=== PATIENT | female | born 1975 | race Caucasian/White ===

== ENCOUNTER → 2020-03-19 14:10 | Outpatient (BNVA) | payer MEDICAID, SELFPAY | PROVIDERS: PCP Nurse Practitioner Family; Visit Provider Orthopaedic Surgery | DX: M17.0 Bilateral primary osteoarthritis of knee (principal) | CPT/HCPCS: 99213 ==

== ENCOUNTER 2020-04-15 14:39 | Outpatient (REF) | payer MEDICAID, SELFPAY ==
[2020-04-16 02:27] LABS: CT PCR NOT DETECTED (Not Detect.); NG PCR NOT DETECTED (Not Detect.)
[2020-04-16 11:20] LABS: BV Int Neg Control Negative (Negative); BV Int Pos Control Positive (Positive)
== END 2020-04-15 14:40 | disposition home or self-care (01) ==
LOC: HO.LAB 14:39
PROVIDERS: PCP Nurse Practitioner Family; Visit Provider Advanced Practice Midwife
DX: R10.2 Pelvic and perineal pain (principal); R39.89 Other symptoms and signs involving the genitourinary system
CPT/HCPCS: 87480; 87491; 87510; 87591; 87660; 99212

== ENCOUNTER → 2020-04-20 10:48 | Outpatient (BNVA) | payer MEDICAID, SELFPAY | PROVIDERS: PCP Nurse Practitioner Family; Referring Provider Nurse Practitioner Family; Visit Provider Internal Medicine Endocrinology, Diabetes & Metabolism | DX: E05.00 Thyrotoxicosis with diffuse goiter without thyrotoxic crisis or storm (principal); E27.8 Other specified disorders of adrenal gland; E66.9 Obesity, unspecified; E04.2 Nontoxic multinodular goiter; E55.9 Vitamin D deficiency, unspecified | CPT/HCPCS: 99212 ==

== ENCOUNTER 2020-04-21 08:28 | Outpatient (REF) | payer MEDICAID, SELFPAY ==
[2020-04-21 10:07] LABS: Alanine Aminotransferase 13 U/L (0-31); Albumin Level 3.9 g/dL (3.5-5.0); Alkaline Phosphatase 79 U/L (39-117); Anion Gap 10 (12-20); Aspartate Amino Transferase 15 U/L (5-31); Bilirubin Total 0.7 mg/dL (0.0-1.0); Blood Urea Nitrogen 11 mg/dL (9-16); Calcium 8.5 mg/dL (8.4-10.2); Carbon Dioxide 28 mmol/L (22-29); Chloride 105 mmol/L (96-108); Estimated Glomerular Filt Rate > 60; Glucose Fasting 94 mg/dL (60-99); Potassium 4.3 mmol/l (3.3-5.1); Sodium 139 mmol/L (135-145); Total Protein 7.3 g/dL (6.5-8.0)
[2020-04-21 10:30] LABS: Free T4 (Free Thyroxine) 1.12 ng/dL (0.71-1.85); Thyroid Stimulating Hormone 1.47 mIU/mL (0.32-4.0); Vitamin D 25-OH Total 21.1 ng/mL (>30)
--- NOTE | 2020-04-21 14:30 | US_ITS ---
EXAMINATION: US PELVIS COMPLETE CLINICAL INFORMATION: Pelvic and perineal pain. COMPARISON: None TECHNIQUE: Transabdominal and transvaginal imaging of pelvis is performed. FINDINGS: On transabdominal ultrasound the uterus is anteverted and anteflexed measuring 11.0 cm in length, 4.1 cm in AP and 5.2 cm wide. Endometrial thickness is 1.1 cm. Small echogenic calcifications seen in the myometrium. There are small anechoic cysts in cervix. Right ovary measures 2.6 x 1.8 x 2.2 cm and volume 5.4 mL. There is anechoic cyst measuring 1.0 x 1.1 x 1.2 cm. The left ovary measures 2.1 x 1.7 x 1.2 cm and volume 2.2 mL. There is anechoic cyst measuring 1.1 x 1.2 x 1.0 cm. There is no free fluid in the cul-de-sac. US/US transvaginal IMPRESSION: Small nabothian cysts in the cervix. Echogenic calcifications in the myometrium. No focal lesion seen. Bilateral small ovarian cysts. There is no free fluid in the cul-de-sac.
--- NOTE | 2020-04-21 14:30 | US_ITS ---
EXAMINATION: US PELVIS COMPLETE CLINICAL INFORMATION: Pelvic and perineal pain. COMPARISON: None TECHNIQUE: Transabdominal and transvaginal imaging of pelvis is performed. FINDINGS: On transabdominal ultrasound the uterus is anteverted and anteflexed measuring 11.0 cm in length, 4.1 cm in AP and 5.2 cm wide. Endometrial thickness is 1.1 cm. Small echogenic calcifications seen in the myometrium. There are small anechoic cysts in cervix. Right ovary measures 2.6 x 1.8 x 2.2 cm and volume 5.4 mL. There is anechoic cyst measuring 1.0 x 1.1 x 1.2 cm. The left ovary measures 2.1 x 1.7 x 1.2 cm and volume 2.2 mL. There is anechoic cyst measuring 1.1 x 1.2 x 1.0 cm. There is no free fluid in the cul-de-sac. US/US pelvic complete IMPRESSION: Small nabothian cysts in the cervix. Echogenic calcifications in the myometrium. No focal lesion seen. Bilateral small ovarian cysts. There is no free fluid in the cul-de-sac.
[2020-04-22 05:52] LABS: Triiodothyronine T3 Total 122 ng/dL (76-181)
[2020-04-22 09:42] LABS: DHEA Sulfate 513 mcg/dL (19-231)
== END 2020-04-21 08:29 | disposition home or self-care (01) ==
LOC: HO.US 08:28
PROVIDERS: Internal Medicine Endocrinology, Diabetes & Metabolism; PCP Nurse Practitioner Family; Visit Provider Advanced Practice Midwife
DX: R10.2 Pelvic and perineal pain (principal); E05.00 Thyrotoxicosis with diffuse goiter without thyrotoxic crisis or storm; E27.8 Other specified disorders of adrenal gland
CPT/HCPCS: 76830; 76856; 80053; 82306; 82627; 84439; 84443; 84480

== ENCOUNTER → 2020-05-05 11:40 | Outpatient (BNVA) | payer MEDICAID, SELFPAY | PROVIDERS: PCP Nurse Practitioner Family; Visit Provider Advanced Practice Midwife | DX: Z76.89 Persons encountering health services in other specified circumstances (principal) ==

== ENCOUNTER 2020-05-22 09:58 | Outpatient (REF) | payer MEDICAID, SELFPAY | END 2020-05-22 09:59 | disposition home or self-care (01) | LOC: HO.LAB 09:58 | PROVIDERS: PCP Nurse Practitioner Family; Visit Provider Internal Medicine Gastroenterology | DX: Z13.89 Encounter for screening for other disorder (principal) ==

== ENCOUNTER 2020-05-23 07:52 | Outpatient (REF) | payer MEDICAID, SELFPAY ==
[2020-05-23 09:15] LABS: Blood Urea Nitrogen 11 mg/dL (9-16); Estimated Glomerular Filt Rate > 60
[2020-05-23 11:32] LABS: C Reactive Protein 0.21 mg/dL (< or = 0.50)
[2020-05-23 11:42] LABS: Rheumatoid Factor < 15.0 IU/mL (<15.0)
[2020-05-25 14:22] LABS: Immunoglobulin A 604 mg/dL (47-310)
[2020-05-25 15:53] LABS: Adrenocorticotropic Hormone 37 pg/mL (6-50)
[2020-05-25 18:42] LABS: DHEA Sulfate 516 mcg/dL (19-231)
[2020-05-26 12:48] LABS: Transglutaminase Ab IgG 3 U/mL; Transglutaminase IgA 1 U/mL
[2020-05-26 15:33] LABS: Anti Nuclear Antibody Pattern Nuclear, Speckled; Anti Nuclear Antibody Screen POSITIVE (NEGATIVE)
[2020-05-27 16:58] LABS: DNAds, Crithidia Antibody Negative (Negative)
[2020-05-27 17:47] LABS: Dexamethasone <20 ng/dL
== END 2020-05-23 07:53 | disposition home or self-care (01) ==
LOC: HO.LAB 07:52
PROVIDERS: Internal Medicine Endocrinology, Diabetes & Metabolism; PCP Nurse Practitioner Family; Visit Provider Internal Medicine Gastroenterology
DX: K22.4 Dyskinesia of esophagus (principal); R13.14 Dysphagia, pharyngoesophageal phase; E27.8 Other specified disorders of adrenal gland
CPT/HCPCS: 36415; 80299; 82024; 82533; 82550; 82565; 82627; 82784; 83516; 84520; 86038; 86039; 86140; 86255; 86431

== ENCOUNTER 2020-05-25 10:19 | Outpatient (REF) | payer MEDICAID, SELFPAY ==
[2020-05-29 18:57] LABS: Saliva Cortisol <0.03 mcg/dL
== END 2020-05-25 10:20 | disposition home or self-care (01) ==
LOC: HO.LNPL 10:19
PROVIDERS: Visit Provider Internal Medicine Endocrinology, Diabetes & Metabolism
DX: E27.8 Other specified disorders of adrenal gland (principal)
CPT/HCPCS: 82530

== ENCOUNTER 2020-05-26 09:50 | Outpatient (REF) | payer MEDICAID, SELFPAY ==
--- NOTE | 2020-05-26 09:53 | CT_ITS ---
EXAMINATION: CT ABDOMEN WITHOUT AND WITH CONTRAST CLINICAL INFORMATION: Disorders of adrenal gland. COMPARISON: None TECHNIQUE: Contiguous axial thin section helical images of the abdomen were performed before and after the administration of 100 mL of Omnipaque 350 intravenous contrast as per adrenal protocol. The data set was reformatted in the coronal and sagittal planes and reviewed on an independent workstation. This CT examination was performed using dose optimization techniques as appropriate, variously including the following: *Automated exposure control *Adjustment of mA and/or kV according to patient size (this includes techniques or standardized protocols for targeted exams where dose is matched to indication/reason for exam; i.e. extremities or head) *Use of iterative reconstruction technique DLP: 674 mGy-cm FINDINGS: LUNG BASES: The lung bases are expanded and clear. The heart size is normal. LIVER, GALLBLADDER, AND BILIARY TREE: The liver is normal size and contour. There is diffuse attenuation of liver with punctate 2 mm lesion in left hepatic lobe, image 13/7 most likely a small cyst. No additional lesions seen. There is no intrahepatic ductal dilatation. The gallbladder appears nondistended and unremarkable. PANCREAS: The pancreas is normal size and density. No focal lesion seen. SPLEEN: The spleen is normal size and appears unremarkable. ADRENAL GLANDS AND KIDNEYS: Both adrenal glands are normal size, shape and position. No focal lesion seen. Both kidneys are normal size, shape and position. No radiopaque calculi, enhancing renal mass or hydronephrosis seen. There is good opacification of kidney, pelvis and ureters on delayed images without any intraluminal filling defect. BOWEL LOOPS: There is scattered stool in the colon without any distention. The small bowel loops are normal caliber. The stomach is nondistended. LYMPH NODES: Normal VASCULAR: Abdominal aorta and the branches are widely patent.. BONES: There is mild degenerative disc changes at L1-L2 disc level with mild ventral spondylosis. There is a large sclerotic density along the superior endplate of L1 vertebra. CT/CT abdomen wo/w con IMPRESSION: Symmetrical adrenal glands without any focal lesion or enhancement seen. Mild fatty attenuation of liver with likely punctate cyst left hepatic lobe.
[2020-05-26] MEDS: iohexoL 350 MG/ML 100 ML INFUS..BTL 85 ML IV (11:12)
== END 2020-05-26 09:51 | disposition home or self-care (01) ==
LOC: HO.CT 09:50
PROVIDERS: Visit Provider Internal Medicine Endocrinology, Diabetes & Metabolism
DX: E27.8 Other specified disorders of adrenal gland (principal)
CPT/HCPCS: 74170; Q9967

== ENCOUNTER 2020-06-10 07:56 | Outpatient (REF) | payer MEDICAID, SELFPAY ==
--- NOTE | 2020-06-10 08:04 | FL_ITS ---
EXAMINATION: FL BARIUM SWALLOW CLINICAL INFORMATION: Dysphagia COMPARISON: Previous exam March 2018 TECHNIQUE: Barium swallow examination is performed using fluoroscopic evaluation in addition to multiple fluoroscopic spot views. The patient is imaged both upright and prone and using both thick and thin sulfate along with effervescent granules. Patient refused barium tablet. Fluoroscopy time: 1.2 minutes DAP: 5.2 Gycm2 Images: 66 FINDINGS: The swallowing mechanism is normal. No aspiration or penetration is seen. There is mild impression on the posterior cervical esophagus from vertebral body bony osteophyte. Esophageal motility is normal. No hernia, mass or stricture is seen. There is gastroesophageal reflux. FL/FL barium swallow IMPRESSION: Gastroesophageal reflux. Mild impression on the posterior cervical esophagus from cervical spine vertebral body bony osteophyte.
== END 2020-06-10 07:57 | disposition home or self-care (01) ==
LOC: HO.XRAY 07:56
PROVIDERS: PCP Nurse Practitioner Family; Visit Provider Internal Medicine Gastroenterology
DX: R13.14 Dysphagia, pharyngoesophageal phase (principal); K22.4 Dyskinesia of esophagus; R76.8 Other specified abnormal immunological findings in serum
CPT/HCPCS: 74220

== ENCOUNTER 2020-06-14 13:29 | Emergency (ER) | payer MEDICAID, SELFPAY ==
[2020-06-14 14:53] VITALS: BP 149/66; PULSE 98; RESP 18; TEMP 36.9; O2SAT 98; BMI 28.1
--- NOTE | 2020-06-14 16:55 | ED.GENADULT ---
HPI - General Adult General Chief complaint: General Medical Stated complaint: esophageal problem Time Seen by Provider: 06/14/20 16:54 Source: patient Mode of arrival: ambulatory Limitations: no limitations History of Present Illness HPI narrative: 45 y/o female with history of phayngeoesophageal dysphagia, Grave's disease, hx hypoglycemia osteoarthritis who presents with pre-syncopal episode that happened earlier today. She states she felt faint and SOB after she got out of the shower. This has happened before when her blood glucose was low so she drank sugar water. She states she had tingling in her left arm and chest pain. The pain is central and similar to her esophageal pain. She states all of the symptoms are improved but she has residual muscle aches in her neck and arms. For the last 2 weeks she has been unable to tolerate her usual blended food diet and has been drinking protein shakes and eating ice cream only. Her GI specialist is aware and she just had a barrium swallow done on 06/10. She has been able to tolerate PO liquids today. MD complaint: pre-syncope Onset (ago): hour(s) (5) Location: chest, left and upper extremity Radiation: non-radiation Severity: moderate and similar to prior episodes Severity scale (1-10): 5 Quality: aching and sharp Pain Consistency: intermittent and now resolved Relieving factors: none and rest Exacerbating factors: eating Associated symptoms: chest pain and shortness of breath Treatments prior to arrival: none Related Data Home Medications Medication Instructions Recorded Confirmed albuterol sulfate 90 mcg/actuation 2 puff INHALATION Q6H PRN 05/21/20 05/21/20 aerosol inhaler cholecalciferol (vitamin D3) 50 50 mcg PO DAILY 05/21/20 05/21/20 mcg (2,000 unit) capsule Previous Rx's Medication Instructions Recorded dexamethasone 1 mg tablet 1 mg PO ONCE 1 Days #1 tab 04/30/20 metronidazole 0.75 % vaginal gel 1 appful VAGINAL DAILY 5 Days #70 g 05/05/20 metoclopramide HCl 10 mg tablet 10 mg PO .COMPLEX 30 Days #90 tab 05/21/20 Allergies Allergy/AdvReac Type Severity Reaction Status Date / Time No Known Allergies Allergy Verified 03/19/20 14:13 [No Known Allergies*] cbd cream Allergy Hives Uncoded 04/20/20 10:52 Review of Systems Review of Systems: Constitutional: No Fever, No Chills ENT/Mouth: No sore throat, No Rhinorrhea, + Swallowing Difficulty Eyes: No Eye Pain, No Swelling, No Redness Cardiovascular: + Chest Pain, + SOB, No Orthopnea, No Edema Respiratory: No Cough, No Sputum, No Wheezing, No dyspnea Gastrointestinal: No Nausea, No Vomiting, No Diarrhea, No abdominal Pain Musculoskeletal: No joint pain, No Myalgias Skin: No Skin Lesions, No rash Neuro: No Weakness, No Numbness, No Dizziness, + Headache Psych: + Anxiety/Panic, No Depression Heme/Lymph: No Bruising, No Lymphadenopathy Endocrine: No Polyuria, No Polydipsia PMFSH Past Medical History Attestation statement: The following information was validated with the patient. Medical History Degenerative arthritis of knee, bilateral Elevated dehydroepiandrosterone sulfate level Graves disease Non-toxic multinodular goiter Obesity Vitamin D deficiency Surgical History History of tonsillectomy History of tubal ligation Family History Family History Father Diabetes Mother Breast cancer Brother No problems noted. Brother No problems noted. Brother No problems noted. Brother No problems noted. Brother No problems noted. Sister No problems noted. Sister No problems noted. Social History Social History Alcohol intake: never Smoking Status: Never smoker Smoked in Last 30 Days: No Use of substances other than those prescribed or required for medical reasons: No Advance Directives: No Advance Directives Information Provided: Yes Sexual orientation: Straight/Heterosexual Gender identity: female Physical Exam Vital Signs: Vital Signs: Last Vital Signs Temp 98.4 F 06/14/20 14:53 Pulse 98 06/14/20 14:53 Resp 18 06/14/20 14:53 BP 149/66 H 06/14/20 14:53 Pulse Ox 98 06/14/20 14:53 Body Mass Index 28.1 Appearance: Alert. Oriented X3. No acute distress. Eyes: Pupils equal, round and reactive to light. ENT: Pharynx normal. Neck: Normal inspection. Neck supple. CVS: Normal heart rate and rhythm. Pulses normal. Respiratory: No respiratory distress. Breath sounds normal. Abdomen: Soft and nontender. +BS x4 Skin: Skin warm and dry. Normal skin color. Normal skin turgor. No rashes. Extremities: No lower extremity edema. Neuro: Oriented X 3. No motor deficit. No sensory deficit. Course Course Course Narrative: 45 y/o female presenting with pre-syncopal episode this afternoon with associated chest pain, SOB and arm tingling. Extensive 3 year history of dysphasia on blended liquid diet, suspect event was precipitated by hypoglycemic event and exacerbated by anxiety. Her symptoms are greatly improved. Able to drink water here. Exam and VS are reassuring. No cardiac risk factors, doubt ACS or PE. Will get EXG, CXR and basic lab workup. Signed out to [facility] OPERATOR who will assume care. Medical Decision Making Lab Data Result diagrams: 06/14/20 17:29 06/14/20 17:30 ECG Data Attestation: I personally reviewed and interpreted this ECG as follows: Interpretation: normal sinus rhythm, HR 79 bpm, nomral VA interval, normal QTc, no ischemic changes. Discharge Plan Discharge Patient Disposition: Home, Self-Care Prescriptions: No Action dexamethasone 1 mg tablet 1 mg PO ONCE 1 Days Qty: 1 RF: 0 metronidazole [Metrogel Vaginal] 0.75 % gel 1 appful vaginal DAILY 5 Days Qty: 70 RF: 0 albuterol sulfate [ProAir HFA] 90 mcg/actuation HFA aerosol inhaler 2 puff inhalation Q6H PRNRF: 0 cholecalciferol (vitamin D3) 50 mcg (2,000 unit) capsule 50 mcg PO DAILY RF: 0 metoclopramide HCl [Reglan] 10 mg tablet 10 mg PO .COMPLEX 30 Days Qty: 90 RF: 3
--- NOTE | 2020-06-14 17:10 | ECG_ITS ---
Test Reason : SHORTNESS OF BREATH Blood Pressure : / mmHG Vent. Rate : 079 BPM Atrial Rate : 079 BPM P-R Int : 196 ms QRS Dur : 076 ms QT Int : 368 ms P-R-T Axes : 074 044 047 degrees QTc Int : 421 ms Normal sinus rhythm Normal ECG No previous ECGs available Referred By: Tali Dominguez Electronically Signed By:SOSA COOK
--- NOTE | 2020-06-14 17:11 | XR_ITS ---
EXAMINATION: XR CHEST CLINICAL INFORMATION: Shortness of breath COMPARISON: None TECHNIQUE: Frontal portable view of the chest was obtained. 5:42 PM FINDINGS: No significant abnormality is noted involving the heart, lungs, mediastinum, bony thorax or soft tissues. XR/XR chest 1V IMPRESSION: Unremarkable examination.
[2020-06-14 17:35] LABS: MANUAL DIFF FLAG NO
[2020-06-14 17:47] LABS: Basophils Percent Auto 0.4 % (0-2); Eosinophils Absolute Auto 0.1 X10*3/uL (0.0-0.4); Eosinophils Percent Auto 0.8 % (0-4); Hematocrit 40.2 % (37-47); Imm Gran Abs Auto 0.02 X10*3/uL (0.00-0.03); Imm Gran Pct Auto 0.3 % (0.0-0.4); Lymphocytes Absolute Auto 2.1 X10*3/uL (1.2-4.9); Lymphocytes Percent Auto 27.6 % (20-40); Mean Corpuscular HGB Conc 32.3 g/dl (31.0-35.0); Mean Corpuscular Hemoglobin 27.8 pg (27.0-33.0); Mean Corpuscular Volume 86.1 fL (80-98); Mean Platelet Volume 10.4 fL (9.4-12.3); Monocytes Absolute Auto 0.3 X10*3/uL (0.1-1.2); Monocytes Percent Auto 4.1 % (2-11); Neutrophils Absolute Auto 5.1 X10*3/uL (2.0-8.3); Neutrophils Percent Auto 66.8 % (45-73); Platelet Count 247 X10*3/uL (160-400); Red Blood Count 4.67 X10*6/uL (4.20-5.50); White Blood Count 7.6 X10*3/uL (4.8-10.8)
[2020-06-14 18:03] LABS: Anion Gap 11 (12-20); Blood Urea Nitrogen 8 mg/dL (9-16); Calcium 8.8 mg/dL (8.4-10.2); Carbon Dioxide 26 mmol/L (22-29); Chloride 105 mmol/L (96-108); Creatinine Clr Calc Pharmacy 98.8; Estimated Glomerular Filt Rate > 60; Glucose Random 90 mg/dL (60-115); Magnesium 2.2 mg/dL (1.6-2.6); Potassium 4.4 mmol/l (3.3-5.1); Sodium 138 mmol/L (135-145)
[2020-06-14 18:07] LABS: Troponin-I High Sensitivity < 3.5 ng/L (<3.5-17.0)
[2020-06-14 18:45] VITALS: RESP 16
[2020-06-14 20:25] VITALS: BP 128/72; PULSE 82; RESP 17; TEMP 36.9; O2SAT 98
== END 2020-06-14 20:42 | disposition home or self-care (01) ==
PROVIDERS: Physician Assistant; Emergency Provider Emergency Medicine; PCP Nurse Practitioner Family
DX: R55 Syncope and collapse (principal); R07.9 Chest pain, unspecified
CPT/HCPCS: 36415; 71045; 80048; 83735; 84484; 85025; 93005; 99283; 99284

== ENCOUNTER 2020-06-17 15:13 | Emergency (ER) | payer MEDICAID, SELFPAY ==
--- NOTE | 2020-06-17 | XR_ITS ---
EXAMINATION: XR CHEST CLINICAL INFORMATION: Shortness of breath COMPARISON: Chest x-ray 06/14/2020 TECHNIQUE: 2 views of the chest were obtained. FINDINGS: No significant abnormality is noted involving the heart, lungs, mediastinum, bony thorax or soft tissues. XR/XR chest 2V IMPRESSION: Unremarkable examination.
[2020-06-17 19:22] VITALS: BP 153/75; PULSE 97; RESP 18; TEMP 36.9; O2SAT 97; BMI 44.9
--- NOTE | 2020-06-17 19:48 | ED_ITS ---
HPI - Anxiety General Chief Complaint: Anxiety Stated Complaint: SOB Time Seen by Provider: 06/17/20 19:46 Source: patient Mode of arrival: ambulatory Limitations: no limitations History of Present Illness HPI narrative: Increasing anxiety/panic attacks recently lost a close friend 3 days ago has been more emotional and intermittently having anxiety attacks with associated chest tightness. States he still can not believe that her friend . Patient history as noted below it is noted the patient was here actually 3 days ago on 06/14 had a full workup done including cardiac enzyme, EKG chest x-ray that was unremarkable. She was prescribed hydroxyzine on the last visit states she took it it helped for about 3 hours prior to arrival but still feel anxious. MD complaint: anxiety Severity: moderate Quality: intermittent Place: home History of similar episodes: Yes Provoking factors: none known Relieving factors: nothing Exacerbating factors: nothing Associated symptoms: denies other symptoms Related Data Home Medications Medication Instructions Recorded Confirmed albuterol sulfate 90 mcg/actuation 2 puff INHALATION Q6H PRN 05/21/20 05/21/20 aerosol inhaler cholecalciferol (vitamin D3) 50 50 mcg PO DAILY 05/21/20 05/21/20 mcg (2,000 unit) capsule Previous Rx's Medication Instructions Recorded dexamethasone 1 mg tablet 1 mg PO ONCE 1 Days #1 tab 04/30/20 metronidazole 0.75 % vaginal gel 1 appful VAGINAL DAILY 5 Days #70 g 05/05/20 metoclopramide HCl 10 mg tablet 10 mg PO .COMPLEX 30 Days #90 tab 05/21/20 hydroxyzine HCl 25 mg PO BID PRN #10 tab 06/14/20 lidocaine 1 patch TOPICAL Q24H PRN #10 ea 06/14/20 lorazepam [Ativan] 0.5 mg PO BID PRN #10 tab 06/17/20 Allergies Allergy/AdvReac Type Severity Reaction Status Date / Time No Known Allergies Allergy Verified 03/19/20 14:13 [No Known Allergies*] cbd cream Allergy Hives Uncoded 04/20/20 10:52 Review of Systems Review of Systems: Constitutional: No Weight loss, No Fever, No Chills, No Night Sweats, No Fatigue, No Malaise ENT/Mouth: No Hearing loss, No Ear Pain, No Nasal Congestion, No Sinus Pain, No Hoarseness, No sore throat, No Rhinorrhea, No Swallowing Difficulty Eyes: No Eye Pain, No Swelling, No Redness, No Foreign Body, No Discharge, No Vision Changes Cardiovascular: No Chest Pain, positive SOB at times of panic attack, No Dyspnea on Exertion, No Orthopnea, No Edema, No Palpitations Respiratory: No Cough, No Sputum, No Wheezing, No Smoke Exposure, No Dyspnea Gastrointestinal: No Nausea, No Vomiting, No Diarrhea, No Constipation, No abdominal Pain, No Hematochezia, No Melena Genitourinary: no irregular bleeding, No Dysuria, No Urinary Frequency, No Hematuria, No Urinary Incontinence, No Urgency, No Flank Pain, No Urinary Flow Changes, No Hesitancy Musculoskeletal: No joint pain, No Myalgias, No Joint Swelling Skin: No Skin Lesions, No rash Neuro: No Weakness, No Numbness, No Paresthesias, No Loss of Consciousness, No Dizziness, No Headache Psych: Positive Anxiety/Panic, No Depression, No SI/HI/AH/VH Heme/Lymph: No Bruising, No Bleeding,No Lymphadenopathy Endocrine: No Polyuria, No Polydipsia, No Temperature Intolerance Yes all other systems are reviewed and are negative [facility] Past Medical History Medical History Degenerative arthritis of knee, bilateral Elevated dehydroepiandrosterone sulfate level Graves disease Non-toxic multinodular goiter Obesity Vitamin D deficiency Surgical History History of tonsillectomy History of tubal ligation Family History Family History Father Diabetes Mother Breast cancer Brother No problems noted. Brother No problems noted. Brother No problems noted. Brother No problems noted. Brother No problems noted. Sister No problems noted. Sister No problems noted. Social History Social History Alcohol intake: never Smoking Status: Never smoker Use of substances other than those prescribed or required for medical reasons: No Advance Directives: No Advance Directives Information Provided: Yes Sexual orientation: Straight/Heterosexual Gender identity: female Physical Exam Vital Signs: Vital Signs: Last Vital Signs Temp 98.4 F 06/17/20 19:22 Pulse 97 06/17/20 19:22 Resp 18 06/17/20 19:22 BP 153/75 H 06/17/20 19:22 Pulse Ox 97 06/17/20 19:22 Body Mass Index 44.9 Reviewed Const: Other: Visibly anxious and/leg twitch. Becomes tearful easily when she talks about her friend's unexpectedly. General: cooperative; No acute distress or intoxicated appearing Nutritional Appearance: average body habitus Orientation/consciousness: patient oriented x3 HENMT: Head: Yes normal to inspection Ears: hearing grossly normal bilaterally Eyes: General: appearance normal, both eyes and all related structures Visual Dai: normal visual dai by confrontation Neck: Neck: Yes normal visual inspection, No positive Brudzinski's sign, No positive Kernig's sign and No tender Thyroid: Thyroid normal Chest: Chest palpation & inspection: normal inspection of the chest Resp: Effort & Inspection: normal respiratory effort Auscultation: clear to auscultation bilaterally Cardio: Jugular venous distension: no JVD Rate: regular rate Rhythm: regular rhythm Heart sounds: S1 normal heart sound present and S2 normal heart sound present GI: Inspection: Yes normal to inspection Percussion: Yes normal to percussion Auscultation: normal bowel sounds : General: Yes no CVA tenderness Back/Spine/Pelvis: Back: no CVA tenderness Skin: General skin exam: no rashes or lesions noted Neuro: General: patient oriented x3 Extrem: General: Yes normal to inspection MDM - Anxiety MDM Narrative Medical decision making narrative: AP consistent with exacerbation of anxiety disorder was given hydroxyzine on a prior visit has helped minimally has only taken 1 dose. Will give her lorazepam she does have primary appointment coming up next week. She had EKG and chest x-ray done as protocol in triage was nondiagnostic. She does not want to talk to anybody here in relation to getting therapy given there was a wait time would like to just go and follow up with her primary care doctor. Differential Diagnosis Differential diagnosis: Likely hyperventilation, panic disorder and acute anxiety Medical Records Attestation: I reviewed the patient's medical records. Lab Data Attestation: I reviewed the patient's lab results. Imaging Data Chest x-ray: Radiologist's impression: [address] [address] XRay Report Signed Patient: Crystal IvanMR#: [id number] : 1975Acct:[id number] Age/Sex: 45 / FADM Date: 06/17/20 Loc: HO.ED Attending Dr: Ordering Physician: [place] ED Physician Date of Service: 06/17/20 Procedure(s): XR chest 2V Accession Number(s): [id number] cc: Generic ED Physician~ EXAMINATION: XR CHEST CLINICAL INFORMATION: Shortness of breath COMPARISON: Chest x-ray 06/14/2020 TECHNIQUE: 2 views of the chest were obtained. FINDINGS: No significant abnormality is noted involving the heart, lungs, mediastinum, bony thorax or soft tissues. XR/XR chest 2V IMPRESSION: Unremarkable examination. Dictated By:CAROL JOYA MD Signed By:<Electronically signed by CAROL JOYA MD in OV>06/17/201945 DD/ 32 TD/TT: Face Hardener: WISAM Discharge Plan Discharge Clinical Impression: Acute anxiety Patient Disposition: Home, Self-Care Instructions: Anxiety (ED) Additional Instructions: Stress relieving techniques as reviewed Well-balanced diet Drink plenty of fluids Taking medication prescribed Return if any concerns or worsening symptoms otherwise follow-up with her primary care doctor at [facility] as planned Thank you Prescriptions: New lorazepam [Ativan] 0.5 mg tablet 0.5 mg PO BID PRN (Reason: anxiety) Qty: 10 RF: 0 No Action dexamethasone 1 mg tablet 1 mg PO ONCE 1 Days Qty: 1 RF: 0 hydroxyzine HCl 25 mg tablet 25 mg PO BID PRN (Reason: anxiety) Qty: 10 RF: 0 lidocaine 4 % adhesive patch,medicated 1 patch topical Q24H PRN (Reason: pain) Qty: 10 RF: 0 metronidazole [Metrogel Vaginal] 0.75 % gel 1 appful vaginal DAILY 5 Days Qty: 70 RF: 0 albuterol sulfate [ProAir HFA] 90 mcg/actuation HFA aerosol inhaler 2 puff inhalation Q6H PRNRF: 0 cholecalciferol (vitamin D3) 50 mcg (2,000 unit) capsule 50 mcg PO DAILY RF: 0 metoclopramide HCl [Reglan] 10 mg tablet 10 mg PO .COMPLEX 30 Days Qty: 90 RF: 3 Referrals: Andrez Keen [Emergency Nurse] - 2 days Interventions: ED Discharge Assessment Last Done: 06/17/20 20:05 Discharge Date/Time: 06/17/20 20:06
== END 2020-06-17 20:06 | disposition home or self-care (01) ==
PROVIDERS: Emergency Provider Emergency Medicine
DX: F41.9 Anxiety disorder, unspecified (principal); Z63.4 Disappearance and death of family member
CPT/HCPCS: 71046; 99283; 99284

== ENCOUNTER 2020-06-19 15:44 | Emergency (ER) | payer MEDICAID, SELFPAY ==
[2020-06-19 15:50] VITALS: BP 135/61; PULSE 108; RESP 18; TEMP 37; O2SAT 99; BMI 29.7
[2020-06-19 16:28] VITALS: BP 131/64; PULSE 83; RESP 18; TEMP 36.7; O2SAT 100
--- NOTE | 2020-06-19 16:37 | ED_ITS ---
HPI - Anxiety General Chief Complaint: Anxiety Stated Complaint: anxiety Time Seen by Provider: 06/19/20 16:34 Source: patient Mode of arrival: ambulatory Limitations: no limitations History of Present Illness HPI narrative: 45 yo female with chronic dysphagia and now suffering from anxiety because it is getting worse she is here wanting to talk to crisis as she states she cannot live like this MD complaint: anxiety Onset (ago): week(s) (several) Symptoms: dyspnea Severity: similar to previous episodes Quality: constant Place: home History of similar episodes: Yes Provoking factors: other (her dysphagia) Relieving factors: medication and deep breaths Exacerbating factors: thinking about event Associated symptoms: denies other symptoms Related Data Home Medications Medication Instructions Recorded Confirmed cholecalciferol (vitamin D3) 50 50 mcg PO DAILY 05/21/20 06/19/20 mcg (2,000 unit) capsule metoclopramide HCl 10 mg PO TID 06/19/20 06/19/20 Previous Rx's Medication Instructions Recorded lorazepam [Ativan] 0.5 mg PO BID PRN #10 tab 06/17/20 hydroxyzine HCl 25 mg PO TID PRN #30 tab 06/19/20 Allergies Allergy/AdvReac Type Severity Reaction Status Date / Time No Known Allergies Allergy Verified 03/19/20 14:13 [No Known Allergies*] cbd cream Allergy Hives Uncoded 04/20/20 10:52 Review of Systems Review of Systems: Constitutional : No Fever, No Chills ENT/Mouth : No Ear Pain, No Nasal Congestion, No sore throat Eyes: No Eye Pain, No Swelling, No Redness Cardiovascular : No Chest Pain, No SOB Respiratory : No Cough, No Sputum, pos Dyspnea Gastrointestinal : No Nausea, No Vomiting, No Diarrhea, No Hematochezia, No Melena Genitourinary : No Dysuria, No Urinary Frequency, No Hematuria Musculoskeletal : No Myalgias Skin : No Skin Lesions, No rash Neuro : No Weakness, No Numbness, No Paresthesias, No Dizziness, No Headache Psych : positive Anxiety, positive Depression, no SI/HI Heme/Lymph: No Lymphadenopathy Endocrine : No Polyuria, No Polydipsia All other systems reviewed and are negative PMFSH Past Medical History Attestation statement: The following information was validated with the patient. Medical History Degenerative arthritis of knee, bilateral Elevated dehydroepiandrosterone sulfate level Graves disease Non-toxic multinodular goiter Obesity Vitamin D deficiency Surgical History History of tonsillectomy History of tubal ligation Family History Family History Father Diabetes Mother Breast cancer Brother No problems noted. Brother No problems noted. Brother No problems noted. Brother No problems noted. Brother No problems noted. Sister No problems noted. Sister No problems noted. Social History Social History Alcohol intake: unknown Smoking Status: Unknown if ever smoked Use of substances other than those prescribed or required for medical reasons: Unknown Advance Directives: No Advance Directives Information Provided: No Sexual orientation: Straight/Heterosexual Gender identity: female Physical Exam Vital Signs: Vital Signs: Last Vital Signs Temp 98.0 F 06/19/20 16:28 Pulse 83 06/19/20 16:28 Resp 18 06/19/20 16:28 BP 131/64 06/19/20 16:28 Pulse Ox 100 06/19/20 16:28 Body Mass Index 29.7 Appearance: Alert. Oriented X3. No acute distress. Anxiety Eyes: Pupils equal, round and reactive to light. ENT: Pharynx normal. Neck: Normal inspection. Neck supple. CVS: Normal heart rate and rhythm. Pulses normal. Respiratory: No respiratory distress. Breath sounds normal. Abdomen: Soft and nontender. Skin: Skin warm and dry. Normal skin color. Normal skin turgor. Extremities: No lower extremity edema. No calf ttp Neuro: Oriented X 3. No motor deficit. No sensory deficit. Course Course Course Narrative: Aye has seen the patient will expedite therapist MDM - Anxiety MDM Narrative Medical decision making narrative: 45 yo female with dysphagia and anxiety here requesting to see APOLINAR for anxiety at this time will need labs, Aye consult, she is voluntary Lab Data Result diagrams: 06/19/20 17:15 06/19/20 17:15 Labs: Lab Results 06/19/20 Range/Units 17:15 WBC 7.2 (4.8-10.8) X10*3/uL RBC 4.78 (4.20-5.50) X10*6/uL Hgb 13.3 (12.0-16.0) g/dl Hct 40.8 (37-47) % MCV 85.4 (80-98) fL MCH 27.8 (27.0-33.0) pg MCHC 32.6 (31.0-35.0) g/dl RDW 12.8 (11.0-16.0) % Plt Count 233 (160-400) X10*3/uL MPV 10.5 (9.4-12.3) fL Immature Gran % (Auto) 0.3 (0.0-0.4) % Neut % (Auto) 64.6 (45-73) % Lymph % (Auto) 27.0 (20-40) % [place] % (Auto) 6.1 (2-11) % Eos % (Auto) 1.3 (0-4) % Baso % (Auto) 0.7 (0-2) % Lymph # (Auto) 1.9 (1.2-4.9) X10*3/uL [place] # (Auto) 0.4 (0.1-1.2) X10*3/uL Eos # (Auto) 0.1 (0.0-0.4) X10*3/uL Baso # (Auto) 0.1 (0.0-0.2) X10*3/uL Abs Immat Gran (auto) 0.02 (0.00-0.03) X10*3/uL Absolute Neuts (auto) 4.6 (2.0-8.3) X10*3/uL Absolute Nucleated RBC 0.000 (0.0-0.012) X10*3/uL Nucleated RBC % (auto) 0.0 (0.0-0.2) /100WBC Discharge Plan Discharge Clinical Impression: Acute anxiety Patient Disposition: Home, Self-Care Instructions: Anxiety (ED) Additional Instructions: return to ED for any worsening symptoms or concerns Prescriptions: New hydroxyzine HCl 25 mg tablet 25 mg PO TID PRN (Reason: anxiety) Qty: 30 RF: 0 No Action lorazepam [Ativan] 0.5 mg tablet 0.5 mg PO BID PRN (Reason: anxiety) Qty: 10 RF: 0 metoclopramide HCl 10 mg Tablet 10 mg PO TID RF: 0 cholecalciferol (vitamin D3) 50 mcg (2,000 unit) capsule 50 mcg PO DAILY RF: 0 Referrals: [facility] [Physician] - 2 days (they will follow up and help you get a therapist) Stand Alone Forms: Work/School Release
--- NOTE | 2020-06-19 17:18 | PC.NURSE ---
[facility] at bedside for eval.
[2020-06-19 17:23] LABS: Basophils Absolute Auto 0.1 X10*3/uL (0.0-0.2); Basophils Percent Auto 0.7 % (0-2); Eosinophils Absolute Auto 0.1 X10*3/uL (0.0-0.4); Eosinophils Percent Auto 1.3 % (0-4); Hematocrit 40.8 % (37-47); Hemoglobin 13.3 g/dl (12.0-16.0); Imm Gran Abs Auto 0.02 X10*3/uL (0.00-0.03); Imm Gran Pct Auto 0.3 % (0.0-0.4); Lymphocytes Absolute Auto 1.9 X10*3/uL (1.2-4.9); MANUAL DIFF FLAG NO; Mean Corpuscular HGB Conc 32.6 g/dl (31.0-35.0); Mean Corpuscular Hemoglobin 27.8 pg (27.0-33.0); Mean Corpuscular Volume 85.4 fL (80-98); Mean Platelet Volume 10.5 fL (9.4-12.3); Monocytes Absolute Auto 0.4 X10*3/uL (0.1-1.2); Monocytes Percent Auto 6.1 % (2-11); Neutrophils Absolute Auto 4.6 X10*3/uL (2.0-8.3); Neutrophils Percent Auto 64.6 % (45-73); Platelet Count 233 X10*3/uL (160-400); Red Blood Count 4.78 X10*6/uL (4.20-5.50); Red Cell Distribution Width 12.8 % (11.0-16.0); White Blood Count 7.2 X10*3/uL (4.8-10.8)
[2020-06-19 17:54] LABS: Alanine Aminotransferase 16 U/L (0-31); Albumin Level 4.1 g/dL (3.5-5.0); Alkaline Phosphatase 73 U/L (39-117); Anion Gap 11 (12-20); Aspartate Amino Transferase 13 U/L (5-31); Bilirubin Direct 0.2 mg/dL (0.0-0.5); Bilirubin Total 0.3 mg/dL (0.0-1.0); Blood Urea Nitrogen 6 mg/dL (9-16); Calcium 8.9 mg/dL (8.4-10.2); Carbon Dioxide 27 mmol/L (22-29); Chloride 106 mmol/L (96-108); Creatinine Clr Calc Pharmacy 102.7; Estimated Glomerular Filt Rate > 60; Glucose Random 103 mg/dL (60-115); Potassium 3.8 mmol/l (3.3-5.1); Sodium 140 mmol/L (135-145); Total Protein 7.5 g/dL (6.5-8.0)
[2020-06-19 18:36] LABS: Amphetamine Screen Urine Not Detected (Not Detect); Barbiturates, Urine Not Detected (Not Detect); Benzodiazepines Screen Urine Not Detected (Not Detect); Cannabinoid Screen Urine Not Detected (Not Detect); Cocaine Screen Urine Not Detected (Not Detect); Opiate Screen Urine Not Detected (Not Detect); Phencyclidine Screen Urine Not Detected (Not Detect)
== END 2020-06-19 19:02 | disposition home or self-care (01) ==
PROVIDERS: Emergency Provider Emergency Medicine
DX: F41.9 Anxiety disorder, unspecified (principal); Z79.899 Other long term (current) drug therapy
CPT/HCPCS: 36415; 80048; 80076; 80307; 85025; 99284

== ENCOUNTER 2020-07-10 15:34 | Outpatient (REF) | payer MEDICAID, SELFPAY ==
--- NOTE | 2020-07-10 | MM_ITS ---
EXAMINATION: MM SCREENING DIGITAL BREAST TOMOSYNTHESIS, BILATERAL CLINICAL INFORMATION: Screening. Asymptomatic. The lifetime risk of breast cancer based on the Tyrer-Cuzick Model is 18%. COMPARISON: Mammography: 06/04/2019, 03/14/2018, 02/27/2017 TECHNIQUE: Digital breast tomosynthesis is performed in both the craniocaudal and mediolateral oblique views along with computer-aided detection (CAD). Synthesized 2D images are generated from the tomosynthesis. FINDINGS: The breasts are almost entirely fatty (ACR BI-RADS breast composition Category a). Background stromal and fibroglandular densities are stable. There is no interval mass or architectural abnormality or abnormal calcifications. No significant changes. MM/MM tomosynthesis screening BI IMPRESSION: No mammographic evidence of malignancy. ASSESSMENT: BI-RADS 1: Negative RECOMMENDATION: Routine annual mammography screening. This patient's information was entered into a reminder system with a target due date for their next mammogram.
== END 2020-07-10 15:35 | disposition home or self-care (01) ==
LOC: HO.MAMMO 15:34
PROVIDERS: Visit Provider Nurse Practitioner Family
DX: Z12.31 Encounter for screening mammogram for malignant neoplasm of breast (principal)
CPT/HCPCS: 77063; 77067

== ENCOUNTER → 2020-07-14 15:40 | Outpatient (BNVA) | payer MEDICAID, SELFPAY | PROVIDERS: PCP Nurse Practitioner Family; Visit Provider Student in an Organized Health Care Education/Training Program | DX: R76.8 Other specified abnormal immunological findings in serum (principal) | CPT/HCPCS: 99202 ==

== ENCOUNTER 2020-07-15 13:23 | Outpatient (REF) | payer MEDICAID, SELFPAY ==
[2020-07-15 14:27] LABS: Glucose Urine UA NEG (NEG); Leukocyte Esterase Urine NEG (NEG); Nitrite Urine NEG (NEG); Specific Gravity - Urine <= 1.005 (1.005-1.025); Urine Blood NEG (NEG); Urine Ketones NEG (NEG); Urine Protein NEG (NEG-TRACE)
[2020-07-15 14:33] LABS: Appearance Urine CLEAR; Color Urine YELLOW
[2020-07-15 14:44] LABS: Mucus Urine TRACE /LPF; RBC Urine 0 /HPF (0); Squamous Epithelial Cell Urine TRACE /LPF; WBC Urine 0 /HPF (0-4)
[2020-07-16 10:27] LABS: Thyroglobulin Antibodies 2 IU/mL (< or = 1); Thyroid Peroxidase Antibodies 366 IU/mL (<9)
[2020-07-16 12:26] LABS: Antibody to SS-A Antigen <1.0 NEG AI (<1.0 NEG); Antibody to SS-B Antigen <1.0 NEG AI (<1.0 NEG); SM/Ribonucleoprotein Ab <1.0 NEG AI (<1.0 NEG); Scleroderma 70 Antibody <1.0 NEG AI (<1.0 NEG); Smith Protein <1.0 NEG AI (<1.0 NEG)
[2020-07-16 16:22] LABS: Complement C3 120 mg/dL (83-193)
[2020-07-17 07:47] LABS: Cyclic Citrullinated Peptide <16 UNITS
== END 2020-07-15 13:24 | disposition home or self-care (01) ==
LOC: HO.LAB 13:23
PROVIDERS: PCP Nurse Practitioner Family; Visit Provider Student in an Organized Health Care Education/Training Program
DX: R76.8 Other specified abnormal immunological findings in serum (principal)
CPT/HCPCS: 36415; 81001; 86160; 86200; 86235; 86376; 86800

== ENCOUNTER → 2020-08-19 13:19 | Outpatient (BNVA) | payer MEDICAID, SELFPAY | PROVIDERS: Visit Provider Student in an Organized Health Care Education/Training Program | DX: R76.8 Other specified abnormal immunological findings in serum (principal) | CPT/HCPCS: 99212 ==

== ENCOUNTER → 2020-09-24 15:17 | Outpatient (BNVA) | payer MEDICAID, SELFPAY | PROVIDERS: Visit Provider Internal Medicine Gastroenterology | DX: R13.14 Dysphagia, pharyngoesophageal phase (principal); K22.4 Dyskinesia of esophagus; Z79.899 Other long term (current) drug therapy | CPT/HCPCS: 99212 ==

== ENCOUNTER 2020-10-07 14:11 | Outpatient (REF) | payer MEDICAID, SELFPAY ==
[2020-10-07 15:50] LABS: C Reactive Protein 0.32 mg/dL (< or = 0.50)
[2020-10-07 16:15] LABS: Erythrocyte Sedimentation Rate 26 MM/HR (0-20)
[2020-10-07 16:25] LABS: Folate 10.7 ng/mL (> or = 4.0); Vitamin B12 478 pg/mL (200-900)
== END 2020-10-07 14:12 | disposition home or self-care (01) ==
LOC: HO.LAB 14:11
PROVIDERS: Visit Provider Internal Medicine Gastroenterology
DX: R76.8 Other specified abnormal immunological findings in serum (principal)
CPT/HCPCS: 36415; 82607; 82746; 85652; 86140

== ENCOUNTER 2020-10-19 13:02 | Outpatient (REF) | payer MEDICAID, SELFPAY ==
[2020-10-19 15:14] LABS: Free T4 (Free Thyroxine) 0.99 ng/dL (0.71-1.85)
[2020-10-19 15:16] LABS: Thyroid Stimulating Hormone 1.61 uIU/mL (0.32-4.0)
[2020-10-19 16:06] LABS: Erythrocyte Sedimentation Rate 23 MM/HR (0-20)
[2020-10-20 06:27] LABS: DHEA Sulfate 443 mcg/dL (19-231)
[2020-10-20 08:47] LABS: Triiodothyronine T3 Total 111 ng/dL (76-181)
[2020-10-20 13:17] LABS: Transglutaminase Ab IgG 4 U/mL; Transglutaminase IgA 1 U/mL
[2020-10-20 14:51] LABS: Immunoglobulin A 639 mg/dL (47-310)
== END 2020-10-19 13:03 | disposition home or self-care (01) ==
LOC: HO.LAB 13:02
PROVIDERS: Internal Medicine Gastroenterology; Visit Provider Internal Medicine Endocrinology, Diabetes & Metabolism
DX: E05.00 Thyrotoxicosis with diffuse goiter without thyrotoxic crisis or storm (principal); E04.2 Nontoxic multinodular goiter; R76.8 Other specified abnormal immunological findings in serum; E27.8 Other specified disorders of adrenal gland; K22.4 Dyskinesia of esophagus; E66.9 Obesity, unspecified; E55.9 Vitamin D deficiency, unspecified
CPT/HCPCS: 36415; 82550; 82627; 82784; 83516; 84439; 84443; 84480; 85652; 86140; 99212

== ENCOUNTER 2020-11-03 10:29 | Outpatient (REF) | payer MEDICAID, SELFPAY ==
--- NOTE | ~2020-11-03 | US_ITS ---
EXAMINATION: US THYROID CLINICAL INFORMATION: Thyrotoxicosis with diffuse goiter. COMPARISON: Ultrasound soft tissue head/neck thyroid dated 11/23/2018. TECHNIQUE: Linear transducer grayscale and color Doppler examination with attention to the region of the thyroid. FINDINGS: SIZE: Measurements of the thyroid lobes and nodules are given in sagittal, anteroposterior and transverse dimensions respectively. Right Thyroid Lobe: 5.0 x 2.1 x 1.6 cm, volume 9.1 mL. Previously 5.4 x 2.2 x 1.6 cm, volume 10.0 mL. Parenchyma: The gland echotexture is heterogeneous. Thyroid vascularity is increased. Left Thyroid Lobe: 4.6 x 1.4 x 1.7 cm, volume 5.4 mL. Previously 4.6 x 1.5 x 1.7 cm, volume 5.9 mL. Parenchyma: The gland echotexture is heterogeneous. Thyroid vascularity is increased. Isthmus: 0.3 cm in maximum AP dimension. Previously 0.3 cm. Estimated total number of nodules greater than or equal to 1 cm: 0. [employer] Supervisor nodules are described as follows: 1. Location: Right mid. Size: 0.7 x 0.6 x 0.4 cm, volume 0.09 mL. Previously: 0.8 x 0.5 x 0.6 cm, volume 0.07 mL. Nodule characteristics: Composition: Solid (2). Echogenicity: Hypoechoic (2). Shape: Not taller than wide (0). Margins: Smooth (0). Echogenic Foci: None (0). ACR TI-RADS total points: 4 ACR TI-RADS category: 4 Significant change in size (>/= 20% in 2 dimensions and minimal increase of 2 mm or 50% or greater increase in volume): No Change in features: No Change in ACR TI-RADS risk category: No 2. Location: Left inferior. Size: 0.3 x 0.2 x 0.2 cm, volume 0.006 mL. Previously: 0.6 x 0.5 x 0.6 cm, volume 0.09 mL. Nodule characteristics: Composition: Solid (2). Echogenicity: Hypoechoic (2). Shape: Not taller than wide (0). Margins: Smooth (0). Echogenic Foci: None (0). ACR TI-RADS total points: 4 ACR TI-RADS category: 4 Significant change in size (>/= 20% in 2 dimensions and minimal increase of 2 mm or 50% or greater increase in volume): No Change in features: No Change in ACR TI-RADS risk category: No 3. Location: Left mid. Size: 0.4 x 0.2 x 0.3 cm, volume 0.018 mL. Previously: 0.3 x 0.2 x 0.2 cm, volume 0.006 mL. Nodule characteristics: Composition: Solid (2). Echogenicity: Hypoechoic (2). Shape: Not taller than wide (0). Margins: Smooth (0). Echogenic Foci: None (0). ACR TI-RADS total points: 4 ACR TI-RADS category: 4 Significant change in size (>/= 20% in 2 dimensions and minimal increase of 2 mm or 50% or greater increase in volume): No Change in features: No Change in ACR TI-RADS risk category: No 4. Location: Left mid. Size: 0.4 x 0.2 x 0.3 cm, volume 0.012 mL. Previously: 0.3 x 0.2 x 0.4 cm, volume 0.013 mL. Nodule characteristics: Composition: Solid (2). Echogenicity: Hypoechoic (2). Shape: Not taller than wide (0). Margins: Smooth (0). Echogenic Foci: None (0). ACR TI-RADS total points: 4 ACR TI-RADS category: 4 Significant change in size (>/= 20% in 2 dimensions and minimal increase of 2 mm or 50% or greater increase in volume): No Change in features: No Change in ACR TI-RADS risk category: No NODES: No lymphadenopathy is seen in the tissue surrounding the thyroid gland. US/US thyroid IMPRESSION: Heterogeneous hypervascular thyroid gland. The right lobe is slightly enlarged. Small bilateral thyroid nodules do not appear appreciably changed.. ACR TI-RADS RECOMMENDATION REFERENCE: Ultrasound-guided fine-needle aspiration, followup ultrasound, no further follow up. * TR1 (0 point) and TR 2 (2 points): No FNA or follow up * TR3 (3 points): FNA if more than or equal to 2.5 cm in maximum dimension, followup ultrasound in 1, 3 and 5 years if 1.5 to 2.4 cm in maximum dimension. * TR4 (4-6 points): FNA if more than or equal to 1.5 cm in maximum dimension, followup ultrasound in 1, 2, 3 and 5 years if 1 to 1.4 cm in maximum dimension. * TR5 (more than or equal to 7 points): FNA if more than or equal to 1 cm in maximum dimension, followup ultrasound every year for 5 years if 0.5 to 0.9 cm in maximum dimension. * TR3, TR4 or TR5 nodules that are below the size threshold for follow up receive no follow up.
== END 2020-11-03 10:30 | disposition home or self-care (01) ==
LOC: HO.US 10:29
PROVIDERS: Visit Provider Internal Medicine Endocrinology, Diabetes & Metabolism
DX: E05.00 Thyrotoxicosis with diffuse goiter without thyrotoxic crisis or storm (principal)
CPT/HCPCS: 76536

== ENCOUNTER → 2020-11-26 08:21 | Outpatient (BNVA) | payer MEDICAID, SELFPAY | PROVIDERS: Visit Provider Internal Medicine Gastroenterology ==

== ENCOUNTER → 2020-12-30 15:07 | Outpatient (REF) | payer MEDICAID, SELFPAY | LOC: HO.SL 15:07 | PROVIDERS: Visit Provider General Practice | DX: E66.9 Obesity, unspecified (principal); R06.01 Orthopnea | CPT/HCPCS: 95806 ==

== ENCOUNTER 2021-04-05 16:54 | Outpatient (REF) | payer MEDICAID, SELFPAY ==
[2021-04-05 18:19] LABS: Appearance Urine CLEAR; Color Urine YELLOW; Glucose Urine UA NEG (NEG); Leukocyte Esterase Urine 2+ (NEG); Nitrite Urine POS (NEG); Specific Gravity - Urine <= 1.005 (1.005-1.025); UACC Culture Trigger YES; Urine Blood TRACE (NEG); Urine Ketones NEG (NEG); Urine Protein NEG (NEG-TRACE)
[2021-04-05 18:48] LABS: Bacteria Urine TRACE /LPF; Squamous Epithelial Cell Urine TRACE /LPF
== END 2021-04-05 16:55 | disposition home or self-care (01) ==
LOC: HO.LAB 16:54
PROVIDERS: Absent Provider General Practice; PCP General Practice; Visit Provider Nurse Practitioner
DX: R30.0 Dysuria (principal)
CPT/HCPCS: 81001; 87086

== ENCOUNTER → 2021-04-12 13:03 | Outpatient (BNVA) | payer MEDICAID, SELFPAY | PROVIDERS: Visit Provider Internal Medicine | DX: E06.3 Autoimmune thyroiditis (principal); N91.2 Amenorrhea, unspecified; E55.9 Vitamin D deficiency, unspecified | CPT/HCPCS: 99212 ==

== ENCOUNTER 2021-04-13 08:01 | Outpatient (REF) | payer MEDICAID, SELFPAY ==
[2021-04-13 08:56] LABS: Glucose Fasting 104 mg/dL (60-99)
[2021-04-13 09:02] LABS: Estimated Average Glucose 103 mg/dL; Hemoglobin A1c % 5.2 %
[2021-04-13 09:03] LABS: Alanine Aminotransferase 20 U/L (0-31); Alkaline Phosphatase 82 U/L (39-117); Anion Gap 11 (12-20); Aspartate Amino Transferase 17 U/L (5-31); Bilirubin Total 0.5 mg/dL (0.0-1.0); Blood Urea Nitrogen 8 mg/dL (9-16); Calcium 9.4 mg/dL (8.4-10.2); Carbon Dioxide 25 mmol/L (22-29); Chloride 107 mmol/L (96-108); Cholesterol 156 mg/dL; Estimated Glomerular Filt Rate > 60; Glucose Random 100 mg/dL (60-115); HDL Cholesterol 45 mg/dL; LDL Cholesterol Calculated 100 mg/dl; Potassium 4.2 mmol/L (3.3-5.1); Sodium 139 mmol/L (135-145); Total Protein 7.8 g/dL (6.5-8.0); Triglycerides 57 mg/dL
[2021-04-13 09:25] LABS: Free T4 (Free Thyroxine) 1.06 ng/dL (0.71-1.85); HCG Quantitative < 2 mIU/mL; Thyroid Stimulating Hormone 3.66 uIU/mL (0.32-4.0); Vitamin D 25-OH Total 27.4 ng/mL (>30)
[2021-04-13 09:52] LABS: Cortisol Random 16.6 ug/dL
[2021-04-13 10:59] LABS: Glucose 1 Hour 197 mg/dL
[2021-04-13 12:18] LABS: Glucose 2 Hour 103 mg/dL
[2021-04-14 06:51] LABS: LDL Cholesterol Direct 97 mg/dL (<100)
[2021-04-14 10:31] LABS: DHEA Sulfate 465 mcg/dL (19-231); Sex Hormone Binding Globulin 46 nmol/L (17-124); Thyroglobulin Antibodies 1 IU/mL (< or = 1); Thyroid Peroxidase Antibodies 94 IU/mL (<9)
[2021-04-14 18:16] LABS: Follicle Stimulating Hormone 4.3 mIU/mL; Prolactin 12.5 ng/mL; Triiodothyronine T3 Total 145 ng/dL (76-181)
[2021-04-14 23:17] LABS: Adrenocorticotropic Hormone 59 pg/mL (6-50)
[2021-04-17 15:25] LABS: Thyrotropin Receptor Antibody <1.00 IU/L (<=2.00)
[2021-04-17 16:17] LABS: Testosterone, Free 4.1 pg/mL (0.1-6.4); Testosterone, Total 30 ng/dL (2-45)
[2021-04-17 19:02] LABS: Androstenedione 118 ng/dL
[2021-04-19 15:51] LABS: Thyroid Stimulating Immunoglob <89 % baseline (<140)
[2021-04-29 03:32] LABS: Estradiol Free 2.92 pg/mL; Estradiol, Ultrasensitive 120 pg/mL
== END 2021-04-13 08:02 | disposition home or self-care (01) ==
LOC: HO.LAB 08:01
PROVIDERS: PCP General Practice; Visit Provider Internal Medicine
DX: N91.2 Amenorrhea, unspecified (principal); E55.9 Vitamin D deficiency, unspecified; E06.3 Autoimmune thyroiditis
CPT/HCPCS: 36415; 80053; 80061; 82024; 82157; 82306; 82533; 82627; 82670; 82681; 83001; 83002; 83036; 83498; 83520; 83721; 84146; 84270; 84402; 84403; 84439; 84443; 84445; 84480; 84702; 86376; 86800

== ENCOUNTER 2021-04-22 07:18 | Outpatient (REF) | payer MEDICAID, SELFPAY ==
[2021-04-22 08:41] LABS: Free T4 (Free Thyroxine) 1.56 ng/dL (0.71-1.85); Thyroid Stimulating Hormone 1.51 uIU/mL (0.32-4.0)
[2021-04-22 09:34] LABS: Cortisol Random < 1.0 ug/dL
[2021-04-23 11:45] LABS: Adrenocorticotropic Hormone 7 pg/mL (6-50)
[2021-04-24 18:37] LABS: Triiodothyronine T3 Total 120 ng/dL (76-181)
[2021-04-28 21:36] LABS: Dexamethasone 351 ng/dL
== END 2021-04-22 07:19 | disposition home or self-care (01) ==
LOC: HO.LAB 07:18
PROVIDERS: PCP General Practice; Visit Provider Internal Medicine
DX: N91.2 Amenorrhea, unspecified (principal); E06.3 Autoimmune thyroiditis
CPT/HCPCS: 36415; 80299; 82024; 82533; 84439; 84443; 84480

== ENCOUNTER → 2021-05-20 10:49 | Outpatient (BNVA) | payer MEDICAID, SELFPAY | PROVIDERS: PCP General Practice; Visit Provider Internal Medicine ==

== ENCOUNTER → 2021-05-24 08:12 | Outpatient (BNVA) | payer MEDICAID, SELFPAY | PROVIDERS: PCP General Practice; Visit Provider Internal Medicine ==

== ENCOUNTER 2021-05-27 10:46 | Outpatient (REF) | payer MEDICAID, SELFPAY ==
--- NOTE | ~2021-05-27 | US_ITS ---
EXAMINATION: US PELVIS CLINICAL INFORMATION: Age 46 with history amenorrhea. LMP recently, 05/22/2021. COMPARISON: Ultrasound pelvis 04/21/2020 TECHNIQUE: Ultrasound of the pelvis is performed using both transabdominal and transvaginal transducers along with Doppler. Transvaginal imaging is performed due to inadequate visualization transabdominally. FINDINGS: Uterus: The uterus is anteverted and measures 10.6 x 3.8 x 5.6 cm. Volume 118 mL. The double wall endometrial thickness is normal at 9 mm. The uterine surface is smooth. There is no interval fibroid. Some focal specular echoes posterior junctional zone are again noted, possibly calcifications and small submucous fibroids. Myometrium otherwise unremarkable. Adnexa: Both ovaries are visualized. There is normal color flow to the adnexa. There is no ovarian torsion. There is no pelvic ascites or fluid collection. Right ovary measures 2.7 x 1.2 x 2.1 cm. Volume 3.6 mL. Left ovary measures 2.7 x 1.4 x 1.6 cm. Volume 3.2 mL. Incidental dominant follicle in the left ovary measuring only 1.1 cm. US/US pelvic and transvaginal IMPRESSION: 1. Normal double wall endometrial thickness, 9 mm. 2. Specular echoes posterior junctional zone similar to prior ultrasound, possibly calcifications. Otherwise unremarkable myometrium. 3. No adnexal mass or pelvic ascites.
== END 2021-05-27 10:47 | disposition home or self-care (01) ==
LOC: HO.US 10:46
PROVIDERS: PCP General Practice; Visit Provider Internal Medicine
DX: N91.2 Amenorrhea, unspecified (principal)
CPT/HCPCS: 76830; 76856

== ENCOUNTER 2021-05-27 13:41 | Emergency (ER) | payer MEDICAID, SELFPAY ==
--- NOTE | ~2021-05-27 | XR_ITS ---
EXAMINATION: XR CHEST CLINICAL INFORMATION: Shortness of breath post Covid COMPARISON: None TECHNIQUE: Frontal view of the chest was obtained. FINDINGS: No significant abnormality is noted involving the heart, lungs, mediastinum, bony thorax or soft tissues. XR/XR chest 1V IMPRESSION: Unremarkable examination.
--- NOTE | 2021-05-27 13:56 | ECG_ITS ---
Test Reason : chest pain and numbness in arms and legs Blood Pressure : / mmHG Vent. Rate : 101 BPM Atrial Rate : 101 BPM P-R Int : 186 ms QRS Dur : 078 ms QT Int : 332 ms P-R-T Axes : 071 026 044 degrees QTc Int : 430 ms Sinus tachycardia Otherwise normal ECG When compared with ECG of 14-JUN-2020 17:17, No significant change was found Referred By: Generic ED Physician Electronically Signed By:Hiro Lind
[2021-05-27 14:19] VITALS: BP 181/76; PULSE 100; RESP 18; TEMP 36.4; O2SAT 100; BMI 32.8
--- NOTE | 2021-05-27 14:25 | PC.NURSE ---
HAND GRASP EQUAL. NO PALMAR DRIFT. TONGUE MIDLINE. AMBULATORY INTO TRIAGE, GAIT STEADY. ABLE TO HOLD BELONGINGS IN BOTH ARMS.
--- NOTE | 2021-05-27 18:29 | ED.GENADULT ---
HPI - General Adult General Chief complaint: General Medical Stated complaint: NUMBNESS ARMS AND LEGS CHEST PRESSURE Time Seen by Provider: 05/27/21 18:29 Source: patient Mode of arrival: ambulatory Limitations: no limitations History of Present Illness HPI narrative: Patient's history of anxiety had COVID last month complaining of numbness of both forearms for last few weeks also complaining of mild shortness of breath upper back pain started a new antidepression medication which she has not taken yet S put difficulty in sleeping no neck pain no fever no significant cough feels pain on the left side of the chest when she lays on the left side multiple complaints on arrival Related Data Home Medications Medication Instructions Recorded Confirmed omeprazole 20 mg capsule,delayed 20 mg PO DAILY 04/12/21 05/24/21 release Previous Rx's Medication Instructions Recorded lorazepam 0.5 mg tablet (Ativan) 0.5 mg PO BID PRN #10 tab 06/17/20 hydroxyzine HCl 25 mg tablet 25 mg PO TID PRN #30 tab 06/19/20 Allergies Allergy/AdvReac Type Severity Reaction Status Date / Time cannabidiol (CBD) extract Allergy Mild Hives Verified 05/24/21 09:22 Review of Systems Review of Systems: Yes all other systems are reviewed and are negative PMFSH Past Medical History Medical History Amenorrhea Arthritis Degenerative arthritis of knee, bilateral Elevated dehydroepiandrosterone sulfate level Goiter Graves disease Campbell's disease Hyperthyroidism Non-toxic multinodular goiter Obesity Vitamin D deficiency Surgical History H/O esophagogastroduodenoscopy History of tonsillectomy History of tubal ligation Family History Family History Father Diabetes Mother Breast cancer BRCA gene mutation negative Brother No problems noted. Brother No problems noted. Brother No problems noted. Brother No problems noted. Brother No problems noted. Sister No problems noted. Sister No problems noted. Social History Social History Alcohol intake: current Patient Tobacco Use Status: Never used Tobacco Advance Directives: No Advance Directives Information Provided: Yes Sexual orientation: Straight/Heterosexual Gender identity: Female Physical Exam Vital Signs: Vital Signs: Last Vital Signs Temp 97.6 F 05/27/21 14:19 Pulse 69 05/27/21 19:20 Resp 16 05/27/21 18:33 BP 123/67 05/27/21 19:20 Pulse Ox 98 05/27/21 19:20 BMI result Body Mass Index 32.8 Appearance: Alert. Oriented X3. No acute distress. Anxious Eyes: No pallor or icterus ENT: Pharynx normal. Oral Mucosa moist Neck: Normal inspection. Neck supple. No midline tenderness CVS: Normal heart rate and rhythm. Pulses normal. Respiratory: No respiratory distress. Equal air entry bilateral, no wheezing/rales/rhonchi Abdomen: Soft and nontender. Skin: Skin warm and dry. Normal skin color. Normal skin turgor. Extremities: No lower extremity edema. No calf tenderness Neuro: Oriented X 3. No motor deficit. No sensory deficit.No cerebellar signs , cranial nerves II-XII intact Medical Decision Making MDM Narrative Medical decision making narrative: Patient anxiety with multiple complaints EKG normal chest x-ray negative discharge patient home advised to follow up with PCP ECG Data Attestation: I personally reviewed and interpreted this ECG as follows: Interpretation: Sinus tachycardia with heart rate 101 beats per minute, normal intervals normal axis no acute ST-T changes Discharge Plan Discharge Clinical Impression: Paresthesia, Anxiety Patient Disposition: Home, Self-Care Instructions: Paresthesia (ED), Anxiety (ED) Additional Instructions: Start taking your anxiety medication as prescribed If symptoms should get better with time Follow-up with your psychiatrist/PCP Prescriptions: No Action lorazepam [Ativan] 0.5 mg tablet 0.5 mg PO BID PRN (Reason: anxiety) Qty: 10 RF: 0 hydroxyzine HCl 25 mg tablet 25 mg PO TID PRN (Reason: anxiety) Qty: 30 RF: 0 omeprazole 20 mg capsule,delayed release(DR/EC) 20 mg PO DAILY RF: 0 Interventions: ED Discharge Assessment Last Done: 05/27/21 19:20 Discharge Date/Time: 05/27/21 19:21
[2021-05-27 18:33] VITALS: BP 129/67; PULSE 86; RESP 16; O2SAT 100
--- NOTE | 2021-05-27 18:48 | PC.NURSE ---
Pt received from triage: Pt Aox4, anxious but agreeable. NSR with clear lungs Pt denies any abd pain or tenderness Pt states numbness to B/L UE but equal strengths noted. Pupils equal and reactive.
[2021-05-27 19:20] VITALS: BP 123/67; PULSE 69; O2SAT 98
== END 2021-05-27 19:21 | disposition home or self-care (01) ==
PROVIDERS: Emergency Provider Internal Medicine; PCP General Practice
DX: F41.9 Anxiety disorder, unspecified (principal); R20.2 Paresthesia of skin
CPT/HCPCS: 71045; 93005; 99283; 99284

== ENCOUNTER → 2021-06-10 13:46 | Outpatient (BNVA) | payer MEDICAID, SELFPAY | PROVIDERS: PCP General Practice; Visit Provider Obstetrics & Gynecology ==

== ENCOUNTER → 2021-06-24 12:25 | Outpatient (BNVA) | payer MEDICAID, SELFPAY | PROVIDERS: PCP Family Medicine; Visit Provider Nurse Practitioner Family | DX: M25.50 Pain in unspecified joint (principal) | CPT/HCPCS: 99212 ==

== ENCOUNTER 2021-06-29 12:52 | Outpatient (REF) | payer MEDICAID, SELFPAY | END 2021-06-29 12:53 | disposition home or self-care (01) | LOC: HO.LAB 12:52 | PROVIDERS: PCP Family Medicine; Visit Provider Obstetrics & Gynecology | DX: R93.89 Abnormal findings on diagnostic imaging of other specified body structures (principal); N91.2 Amenorrhea, unspecified | CPT/HCPCS: 58100; 88305 ==

== ENCOUNTER → 2021-07-08 10:44 | Outpatient (BNVA) | payer MEDICAID, SELFPAY | PROVIDERS: PCP Family Medicine; Referring Provider Family Medicine; Visit Provider Internal Medicine Gastroenterology | DX: R13.14 Dysphagia, pharyngoesophageal phase (principal); K22.4 Dyskinesia of esophagus | CPT/HCPCS: 99212 ==

== ENCOUNTER 2021-07-12 12:08 | Outpatient (REF) | payer MEDICAID, SELFPAY ==
--- NOTE | ~2021-07-12 | MM_ITS ---
EXAMINATION: MM SCREENING DIGITAL BREAST TOMOSYNTHESIS, BILATERAL CLINICAL INFORMATION: Screening. Asymptomatic. The lifetime risk of breast cancer based on the Tyrer-Cuzick Model is 17%. COMPARISON: Mammography: 07/10/2020, 06/04/2019, 03/14/2018 TECHNIQUE: Digital breast tomosynthesis is performed in both the craniocaudal and mediolateral oblique views along with computer-aided detection (CAD). Synthesized 2D images are generated from the tomosynthesis. FINDINGS: There are scattered areas of fibroglandular density (ACR BI-RADS breast composition Category b). There are no significant masses, abnormal calcifications, or other abnormalities. Parenchymal pattern is similar to prior studies. There is no developing density or architectural abnormality. The axilla and skin contours are unremarkable. No significant changes. MM/MM tomosynthesis screening BI IMPRESSION: No mammographic evidence of malignancy. ASSESSMENT: BI-RADS 1: Negative RECOMMENDATION: Routine annual mammography screening. This patient's information was entered into a reminder system with a target due date for their next mammogram.
== END 2021-07-12 12:09 | disposition home or self-care (01) ==
LOC: HO.MAMMO 12:08
PROVIDERS: PCP General Practice; Visit Provider General Practice
DX: Z12.31 Encounter for screening mammogram for malignant neoplasm of breast (principal)
CPT/HCPCS: 77063; 77067

== ENCOUNTER → 2021-07-13 12:37 | Outpatient (BNVA) | payer MEDICAID, SELFPAY | PROVIDERS: PCP General Practice; Visit Provider Obstetrics & Gynecology | DX: N84.0 Polyp of corpus uteri (principal) | CPT/HCPCS: 99212 ==

== ENCOUNTER 2021-08-03 13:00 | Outpatient (RCR) | payer MEDICAID, SELFPAY ==
--- NOTE | 2021-07-07 11:36 | MHC.PT.EP ---
[facility] [place] Office [place] Office [place] Office [address] Paula Carrion [address] [phone] F: [phone] F: [phone] F: [phone] F: [phone] Physical Therapy Plan of Care Date of Evaluation: Date of Surgery: Diagnosis: back and neck pain Assessment: 46 y/o F referred to PT with neck and back pain. She reports more stiffness than pain for one year of insidious onset with intermittent numbness into L arm. She reports there is not one aggravating factor but it is stiff and painful with most activities, she just needs to do things slowly. Examination shows painful cervical AROM, normal shoulder AROM, decreased L UE strength, decreased scapular strength, and increased tissue tension. S/s consistent with cervical dysfunction (?facet jiont verse derangement). Recommend PT 2x/week for 4 weeks to address impairments, implement HEP, and optimize functional mobility. Frequency and Duration: The patient will be seen 2x/week for 4 weeks Short Term Goals: 2 weeks 1. I with HEP 2. Reports decrease in pain by 50% per report [employer] Operations Officer Goals: 4 weeks 1. I with HEP and self management of sx 2. Improve mid trap strength to 4/5 to facilitate prolonged positions 3. Pt will be able to wash dishes with pain < 3/10 Treatment Plan: Modalities to reduce pain, spasms and effusion. Manual therapy to restore motion and function. Therapeutic exercise to improve strength and flexibility. Neuromuscular re-education for posture and balance. Therapeutic activities to return to functional activities of daily living. Electronically signed by: Deena Quevedo PT Please sign and return to therapist. Thank you for your referral.
== END 2021-09-02 08:55 | disposition home or self-care (01) ==
LOC: HO.PT 13:00
PROVIDERS: PCP Family Medicine; Visit Provider Nurse Practitioner Family
DX: M54.9 Dorsalgia, unspecified (principal); M54.2 Cervicalgia
CPT/HCPCS: 97110; 97161

== ENCOUNTER 2021-09-02 16:04 | Outpatient (REF) | payer MEDICAID, SELFPAY ==
--- NOTE | 2021-09-02 | PFT_ITS ---
INDICATION: Shortness of breath. SPIROMETRY: FEV1 to FVC of 77% with an FEV1 of 2.53 L, which is 79% predicted, and FVC of 3.28 L, which is 84% predicted. No significant response to bronchodilators noted. The patient did have evidence of small airways disease. The maximum voluntary ventilation was 100% predicted. LUNG VOLUMES: Total lung capacity 92% predicted with residual volume 96% predicted. DIFFUSION CAPACITY: 85% predicted. COMPARISONS: None. INTERPRETATION: No obstructive nor restrictive ventilatory defects identified. No significant response to bronchodilators noted, although the patient did have a significant improvement of the FEV1 to FVC post bronchodilators and has significant evidence of small airways disease very suspicious of diagnosis of asthma. Lung volumes are within normal limits. Diffusion capacity also within normal limits. If asthma is in differential, methacholine challenge may be helpful in assessing for hyper-reactive airways, otherwise clinical correlation warranted. Jose He MD MR/MODL / [id number]
== END 2021-09-02 16:05 | disposition home or self-care (01) ==
LOC: HO.RESP 16:04
PROVIDERS: PCP General Practice; Visit Provider General Practice
DX: R06.02 Shortness of breath (principal)
CPT/HCPCS: 94060; 94727; 94729

== ENCOUNTER 2021-10-12 12:56 | Outpatient (REF) | payer MEDICAID, SELFPAY ==
[2021-10-12 14:52] LABS: Free T4 (Free Thyroxine) 0.88 ng/dL (0.71-1.85); Thyroid Stimulating Hormone 1.35 uIU/mL (0.32-4.0)
== END 2021-10-12 12:57 | disposition home or self-care (01) ==
LOC: HO.LAB 12:56
PROVIDERS: PCP General Practice; Visit Provider Internal Medicine Endocrinology, Diabetes & Metabolism
DX: E06.3 Autoimmune thyroiditis (principal); E27.8 Other specified disorders of adrenal gland
CPT/HCPCS: 36415; 84439; 84443; 99212

== ENCOUNTER → 2021-10-21 11:52 | Outpatient (BNVA) | payer MEDICAID, SELFPAY | PROVIDERS: PCP Family Medicine; Referring Provider Family Medicine; Visit Provider Internal Medicine Gastroenterology | DX: Z13.89 Encounter for screening for other disorder (principal) | CPT/HCPCS: 99212 ==

== ENCOUNTER → 2022-02-01 07:32 | Outpatient (REF) | payer MEDICAID, SELFPAY ==
--- NOTE | 2022-02-01 07:35 | CA_ITS ---
Transthoracic Echocardiogram Patient (Last, First, Middle): Crystal Ivan, Gender: Female Date of : 1975 Age: 46 Procedure Date: 02/01/2022 Procedure Type: Transthoracic Echocardiogram Location: OP Height: 170.18 cm Weight: 91.63 kg BSA: 2.03 m2 Heart Rate: 76 bpm BP: 120 / 60 mmHg Regulator Operator: SB Referring MD: Michele Silva DMD Symptoms: [id number] R06.01 Study Quality: Adequate ECG Rhythm: Sinus Conclusions: - The left ventricular systolic function is mildly decreased. The calculated ejection fraction is 48% by biplane method. - No obvious valvular pathology seen on this study. Findings Left Ventricle Normal left ventricular cavity size. There is normal left ventricular wall thickness. The left ventricular systolic function is mildly decreased. The calculated ejection fraction is 48% by biplane method. There is mild global hypokinesis. Diastolic function is normal for age. LV peak GLS -17.9%. Right Ventricle Normal right ventricular cavity size. There is low normal right ventricular systolic function. Atria Both atria are normal in size. Aortic Valve The aortic valve was not well visualized. There is no aortic valve stenosis. There is no aortic valve regurgitation. Mitral Valve The mitral valve appears normal. There is no mitral valve regurgitation. There is no mitral valve stenosis. Pulmonic Valve The pulmonic valve is likely normal. Tricuspid Valve Normal tricuspid valve structure. There is trace tricuspid valve regurgitation. There is no evidence of pulmonary hypertension. Great Vessels The asc aorta is normal in size. Venous The inferior vena cava is normal in size and collapses greater than 50% with inspiration. Pericardium/Pleural There is no evidence of pericardial effusion. Prior Study Comparison Changes noted compared to prior study dated: 04/25/2006. Decrease in LVEF. Recommendations, Care & Conclusions No obvious valvular pathology seen on this study. Measurements 2D Linear Measurements IVSd: 0.67 0.6-0.9/0.6-1.0 cm LVIDd: 5.39 3.9-5.3/4.2-5.9 cm LVIDd Index: 2.66 2.4-3.2/2.2-3.1 cm/m2 LVIDs: 3.91 2.0-3.6 cm LVPWd: 0.58 0.7-1.1 cm LA Diam: 3.20 2.7-3.8/3.0-4.0 cm LAIDs Index: 1.58 1.5-2.3 cm/m2 LV Mass: 141.61 67-162/88-224 g LV Mass Index: 69.76 43-95/49-115 g/m2 LVOT Diam: 2.00 3.0+(-)1.3 cm 2D Systolic Function EF 4C: 50.60 >55% EF 2C: 48.00 >55% EF BiP: 48.30 >55% Mitral Valve MV Pk E: 0.77 MV PK A: 0.65 MV Decel Time: 177.00 E/A: 1.20 E'Lateral: 10.90 E'Medial: 6.74 E/E' Med: 11.40 E/E' Lat: 7.10 PHT: 52.00 MVA PHT: 4.23 Decel [address]: 4.35 Aortic Valve AoV Pk Jesús: 1.30 AoV Mn Jesús: 0.90 AoV VTI: 0.28 AoV Pk Grad: 7.00 Aov Mn Grad: 4.00 FER Cont.VTI: 2.39 LVOT LVOT Pk Jesús: 1.03 LVOT Mn Jesús: 0.74 LVOT VTI: 0.21 LVOT Pk Grad: 4.00 LVOT Mn Grad: 3.00 LVOT Diam: 2.00 LVOT Area: 3.14 Diastolic Function MV Pk E: 0.77 MV Pk A: 0.65 E/A: 1.20 E'Medial: 6.74 E/E' Med: 11.40 E' Laterial: 10.90 E/E' Lat: 7.10 Right Ventricle TAPSE (mm): 17.10 TVS' Jesús: 11.70 Tricuspid Valve RA Press: 3.00 Great Vessels Aorta Sinus of Valsalva: 2.70 2.0-3.5 cm Ao Asc: 2.80 2.1-3.4 cm Pulmonary Valve PV Pk Jesús: 0.83 Peak PV Grad: 3.00 Updated in Other Vendor System with Status of Final Marcus Baig MD electronically signed on 02/01/2022 2:19:44 PM with status of Final
== END ==
LOC: HO.CARD 07:32
PROVIDERS: Visit Provider Dentist Pediatric Dentistry
DX: R06.01 Orthopnea (principal)
CPT/HCPCS: 93306; 93356

== ENCOUNTER 2022-02-10 10:21 | Emergency (ER) | payer MEDICAID, SELFPAY ==
--- NOTE | ~2022-02-10 | XR_ITS ---
EXAMINATION: XR CHEST CLINICAL INFORMATION: Chest pain shortness of breath COMPARISON: Chest radiograph from 05/27/2021 TECHNIQUE: 2 views of the chest were obtained. FINDINGS: No focal consolidation. No pneumothorax. Trachea is midline. Cardiomediastinal silhouette is not enlarged. No large pleural effusion. Osseous structures are intact. Soft tissues are unremarkable. XR/XR chest 2V IMPRESSION: No acute cardiopulmonary process.
[2022-02-10 10:27] VITALS: BP 126/62; PULSE 80; RESP 18; TEMP 36.8; O2SAT 99; BMI 31.6
--- NOTE | 2022-02-10 10:46 | ED_ITS ---
HPI - General Adult General Chief complaint: General Medical Stated complaint: l side pain arm numbness Time Seen by Provider: 02/10/22 10:37 Source: patient Mode of arrival: ambulatory Limitations: no limitations History of Present Illness HPI narrative: 46 yo female with history of dysphagia, esophageal dysmotility, Grave's disease, obesity, arthritis who presents to the ER for evaluation of intermittent SOB wh en she lays down as well as left arm and hand pain and tingling that have been occurring on/off for years. She reports about 10 days ago the pain in her left arm got worse. She reports whenever she tries to lay down she has the sudden sensation that she cannot breathe and needs to sit up quickly. It takes her a while to catch her breath. She hyperventilates. Last week was the 1st time she had tingling sensation in her left hand associated with this. She reports that lasted about 45 minutes. She reports she has been seen in urgent care setting for this. She also had a recent echocardiogram and is waiting for the results. She has had 2 sleep studies that were normal. She says these feelings, before she falls asleep, she has been sleeping poorly because of this sensation. She reports ongoing chest and rib discomfort for the last few days. She is used to some chest pain because of her esophageal dysmotility but says this feels a little bit worse than usual. She denies any shortness of breath with exertion or when sitting. MD complaint: orthopnea Onset (ago): year(s) Location: chest, left and upper extremity Radiation: non-radiation Severity: moderate Severity scale (1-10): 6 Quality: aching Pain Consistency: intermittent Relieving factors: none Exacerbating factors: none Associated symptoms: denies other symptoms Treatments prior to arrival: none Related Data Home Medications Medication Instructions Recorded Confirmed escitalopram oxalate 10 mg tablet 10 mg PO DAILY 06/24/21 10/21/21 polyethylene glycol 3350 17 17 g PO DAILY PRN 10/12/21 10/21/21 gram/dose oral powder (Miralax) omeprazole 20 mg capsule,delayed 20 mg PO BID 10/21/21 10/21/21 release Previous Rx's Medication Instructions Recorded lorazepam 0.5 mg tablet (Ativan) 0.5 mg PO BID PRN anxiety #10 tabs 06/17/20 hydroxyzine HCl 25 mg tablet 25 mg PO TID PRN anxiety #30 tabs 06/19/20 Allergies Allergy/AdvReac Type Severity Reaction Status Date / Time cannabidiol (CBD) extract Allergy Mild Hives Verified 10/21/21 12:05 duloxetine AdvReac Intermediate Nausea and Verified 10/21/21 12:05 Vomiting Review of Systems Review of Systems: Constitutional: No Fever, No Chills ENT/Mouth: No sore throat, No Rhinorrhea, No Swallowing Difficulty Eyes: No Eye Pain, No Swelling, No Redness Cardiovascular: + Chest Pain, + SOB, + Orthopnea, No Edema Respiratory: No Cough, No Sputum, No Wheezing, No dyspnea Gastrointestinal: No Nausea, No Vomiting, No Diarrhea, No abdominal Pain Genitourinary: No Dysuria, No Urinary Frequency, No Hematuria Musculoskeletal: No joint pain, No Myalgias Skin: No Skin Lesions, No rash Neuro: No Weakness, No Numbness, No Dizziness, No Headache Psych: + Anxiety/Panic, No Depression Heme/Lymph: No Bruising, No Lymphadenopathy Endocrine: No Polyuria, No Polydipsia PMFSH Past Medical History Medical History Amenorrhea Arthritis Degenerative arthritis of knee, bilateral Elevated dehydroepiandrosterone sulfate level Goiter Graves disease Campbell's disease Hyperthyroidism Non-toxic multinodular goiter Obesity Vitamin D deficiency Surgical History H/O esophagogastroduodenoscopy History of tonsillectomy History of tubal ligation Family History Family History Father Diabetes Mother Breast cancer BRCA gene mutation negative Social History Social History Alcohol intake: current Patient Tobacco Use Status: Never used Tobacco Advance Directives: No Advance Directives Information Provided: No Sexual orientation: Straight/Heterosexual Gender identity: Female Physical Exam ED Vital Signs: Vital Signs - 24 hr 02/10/22 10:27 Temperature 98.2 F Pulse Rate 80 Respiratory Rate 18 Blood Pressure 126/62 Pulse Oximetry 99 Oxygen Delivery Method Room Air BMI result Body Mass Index 31.6 Appearance: Alert. Oriented X3. No acute distress. Eyes: Pupils equal, round and reactive to light. ENT: Pharynx normal. Neck: Normal inspection. Neck supple. CVS: Normal heart rate and rhythm. Pulses normal. Respiratory: No respiratory distress. Breath sounds normal. Skin: Skin warm and dry. Normal skin color. Normal skin turgor. No rashes. Extremities: No lower extremity edema. Normal inspection, normal active and passive range of motion of all 4 extremities. Neuro: Oriented X 3. No motor deficit. No sensory deficit. Equal it sales executive strength bilaterally. Cranial nerves 2-12 intact. No pronator drift. Speech and cognition are normal. Steady gait. Course Course Course Narrative: 46-year-old female presenting to the ER with acute on chronic shortness of breath when she lays down it associated with left shoulder and arm pain, left hand tingling. The symptoms have been going on for years. She has had other workup in the past with no significant cause. Spoke with her provider who ordered the echocardiogram recently. He would like to rule out ACS, although this is less likely. Her recent echocardiogram showing an EF of 48% with no valvular abnormality. She does have a history of 1st degree AV block, that is unchanged on her EKG repeated today. On examination she appears well and is nonfocal neurologically. Will plan to get basic lab workup and chest x-ray. Reevaluation(s) Reevaluation #1: Chest x-ray is normal. Her labs are unremarkable. Her troponin is less than 3.5. She was placed supine with a pulse oximeter on, she was lying on her right side and left side with no reproduction of her symptoms of shortness of breath and l eft arm pain. At this time her workup is unremarkable. She is stable for discharge home with outpatient follow-up. Medical Decision Making Lab Data Result diagrams: 02/10/22 11:13 02/10/22 11:13 Labs: Lab Results 02/10/22 02/10/22 02/10/22 Range/Units 11:13 11:13 11:13 WBC 6.2 (4.8-10.8) X10*3/uL RBC 4.80 (4.20-5.50) X10*6/uL Hgb 13.1 (12.0-16.0) g/dl Hct 40.4 (37.0-47.0) % MCV 84.2 (80.0-98.0) fL MCH 27.3 (27.0-33.0) pg MCHC 32.4 (31.0-35.0) g/dl RDW 13.2 (11.0-16.0) % Plt Count 271 (160-400) X10*3/uL MPV 13.3 H (9.4-12.3) fL Immature Gran % (Auto) 0.3 (0.0-0.4) % Neut % (Auto) 63.8 (45-73) % Lymph % (Auto) 28.2 (20-40) % Love % (Auto) 5.5 (2-11) % Eos % (Auto) 1.6 (0-4) % Baso % (Auto) 0.6 (0-2) % Lymph # (Auto) 1.8 (1.2-4.9) X10*3/uL Love # (Auto) 0.3 (0.1-1.2) X10*3/uL Eos # (Auto) 0.1 (0.0-0.4) X10*3/uL Baso # (Auto) 0.0 (0.0-0.2) X10*3/uL Abs Immat Gran (auto) 0.02 (0.00-0.03) X10*3/uL Absolute Neuts (auto) 4.0 (2.0-8.3) x10*3/uL Absolute Nucleated RBC 0.000 (0.0-0.012) X10*3/uL Nucleated RBC % (auto) 0.0 (0.0-0.2) /100WBC Sodium 139 (135-145) mmol/L Potassium 4.1 (3.3-5.1) mmol/L Chloride 104 (96-108) mmol/L Carbon Dioxide 27 (22-29) mmol/L Anion Gap 12 (12-20) BUN 8 L (9-16) mg/dL Creatinine 0.79 (0.5-1.4) mg/dL Estim Creat Clear Calc 103.4 Estimated GFR > 60 Random Glucose 106 (60-115) mg/dL Calcium 9.3 (8.4-10.2) mg/dL Magnesium 1.9 (1.6-2.6) mg/dL Total Bilirubin 0.7 (0.0-1.0) mg/dL Direct Bilirubin 0.3 (0.0-0.5) mg/dL AST 18 (5-31) U/L ALT 17 (0-31) U/L Alkaline Phosphatase 85 (39-117) U/L Troponin I High Sens < 3.5 (<3.5-17.0) ng/L Total Protein 7.5 (6.5-8.0) g/dL Albumin 3.9 (3.5-5.0) g/dL ECG Data Attestation: I personally reviewed and interpreted this ECG as follows: Prior ECG tracings: available for review Interpretation: Sinus rhythm with first-degree AV block, ventricular rate 65 beats per minute, OR interval prolonged to 20 MS, inverted T-waves in V1 and V2. No ST segment elevations or depressions. Discharge Plan Discharge Clinical Impression: Orthopnea, Left hand pain Patient Disposition: Home, Self-Care Instructions: Dyspnea (ED), Arthralgia (ED) Additional Instructions: Your workup today was unremarkable. Recommend follow-up with her primary care doctor as well as Cardiology, name and number below. Recommend trying to sleep with a pillow and your arm to decompress the nerve under your under arm. If you develop new or worsening symptoms call 911 or come back to the ER for further evaluation. Prescriptions: No Action lorazepam [Ativan] 0.5 mg tablet 0.5 mg PO BID PRN (Reason: anxiety) Qty: 10 0RF hydroxyzine HCl 25 mg tablet 25 mg PO TID PRN (Reason: anxiety) Qty: 30 0RF omeprazole 20 mg capsule,delayed release(DR/EC) 20 mg PO BID escitalopram oxalate 10 mg tablet 10 mg PO DAILY polyethylene glycol 3350 [Miralax] 17 gram/dose powder 17 g PO DAILY PRN Referrals: Batsheva Cabrera MD [Primary Care Provider] - Marcus Baig MD [Physician] -
--- NOTE | 2022-02-10 11:06 | ECG_ITS ---
Test Reason : Sob/ radiating arm pain Blood Pressure : / mmHG Vent. Rate : 065 BPM Atrial Rate : 065 BPM P-R Int : 220 ms QRS Dur : 080 ms QT Int : 388 ms P-R-T Axes : 069 000 044 degrees QTc Int : 403 ms Sinus rhythm with 1st degree A-V block Otherwise normal ECG When compared with ECG of 27-MAY-2021 13:59, HI interval has increased Vent. rate has decreased BY 36 BPM Referred By: Tali Dominguez Electronically Signed By:RACHELLE CHEUNG
[2022-02-10 11:17] LABS: MANUAL DIFF FLAG NO
[2022-02-10 11:28] LABS: Basophils Percent Auto 0.6 % (0-2); Eosinophils Absolute Auto 0.1 X10*3/uL (0.0-0.4); Eosinophils Percent Auto 1.6 % (0-4); Hematocrit 40.4 % (37.0-47.0); Hemoglobin 13.1 g/dl (12.0-16.0); Imm Gran Abs Auto 0.02 X10*3/uL (0.00-0.03); Imm Gran Pct Auto 0.3 % (0.0-0.4); Lymphocytes Absolute Auto 1.8 X10*3/uL (1.2-4.9); Lymphocytes Percent Auto 28.2 % (20-40); Mean Corpuscular HGB Conc 32.4 g/dl (31.0-35.0); Mean Corpuscular Hemoglobin 27.3 pg (27.0-33.0); Mean Corpuscular Volume 84.2 fL (80.0-98.0); Mean Platelet Volume 13.3 fL (9.4-12.3); Monocytes Absolute Auto 0.3 X10*3/uL (0.1-1.2); Monocytes Percent Auto 5.5 % (2-11); Neutrophils Percent Auto 63.8 % (45-73); Platelet Count 271 X10*3/uL (160-400); Red Cell Distribution Width 13.2 % (11.0-16.0); White Blood Count 6.2 X10*3/uL (4.8-10.8)
[2022-02-10 11:35] LABS: Alanine Aminotransferase 17 U/L (0-31); Albumin Level 3.9 g/dL (3.5-5.0); Alkaline Phosphatase 85 U/L (39-117); Anion Gap 12 (12-20); Aspartate Amino Transferase 18 U/L (5-31); Bilirubin Direct 0.3 mg/dL (0.0-0.5); Bilirubin Total 0.7 mg/dL (0.0-1.0); Blood Urea Nitrogen 8 mg/dL (9-16); Calcium 9.3 mg/dL (8.4-10.2); Carbon Dioxide 27 mmol/L (22-29); Chloride 104 mmol/L (96-108); Creatinine Clr Calc Pharmacy 103.4; Estimated Glomerular Filt Rate > 60; Glucose Random 106 mg/dL (60-115); Magnesium 1.9 mg/dL (1.6-2.6); Potassium 4.1 mmol/L (3.3-5.1); Sodium 139 mmol/L (135-145); Total Protein 7.5 g/dL (6.5-8.0)
[2022-02-10 11:38] LABS: Troponin-I High Sensitivity < 3.5 ng/L (<3.5-17.0)
== END 2022-02-10 14:28 | disposition home or self-care (01) ==
PROVIDERS: Physician Assistant; Emergency Provider Emergency Medicine Emergency Medical Services; PCP General Practice
DX: R06.01 Orthopnea (principal); M79.642 Pain in left hand; R06.02 Shortness of breath; E66.9 Obesity, unspecified; Z68.31 Body mass index [BMI] 31.0-31.9, adult; Z79.899 Other long term (current) drug therapy
CPT/HCPCS: 36415; 71046; 80048; 80076; 83735; 84484; 85025; 93005; 99282; 99283

== ENCOUNTER → 2022-03-10 11:55 | Outpatient (BNVA) | payer MEDICAID, SELFPAY | PROVIDERS: PCP General Practice; Visit Provider Internal Medicine Gastroenterology | DX: K22.4 Dyskinesia of esophagus (principal); R13.14 Dysphagia, pharyngoesophageal phase; E55.9 Vitamin D deficiency, unspecified | CPT/HCPCS: 99212 ==

== ENCOUNTER → 2022-03-14 12:16 | Outpatient (BNVA) | payer MEDICAID, SELFPAY | PROVIDERS: PCP General Practice; Visit Provider Orthopaedic Surgery | DX: M17.0 Bilateral primary osteoarthritis of knee (principal); M54.9 Dorsalgia, unspecified; M35.9 Systemic involvement of connective tissue, unspecified | CPT/HCPCS: 99212 ==

== ENCOUNTER 2022-03-16 10:25 | Outpatient (REF) | payer MEDICAID, SELFPAY ==
[2022-03-16 16:02] LABS: CT PCR NOT DETECTED (Not Detect.); NG PCR NOT DETECTED (Not Detect.)
[2022-03-17 13:09] LABS: BV Int Neg Control Negative (Negative); BV Int Pos Control Positive (Positive)
[2022-03-19 06:32] LABS: HPV mRNA E6/E7 rflx Not Detected (Not Detected)
== END 2022-03-16 10:26 | disposition home or self-care (01) ==
LOC: HO.LNP 10:25
PROVIDERS: Visit Provider Advanced Practice Midwife
DX: Z01.419 Encounter for gynecological examination (general) (routine) without abnormal findings (principal); Z11.3 Encounter for screening for infections with a predominantly sexual mode of transmission; Z11.51 Encounter for screening for human papillomavirus (HPV)
CPT/HCPCS: 87480; 87491; 87510; 87591; 87624; 87660; 88142

== ENCOUNTER → 2022-04-06 08:06 | Outpatient (BNVA) | payer MEDICAID, SELFPAY | PROVIDERS: PCP General Practice; Referring Provider General Practice; Visit Provider Internal Medicine | DX: R06.01 Orthopnea (principal); I42.9 Cardiomyopathy, unspecified | CPT/HCPCS: 99202 ==

== ENCOUNTER 2022-04-14 13:26 | Outpatient (REF) | payer MEDICAID, SELFPAY ==
[2022-04-14 14:45] LABS: C Reactive Protein 0.28 mg/dL (< or = 0.50)
[2022-04-14 16:01] LABS: Erythrocyte Sedimentation Rate 33 MM/HR (0-20)
== END 2022-04-14 13:27 | disposition home or self-care (01) ==
LOC: HO.LAB 13:26
PROVIDERS: PCP General Practice; Visit Provider Nurse Practitioner Family
DX: M79.7 Fibromyalgia (principal)
CPT/HCPCS: 36415; 85652; 86140; 99212

== ENCOUNTER → 2022-04-18 13:24 | Outpatient (BNVA) | payer MEDICAID, SELFPAY | PROVIDERS: PCP General Practice; Visit Provider Internal Medicine | DX: M25.562 Pain in left knee (principal); G89.29 Other chronic pain; M54.9 Dorsalgia, unspecified | CPT/HCPCS: 99202 ==

== ENCOUNTER → 2022-04-20 15:31 | Outpatient (BNVA) | payer MEDICAID, SELFPAY | PROVIDERS: PCP General Practice; Visit Provider Internal Medicine | DX: R06.00 Dyspnea, unspecified (principal); M79.7 Fibromyalgia; F41.9 Anxiety disorder, unspecified; I42.9 Cardiomyopathy, unspecified | CPT/HCPCS: 99202 ==

== ENCOUNTER → 2022-04-26 07:57 | Outpatient (REF) | payer MEDICAID, SELFPAY ==
--- NOTE | ~2022-04-26 | NM_ITS ---
Myocardial perfusion study Indication: Cardiomyopathy to evaluate for myocardial ischemia Technique: The patient was brought in for a Lexiscan perfusion study on 04/26/2022. Patient performed low-level exercise and was injected 0.4 mg of Lexiscan intravenously. Within a minute of injection, 24 mCi of sestamibi was given intravenously. Images were obtained using the SPECT gamma camera interlaced with the gating device. Images were obtained in supine position. Resting perfusion study was performed on 04/26/2022. Patient was administered 8 mCi of sestamibi intravenously at rest. Images were then obtained in supine position. Images were obtained with and without CT attenuation. Total DLP 87 mGy-cm. Images were processed with the software and compared side to side in short axis, horizontal long axis and vertical long axis views. Findings: Both sets of images including stress and rest images are suboptimal due to intense subdiaphragmatic uptake interfering with inferior wall uptake The stress perfusion study showed non attenuated images show mildly reduced uptake in the basal inferior wall of the LV myocardium. Remainder of the LV myocardium is normally perfused. Attenuated corrected images show normal uptake of tracer in all segments of LV myocardium.. The gated study shows normal LV systolic function with calculated LVEF of greater than 60%. LV cavity is normal in size. The gated study shows normal systolic wall thickening and contraction of segments. Resting study shows on non attenuated images mildly reduced uptake in the distal anterior as well as nondiagnostic uptake in the inferior wall of the LV myocardium. Attenuated corrected images are suboptimal. Gating at rest reveals normal systolic wall motion with ejection fraction at 70%. The findings are consistent with likely normal myocardial perfusion with low confidence of interpretation due to extracardiac activity. NM/NM douglas perf SPECT rest & str Impression: 1. Myocardial perfusion imaging study shows likely normal myocardial perfusion 2. Gated LVEF is 70% 3. Transient ischemic dilatation not present EKG is nondiagnostic for ischemia
--- NOTE | 2022-04-26 08:01 | CA_ITS ---
Acquisition Time: 2022-04-26 09:59:13 Total Exercise Time: 00:06:30 Test Indications: ABN ECHO Medications: SEE CHART Protocol: CAROL Max HR: 162 BPM 93% of Pred: 173 BPM Max BP: 138/076 mmHG Max Work Load: 7.8 METS Exercise stress test with exercise 6 min 30 sec of Carol protocol, achieving 93% MPHR, 7.8 METs, with report of fatigue and headache, no anginal symptoms, with isolated PVCs throughout test and short run of ventricular trigeminy in early recovery, with normotensive response to exercise, without EKG changes meeting criteria for ischemia. Nuclear images pending. Test reviewed with Dr Lind. Referred By: Marcus Baig Overread By: LUDWIG MARSH
== END ==
LOC: HO.CARD 07:57
PROVIDERS: PCP General Practice; Visit Provider Internal Medicine
DX: I42.9 Cardiomyopathy, unspecified (principal)
CPT/HCPCS: 78452; 93017; A9500

== ENCOUNTER → 2022-05-06 11:12 | Outpatient (BNVA) | payer MEDICAID, SELFPAY | PROVIDERS: PCP General Practice; Visit Provider Orthopaedic Surgery | DX: M17.0 Bilateral primary osteoarthritis of knee (principal) | CPT/HCPCS: 20610; 99212; J1100 ==

== ENCOUNTER → 2022-05-26 10:25 | Outpatient (BNVA) | payer MEDICAID, SELFPAY | PROVIDERS: PCP General Practice; Visit Provider Orthopaedic Surgery | DX: M17.0 Bilateral primary osteoarthritis of knee (principal) | CPT/HCPCS: 99212 ==

== ENCOUNTER → 2022-07-05 13:50 | Outpatient (BNVA) | payer MEDICAID, SELFPAY | PROVIDERS: PCP General Practice; Referring Provider General Practice; Visit Provider Nurse Practitioner Family | DX: I42.9 Cardiomyopathy, unspecified (principal); R06.00 Dyspnea, unspecified | CPT/HCPCS: 99212 ==

== ENCOUNTER 2022-07-14 12:07 | Outpatient (REF) | payer MEDICAID, SELFPAY ==
--- NOTE | ~2022-07-14 | MM_ITS ---
EXAMINATION: MM SCREENING DIGITAL BREAST TOMOSYNTHESIS, BILATERAL CLINICAL INFORMATION: Screening. Asymptomatic. Family history premenopausal breast cancer, mother. The lifetime risk of breast cancer based on the Tyrer-Cuzick Model is 15%. COMPARISON: Mammography: 07/12/2021, 07/10/2020, 06/04/2019 TECHNIQUE: Digital breast tomosynthesis is performed in both the craniocaudal and mediolateral oblique views along with computer-aided detection (CAD). Synthesized 2D images are generated from the tomosynthesis. FINDINGS: There are scattered areas of fibroglandular density (ACR BI-RADS breast composition Category b). There are no significant masses, abnormal calcifications, or other abnormalities. Breast tissue composition borders on predominantly fatty. Background stromal markings are stable. No developing density or architectural abnormality. The skin contours are smooth. MM/MM tomosynthesis screening BI IMPRESSION: No mammographic evidence of malignancy. ASSESSMENT: BI-RADS 1: Negative RECOMMENDATION: Routine annual mammography screening. This patient's information was entered into a reminder system with a target due date for their next mammogram.
== END 2022-07-14 12:08 | disposition home or self-care (01) ==
LOC: HO.MAMMO 12:07
PROVIDERS: PCP General Practice; Visit Provider General Practice
DX: Z12.31 Encounter for screening mammogram for malignant neoplasm of breast (principal)
CPT/HCPCS: 77063; 77067; 99212

== ENCOUNTER → 2022-08-19 12:50 | Outpatient (REF) | payer MEDICAID, SELFPAY ==
--- NOTE | 2022-08-19 12:53 | CA_ITS ---
Transthoracic Echocardiogram/Limited Patient (Last, First, Middle): Crystal Ivan, Gender: Female Date of : 1975 Age: 47 Procedure Date: 08/19/2022 Procedure Type: Transthoracic Echocardiogram/Limited Location: OP Height: 170.18 cm Weight: 92.99 kg BSA: 2.04 m2 Heart Rate: 74 bpm BP: 110 / 80 mmHg Tractor Trailer Driver: DEIDRA Referring MD: Noa Medina TRAVEL REGISTERED NURSE NICU-C Store Clerk Cashier: Candido Pollard MD Symptoms: I42.9 - Cardiomyopathy, unspecified Study Quality: Adequate ECG Rhythm: Sinus Conclusions: - Low normal LV systolic function with LVEF of 50-55% Findings Left Ventricle Normal left ventricular cavity size. There is normal left ventricular wall thickness. The left ventricular systolic function is low normal. The visually estimated ejection fraction is between 50-55%. Venous The inferior vena cava is normal in size and collapses greater than 50% with inspiration. Prior Study Comparison Changes noted compared to prior study dated: 02/01/2022. LV systolic function is marginally improved Measurements 2D Linear Measurements IVSd: 0.71 0.6-0.9/0.6-1.0 cm LVIDd: 5.48 3.9-5.3/4.2-5.9 cm LVIDd Index: 2.69 2.4-3.2/2.2-3.1 cm/m2 LVIDs: 4.00 2.0-3.6 cm LVPWd: 0.58 0.7-1.1 cm Ao Root: 3.00 2.1-3.5 cm LA Diam: 3.10 2.7-3.8/3.0-4.0 cm LAIDs Index: 1.52 1.5-2.3 cm/m2 LV Mass: 150.55 67-162/88-224 g LV Mass Index: 73.80 43-95/49-115 g/m2 LVOT Diam: 2.00 3.0+(-)1.3 cm 2D Systolic Function EF 4C: 53.10 >55% EF 2C: 51.80 >55% EF BiP: 52.20 >55% LVOT LVOT Pk Jesús: 0.97 LVOT Mn Jesús: 0.72 LVOT VTI: 0.20 LVOT Pk Grad: 4.00 LVOT Mn Grad: 2.00 LVOT Diam: 2.00 LVOT Area: 3.14 Tricuspid Valve RA Press: 3.00 Great Vessels Aorta Ao Root-2D: 3.00 2.0-3.7 cm Ao Asc: 2.80 2.1-3.4 cm Updated in Other Vendor System with Status of Final Candido Pollard MD electronically signed on 08/20/2022 1:08:46 PM with status of Final
== END ==
LOC: HO.CARD 12:50
PROVIDERS: PCP General Practice; Visit Provider Nurse Practitioner Family
DX: I42.9 Cardiomyopathy, unspecified (principal)
CPT/HCPCS: 93308

== ENCOUNTER 2022-12-14 12:55 | Outpatient (REF) | payer MEDICAID, SELFPAY ==
--- NOTE | ~2022-12-14 | US_ITS ---
EXAMINATION: US SOFT TISSUE HEAD/NECK CLINICAL INFORMATION: Palpable submental lymph node. COMPARISON: Ultrasound thyroid 11/03/2020 and 11/23/2018. Nuclear medicine thyroid uptake and scan 11/14/2018. TECHNIQUE: Linear transducer grayscale and color Doppler examination of the submental area. FINDINGS: -Palpable abnormality corresponds with a left submental lymph node which measures 1.2 x 0.8 x 0.6 cm. This lymph node demonstrates a normal fatty hilum and normal color flow. -Also noted is a normal appearing left submandibular lymph node which measures 2.1 x 0.8 x 1.6 cm. -For comparison purposes the right submandibular region was imaged which demonstrated a normal-appearing 1.5 x 0.6 x 1.0 cm lymph nodes. US/US soft tiss head and/or neck IMPRESSION: -Lymph nodes as described above. Clinical correlation recommended. Follow-up imaging can be obtained as clinically indicated.
== END 2022-12-14 12:56 | disposition home or self-care (01) ==
LOC: HO.US 12:55
PROVIDERS: PCP General Practice; Visit Provider Family Medicine
DX: R59.9 Enlarged lymph nodes, unspecified (principal)
CPT/HCPCS: 76536

== ENCOUNTER 2022-12-16 07:15 | Day surgery (SDC) | payer MEDICAID, SELFPAY ==
[2022-12-13 16:44] VITALS: BMI 31.9
--- NOTE | 2022-12-15 10:17 | HO.ANESPROP2 ---
Documented by User: Kendra Rain NP 12/15/22 10:20 HPI - Anesthesia Eval Consult details Narrative: 47yo F for Upper Endoscopy with Balloon Dilitation Stable at 06/2022 cardiology office visit s/p tubal PMFSH Active Problems Active Problems: All Active Problems (Updated 07/05/22 @ 17:01 by Noa Medina, ELENI-C) Anxiety disorder (Acute) Paroxysmal nocturnal dyspnea (Acute) Chronic pain of left knee (Acute) Fibromyalgia (Acute) Cardiomyopathy (Acute) Vaginal dryness (Acute) Screen for sexually transmitted diseases (Acute) Cervical cancer screening (Acute) Hx of abnormal cervical Pap smear (Acute) Vaginal discomfort (Acute) Autoimmune disease (Acute) Back pain (Acute) Endometrial polyp (Acute) Abnormal ultrasound of pelvis (Acute) Amenorrhea (Acute) Campbell's disease (Acute) Positive KIRT (antinuclear antibody) (Acute) Ineffective esophageal motility (Acute) Dysphagia, pharyngoesophageal phase (Acute) Bacterial vaginosis (Acute) Encounter to discuss test results (Acute) Vitamin D deficiency (Acute) Non-toxic multinodular goiter (Acute) Obesity (Acute) Elevated dehydroepiandrosterone sulfate level (Acute) Graves disease (Acute) Pelvic pain in female (Acute) Degenerative arthritis of knee, bilateral (Acute) Past Medical History Medical History Amenorrhea Anxiety disorder Arthritis Degenerative arthritis of knee, bilateral Elevated dehydroepiandrosterone sulfate level Goiter Graves disease Campbell's disease Hyperthyroidism Non-toxic multinodular goiter Obesity Paroxysmal nocturnal dyspnea Vitamin D deficiency Family History Family History Father Diabetes Mother Breast cancer BRCA gene mutation negative Maternal Uncle Heart transplanted Surgical History Surgical History H/O esophagogastroduodenoscopy History of tonsillectomy History of tubal ligation Social History Social History Alcohol intake: current Patient Tobacco Use Status: Never used Tobacco Advance Directives: No Advance Directives Information Provided: Yes Sexual orientation: Straight/Heterosexual Gender identity: Female Meds Allergies Allergy/AdvReac Type Severity Reaction Status Date / Time cannabidiol (CBD) extract Allergy Mild Hives Verified 07/05/22 14:02 duloxetine AdvReac Intermediate Nausea and Verified 07/05/22 14:02 Vomiting Home Medications Medication Instructions Recorded Confirmed Last Taken Type escitalopram oxalate 10 mg tablet 10 mg PO DAILY 06/24/21 07/05/22 Unknown History polyethylene glycol 3350 17 17 g PO DAILY PRN 10/12/21 07/05/22 Unknown History gram/dose oral powder (Miralax) omeprazole 20 mg capsule,delayed 20 mg PO BID 10/21/21 07/05/22 Unknown History release albuterol sulfate 90 mcg/actuation 1 inh inhalation QID 03/16/22 07/05/22 Unknown History aerosol inhaler budesonide-formoterol HFA 80 1 inh inhalation DAILY PRN 07/05/22 07/05/22 Unknown History mcg-4.5 mcg/actuation aerosol inhaler (Symbicort) Exam Exam Date and Time: December 15, 2022 1017 Height,Weight and Vital Signs: Height 5 ft 7 in Weight 92.533 kg Narrative Narrative: ECHO 08/2022 Conclusions: - Low normal LV systolic function with LVEF of 50-55%? ? ? NM douglas perf SPECT rest & str 04/2022 Impression: ? 1.? Myocardial perfusion imaging study shows likely normal myocardial perfusion 2.? Gated LVEF is 70% 3. Transient ischemic dilatation not present ? EKG is nondiagnostic for ischemia EKG 01/2022 Vent. Rate : 065 BPM ? ? Atrial Rate : 065 BPM ?? P-R Int : 220 ms? QRS Dur : 080 ms ? ? QT Int : 388 ms ? ? ? P-R-T Axes : 069 000 044 degrees ?? QTc Int : 403 ms ? Sinus rhythm with 1st degree A-V block Otherwise normal ECG When compared with ECG of 27-MAY-2021 13:59, KS interval has increased Vent. rate has decreased BY? 36 BPM Assessment and Plan Assessment Anesthesia Assessment: Chart Reviewed Documented by User: Brad Salomon MD 12/16/22 07:25 [facility] Past Medical History Medical History Amenorrhea Anxiety disorder Arthritis Degenerative arthritis of knee, bilateral Elevated dehydroepiandrosterone sulfate level Goiter Graves disease Campbell's disease Hyperthyroidism Non-toxic multinodular goiter Obesity Paroxysmal nocturnal dyspnea Vitamin D deficiency Family History Family History Father Diabetes Mother Breast cancer BRCA gene mutation negative Maternal Uncle Heart transplanted Family history of problems with anesthesia: No Surgical History Surgical History H/O esophagogastroduodenoscopy History of tonsillectomy History of tubal ligation History of Problems with Anesthesia: No Social History Social History Alcohol intake: current Patient Tobacco Use Status: Never used Tobacco Advance Directives: No Advance Directives Information Provided: Yes Sexual orientation: Straight/Heterosexual Gender identity: Female Meds Allergies Allergy/AdvReac Type Severity Reaction Status Date / Time cannabidiol (CBD) extract Allergy Mild Hives Verified 07/05/22 14:02 duloxetine AdvReac Intermediate Nausea and Verified 07/05/22 14:02 Vomiting Home Medications Medication Instructions Recorded Confirmed Last Taken Type escitalopram oxalate 10 mg tablet 10 mg PO DAILY 06/24/21 07/05/22 Unknown History polyethylene glycol 3350 17 17 g PO DAILY PRN 10/12/21 07/05/22 Unknown History gram/dose oral powder (Miralax) omeprazole 20 mg capsule,delayed 20 mg PO BID 10/21/21 07/05/22 Unknown History release albuterol sulfate 90 mcg/actuation 1 inh inhalation QID 03/16/22 07/05/22 Unknown History aerosol inhaler budesonide-formoterol HFA 80 1 inh inhalation DAILY PRN 07/05/22 07/05/22 Unknown History mcg-4.5 mcg/actuation aerosol inhaler (Symbicort) Exam Airway Mallampati Class: II TM Dist: >3cm Neck ROM: Limited Heart: rrr Lungs: cta Assessment and Plan Assessment Anesthesia Assessment: Anesthesia Plan Discussed Final Anesthetic Review Family History of Problems with Anesthesia: No History of Problems with Anesthesia: No NPO: Yes ASA Class: III Final Preanesthetic Review: No Changes in Pt Med Stat, Meds/Allgs Chart Reviewed, Consent Obtained/Reviewed and Anes Risks/Benef Reviewed Patient Risk: Intermediate Procedure Risk: Intermediate Anesthetic Plan Anesthetic Plan: MAC: and Agree w/ Assess. and Plan Disposition: Standard PACU
[2022-12-16 07:59] VITALS: BP 136/84; PULSE 87; RESP 16; TEMP 36.7; O2SAT 99; BMI 31.9
[2022-12-16] MEDS: Lactated Ringers 1,000 ML 100 ML IVCONT (08:07)
--- NOTE | 2022-12-16 08:21 | MHC.SHP ---
Pre-Procedural Eval Section A Date of Service: 12/16/22 The patient is an INPATIENT: No The History & Physical has been completed within 30 days and I have reviewed it.: No Section B Chief Complaint: Dysphagia, pharyngoesophageal phase Relevant Family History (Specify if Yes): No Relevant Social History: None Present Medications: see Short Stay Collaborative assessment Medical History: Significant History (Arthritis Degenerative arthritis of knee, bilateral Elevated dehydroepiandrosterone sulfate level Goiter Graves disease Campbell's disease Hyperthyroidism Non-toxic multinodular goiter Obesity Vitamin D deficiency) History of Previous Operations: Relevant previous surgery/procedure and date(s) (H/O esophagogastroduodenoscopy History of tonsillectomy History of tubal ligation) Allergies: Allergies Allergy/AdvReac Type Severity Reaction Status Date / Time cannabidiol (CBD) extract Allergy Mild Hives Verified 07/05/22 14:02 duloxetine AdvReac Intermediate Nausea and Verified 07/05/22 14:02 Vomiting Review of Systems Sugical H&P ROS: Negative: Constitution, Cardiovascular and Respiratory and Yes, Specify: Gastrointestinal (dysphagia) Exam Surgical H&P Exam: Normal: Heart, Normal: Lungs, Normal: Extremities and Normal: Abdomen Plan Diagnosis/Plan: Change (Proceed with EGD and dilation) I have reviewed the history and physical and performed a pertinent physical examination on my patient. No changes have occurred unless specified. Time Spent With Patient Time: Total time managing care of this patient today ____ minutes.
[2022-12-16 08:27] LABS: Glucose, Whole Blood 93 mg/dL (60-115)
--- NOTE | 2022-12-16 08:44 | W.PM.OPN ---
Operative Note Operative Note Date of Service: 12/16/22 Narrative: FLEXIBLE TRANSORAL UPPER GASTROINTESTINAL ENDOSCOPY WITH BIOPSIES AND ESOPHAGEAL BALLOON DILATION Pre-op diagnosis: Dysphagia, ineffective esophageal motility Post-op diagnosis: GERD, dysphagia, gastric polyps Endoscopist:? Gonzalez Araujo MD Anesthesia:?MAC Consent: Indications for the procedure and potential complications of bleeding, perforation, reaction to medications and missed diagnosis were discussed with the patient and informed consent was obtained. Instrument: Olympus GIF H 190 mid size upper endoscope Monitoring: Vital signs and clinical assessment, continuous EKG monitoring, Pulse oximetry, Carbon Dioxide monitoring and blood pressure monitoring were done throughout the procedure. Procedure: The patient was placed in the left lateral decubitis position and pre-procedure medications were administered and a bite block was placed. The endoscope was inserted into the mouth and advanced under direct vision to the third part of duodenum. A careful inspection was made as the upper endoscope was withdrawn including a retroflexed examination of the proximal stomach; Findings and interventions are described below. Findings: Larynx: Edema of arytenoid cartilages Esophagus: Subtle mucosal changes with circular folds in the esophagus - biopsies were obtained from proximal esophagus to check for EOE. Aperistaltic esophagus. GE junction at 40 cms. No esophagitis or Soliman?s. Esophageal balloon dilation was performed with 20 mm CRE balloon time 60 seconds Stomach: multiple 5-15 mm benign-appearing polyps in the gastric body and fundus - biopsied. Grade 2 flap valve on retroflexed examination of the cardia. Duodenum: Normal bulb and descending duodenum Intervention: Biopsies and esophageal balloon dilation as noted above Impression and Post Procedure Diagnosis: Endoscopy Findings: LARYNX; Changes suggestive of LPRD ESOPHAGUS: Mucosal changes suggestive of EOE STOMACH: Benign-appearing gastric polyps Plan: Await pathology results Patient has an appointment on 01/05/23 in the [facility] with Gonzalez Araujo M.D.. Above findings were reviewed with the patient and [GERD] and [Gastritis] handouts were given in the discharge area BIOPSIES SHOWED: A.? Gastric polyps, biopsy:? Fundic gland polyps with minimal chronic inactive inflammation; negative for intestinal metaplasia and dysplasia (see comment).? B. Esophagus, proximal, biopsy:? Squamous mucosa specific change; no columnar mucosa present; no evidence of eosinophilic esophagitis.? Comment: (A):? H pylori stain was ngetaive.
[2022-12-16 09:09] VITALS: BP 125/77; PULSE 94; RESP 16; TEMP 36.3; O2SAT 100
[2022-12-16 09:24] VITALS: BP 140/82; PULSE 82; RESP 16; O2SAT 100
[2022-12-16 09:38] VITALS: BP 136/78; PULSE 84; RESP 16; TEMP 37.2; O2SAT 100
[2022-12-16] MEDS: Ondansetron ODT 4 MG TAB.RAPDIS TRANSLINGU (10:07)
--- NOTE | 2022-12-16 13:06 | HO.POSTANES ---
Post Anesthesia Evaluation Post Anesthesia Evaluation Date of Service: 12/16/22 Vital Signs: Vital Signs Temp Pulse Resp BP Pulse Ox O2 Del Method 12/16/22 09:38 99.0 F 84 16 136/78 100 Room Air 12/16/22 09:24 82 16 140/82 H 100 Room Air 12/16/22 09:09 97.3 F 94 16 125/77 100 Room Air 12/16/22 07:59 98.1 F 87 16 136/84 99 Room Air Anesthesia: Monitored Mental Status: Awake Pain Control: Satisfactory Nausea/Vomiting: None Hydration: Adequate Anesthesia-Related Issues: No Anes. Related Issues
== END 2022-12-16 11:30 | disposition home or self-care (01) ==
PROVIDERS: PCP General Practice; Visit Provider Internal Medicine Gastroenterology
PROC: (CPT 43249; principal; 2022-12-16 08:30)
DX: R13.14 Dysphagia, pharyngoesophageal phase (principal); K22.0 Achalasia of cardia; K21.9 Gastro-esophageal reflux disease without esophagitis; K31.7 Polyp of stomach and duodenum; K29.60 Other gastritis without bleeding; E28.1 Androgen excess; E55.9 Vitamin D deficiency, unspecified; F41.1 Generalized anxiety disorder; M17.0 Bilateral primary osteoarthritis of knee; E05.00 Thyrotoxicosis with diffuse goiter without thyrotoxic crisis or storm; Z79.51 Long term (current) use of inhaled steroids; Z79.899 Other long term (current) drug therapy; Z88.8 Allergy status to other drugs, medicaments and biological substances
CPT/HCPCS: 43249; 43239; 82947; 88305; 88342; C1726

== ENCOUNTER → 2022-12-16 07:15 | Outpatient (BNV) | payer MEDICAID, SELFPAY | PROVIDERS: PCP General Practice; Visit Provider Internal Medicine Gastroenterology | DX: R13.10 Dysphagia, unspecified (principal); K31.7 Polyp of stomach and duodenum; K21.9 Gastro-esophageal reflux disease without esophagitis | CPT/HCPCS: 43239; 43249 ==

== ENCOUNTER 2023-01-05 07:37 | Outpatient (AMB) | payer MEDICAID, SELFPAY ==
--- NOTE | 2023-01-05 07:40 | A.OFFVIS_ITS ---
Intake Vital Signs 01/05/23 07:44 Height 5 ft 7 in Weight 204 lb BMI 31.9 BP 105/69 Blood Pressure Location Lt brachial Position Sitting Pulse 86 Intake Visit Reasons: s/P EGD Intake Note: Patient follow up for EGD results. Patient cc: acid reflex on and off. 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 ? CHRONIC ILLNESSES:?asthma, Graves disease ?IMAGING STUDIES:?Reviewed. ?ENDOSCOPIC STUDIES: 12/16/22 EGD SHOWED: Larynx:? Edema of arytenoid cartilages Esophagus:? Subtle mucosal changes with circular folds in the esophagus - biopsies were obtained from proximal esophagus to check for EOE.? Aperistaltic esophagus.? GE junction at 40 cms. No esophagitis or Soliman?s.? Esophageal? balloon dilation was performed with 20 mm CRE balloon time 60 seconds Stomach:? multiple 5-15 mm benign-appearing polyps in the gastric body and fundus -? biopsies.? Grade 2 flap valve on retroflexed examination of the cardia. BIOPSIES SHOWED: A.? Gastric polyps, biopsy:? Fundic gland polyps with minimal chronic inactive inflammation; negative for intestinal metaplasia and dysplasia (see comment).? B. Esophagus, proximal, biopsy:? Squamous mucosa specific change; no columnar mucosa present; no evidence of eosinophilic esophagitis.? 04/30/18 EGD showed: ? Larynx: Edema of arytenoid cartilages ? Esophagus: Subtle mucosal changes with circular folds in the esophagus ( ? suggestive of EOE) - biopsies were obtained. GE junction at 36 cms. No ? esophagitis or Soliman s. ? Stomach: Mild gastric erythema. Biopsies were obtained. Grade 2 flap valve on ? retroflexed examination of the cardia. ? Biopsies showed: ? A. Gastric, biopsies: ? Fragments of antral-type gastric mucosa with mild chronic gastritis. ? The Helicobacter pylori immunohistochemical stain is negative. ? B. Esophagus, proximal, biopsies: ? Fragments of unremarkable squamous mucosa. ? There is no evidence of eosinophilic esophagitis seen in this specimen. 04/16/20? HIGH-RESOLUTION ESOPHAGEAL MAN OMETRY AT [facility] [place], [place] SHOWED: ? normal UES function,? short LES length. ? Hypotensive LES/ EGJ resting pressure with normal LES relaxation. ? No hiatal hernia was detected manometrically. ? [place] classification 3: ? ineffective esophageal motility ?TODAY'S VISIT EGD results reviewed with the patient. Chest felt a little different for a few days after EGD Stopped taking the PPI for 6 weeks before the EGD. Gallaway bad when she resumed taking. Notes a lot of pressure in the neck and throat at night with difficulty breathing. Able to sleep in the rt lat decubitis position and unable to sleep at night. Tried using a wedge and was not helpful. Denies nocturnal regurgitation. Also complains of intermittent chest pain radiating to the back 2-3 times Has to stand up to help her breathing and sometimes has to sleep sitting down She was tested for sleep apnea - negative per patient. And cardiac testing Unable to eat solid food x 6 yrs and remains on a liquid and blenderized foods. Stopped taking blederized foods since episodes of choking. Intermittent early satiety. Past history of constipation and now has diarrhea alternating with constipation. PAST VISITS: Not feeling too good. Has nausea daily without vomiting - not always related to eating. Taking blenderized food. Feels her symptoms are getting worse -? unable to eat mashed potatoes. Does not eat if she notes dysphagia with blenderized diet Only takes Ensure and Ensure plus, ice cream, smoothies. Takes a few spoons and gets a sensation in her chest (tightness and chest pain and gets anxious) and unable to eat any more. Notes gas after she takes Ensure or ice-cream which lasts for 45 min. Has been taking Omeprazole twice a day for GERD. Can have heartburn if she does not take Omeprazole for a few days. Patient follow up for dysphagia. Patient cc: Nauseas, gassy, constipation, and some dysphagia. Denies any other GI isuses. Notes nausea daily. Taking Omeprazole twice a day. Feels bloated and has problems with gas. Noted GERD symptoms for a week - attributes it to duloxetine. Takes 30 to 40 min to eat blenderized food. Notes chest pain if she tries to eat fast. Takes Naked smoothies which helps with constipation. Denies improvement in nausea despite taking Omeprazole Intermittent constipation - has a BM almost every day Sometimes can go 3-4 days without a BM. Did not have EGD with Gallardo due to anxiety regarding side effects. ??PAST VISIT No change in problems with eating. Takes yogurt, ensure and blenderized food. Saw Dr Armenta, Esophageal specialist at [facility] [place] in [place] She was told ineffective esophageal motility is due to long standing reflux - consult note has been requested. She is scheduled for an EGD with Gallardo on October 14 at [facility] [place]. Prescribed a medication which she is taking daily ?? ? Taking ensure (1-2 times a day), liquids and ice-cream. ? ? ? Has gained weight and cut back on the Ensure from 3 to two times a day. ? ? ? Has an appt on 01/25/21 with GI at [facility] [place] for a 2nd opinion on dysphagia. ? ? ? Seen by Rheumatology and all her tests were normal and no follow up appointment was advised ? ? ? Notes pains in the shoulder and pain in the hands. ? ? ? Has to sleep on her right side. ? ? ? Unable to sleep on her back or left side. ? ? ? Feel her throat closes and she is unable to breath. ? ? ? Her boy friend messages her shoulders which improves her symptoms. ?? ? Therapy to shoulders and neck helps - thinks her symptoms are related to her muscles. ?? ? Had a home sleep study in the past which was negative. ?? ? Notes palpitations and feels gassy when she takes coffee. ? High-resolution esophageal manometry results were reviewed with the patient. ? Patient denies change in symptoms and continuing to take blenderized food and ice-cream and protein shakes. ? Symptoms of dysphagia for the past 2 years. ? Is able to swallow and feels food is sitting in the lower neck/upper chest sometimes for 30 min. ? Also has a stuffy nose at the same time. ? Has not been able to take solid food for the past 2 years. ? Also has nausea. ? Had an episode of flushing, sudden fatigue and palpitations a week ago. ? Symptoms improved and had nausea following this episode. ? Takes oatmeal after putting it in the utility operator yarn. ? Can eat corned beef on some days and not on other days. ? Also has bad constipation. No BM for 3 days and takes a hot chocolate which helps. ? Weight loss of 65 lbs over 7 months and has gained back 7 lbs after she started taking more ice-cream. ? Feels short of breath when she sleeps on the right side or back ? Since her last appointment in May, she was scheduled for a CT of the neck without contrast- this was scheduled due to ongoing issues with swallowing and xrays of neck revealing changes in the cervical vertebra. ? We received an urgent call from radiology regarding an abnormality noted in the soft tissue - ? soft tissue mass due to the asymmetry noted. Patient was set up urgently with ENT in [place]- seen the same day. ENT felt the abnormality was due to tissue removed from one side of throat during tonsillectomy. Additionally multinodular thyroid gland without enlargement and needs a US for further evaluation. 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 Patient is scheduled for a CT with contrast of neck as well US of thyroid. Patient is going to be scheduled for physical therapy for neck and will follow up about 2 months after? 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 ectopic Anxiety disorder Paroxysmal nocturnal dyspnea Amenorrhea Campbell's disease Arthritis Hyperthyroidism Goiter Vitamin D deficiency Non-toxic multinodular goiter Obesity Elevated dehydroepiandrosterone sulfate level Graves disease Degenerative arthritis of knee, bilateral Surgical History Hx of endoscopy H/O esophagogastroduodenoscopy History of tonsillectomy History of tubal ligation Family History Father Diabetes Mother Breast cancer BRCA gene mutation negative Maternal Uncle Heart transplanted Social History Alcohol intake: current Alcohol intake frequency: does not drink Patient Tobacco Use Status: Never used Tobacco Current occupational status: unemployed Current occupation: right hand Sexual orientation: Straight/Heterosexual Gender identity: Female Review of Systems Const All systems reviewed & are unremarkable except as noted in HPI and below Physical Exam Vital Signs: Last Vital Signs Pulse 86 01/05/23 07:44 BP 105/69 01/05/23 07:44 BMI result Body Mass Index 31.9 Const General: healthy appearing and no acute distress Nutritional Appearance: overweight Orientation/consciousness: patient oriented x3 Limitations: no limitations HEENT Head: Yes normal to inspection Ears: hearing grossly normal bilaterally Eyes Sclerae: sclerae normal Pupils: Equal, round and reactive pupils present Neck Neck: Yes normal visual inspection Chest Chest palpation & inspection: normal inspection of the chest Resp Effort & Inspection: normal respiratory effort Auscultation: clear to auscultation bilaterally Cardio Palpation: normal PMI Rate: regular rate Rhythm: regular rhythm Heart sounds: S1 normal heart sound present, S2 normal heart sound present and no murmurs GI Palpation (GI): Soft to palpation, nontender and No hepatosplenomegaly present Auscultation: normal bowel sounds Rectal Exam - Female: deferred Skin General skin exam: no rashes or lesions noted Neuro General: patient oriented x3, gait normal and moves all extremities Cranial nerves: Yes Equal, round and reactive pupils present Psych Appearance: grossly normal Mental Status: mental status grossly normal Assessment & Plan Assessment & Plan (1) Ineffective esophageal motility: Code(s): K22.4 - Dyskinesia of esophagus (2) Dysphagia, pharyngoesophageal phase: Code(s): R13.14 - Dysphagia, pharyngoesophageal phase (3) Vitamin D deficiency: Code(s): E55.9 - Vitamin D deficiency, unspecified (4) Early satiety: Code(s): R68.81 - Early satiety Plan 47 YF with asthma seen for FU of dysphagia to solid food for the past year. Has been taking blenderized foods and protein shakes. An UGI was normal. EGD in 04/2018 showed gastritis and subtle mucosal changes suggestive of EOE. Esophgeal biopsies were negative for EOE and gastric biopsies did not show H Pylori. Pt was advised further evaluation with High Resolution Manometery to rule out esophageal motility disorder/achalasia. She was advised to continue taking a blendarized diet and protien shakes in the interim. 04/16/20? HIGH-RESOLUTION ESOPHAGEAL MANOMETRY AT [facility] [place] [place] SHOWED: ? normal UES function,? short LES length. ? Hypotensive LES/ EGJ resting pressure with normal LES relaxation. ? No hiatal hernia was detected manometrically. ? [place] classification 3: ? ineffective esophageal motility ?Patient was advised LAB tests to rule out presence of autoimmune disorder affecting esophageal motility - KIRT 1:80 nuclear/ speckled pattern. Pt was seen by Rheumatology? -? no evidence of lupus or connective tissue disease was detected.? She had a? negative rheumatoid factor, normal ESR and CRP, negative ds DNA.? The remainder of her serology was also unrevealing with negative Sm/ATHLETICS TEACHER, negative scleroderma antibody, normal complements, negative Sjogren's a ntibodies.? Source of positive KIRT was felt to be positive antithyroid antibodies. She was advised to start metoclopramide 10 mg 3 times daily with meals for dysphagia/ ineffective esophageal motility disorder. Of note:? Pt is undergoing additional testing with a CT scan due to elevated DHEA-sulfate levels. She was referred to the [facility] at [facility] [place] [facility] for a 2nd opinion and has an appt on 01/25/21. Patient was referred to Neurology to rule out neurological source of her symptoms 12/16/22 EGD was performed in findings as noted above Pt is enrolled in a study at [facility] [place] [facility] in [place] and stopped it since she did not note any improvement in her symptoms. She continues to FU at [facility] [place] [facility] though per patient no additional treatment options have been offered to her Follow-up appointment in GI in 4 months ?FROM UP-TO-DATE: Ineffective esophageal motility: By high-resolution esophageal manometry, ineffective motility is defined as 50 to 90 percent of the liquid swallows being weak or failed. The manometric diagnosis of ineffective esophageal motility does not always correlate with symptoms or impaired esophageal function. In one s tudy, only 30 percent of patients with ineffective esophageal motility reported dysphagia. Moreover, studies using esophageal intraluminal impedance testing have shown that up to 68 percent of liquid and 59 percent of viscous swallows in such patients showed normal bolus transit The prevalence of celiac disease and inflammatory bowel disease is probably modestly increased among individuals with autoimmune thyroid disease. Patients with persistent gastrointestinal symptoms should undergo screening for these diseases. Pt called.? On 09/11/22 she took 2-3 spoonful of some blenderized oatmeal which was a little thick. Noted chest pain and unable to swallow water. Gallaway bad in her chest and unable to breath Was going to go to the ED and symptoms resolved after 45 to 50 min. Continued to have chest pain the following day. Has been taking a liquid diet. She is participitating in a study at [facility] [place] [facility] and continues to fu with Dr Armenta Only medication she is taking is Omeprazole Pt was advised to schedule an EGD for further evaluation Orders: Orders NM gastric emptying study 01/05/23 R68.81 - Early satiety Coding Level of Care Code Est Pt Level 4 (39696) Diagnoses Ineffective esophageal motility K22.4 Dysphagia, pharyngoesophageal phase R13.14 Vitamin D deficiency E55.9 Early satiety R68.81 Time Spent (min) 21
[2023-01-05 07:44] VITALS: BP 105/69; PULSE 86; BMI 31.9
== END 2023-01-05 08:39 | disposition home or self-care (01) ==
PROVIDERS: PCP General Practice; Visit Provider Internal Medicine Gastroenterology
DX: K22.4 Dyskinesia of esophagus (principal); R13.14 Dysphagia, pharyngoesophageal phase; E55.9 Vitamin D deficiency, unspecified; R68.81 Early satiety
CPT/HCPCS: 99499

== ENCOUNTER → 2023-01-05 07:37 | Outpatient (BNVA) | payer MEDICAID, SELFPAY | PROVIDERS: PCP General Practice; Visit Provider Internal Medicine Gastroenterology ==

== ENCOUNTER → 2023-01-24 07:57 | Outpatient (REF) | payer MEDICAID, SELFPAY ==
--- NOTE | ~2023-01-24 | NM_ITS ---
EXAMINATION: NM RADIONUCLIDE SOLID FOOD GASTRIC EMPTYING 4-HOUR STUDY CLINICAL INFORMATION: Early satiety. COMPARISON: None. TECHNIQUE: A meal consisting of 8 ounces of Ensure-plus Brand tagged with 960 microcuries Tc-99m Sulfur Colloid, was administered orally to the patient. This fatty supplement was used because the patient could not tolerate eggs, and has been shown to closely mimic gastric emptying of labeled eggs. Images were obtained using a dual head gamma camera in the anterior and posterior projections over of the stomach immediately post ingestion and at hourly intervals up to 4 hours post ingestion. The anterior and posterior counts at each time interval were averaged using the geometric mean and expressed as percentage of the immediate post ingestion counts. FINDINGS: There is good visualization of activity in the stomach immediately post ingestion. As the study progresses, there is good clearance of activity from the stomach and visualization of progressively increasing small bowel activity. By the end of the study, there is almost no retention noted in the stomach. Retention in the stomach at each time interval was: 1 hour 53% (normal 37%-90%) 2 hours 25% (normal 30%-60%) 3 hours 4% 4 hours images were not obtained since only 4% retention was seen at 3 hours images. NM/NM gastric emptying study IMPRESSION: Normal modified 4-hour gastric emptying study. Ensure-plus Brand supplement was used instead of radio-labeled eggs because of the patient's inability to the solid foods. This supplement has been shown to closely mimic gastric emptying of labeled eggs. (For solid meal, rapid gastric emptying is less than 30% at 60 minutes. Delayed gastric emptying criteria is more than 60% remaining at 120 minutes or more than 10% at 240 minutes. The 4-hour value is the best discriminator of a normal or abnormal result). Gastric emptying study grading per JNMT Consensus Recommendations in 2008 (https://tech.snmjournals.org/content/36/44) Grade 1 (mild retention): 11-20% at 4h Grade 2 (moderate retention): 21-35% at 4h Grade 3 (severe retention): 36-50% at 4h Grade 4 (very severe retention): >50% retention at 4h
== END ==
LOC: HO.NUCMED 07:57
PROVIDERS: PCP General Practice; Visit Provider Internal Medicine Gastroenterology
DX: R68.81 Early satiety (principal)
CPT/HCPCS: 78264; A9541

== ENCOUNTER 2023-03-14 10:13 | Outpatient (AMB) | payer MEDICAID, SELFPAY ==
[2023-03-14 10:16] VITALS: BP 110/72; PULSE 90; BMI 32.0
--- NOTE | 2023-03-14 10:16 | A.OFFVIS_ITS ---
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 In the past, she has had mild LV dysfunction on echocardiograms. Otherwise, no known issues like coronary artery disease myocardial infarction or in fact anything else cardiac sounding. Atypical chest pains at different times. More recently, she feels as though she is having panic attack episodes. However, there was concern of the panic attack could be rather cardiac and hence she wants to be sure. When I questioned her more about this, she states that these episodes happen very randomly. Not while exertion. In fact she does not really have any shortness of breath with exertion but rather when she is just resting. After some time, seems to get better. She has had extensive workup including echocardiogram, stress test as well as PFTs and sleep study. [facility] Medical History (Updated 03/14/23 @ 11:02 by Marcus Baig MD) Anxiety disorder Paroxysmal nocturnal dyspnea Amenorrhea Campbell's disease Arthritis Hyperthyroidism Goiter Vitamin D deficiency Non-toxic multinodular goiter Obesity Elevated dehydroepiandrosterone sulfate level Graves disease Degenerative arthritis of knee, bilateral Surgical History Hx of endoscopy H/O esophagogastroduodenoscopy History of tonsillectomy History of tubal ligation Family History Father Diabetes Mother Breast cancer BRCA gene mutation negative Maternal Uncle Heart transplanted Social History Alcohol intake: current Patient Tobacco Use Status: Never used Tobacco Sexual orientation: Straight/Heterosexual Gender identity: Female Review of Systems Const Denies weakness ENT Denies dizziness Card Denies chest pain, Denies chest pain with activity, Denies syncope, Denies rapid heart rate, Denies pedal edema, Denies edema, Denies leg edema, Denies lightheadedness, Denies palpitations, Denies dyspnea, Denies dyspnea on exertion and Denies orthopnea Resp Denies cough, Denies dyspnea and Denies dyspnea on exertion GI Denies hematochezia and Denies change in stool character Musc Denies abnormal gait, Denies muscle cramps, Denies muscle weakness, Denies numbness, Denies radiating pain into limb and Denies tingling Neuro Denies abnormal gait, Denies dizziness, Denies syncope, Denies numbness, Denies tingling and Denies weakness Endo Denies palpitations Physical Exam Vital Signs: Last Vital Signs Pulse 90 03/14/23 10:16 BP 110/72 03/14/23 10:16 BMI result Body Mass Index 32.0 Const General: comfortable and no acute distress Orientation/consciousness: patient oriented x3 HEENT Other: Unremarkable Head: Yes normal to inspection Neck Neck: Yes normal visual inspection Chest Chest palpation & inspection: normal inspection of the chest Resp Auscultation: clear to auscultation bilaterally Cardio Palpation: normal PMI Heart sounds: S1 normal heart sound present, S2 normal heart sound present, no gallops, no murmurs and no rubs GI Palpation (GI): Soft to palpation Back/Spine/Pelvis Other: unremarkable Skin General skin exam: no rashes or lesions noted Neuro General: patient oriented x3 Extrem General: Yes normal to inspection Psych Mental Status: mental status grossly normal Office Procedures EKG Details: EKG with sinus rhythm at 90/Min; no significant ST-T changes and otherwise unremarkable. [place]. [id number], Complete Assessment & Plan Assessment & Plan (1) Cardiomyopathy: Comment: She has decreased LVEF , but does not have any obvious congestive heart failure. Being followed by Cardiology Code(s): I42.9 - Cardiomyopathy, unspecified (2) Postural hypotension: Code(s): I95.1 - Orthostatic hypotension Plan Pertinent studies reviewed. Echocardiogram from 2021 with LVEF of 48%. In the repeat study from this year, low normal LVEF at 50-55%. In the stress test, she reached 7.8 Mets on Mango protocol. No angina. Isolated PVCs. No EKG evidence of ischemia. Perfusion imaging unremarkable. Overall, very mild cardiomyopathy which really should not be causing any shortness of breath. We had discussed about cardiac MRI as well but patient has claustrophobia and will not be able to cooperate. Overall, mainly reassurance only for the mild cardiomyopathy. We can recheck another echo next year. Home sleep study was also normal. In the PFTs, there was a question of asthma. Will ensure there is no concern from this, and message being sent to Pulmonary. Otherwise, she does have some orthostatic dizziness at times and she can try compression stockings. We discussed about this today. Total time spent including review of data, counseling, documentation, coordination of care-32 minutes. Coding Level of Care Code Est Pt Level 4 (70932) Diagnoses Cardiomyopathy I42.9 Postural hypotension I95.1 CPT Codes EKG - CPT: 83430-[id number], Complete ([id number])
== END 2023-03-14 10:38 | disposition home or self-care (01) ==
PROVIDERS: PCP General Practice; Visit Provider Internal Medicine
DX: I42.9 Cardiomyopathy, unspecified (principal); I95.1 Orthostatic hypotension
CPT/HCPCS: 93010; 99214

== ENCOUNTER → 2023-03-14 10:13 | Outpatient (BNVA) | payer MEDICAID, SELFPAY | PROVIDERS: PCP General Practice; Visit Provider Internal Medicine | DX: I42.9 Cardiomyopathy, unspecified (principal); I95.1 Orthostatic hypotension | CPT/HCPCS: 93005; 99212 ==

== ENCOUNTER 2023-03-20 10:00 | Outpatient (AMB) | payer MEDICAID, SELFPAY ==
[2023-03-20 10:03] VITALS: BP 114/68; BMI 31.8
--- NOTE | 2023-03-20 10:03 | MHC.OFFVIS ---
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 Information Interpreted: non-clinical & clinical Medicare Sales Representative: Medicare Sales Representative Present (Aidyn) Allergies cannabidiol (CBD) extract Allergy (Mild, Verified 03/20/23 10:06) Hives duloxetine Adverse Reaction (Intermediate, Verified 03/20/23 10:06) Nausea and Vomiting Medication List - Last Reconciled 03/20/23 by Radha Valles CNM albuterol sulfate 90 mcg/actuation 1 inh inhalation QID escitalopram oxalate 10 mg PO DAILY hydroxyzine HCl 25 mg PO TID PRN omeprazole 20 mg PO BID Is last menstrual period known: Yes Last menstrual period: 03/10/23 Post menopausal: No HPI Annual HPI Details 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 She has 5 different appointments with different physicians today. She gets regular periods her last 1 was the end of last month. She has a history of tubal ligation in [place] but she had an ectopic in 2006 after that. She says they asked her if she wanted to have a repeat tubal ligation at that time and she said no because she was with somebody that she would have liked to have had a child with. She does not use any other form of protection since then but she has not gotten since. She gets regular mammograms though she could not remember when her last 1 was she said her mom had breast cancer 3 times but has not had a recurrence in 10 years. She is not worried about any STDs. Her visit right after this is with pulmonology. She does not do too much exercise because of all of her health issues. [facility] Medical History (Updated 03/20/23 @ 10:50 by Radha Valles CNM) Hx of ectopic Anxiety disorder Paroxysmal nocturnal dyspnea Amenorrhea Campbell's disease Arthritis Hyperthyroidism Goiter Vitamin D deficiency Non-toxic multinodular goiter Obesity Elevated dehydroepiandrosterone sulfate level Graves disease Degenerative arthritis of knee, bilateral Surgical History (Updated 03/20/23 @ 10:50 by Radha Valles CNM) Hx of endoscopy H/O esophagogastroduodenoscopy History of tonsillectomy History of tubal ligation Family History Father Diabetes Mother Breast cancer BRCA gene mutation negative Maternal Uncle Heart transplanted Social History Alcohol intake: current Patient Tobacco Use Status: Never used Tobacco Sexual orientation: Straight/Heterosexual Gender identity: Female Female Reproductive History Menstrual Age of Menarche: 13 Date of last menstrual period: 03/10/23 control method: other (tubal ligation) Total pregnancies: 5 Full term: 4 Number of Living Children: 4 Ectopics: 1 Date of last pap smear: 03/17/22 (negative) History of abnormal pap smear: Yes (ASCUS 2016, TED 1 2004) Date of Mammogram: 07/14/22 Physical Exam Vital Signs: Last Vital Signs BP 114/68 03/20/23 10:03 BMI result Body Mass Index 31.8 Const General: healthy appearing, comfortable, no acute distress, well developed and alert Nutritional Appearance: average body habitus Orientation/consciousness: patient oriented x3 Limitations: no limitations HEENT Head: Yes normocephalic Neck Neck: Yes normal visual inspection Chest Chest palpation & inspection: normal inspection of the chest Breast/axilla inspection: normal inspection of the breasts and normal inspection of the axillae Breast/axilla palpation: normal palpation of the breasts and normal palpation of the axillae Resp Effort & Inspection: normal respiratory effort GI Inspection: Yes normal to inspection, No Abdominal wall edema and No distended Palpation (GI): Soft to palpation and nontender General: Yes bladder normal to palpation External Female Exam: normal external appearance and normal appearance of the urethra Speculum Exam - Vagina: normal appearance of the vagina, normal palpation and normal vaginal discharge Speculum Exam - Cervix: normal appearance of the cervix, normal palpation and nontender Bimanual exam- vagina & uterus: normal bimanual exam, normal palpation, uterine size normal, bladder normal to palpation, consistency normal, normal palpation, uterine mobility normal, uterine shape normal, No Cervical tenderness present, non-tender and no cervical motion tenderness Bimanual Exam- Adnexa, other: normal adnexae, no masses, normal and No adnexal tenderness Neuro General: patient oriented x3 Results Reviewed Results Reviewed: Patient: Crystal Ivan#: [id number] : 1975 Acct:[id number] Age/Sex: 47 / F ADM Date: 07/14/22 Loc: HO.MAMMO Attending Dr: Batsheva Cabrera MD Ordering Physician: Batsheva Cabrera Results: 1Negative Date of Service: 07/14/22 Follow Up: 1 Year From Original Mammogram Procedure(s): MM tomosynthesis screening BI Accession Number(s): [id number] cc: Batsheva Cabrera~ EXAMINATION: MM SCREENING DIGITAL BREAST TOMOSYNTHESIS, BILATERAL CLINICAL INFORMATION: Screening. Asymptomatic. Family history premenopausal breast cancer, mother. The lifetime risk of breast cancer based on the Tyrer-Cuzick Model is 15%. COMPARISON: Mammography: 07/12/2021, 07/10/2020, 06/04/2019 TECHNIQUE: Digital breast tomosynthesis is performed in both the craniocaudal and mediolateral oblique views along with computer-aided detection (CAD). Synthesized 2D images are generated from the tomosynthesis. FINDINGS: There are scattered areas of fibroglandular density (ACR BI-RADS breast composition Category b). There are no significant masses, abnormal calcifications, or other abnormalities. Breast tissue composition borders on predominantly fatty. Background stromal markings are stable. No developing density or architectural abnormality. The skin contours are smooth. MM/MM tomosynthesis screening BI IMPRESSION: No mammographic evidence of malignancy. ASSESSMENT: BI-RADS 1: Negative RECOMMENDATION: Routine annual mammography screening. This patient's information was entered into a reminder system with a target due date for their next mammogram. Dictated By: Claude Deng MD Signed By: <Electronically signed by Claude Deng MD in OV> 07/15/22 1712 DD/ 1230 TD/TT: Assessment & Plan Assessment & Plan (1) Hx of abnormal cervical Pap smear: Comment: see detail of hx of paps 2022,( 2004 ted 1, 2017= ascus, last pap neg 03/16/22. Code(s): Z87.42 - Personal history of other diseases of the female genital tract (2) Well woman exam with routine gynecological exam: Code(s): Z01.419 - Encounter for gynecological examination (general) (routine) without abnormal findings (3) Cervical cancer screening: Comment: 03/16/2022 Pap is negative with negative HPV. Code(s): Z12.4 - Encounter for screening for malignant neoplasm of cervix (4) Anxiety disorder: Comment: She does have chronic anxiety disorder/mild depression. It goes along with chronic fibromyalgia disorder. I see that she is on small doses of escitalopram and lorazepam. Code(s): F41.9 - Anxiety disorder, unspecified (5) Hx of ectopic : Comment: left salpingectomy 01/23/2007, -Dr Leila Obrien Code(s): Z87.59 - Personal history of other complications of , childbirth and the puerperium Plan -----Discussed in this visit the following: healthy balanced diet, regular and consistent exercise, getting recommended health screens, doing the best she can for her particular health concerns, kegel exercises, pap smear screening and followup recommendations, mammography screening and SBE, normal changes in cycles in her life stage--- . Reviewed her history with her in some detail. Her breasts feel bilaterally lumpy but nothing specific to quantify as a mass. She is going to continue with her annual screening next due in June. She had no concerns about STDs so testing was offered but declined. Pap smear was done the last year's was normal because of her history of abnormals Discussed her history of ectopic after tubal ligation surgery that had been done in [place]. I recommended caution when she could be ovulating if she does not want to get at this stage because it always is possible. She says she was offered repeat tubal ligation and declined it back in 2006 because she would of welcome to another at that time. She says now would not be a good time with all of her health concerns so I urged her to act accordingly and use precautions. Orders: Orders Pap Smear Today Z12.4 - Encounter for screening for malignant neoplasm of cervix Coding Level of Care Code Est Pt Prev Care 40-64y(39214) Diagnoses Hx of abnormal cervical Pap smear Z87.42 Well woman exam with routine gynecological exam Z01.419 Cervical cancer screening Z12.4 Anxiety disorder F41.9 Hx of ectopic Z87.59
== END 2023-03-20 10:46 | disposition home or self-care (01) ==
PROVIDERS: PCP General Practice; Visit Provider Advanced Practice Midwife
DX: Z87.42 Personal history of other diseases of the female genital tract (principal); Z01.419 Encounter for gynecological examination (general) (routine) without abnormal findings; Z12.4 Encounter for screening for malignant neoplasm of cervix; F41.9 Anxiety disorder, unspecified; Z87.59 Personal history of other complications of pregnancy, childbirth and the puerperium
CPT/HCPCS: 99396

== ENCOUNTER 2023-03-20 10:00 | Outpatient (REF) | payer MEDICAID, SELFPAY ==
[2023-03-23 01:18] LABS: HPV mRNA E6/E7 rflx Not Detected (Not Detected)
== END 2023-03-20 10:01 | disposition home or self-care (01) ==
LOC: HO.LNP 10:00
PROVIDERS: Visit Provider Advanced Practice Midwife
DX: Z01.419 Encounter for gynecological examination (general) (routine) without abnormal findings (principal); Z11.51 Encounter for screening for human papillomavirus (HPV); R06.00 Dyspnea, unspecified; F41.9 Anxiety disorder, unspecified; M79.7 Fibromyalgia
CPT/HCPCS: 87624; 88142; 99212; 99396

== ENCOUNTER 2023-03-20 10:53 | Outpatient (AMB) | payer MEDICAID, SELFPAY ==
[2023-03-20 11:00] VITALS: BP 102/68; PULSE 79; O2SAT 98; BMI 31.6
--- NOTE | 2023-03-20 11:00 | A.OFFVIS_ITS ---
Intake Vital Signs 03/20/23 11:00 Height 5 ft 7 in Weight 202 lb BMI 31.6 BP 102/68 Blood Pressure Location Lt brachial Position Sitting Pulse 79 Pulse Source Pulse Oximeter Pulse Oximetry (%) 98 Oxygen Delivery Method Room Air Intake Visit Reasons: Shortness of breath Intake Note: pt is here for follow up and states she has anxiety and has a little short of breath, but when she does get short of breath it lasts a long time and that is why they wanted her to see pulm., she states people notice that her lips get white when this shortness of breath attack occurs, with chest pain. 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 Allergies cannabidiol (CBD) extract Allergy (Mild, Verified 03/20/23 11:08) Hives duloxetine Adverse Reaction (Intermediate, Verified 03/20/23 11:08) Nausea and Vomiting Medication List - Last Reconciled 03/20/23 by Marquez Knott MD albuterol sulfate 90 mcg/actuation 1 inh inhalation QID clonazepam 0.25 - 0.5 mg PO DAILY PRN escitalopram oxalate 10 mg PO DAILY hydroxyzine HCl 50 mg PO TID lidocaine 5% 1 patch topical QAM omeprazole 20 mg PO BID HPI Shortness of breath HPI Details This 47 years old female, is referred for pulmonary evaluation, because of very nonspecific symptoms the last few years. Patient states that when she lies down on the left side, sometimes she feels a pinch in the upper part of chest , and she gets short of breath and has to the right side , this is symptom goes away. Using inhaler such as albuterol does not make a difference. It happens about once or twice a week . She claims that she has had burnt out esophagus due to longstanding GERD but breathing spells are not related to any symptoms of GERD at this time. During the daytime she is okay and she can walk around without shortness of breath. This patient has used Symbicort 80-4.5 2 puffs b.i.d. and albuterol p.r.n. but it has not prevented the above attacks as described. She has had full cardiac workup, her echocardiogram has shown reduced left ventricular ejection fraction, so she is diagnosed to have cardiomyopathy. But she has had no congestive heart failure. This patient does have history of fibromyalgia, anxiety and depression, chronic back pain nonspecific auto immune disorder. THIS PATIENT HAD A SLEEP STUDY IN 2019 AND IT WAS ESSENTIALLY NORMAL THERE WAS NO EVIDENCE OF SLEEP APNEA. SHE HAS HAD CHEST X-RAY WHICH WAS NORMAL. SHE ALSO HAD PULMONARY FUNCTION TEST ON 09/02/2021 which was ESSENTIALLY NORMAL. The patient does admit the 0 she gets frequent panic attacks, and it is at that time when she feels short of breath with some tight feeling in the chest. [facility] Medical History Hx of ectopic Anxiety disorder Paroxysmal nocturnal dyspnea Amenorrhea Campbell's disease Arthritis Hyperthyroidism Goiter Vitamin D deficiency Non-toxic multinodular goiter Obesity Elevated dehydroepiandrosterone sulfate level Graves disease Degenerative arthritis of knee, bilateral Surgical History Hx of endoscopy H/O esophagogastroduodenoscopy History of tonsillectomy History of tubal ligation Family History Father Diabetes Mother Breast cancer BRCA gene mutation negative Maternal Uncle Heart transplanted Social History Alcohol intake: current Patient Tobacco Use Status: Never used Tobacco Sexual orientation: Straight/Heterosexual Gender identity: Female Female Reproductive History Menstrual Age of Menarche: 13 Review of Systems Const All systems reviewed & are unremarkable except as noted in HPI and below Eyes Reports no additional complaints ENT Reports dysphagia (MILD NONSPECIFIC AND ONLY OFF AND ON), Denies nasal congestion and Denies nasal discharge Card Denies chest pain, Denies irregular heart rhythm, Denies leg edema and Denies dyspnea on exertion Resp Denies cough, Denies dyspnea on exertion and Denies wheezing GI Reports dysphagia (MILD NONSPECIFIC AND ONLY OFF AND ON) and Reports heartburn (GERD symptoms controlled with medicine) Details: Ameorrhea and vaginosis Musc Reports back pain and Reports myalgias Skin/Breast Reports system reviewed and no additional complaints, except as documented Neuro Reports no additional complaints Psych Reports anxiety and Reports depression Endo Reports no additional complaints Aller/Immun Denies wheezing Physical Exam Vital Signs: Last Vital Signs Pulse 79 03/20/23 11:00 BP 102/68 03/20/23 11:00 Pulse Ox 98 03/20/23 11:00 Oxygen Delivery Method Room Air 03/20/23 11:00 BMI result Body Mass Index 31.6 Const General: healthy appearing (Except for being overweight) and comfortable Orientation/consciousness: patient oriented x3 HEENT Head: Yes normal to inspection General nose exam: No nasal polyps present and No nasal discharge present Face and sinus: Yes sinuses nontender Mouth: oropharynx normal Throat: Yes posterior oropharynx normal Eyes General: appearance normal, both eyes and all related structures Neck Neck: Yes normal visual inspection, Yes no lymphadenopathy, Yes trachea midline and Yes no JVD Thyroid: Thyroid normal Chest Chest palpation & inspection: normal inspection of the chest, normal palpation of entire chest wall and no tenderness Resp Effort & Inspection: normal respiratory effort and no cough Auscultation: clear to auscultation bilaterally, no crackles and no wheezes Cardio Palpation: normal PMI Rate: regular rate Rhythm: regular rhythm Heart sounds: no gallops and no murmurs Peripheral pulses: Peripheral pulses 2+ throughout GI Palpation (GI): Soft to palpation, nontender, No hepatosplenomegaly present and no masses Auscultation: normal bowel sounds Back/Spine/Pelvis Thoracic/Lumbar Spine: thoracic and lumbar spine normal to inspection and thoraco-lumbar ROM limited Skin General skin exam: no rashes or lesions noted Neuro General: patient oriented x3 and no focal motor deficits Cranial nerves: Yes CN's II-XII intact bilaterally Extrem General: Yes normal to inspection, Yes no clubbing, cyanosis or edema and Yes no calf tenderness Psych Appearance: grossly normal and well kempt Speech and movement: Normal speech and movement present Assessment & Plan Assessment & Plan (1) Paroxysmal nocturnal dyspnea: Comment: This is a nonspecific symptom in her case. I think most likely her attacks of dyspnea are associated with anxiety/panic attacks. [place] : I discussed with her in detail, reassured that the basically her lungs are normal. Relaxing breathing exercises are explained . Code(s): R06.00 - Dyspnea, unspecified (2) Anxiety disorder: Comment: She does have chronic anxiety disorder/mild depression. It goes along with chronic fibromyalgia disorder. I see that she is on small doses of escitalopram and clonazepam . Continue to follow-up with psychiatrist . Code(s): F41.9 - Anxiety disorder, unspecified (3) Fibromyalgia: Comment: This disorder may be contributing to her nonspecific back pain and spasms in the back of left chest. Code(s): M79.7 - Fibromyalgia Medications: Changed From hydroxyzine HCl 25 mg PO TID PRN 30 tabs 0RF anxiety To hydroxyzine HCl 50 mg PO TID anxiety Coding Level of Care Code Est Pt Level 3 (43400) Diagnoses Paroxysmal nocturnal dyspnea R06.00 Anxiety disorder F41.9 Fibromyalgia M79.7
== END 2023-03-20 11:21 | disposition home or self-care (01) ==
PROVIDERS: PCP General Practice; Visit Provider Internal Medicine
DX: R06.00 Dyspnea, unspecified (principal); F41.9 Anxiety disorder, unspecified; M79.7 Fibromyalgia
CPT/HCPCS: 99213

== ENCOUNTER 2023-03-20 11:11 | Outpatient (REF) | payer MEDICAID, SELFPAY ==
--- NOTE | ~2023-03-20 | XR_ITS ---
EXAMINATION: XR HAND, LEFT CLINICAL INFORMATION: Finger and palm pain since bending injury one month ago COMPARISON: None available. TECHNIQUE: PA, lateral, and oblique views of the left hand. FINDINGS: Diffuse interphalangeal joint space narrowings. Alignment maintained. No fracture, dislocation or focal soft tissue swelling. No erosions. XR/XR hand LT min 3V IMPRESSION: Diffuse mild interphalangeal joint space narrowings. No acute bony pathology.
== END 2023-03-20 11:12 | disposition home or self-care (01) ==
LOC: HO.XRAY 11:11
PROVIDERS: PCP General Practice; Visit Provider General Practice
DX: M79.642 Pain in left hand (principal)
CPT/HCPCS: 73130

== ENCOUNTER 2023-05-04 13:18 | Outpatient (AMB) | payer MEDICAID, SELFPAY ==
--- NOTE | 2023-05-04 13:26 | A.OFFVIS_ITS ---
Vital Signs 05/04/23 13:29 Height 5 ft 7 in Weight 199 lb BMI 31.2 BP 113/57 L Blood Pressure Location Lt brachial Position Sitting Pulse 84 Intake Visit Reasons: 4 month follow up Intake Note: Patient 4 month follow up for dysphagia. Patient cc: nauseas, difficulty swallowing even the liquid, and occasional acid reflex. 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 Accompanied by: Self / Same As Patient Allergies cannabidiol (CBD) extract Allergy (Mild, Verified 11/28/23 11:42) Hives duloxetine Adverse Reaction (Intermediate, Verified 11/28/23 11:42) Nausea and Vomiting Medication List - Last Reconciled 05/04/23 by Gonzalez Araujo MD albuterol sulfate 90 mcg/actuation 1 inh inhalation QID clonidine HCl 0.1 mg PO BEDTIME escitalopram oxalate 10 mg PO DAILY hydroxyzine HCl 50 mg PO TID lidocaine 5% 1 patch topical QAM omeprazole 20 mg PO BID HPI HPI 4 month follow up: Details: FU GI CLINIC VISIT FOR THIS 47-YEAR-OLD FEMALE FOR FOLLOW-UP OF 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 ? CHRONIC ILLNESSES:?asthma, Graves disease ?IMAGING STUDIES:?Reviewed. ?ENDOSCOPIC STUDIES: 12/16/22 EGD SHOWED: Larynx:? Edema of arytenoid cartilages Esophagus:? Subtle mucosal changes with circular folds in the esophagus - biopsies were obtained from proximal esophagus to check for EOE.? Aperistaltic esophagus.? GE junction at 40 cms. No esophagitis or Soliman?s.? Esophageal? balloon dilation was performed with 20 mm CRE balloon time 60 seconds Stomach:? multiple 5-15 mm benign-appearing polyps in the gastric body and fundus -? biopsies.? Grade 2 flap valve on retroflexed examination of the cardia. BIOPSIES SHOWED: A.? Gastric polyps, biopsy:? Fundic gland polyps with minimal chronic inactive inflammation; negative for intestinal metaplasia and dysplasia (see comment).? B. Esophagus, proximal, biopsy:? Squamous mucosa specific change; no columnar mucosa present; no evidence of eosinophilic esophagitis.? 04/30/18 EGD showed: ? Larynx: Edema of arytenoid cartilages ? Esophagus: Subtle mucosal changes with circular folds in the esophagus ( ? suggestive of EOE) - biopsies were obtained. GE junction at 36 cms. No ? esophagitis or Soliman s. ? Stomach: Mild gastric erythema. Biopsies were obtained. Grade 2 flap valve on ? retroflexed examination of the cardia. ? Biopsies showed: ? A. Gastric, biopsies: ? Fragments of antral-type gastric mucosa with mild chronic gastritis. ? The Helicobacter pylori immunohistochemical stain is negative. ? B. Esophagus, proximal, biopsies: ? Fragments of unremarkable squamous mucosa. ? There is no evidence of eosinophilic esophagitis seen in this specimen. 04/16/20? HIGH-RESOLUTION ESOPHAGEAL MANOMETRY AT [facility] [place] SHOWED: ? normal UES function,? short LES length. ? Hypotensive LES/ EGJ resting pressure with normal LES relaxation. ? No hiatal hernia was detected manometrically. ? [place] classification 3: ? ineffective esophageal motility ?TODAY'S VISIT Patient cc: nauseas, difficulty swallowing even the liquid, and occasional acid reflex Complains of nausea Some days she wakes up with nausea which lasts all day. Taking liquids and a few Seen by Rodriguez Santos at [facility] and was referred to Thoracic Surgery PAST VISITS: EGD results reviewed with the patient. Chest felt a little different for a few days after EGD Stopped taking the PPI for 6 weeks before the EGD. [place] bad when she resumed taking. Notes a lot of pressure in the neck and throat at night with difficulty breathing. Able to sleep in the rt lat decubitis position and unable to sleep at night. Tried using a wedge and was not helpful. Denies nocturnal regurgitation. Also complains of intermittent chest pain radiating to the back 2-3 times Has to stand up to help her breathing and sometimes has to sleep sitting down She was tested for sleep apnea - negative per patient. And cardiac testing Unable to eat solid food x 6 yrs and remains on a liquid and blenderized foods. Stopped taking blederized foods since episodes of choking. Intermittent early satiety. Past history of constipation and now has diarrhea alternating with constipation. Not feeling too good. Has nausea daily without vomiting - not always related to eating. Taking blenderized food. Feels her symptoms are getting worse -? unable to eat mashed potatoes. Does not eat if she notes dysphagia with blenderized diet Only takes Ensure and Ensure plus, ice cream, smoothies. Takes a few spoons and gets a sensation in her chest (tightness and chest pain and gets anxious) and unable to eat any more. Notes gas after she takes Ensure or ice-cream which lasts for 45 min. Has been taking Omeprazole twice a day for GERD. Can have heartburn if she does not take Omeprazole for a few days. Patient follow up for dysphagia. Patient cc: Nauseas, gassy, constipation, and some dysphagia. Denies any other GI isuses. Notes nausea daily. Taking Omeprazole twice a day. Feels bloated and has problems with gas. Noted GERD symptoms for a week - attributes it to duloxetine. Takes 30 to 40 min to eat blenderized food. Notes chest pain if she tries to eat fast. Takes Naked smoothies which helps with constipation. Denies improvement in nausea despite taking Omeprazole Intermittent constipation - has a BM almost every day Sometimes can go 3-4 days without a BM. Did not have EGD with Gallardo due to anxiety regarding side effects. ??PAST VISIT No change in problems with eating. Takes yogurt, ensure and blenderized food. Saw Dr Armenta, Esophageal specialist at [facility] in [place] She was told ineffective esophageal motility is due to long standing reflux - consult note has been requested. She is scheduled for an EGD with Gallardo on October 14 at [facility]. Prescribed a medication which she is taking daily ?? ? Taking ensure (1-2 times a day), liquids and ice-cream. ? ? ? Has gained weight and cut back on the Ensure from 3 to two times a day. ? ? ? Has an appt on 01/25/21 with GI at [facility] for a 2nd opinion on dysphagia. ? ? ? Seen by Rheumatology and all her tests were normal and no follow up appointment was advised ? ? ? Notes pains in the shoulder and pain in the hands. ? ? ? Has to sleep on her right side. ? ? ? Unable to sleep on her back or left side. ? ? ? Feel her throat closes and she is unable to breath. ? ? ? Her boy friend messages her shoulders which improves her symptoms. ?? ? Therapy to shoulders and neck helps - thinks her symptoms are related to her muscles. ?? ? Had a home sleep study in the past which was negative. ?? ? Notes palpitations and feels gassy when she takes coffee. ? High-resolution esophageal manometry results were reviewed with the patient. ? Patient denies change in symptoms and continuing to take blenderized food and ice-cream and protein shakes. ? Symptoms of dysphagia for the past 2 years. ? Is able to swallow and feels food is sitting in the lower neck/upper chest sometimes for 30 min. ? Also has a stuffy nose at the same time. ? Has not been able to take solid food for the past 2 years. ? Also has nausea. ? Had an episode of flushing, sudden fatigue and palpitations a week ago. ? Symptoms improved and had nausea following this episode. ? Takes oatmeal after putting it in the syrup blender. ? Can eat corned beef on some days and not on other days. ? Also has bad constipation. No BM for 3 days and takes a hot chocolate which helps. ? Weight loss of 65 lbs over 7 months and has gained back 7 lbs after she started taking more ice-cream. ? Feels short of breath when she sleeps on the right side or back ? Since her last appointment in May, she was scheduled for a CT of the neck without contrast- this was scheduled due to ongoing issues with swallowing and xrays of neck revealing changes in the cervical vertebra. ? We received an urgent call from radiology regarding an abnormality noted in the soft tissue - ? soft tissue mass due to the asymmetry noted. Patient was set up urgently with ENT in [place]- seen the same day. ENT felt the abnormality was due to tissue removed from one side of throat during tonsillectomy. Additionally multinodular thyroid gland without enlargement and needs a US for further evaluation. 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 Patient is scheduled for a CT with contrast of neck as well US of thyroid. 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 Hx of ectopic Anxiety disorder Paroxysmal nocturnal dyspnea Amenorrhea Campbell's disease Arthritis Hyperthyroidism Goiter Vitamin D deficiency Non-toxic multinodular goiter Obesity Elevated dehydroepiandrosterone sulfate level Graves disease Degenerative arthritis of knee, bilateral Surgical History Hx of endoscopy H/O esophagogastroduodenoscopy History of tonsillectomy History of tubal ligation Family History Father Diabetes Mother Breast cancer BRCA gene mutation negative Maternal Uncle Heart transplanted Social History Alcohol intake: current Alcohol intake frequency: does not drink Patient Tobacco Use Status: Never used Tobacco Current occupational status: unemployed Current occupation: right hand Sexual orientation: Straight/Heterosexual Gender identity: Female Female Reproductive History Menstrual Age of Menarche: 13 Review of Systems Const All systems reviewed & are unremarkable except as noted in HPI and below Physical Exam Vital Signs: Last Vital Signs Pulse 84 05/04/23 13:29 BP 113/57 L 05/04/23 13:29 BMI result Body Mass Index 31.2 Const General: healthy appearing and no acute distress Nutritional Appearance: obese Orientation/consciousness: patient oriented x3 Limitations: no limitations HEENT Head: Yes normal to inspection Ears: hearing grossly normal bilaterally Eyes Sclerae: sclerae normal Pupils: Equal, round and reactive pupils present Neck Neck: Yes normal visual inspection Chest Chest palpation & inspection: normal inspection of the chest Resp Effort & Inspection: normal respiratory effort Auscultation: clear to auscultation bilaterally Cardio Palpation: normal PMI Rate: regular rate Rhythm: regular rhythm Heart sounds: S1 normal heart sound present, S2 normal heart sound present and no murmurs GI Palpation (GI): Soft to palpation, nontender and No hepatosplenomegaly present Auscultation: normal bowel sounds Rectal Exam - Female: deferred Skin General skin exam: no rashes or lesions noted Neuro General: patient oriented x3, gait normal and moves all extremities Cranial nerves: Yes Equal, round and reactive pupils present Psych Appearance: grossly normal Mental Status: mental status grossly normal Assessment & Plan Assessment & Plan (1) Early satiety: Code(s): R68.81 - Early satiety Category: Medical (2) Ineffective esophageal motility: Code(s): K22.4 - Dyskinesia of esophagus Category: Medical (3) Dysphagia, pharyngoesophageal phase: Code(s): R13.14 - Dysphagia, pharyngoesophageal phase Category: Medical (4) Nausea: Code(s): R11.0 - Nausea Category: Medical Plan 48 YF with asthma seen for FU of dysphagia to solid food for the past few years. Has been taking blenderized foods and protein shakes. An UGI was normal. EGD in 04/2018 showed gastritis and subtle mucosal changes suggestive of EOE. Esophgeal biopsies were negative for EOE and gastric biopsies did not show H Pylori. Pt was advised further evaluation with High Resolution Manometery to rule out esophageal motility disorder/achalasia. She was advised to continue taking a blendarized diet and protien shakes in the interim. 04/16/20? HIGH-RESOLUTION ESOPHAGEAL MANOMETRY AT [facility] [place] SHOWED: ? normal UES function,? short LES length. ? Hypotensive LES/ EGJ resting pressure with normal LES relaxation. ? No hiatal hernia was detected manometrically. ? [place] classification 3: ? ineffective esophageal motility ?Patient was advised LAB tests to rule out presence of autoimmune disorder affecting esophageal motility - KIRT 1:80 nuclear/ speckled pattern. Pt was seen by Rheumatology? -? no evidence of lupus or connective tissue disease was detected.? She had a? negative rheumatoid factor, normal ESR and CRP, negative ds DNA.? The remainder of her serology was also unrevealing with negative Sm/INFECTION PREVENTION SPECIALIST, negative scleroderma antibody, normal complements, negative Sjogren's antibodies.? Source of positive KIRT was felt to be positive antithyroid antibodies. She was advised to start metoclopramide 10 mg 3 times daily with meals for dysphagia/ ineffective esophageal motility disorder. Of note:? Pt is undergoing additional testing with a CT scan due to elevated DHEA-sulfate levels. She was referred to the [facility] at [facility] for a 2nd opinion and has an appt on 01/25/21. Patient was referred to Neurology to rule out neurological source of her symptoms 12/16/22 EGD was performed in findings as noted above Pt is enrolled in a study at the [facility] at [facility] and stopped going since she is not experiancing any improvement in her symptoms Pt called.? On 09/11/22 she took 2-3 spoonful of some blenderized oatmeal which was a little thick. Noted chest pain and unable to swallow water. [place] bad in her chest and unable to breath Was going to go to the ED and symptoms resolved after 45 to 50 min. Continued to have chest pain the following day. Has been taking a liquid diet. She is participitating in a study at [facility] and continues to fu with Dr Armenta Only medication she is taking is Omeprazole Pt was advised to schedule an EGD for further evaluation 05/04/23 Some days she wakes up with nausea which lasts all day. Taking liquids and a few Seen by Rodriguez Santos at [facility] and was referred to Thoracic Surgery Follow-up appointment in GI in 6 months ?FROM UP-TO-DATE: Ineffective esophageal motility: By high-resolution esophageal manometry, ineffective motility is defined as 50 to 90 percent of the liquid swallows being weak or failed. The manometric diagnosis of ineffective esophageal motility does not always correlate with symptoms or impaired esophageal function. In one study, only 30 percent of patients with ineffective esophageal motility reported dysphagia. Moreover, studies using esophageal intraluminal impedance testing have shown that up to 68 percent of liquid and 59 percent of viscous swallows in such patients showed normal bolus transit The prevalence of celiac disease and inflammatory bowel disease is probably modestly increased among individuals with autoimmune thyroid disease. Patients with persistent gastrointestinal symptoms should undergo screening for these diseases. Medications: New promethazine 25 mg PO BID PRN 30 tabs 1RF nausea and vomiting 30 days R11.0 - Nausea Coding Level of Care Code Est Pt Level 4 (33869) Diagnoses Early satiety R68.81 Ineffective esophageal motility K22.4 Dysphagia, pharyngoesophageal phase R13.14 Nausea R11.0 Time Spent (min) 24
[2023-05-04 13:29] VITALS: BP 113/57; PULSE 84; BMI 31.2
--- NOTE | 2023-05-04 14:43 | A.OFFVIS_ITS ---
Intake Vital Signs 05/04/23 13:29 05/04/23 14:46 Height 5 ft 7 in Weight 199 lb BMI 31.2 31.2 BP 113/57 L Blood Pressure Location Lt brachial Position Sitting Pulse 84 Intake Visit Reasons: 4 month follow up Intake Note: Patient follow up for dysphagia Patient cc: difficulty swallowing even the liquid, occasional acid reflex. 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 Accompanied by: Self / Same As Patient Allergies cannabidiol (CBD) extract Allergy (Mild, Verified 05/04/23 14:45) Hives duloxetine Adverse Reaction (Intermediate, Verified 05/04/23 14:45) Nausea and Vomiting Medication List - Last Reconciled 05/04/23 by Gonzalez Araujo MD albuterol sulfate 90 mcg/actuation 1 inh inhalation QID clonidine HCl 0.1 mg PO BEDTIME escitalopram oxalate 10 mg PO DAILY hydroxyzine HCl 50 mg PO TID lidocaine 5% 1 patch topical QAM omeprazole 20 mg PO BID PFSH Medical History Hx of ectopic Anxiety disorder Paroxysmal nocturnal dyspnea Amenorrhea Campbell's disease Arthritis Hyperthyroidism Goiter Vitamin D deficiency Non-toxic multinodular goiter Obesity Elevated dehydroepiandrosterone sulfate level Graves disease Degenerative arthritis of knee, bilateral Surgical History Hx of endoscopy H/O esophagogastroduodenoscopy History of tonsillectomy History of tubal ligation Family History Father Diabetes Mother Breast cancer BRCA gene mutation negative Maternal Uncle Heart transplanted Social History Alcohol intake: current Patient Tobacco Use Status: Never used Tobacco Sexual orientation: Straight/Heterosexual Gender identity: Female Female Reproductive History Menstrual Age of Menarche: 13 Physical Exam Vital Signs: Last Vital Signs Pulse 84 05/04/23 13:29 BP 113/57 L 05/04/23 13:29 BMI result Body Mass Index 31.2 Assessment & Plan Assessment & Plan (1) Early satiety: Code(s): R68.81 - Early satiety (2) Ineffective esophageal motility: Code(s): K22.4 - Dyskinesia of esophagus (3) Dysphagia, pharyngoesophageal phase: Code(s): R13.14 - Dysphagia, pharyngoesophageal phase (4) Nausea: Code(s): R11.0 - Nausea Medications: New promethazine 25 mg PO BID PRN 30 tabs 1RF nausea and vomiting 30 days R11.0 - Nausea Coding Diagnoses Early satiety R68.81 Ineffective esophageal motility K22.4 Dysphagia, pharyngoesophageal phase R13.14 Nausea R11.0
== END 2023-05-04 14:41 | disposition home or self-care (01) ==
PROVIDERS: PCP General Practice; Visit Provider Internal Medicine Gastroenterology
DX: R68.81 Early satiety (principal); K22.4 Dyskinesia of esophagus; R13.14 Dysphagia, pharyngoesophageal phase; R11.0 Nausea
CPT/HCPCS: 99499

== ENCOUNTER → 2023-05-04 13:18 | Outpatient (BNVA) | payer MEDICAID, SELFPAY | PROVIDERS: PCP General Practice; Visit Provider Internal Medicine Gastroenterology ==

== ENCOUNTER 2023-05-05 18:01 | Outpatient (REF) | payer MEDICAID, SELFPAY | END 2023-05-05 18:02 | disposition home or self-care (01) | LOC: HO.HHCLNP 18:01 | PROVIDERS: Visit Provider General Practice | DX: R30.0 Dysuria (principal) | CPT/HCPCS: 87086; 87147 ==

== ENCOUNTER 2023-05-10 10:22 | Outpatient (AMB) | payer MEDICAID, SELFPAY ==
[2023-05-10 10:26] VITALS: BP 122/64; PULSE 102; TEMP 36.3; O2SAT 97; BMI 31.5
--- NOTE | 2023-05-10 10:26 | A.OFFVIS_ITS ---
Intake Vital Signs 05/10/23 10:26 Height 5 ft 7 in Weight 201 lb 4.513 oz BMI 31.5 BP 122/64 Blood Pressure Location Rt brachial Position Sitting Pulse 102 H Pulse Source Pulse Oximeter Temp 97.3 F Temp Source Skin Pulse Oximetry (%) 97 Oxygen Delivery Method Room Air Intake Visit Reasons: pain on right hip Intake Note: Patient last seen by Marylou on 04/14/22, presents to office today for right hip pain. She also reports left hand pain for over 2.5 months, but follows with PCP. Xrays done and revealed arthritis, MRI ordered waiting for a call. Help Desk Support Specialist Required: No Accompanied by: Self / Same As Patient Allergies cannabidiol (CBD) extract Allergy (Mild, Verified 05/10/23 10:32) Hives duloxetine Adverse Reaction (Intermediate, Verified 05/10/23 10:32) Nausea and Vomiting HPI HPI Comments History of Present Illness Details Ms. Gomez is 48-year-old female here for follow-up of multiple joint pain and presumed fibromyalgia; her last visit was 04/14/2022. She is currently not taking any medications for her joint pain. She reports on her esophageal dysmotility, describes that she has been worked up for joint pain for a long time. She she is on a primarily liquid diet consisting of smoothies, juices, water and has not had solid food for the better part of 5 years. Within the last year or 2 she has been having difficulty breathing when she lays down. She reports that it feels like her chest is squeezing in. She thinks it may be because of panic attack seen she has a history of anxiety. However it also happens when she is laying down and not feeling anxious. Most recently she was seen by her PCP for a B sting that caused her left hand to be swollen (showed pictures) She received prednisone which improved the swelling and is scheduled to have an MRI to assess further given the residual pain and inability to make a complete fist. Patient denies smoking and alcohol. She has had knee arthroscopy on her left knee and was pain free for at least 5 years. However, recently the knee has started to hurt. She reached out to the orthopedic surgeon who advised she cannot received any more cortisone injections in the left knee. Patient continue l stipulate to joint pain in her lower back knees hands neck. The patient denies personal history of psoriasis ulcerative colitis and Crohn's. She denies uveitis. The patient has consistently elevated ESR CRP dating back to 2006 at the time of the first rheumatologic workup. CRP and ESR continues to be elevated up to last value obtained March 2022. She had an MRI done in 2014 because she had edema to her left knee. Lab work done for Lyme disease back in 1999 12 and 2014. Pap work for rheumatoid factor done several times continues to be negative. She used to get an average of 3 injections per year to her knees. By way of family history patient reports that her grandfather, sister and her cousins have significant psoriasis for which they are treated with special medication. She also has a sister with multiple sclerosis. She denies family members with Crohn's and ulcerative colitis Past Visits: 47yoF female presents for follow-up of f ibromyalgia. Last visit June 2021. Patient admits to continued intermittent pain in her neck, shoulders, upper a britt, chest, mid back, lower back, knees and most recently pain in her breasts for 3 days. She states her breast pain is improved today. She denies any dimpling, lumps, skin changes or nipple discharge. She denies pain in her hands, ankles or feet. She denies any joint swelling. She admits to continued disrupted sleep and depression as well as anxiety. She is taking escitalopram and hydroxyzine. She states that the hydroxyzine helps with her anxiety and she notices her breathing gets better when she takes this. She is following with a psychiatrist and therapist, next appointment with her therapist this today. She was recently referred to Cardiology after echo showed LVEF of 48%. She does not have any known cardiac history. She does report a chronic pinching sensation in the chest on the left side when lying in bed, when she experiences this she states she cannot breathe and then she has to get up out of bed and the sensation resolves. The plan per cardiology is to get a stress test to assess for coronary artery disease, although she does not have any clear symptoms. If stress test is normal cardiology will consider cardiac MRI. She was referred to Pulmonary by Cardiology for her orthopnea She does not have any evidence of congestive heart failure or exertional symptoms . She has had sleep study in the past that was normal and recent chest x-ray without any acute process. She was referred to Pulmonary as she had some suspicion for small airway disease such as asthma on her pulmonary function test. She was previously following with endocrine for thyroiditis with subsequent normalization of thyroid function test. Per her last endocrine note she is euthyroid. Patient states she no longer needs to follow with Endocrine. DHEA-S level was slightly elevated in the setting of normal menses per endocrine note this is most consistent with polycystic ovary syndrome patient has normal menses and does not have significant hirtuism she was advised to follow-up with primary care and with Endocrine as needed. She continues to follow with GI for dysphagia/ineffective esophageal motility disorder she follows with a specialist in [place] as well. She is currently on metoclopramide 10 mg t.i.d. with meals. She states that she has not tried gabapentin or muscle relaxers, these have been avoided due to her esophageal dysmotility. She denies history of Raynaud's, photosensitivity, oral nasal ulcers, sicca symptoms, fevers, alopecia or history of miscarriage. Patient reports that she feels tightness in her shoulders daily. She states that she massages her shoulders every night with some improvement in her symptoms. She states that at times she has pain in her neck. She admits to chronic intermittent lower back pain that she describes as strong, pain is present with sitting and standing. Pain is improved with position changes and ibuprofen. She admits to sleep disturbance for greater then 6 months. She is following with psychiatry for anxiety depression and has been prescribed a new medication for depression, escitalopram, that she has not started yet. She admits to skin sensitivity and reports that multiple providers have asked her if she has fibromyalgia recently. Follows with GI for dysphagia. She was referred to [facility] for 2nd opinion and to neurology to see if there was a neurologic component to her symptoms. She states that she is due for an endoscopy this month. She states that she completed PT for her neck and it was very helpful. 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 Hx of ectopic Anxiety disorder Paroxysmal nocturnal dyspnea Amenorrhea Campbell's disease Arthritis Hyperthyroidism Goiter Vitamin D deficiency Non-toxic multinodular goiter Obesity Elevated dehydroepiandrosterone sulfate level Graves disease Degenerative arthritis of knee, bilateral Surgical History Hx of endoscopy H/O esophagogastroduodenoscopy History of tonsillectomy History of tubal ligation Family History Father Diabetes Mother Breast cancer BRCA gene mutation negative Maternal Uncle Heart transplanted (Updated 05/10/23 @ 10:38 by MIKAYLA Calderon) Alcohol intake: current Alcohol intake frequency: does not drink Patient Tobacco Use Status: Never used Tobacco Sexual orientation: Straight/Heterosexual Gender identity: Female Female Reproductive History Menstrual Age of Menarche: 13 Review of Systems Const All systems reviewed & are unremarkable except as noted in HPI and below Physical Exam Vital Signs: Last Vital Signs Temp 97.3 F 05/10/23 10:26 Pulse 102 H 05/10/23 10:26 BP 122/64 05/10/23 10:26 Pulse Ox 97 05/10/23 10:26 Oxygen Delivery Method Room Air 05/10/23 10:26 BMI result Body Mass Index 31.5 APPEARANCE: Patient in no acute distress EYES: no redness, pupils equal and reactive to light, eyelids normal EARS: External ear normal, canal clear and tympanic membrane normal. NOSE/SINUS: Airflow through both nares, no nasal discharge, no bleeding THROAT: Oral mucosa moist, no ulcerations NECK: No thyromegaly or masses, no adenopathy, trachea midline. HEART: Regular rhythm, S1-S2 heard, no murmurs, rubs or gallops. LUNG: Clear auscultation, respiratory rate regular nonlabored. ABD: Normal bowel sounds, no organomegaly, masses or tenderness. EXTREMITIES: No edema, no calf tenderness, normal peripheral pulses. NEURO: Oriented and alert x3. No focal weakness. Reflexes symmetric. Gait normal. SKIN: No inflammatory or neoplastic lesions. Normal color and turgor JOINT EXAM:?? Cervical Spine: Full range of motion without pain; Mild tenderness. Thoracic Spine:? No scoliosis.? No tenderness on palpation. Lumbar Spine:? Alignment normal.? Full range of motion without pain, Moderate tenderness. Chest Wall:? No tenderness, swelling, increased warmth or erythema. Hands:? Normal pain-free range of motion without increased warmth or erythema. Able to make a full fist with stiffness and right and has a moderate arch pad cementer strength. Left unable to make a full fist, trace swelling to left Wrists: Normal pain-free range of motion without, swelling, increased warmth or erythema. Mild tenderness Elbows: Normal pain-free range of motion without tenderness, swelling, increased warmth or erythema. Shoulders:?? Full range of motion without pain. No weakness, swelling, increased warmth or erythema. mild tenderness, Hips:? Full range of motion. Tenderness to right illiac crest with palpation and movement. Hip bursa:? No tenderness. Knees:?? Normal pain-free range of motion without swelling, increased warmth or erythema.? There is no effusion or crepitation, Left moderate tenderness, Right mild tenderness, Ankles:? Normal pain-free range of motion without tenderness, swelling, increased warmth or erythema. Feet:? Normal pain-free range of motion without tenderness, swelling, increased warmth or erythema. left plantar burning sensation Tender points:? Tenderness to palpation of the trapezius and second rib. 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 Gomez of 48-year-old female who has been seen for several years now deemed to have fibromyalgia is here for follow-up. After Love examining patient is records, physical examination, evaluated diagnostics, I think it is reasonable to presume that this patient may have psoriatic arthritis. She has a strong family history of psoriasis and on physical examination I saw evidence of psoriasis on her scalp. Clinically, she has had persistently elevated CRP and ESR, low back pain and intermittent swelling and pain to multiple joints. Considering her clinical picture, I think it is reasonable to start her on a DMARD. I will prescribe leflunomide and evaluate for effectiveness. We anticipate there should be at least a 30 - 50% improvement to her back, hands and shoulders. I encouraged patient to take pictures of her the nape of the scalp to monitor if the erythematous patches, likely psoriasis, seen on PE, have resolved. She was in her mid to late 30s when her episodes of back pain first started and has been told over the years that she has Fibromyalgia. Notwithstanding, there may be an element of Fibromyalgia but not to the exclusion of an AxSpa given her clinical history. I will obtain baseline labs today before starting Leflunomide. #Long-Term Use: I discussed at length the possible side effects of leflunomide with patient to include but not limited to NVD, blood dyscrasias, hepatotoxicity. I also emphasized that the medication can take 3-6 months to demonstrate full effect. #Muscle Fatigue and Weakness: The patient describes that certain household task is no proving to be a challenge. Sweeping, a normal task for her, now causes her upper arms, shoulders and chest to feel fatigued. Given that she has esophageal dysmotility and patient was advised against muscle relaxers, there could be concern for onset of myopathic process. We will continue to evaluate and monitor - patient has sister with MS. Will obtain Myositis Panel. Note: Multiple serology negative for leukopenia or thrombocytopenia, rheumatoid factor, ds DNA.? The remainder of her serology was also unrevealing with negative Sm/ALTERATIONS SUPERVISOR, negative scleroderma antibody, normal complements, negative Sjogren's antibodies.? She does have positive antithyroid antibodies and this is likely the source of her positive KIRT. Patient is now euthyroid and following with endocrine as needed. Follow-up with Pulmonary and Cardiology as scheduled. 40 minutes spent reviewing chart, evaluating patient, ordering and documenting. Orders: Orders Erythrocyte Sedimentation Rate Today M45.2 - Ankylosing spondylitis of cervical region Comprehensive Met. Panel Today M45.2 - Ankylosing spondylitis of cervical region Complete Blood Count Auto Diff Today M45.2 - Ankylosing spondylitis of cervical region Hepatitis A,B,C Profile Today M45.2 - Ankylosing spondylitis of cervical region HLA B27 Today M45.2 - Ankylosing spondylitis of cervical region C Reactive Protein Today M45.2 - Ankylosing spondylitis of cervical region Aldolase Today M45.2 - Ankylosing spondylitis of cervical region Creatine Kinase Total Today M45.2 - Ankylosing spondylitis of cervical region Other Ref Test - Misc Today M62.81 - Muscle weakness (generalized), M62.89 - Ot her specified disorders of muscle, M79.10 - Myalgia, unspecified site Medications: New leflunomide Take 1 tablet per day for two weeks, then increase to two pills per day until next visit. 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
== END 2023-05-10 11:27 | disposition home or self-care (01) ==
PROVIDERS: PCP General Practice; Visit Provider Nurse Practitioner Family
DX: M45.2 Ankylosing spondylitis of cervical region (principal); L40.50 Arthropathic psoriasis, unspecified; M79.10 Myalgia, unspecified site; M62.89 Other specified disorders of muscle; Z79.60 Long term (current) use of unspecified immunomodulators and immunosuppressants
CPT/HCPCS: 99214

== ENCOUNTER 2023-05-10 10:22 | Outpatient (REF) | payer MEDICAID, SELFPAY ==
[2023-05-10 12:28] LABS: MANUAL DIFF FLAG NO
[2023-05-10 12:44] LABS: Basophils Percent Auto 0.7 % (0-2); Eosinophils Absolute Auto 0.2 X10*3/uL (0.0-0.4); Eosinophils Percent Auto 3.1 % (0-4); Hematocrit 41.1 % (37.0-47.0); Hemoglobin 13.2 g/dl (12.0-16.0); Imm Gran Abs Auto 0.01 X10*3/uL (0.00-0.03); Imm Gran Pct Auto 0.2 % (0.0-0.4); Lymphocytes Absolute Auto 2.2 X10*3/uL (1.2-4.9); Lymphocytes Percent Auto 38.3 % (20-40); Mean Corpuscular HGB Conc 32.1 g/dl (31.0-35.0); Mean Corpuscular Hemoglobin 27.6 pg (27.0-33.0); Mean Corpuscular Volume 85.8 fL (80.0-98.0); Mean Platelet Volume 9.9 fL (9.4-12.3); Monocytes Absolute Auto 0.3 X10*3/uL (0.1-1.2); Monocytes Percent Auto 4.6 % (2-11); Neutrophils Absolute Auto 3.1 x10*3/uL (2.0-8.3); Neutrophils Percent Auto 53.1 % (45-73); Platelet Count 261 X10*3/uL (160-400); Red Blood Count 4.79 X10*6/uL (4.20-5.50); Red Cell Distribution Width 13.4 % (11.0-16.0); White Blood Count 5.8 X10*3/uL (4.8-10.8)
[2023-05-10 13:06] LABS: Alanine Aminotransferase 12 U/L (0-31); Alkaline Phosphatase 77 U/L (39-117); Anion Gap 8 (12-20); Aspartate Amino Transferase 16 U/L (5-31); Bilirubin Total 0.5 mg/dL (0.0-1.0); Blood Urea Nitrogen 10 mg/dL (9-16); C Reactive Protein 0.16 mg/dL (< or = 0.50); Calcium 9.4 mg/dL (8.4-10.2); Carbon Dioxide 28 mmol/L (22-29); Chloride 105 mmol/L (96-108); Estimated Glomerular Filt Rate > 60; Glucose Random 85 mg/dL (60-115); Potassium 3.8 mmol/L (3.3-5.1); Sodium 137 mmol/L (135-145); Total Protein 8.1 g/dL (6.5-8.0)
[2023-05-10 13:24] LABS: HBc Num1 0.13 S/CO (0.00-0.79); HBsAGNum1 0.31 S/CO (0.00-0.99); Hepatitis A Antibody IgM 0.18 Index (0-0.79); Hepatitis B Core Antibody Nonreactive (Nonreactive); Hepatitis B Surface Antigen Negative (Negative); ~HepC Num1 0.12 S/CO (0.00-0.79); ~Hepatitis A Antibody IgM Nonreactive (Nonreactive); ~Hepatitis B Surface Antibody REACTIVE (Nonreactive); ~Hepatitis C Antibody Nonreactive (Nonreactive)
[2023-05-10 13:25] LABS: Erythrocyte Sedimentation Rate 29 MM/HR (0-20)
[2023-05-15 05:19] LABS: Aldolase 2.9 U/L (<=8.1)
[2023-05-15 23:48] LABS: HLA B27 Negative (Negative)
[2023-05-19 01:58] LABS: Cytosolic 5'nuc 1A Ab IgG <5 Units; Ej Ab <11 SI (<11); HMGCR Ab IgG <2 CU (<20); Jo-1 Ab <11 SI (<11); MDA5 Ab <11 SI (<11); Mi-2 alpha Ab <11 SI (<11); Mi-2 beta Ab <11 SI (<11); NXP-2 (MJ) Ab <11 SI (<11); Oj Ab <11 SI (<11); Pl-12 Ab <11 SI (<11); Pl-7 Ab <11 SI (<11); SRP Ab <11 SI (<11); TIF1 gamma Ab <11 SI (<11)
== END 2023-05-10 10:23 | disposition home or self-care (01) ==
LOC: HO.LAB 10:22
PROVIDERS: PCP General Practice; Visit Provider Nurse Practitioner Family
DX: M45.2 Ankylosing spondylitis of cervical region (principal); M62.81 Muscle weakness (generalized); M62.89 Other specified disorders of muscle; Z79.60 Long term (current) use of unspecified immunomodulators and immunosuppressants
CPT/HCPCS: 36415; 80053; 82085; 82550; 83516; 83520; 84182; 85025; 85652; 86140; 86235; 86704; 86706; 86709; 86803; 86812; 87340; 99212

== ENCOUNTER 2023-06-05 19:36 | Outpatient (REF) | payer MEDICAID, SELFPAY ==
--- NOTE | ~2023-06-05 | MR_ITS ---
EXAMINATION: MR HAND WITHOUT CONTRAST, LEFT CLINICAL INFORMATION: Left hand pain and swelling following hyperflexion injury. COMPARISON: Left hand radiographs dated 03/20/2023. TECHNIQUE: Multisequence MR imaging of the left hand was obtained without contrast on a high-field strength scanner. FINDINGS: BONE: No marrow edema or evidence of acute osseous abnormality. No acute fracture or dislocation. No concerning lytic or blastic osseous lesion. Grossly intact articular cartilage. MUSCLES/TENDONS: Trace fluid and edema within the third flexor digitorum tendon sheath, consistent with minimal tenosynovitis. No measurable tendon tear or tendon retraction. LIGAMENTS: Intact collateral ligaments. SOFT TISSUES: No soft tissue mass or fluid collection. No palmar fascial nodularity or evidence of fibroma. MR/MR hand LT wo con IMPRESSION: 1. Minimal third flexor digitorum tenosynovitis without a measurable tendon tear or tendon retraction. 2. No soft tissue mass, fluid collection, or fibroma.
== END 2023-06-05 19:37 | disposition home or self-care (01) ==
LOC: HO.MRI 19:36
PROVIDERS: PCP General Practice; Visit Provider General Practice
DX: M79.642 Pain in left hand (principal)
CPT/HCPCS: 73218

== ENCOUNTER 2023-07-03 09:38 | Outpatient (REF) | payer MEDICAID, SELFPAY ==
--- NOTE | ~2023-07-03 | XR_ITS ---
EXAMINATION: XR PELVIS CLINICAL INFORMATION: Hip pain COMPARISON: None available. TECHNIQUE: AP view of the pelvis. FINDINGS: The bony pelvis is intact. Alignment is maintained. Pedicles and SI joints within normal limits. Bilateral mild hip joint narrowings. No fracture or dislocation. Phleboliths. Mild fecal retention. XR/XR pelvis 1-2V IMPRESSION: No acute bony pathology.
== END 2023-07-03 09:39 | disposition home or self-care (01) ==
LOC: HO.HOSX 09:38
PROVIDERS: Visit Provider Orthopaedic Surgery
DX: M16.11 Unilateral primary osteoarthritis, right hip (principal)
CPT/HCPCS: 72170; 99212

== ENCOUNTER 2023-07-03 10:32 | Outpatient (AMB) | payer MEDICAID, SELFPAY ==
--- NOTE | 2023-07-03 10:48 | MHC.OFFVIS ---
Intake Vital Signs 07/03/23 10:51 Height 5 ft 7 in Weight 201 lb BMI 31.5 Intake Visit Reasons: Newprob-Right hip pain Intake Note: Crystal is a 48 year old female who presents today for a new problem visit with complaints of right hip pain. Patient reports worsening pain for the last two months. She reports no tried therapies. The pain is felt in the groin and area, pain started when she was swinging the leg getting in and out of the car Allergies cannabidiol (CBD) extract Allergy (Mild, Verified 07/03/23 10:55) Hives duloxetine Adverse Reaction (Intermediate, Verified 07/03/23 10:55) Nausea and Vomiting HPI Newprob-Right hip pain HPI Details Crystal is a 48 year old woman who presents with complaints of right hip pain. She has pain with daily activity, worse when climbing in/out of a car. She localizes her pain primarily to the groin. She says her pain began ~2 months ago, but worsened in the last month. She uses Diclofenac cream and Lidocaine patches, with little relief. She denies any prior treatment options. 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 Hx of ectopic Anxiety disorder Paroxysmal nocturnal dyspnea Amenorrhea Campbell's disease Arthritis Hyperthyroidism Goiter Vitamin D deficiency Non-toxic multinodular goiter Obesity Elevated dehydroepiandrosterone sulfate level Graves disease Degenerative arthritis of knee, bilateral Surgical History Hx of endoscopy H/O esophagogastroduodenoscopy History of tonsillectomy History of tubal ligation Family History Father Diabetes Mother Breast cancer BRCA gene mutation negative Maternal Uncle Heart transplanted Social History Alcohol intake: current Alcohol intake frequency: does not drink Patient Tobacco Use Status: Never used Tobacco Sexual orientation: Straight/Heterosexual Gender identity: Female Female Reproductive History Menstrual Age of Menarche: 13 Review of Systems Const All systems reviewed & are unremarkable except as noted in HPI and below Physical Exam Vital Signs: BMI result Body Mass Index 31.5 Const General: no acute distress, alert and awake Orientation/consciousness: patient oriented x3 HEENT Head: Yes normocephalic and Yes atraumatic Eyes EOM: EOMs intact bilaterally Resp Effort & Inspection: normal respiratory effort and able to speak in complete sentences Cardio Jugular venous distension: no JVD Skin General skin exam: turgor normal Rashes: no rashes Neuro General: patient oriented x3 Extrem Other: There is a mildly + FADIR with nl hip[ ROM otherwise Psych Appearance: grossly normal Affect: normal affect Attitude: cooperative Results Reviewed Results Reviewed: I personally reviewed relevant radiographs. There is mild joint space narrowing bilaterally Assessment & Plan Assessment & Plan (1) Arthritis of right hip: Code(s): M16.11 - Unilateral primary osteoarthritis, right hip Plan: Very mild OA but with some groin pain. I recommend PT for general conditioning and strengthening right hip. Plan Scribed for Filiberto Billingsley MD by Edd Sepulveda, medical dosimetrist, on 07/03/23 at 10:50 AM, EST. Orders: Orders XR pelvis 1-2V 07/03/23 M25.559 - Pain in unspecified hip PT Evaluation and Treatment 07/03/23 M16.11 - Unilateral primary osteoarthritis, right hip Coding Level of Care Code Est Pt Level 3 (54071) Diagnoses Arthritis of right hip M16.11
[2023-07-03 10:51] VITALS: BMI 31.5
== END 2023-07-03 11:28 | disposition home or self-care (01) ==
PROVIDERS: PCP General Practice; Visit Provider Orthopaedic Surgery
DX: M16.11 Unilateral primary osteoarthritis, right hip (principal)
CPT/HCPCS: 99213

== ENCOUNTER 2023-07-20 10:28 | Outpatient (REF) | payer MEDICAID, SELFPAY | END 2023-07-20 10:29 | disposition home or self-care (01) | LOC: HO.MAMMO 10:28 | PROVIDERS: PCP General Practice; Visit Provider General Practice | DX: Z12.31 Encounter for screening mammogram for malignant neoplasm of breast (principal) | CPT/HCPCS: 77063; 77067 ==

== ENCOUNTER → 2023-07-20 11:00 | Outpatient (BNV) | payer MEDICAID, SELFPAY | PROVIDERS: PCP General Practice; Visit Provider Radiology Diagnostic Radiology | DX: Z12.31 Encounter for screening mammogram for malignant neoplasm of breast (principal) | CPT/HCPCS: 77063; 77067 ==

== ENCOUNTER → 2023-07-25 09:53 | Outpatient (BNVA) | payer MEDICAID, SELFPAY | PROVIDERS: PCP General Practice; Visit Provider Nurse Practitioner Family ==

== ENCOUNTER 2023-07-26 09:32 | Outpatient (AMB) | payer MEDICAID, SELFPAY ==
[2023-07-26 09:53] VITALS: BMI 31.5
--- NOTE | 2023-07-26 09:53 | MHC.OFFVIS ---
Intake Vital Signs 07/26/23 09:53 07/26/23 10:05 Height 5 ft 7 in 5 ft 7 in Weight 201 lb 201 lb BMI 31.5 31.5 Intake Visit Reasons: New problem- rt hand SF Intake Note: Crystal 48 yr old female who is right hand dominant,presents today for a new problem for her right hand small finger. States she is having constant pain for the last 3 days and is not getting better. States her small finger locks and pops for the last 4-5 months. Denies injury, numbness or tingling. She describes having intense pain in the left hand previously. This resulted in her primary care provider ordering an MRI of her left hand. She has complaints pain in multiple different parts of her body, multiple different parts of her hands and upper extremities. Hx of tenosynovitis of left middle finger on a recent MRI, O.A and fibromyalgia. Allergies cannabidiol (CBD) extract Allergy (Mild, Verified 07/26/23 10:05) Hives duloxetine Adverse Reaction (Intermediate, Verified 07/26/23 10:05) Nausea and Vomiting HPI New problem- rt hand SF HPI Details Crystal is a 48 year old right hand dominant woman who presents with complaints of right small finger pain. She complains of pain in her small finger, which has been worse in the last few days. She reports ~4-5 months of her small finger locking painfully. She denies any falls or known injury. She reports numbness in her hands throughout the week. She denies this being a daily occurrence. She complains of pain in her left middle finger since Summer 2022. She reports stiffness in her bilateral hands, along with pain in her fingers. She says most of her fingers get stuck at times, but not as often as her right small finger. She has a hx of psoriatic arthritis and Fibromyalgia, and follows with Rheumatology. She has a hx of cardiomyopathy. She has difficulties with her esophagus and says she is unable to consume solid food. She drinks shakes and blended food and has for several years now. She is being seen in [place] for this. 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 Hx of ectopic Anxiety disorder Paroxysmal nocturnal dyspnea Amenorrhea Campbell's disease Arthritis Hyperthyroidism Goiter Vitamin D deficiency Non-toxic multinodular goiter Obesity Elevated dehydroepiandrosterone sulfate level Graves disease Degenerative arthritis of knee, bilateral Surgical History Hx of endoscopy H/O esophagogastroduodenoscopy History of tonsillectomy History of tubal ligation Family History Father Diabetes Mother Breast cancer BRCA gene mutation negative Maternal Uncle Heart transplanted Social History (Updated 07/26/23 @ 10:06 by MIKAYLA Moran) Alcohol intake: current Alcohol intake frequency: does not drink Patient Tobacco Use Status: Never used Tobacco Current occupational status: unemployed Current occupation: right hand Sexual orientation: Straight/Heterosexual Gender identity: Female Female Reproductive History Menstrual Age of Menarche: 13 Review of Systems Const All systems reviewed & are unremarkable except as noted in HPI and below Physical Exam Vital Signs: BMI result Body Mass Index 31.5 Const General: cooperative, healthy appearing and no acute distress Orientation/consciousness: patient oriented x3 HEENT Head: Yes normocephalic and Yes atraumatic Eyes EOM: EOMs intact bilaterally Resp Effort & Inspection: normal respiratory effort and able to speak in complete sentences Cardio Jugular venous distension: no JVD Skin General skin exam: turgor normal Rashes: no rashes Neuro General: patient oriented x3 Extrem Other: Evaluation of Bilateral Upper Extremity: The patient is alert, oriented, and in no acute distress Neuro: Median, Ulnar, Radial nerves motor and sensory intact and sensation is normal to the tips of all digits Vascular: Cap refill brisk ROM: She can make a fist and extend all her digits Visible and palpable locking and catching of her right small finger Tender over the a1 nikole of the right small finger I did not see any extensor tendon subluxation, however the catching was more noticeable when going from perhaps 45 degrees of MCP flexion to about 90 degrees of MCP flexion with the PIP and D IP joints also in some flexion. Skin: No lacerations or abrasions. General: No Ecchymosis. No Erythema or evidence of infection. Left hand MRI: Not ordered by me, ordered by PCP for what the patient reports as persistent intense left hand pain, which has now improved. FINDINGS: BONE: No marrow edema or evidence of acute osseous abnormality. No acute fracture or dislocation. No concerning lytic or blastic osseous lesion. Grossly intact articular cartilage. MUSCLES/TENDONS: Trace fluid and edema within the third flexor digitorum tendon sheath, consistent with minimal tenosynovitis. No measurable tendon tear or tendon retraction. LIGAMENTS: Intact collateral ligaments. SOFT TISSUES: No soft tissue mass or fluid collection. No palmar fascial nodularity or evidence of fibroma. IMPRESSION: 1. Minimal third flexor digitorum tenosynovitis without a measurable tendon tear or tendon retraction. 2. No soft tissue mass, fluid collection, or fibroma. Dictated By: Gabe Graham MD 06/06/23 Radiographs: 3 views of the left hand from 03/20/23 were reviewed by me today in clinic. They show no fractures, dislocations, or osteolytic lesions. There are some arthritic changes in the small finger DIP joint Psych Appearance: grossly normal Affect: normal affect Attitude: cooperative Office Procedures Fracture Care Details: No fracture, injection [id number] Fracture Billing Code: Fracture Billing Code Assessment & Plan Assessment & Plan (1) Trigger finger, right little finger: Code(s): M65.351 - Trigger finger, right little finger (2) Fibromyalgia: Comment: This disorder may be contributing to her nonspecific back pain and spasms in the back of left chest. Code(s): M79.7 - Fibromyalgia (3) Cardiomyopathy: Comment: She has decreased LVEF , but does not have any obvious congestive heart failure. Being followed by Cardiology Code(s): I42.9 - Cardiomyopathy, unspecified (4) Bilateral hand numbness: Code(s): R20.0 - Anesthesia of skin Plan Assessment & Plan: 1. Right small finger catching Most likely felt to be a trigger finger I educated her about this condition I discussed operative and non-operative treatment options The patient would like to proceed with an injection Injection #1: The risks and benefits of a steroid injection including but not limited to risk of damage to blood vessels, nerves, tendons, infection, skin bleaching, failure to improve symptoms, increased pain, and possible need for further injections or other intervention were discussed with the patient and the patient wishes to proceed with the steroid injection. Once consent was obtained, I sterilely prepped the area over the A1 nikole of the flexor tendon sheath of the left small finger. I then injected the flexor tendon sheath with a combination of 1 mL of dexamethasone (4mg/ml), and 1% lidocaine. The patient tolerated the procedure well with no complications. If the patient continues to have locking and catching 4-6 weeks following this injection, they may call to schedule appointment to discuss alternative treatment options Follow-up prn 2. Bilateral hand numbness Symptoms intermittent and occasional If her symptoms persist or worsen she can follow up to discuss a NCS Scribed for Yu Hutson MD by Edd Sepulveda, medical services manager, on 07/26/23 at 10:26 AM, EST. Coding Level of Care Code New Pt Level 4 (82185) Diagnoses Trigger finger, right little finger M65.351 Fibromyalgia M79.7 Cardiomyopathy I42.9 Bilateral hand numbness R20.0 CPT Codes Fracture Care - Fracture Billing Code: Fracture Billing Code ([id number])
[2023-07-26 10:05] VITALS: BMI 31.5
== END 2023-07-26 10:35 | disposition home or self-care (01) ==
PROVIDERS: PCP General Practice; Visit Provider Orthopaedic Surgery
DX: M65.351 Trigger finger, right little finger (principal); R20.0 Anesthesia of skin; M79.7 Fibromyalgia; I42.9 Cardiomyopathy, unspecified
CPT/HCPCS: 20550; 99213

== ENCOUNTER → 2023-07-26 09:32 | Outpatient (BNVA) | payer MEDICAID, SELFPAY | PROVIDERS: PCP General Practice; Visit Provider Orthopaedic Surgery | DX: M65.351 Trigger finger, right little finger (principal); M79.7 Fibromyalgia; I42.9 Cardiomyopathy, unspecified; R20.0 Anesthesia of skin | CPT/HCPCS: 20550; 99212; J1100 ==

== ENCOUNTER 2023-08-11 13:23 | Outpatient (AMB) | payer MEDICAID, SELFPAY ==
--- NOTE | 2023-08-11 13:27 | MHC.OFFVIS ---
Intake Vital Signs 08/11/23 13:32 Height 5 ft 7 in Weight 171 lb 11.841 oz BMI 26.9 BP 108/80 Blood Pressure Location Rt brachial Position Sitting Pulse 78 Pulse Source Pulse Oximeter Temp 97 F Temp Source Skin Pulse Oximetry (%) 96 Oxygen Delivery Method Room Air Intake Visit Reasons: PSA Intake Note: Patient last seen 05/10/23 by Marlena, presents today for PsA follow up and test results. Reports on going emelyn hand pain. Humane Officer Required: No Accompanied by: Self / Same As Patient Allergies cannabidiol (CBD) extract Allergy (Mild, Verified 08/11/23 13:33) Hives duloxetine Adverse Reaction (Intermediate, Verified 08/11/23 13:33) Nausea and Vomiting HPI HPI Comments History of Present Illness Details Ms. Gomez is here follow-up after starting DMARD therapy for SpA. She has been taking Leflunomide for about 1 month. She continues with much the same concerns for low back pain and fibromylagia. She received corticosteroid injections for bilateral 5th digit trigger finger. The pain has improved but the triggering remains per patient she was told that she may need to do surgery to resolve the triggering. She continues to see GI for dysphagia secondary to chronic untreated GERD per GI. She eats only soft/puree foods. 05/10/2023 Visit Marlena Ms. Gomez is 48-year-old female here for follow-up of multiple joint pain and presumed fibromyalgia; her last visit was 04/14/2022. She is currently not taking any medications for her joint pain. She reports on her esophageal dysmotility, describes that she has been worked up for joint pain for a long time. She she is on a primarily liquid diet consisting of smoothies, juices, water and has not had solid food for the better part of 5 years. Within the last year or 2 she has been having difficulty breathing when she lays down. She reports that it feels like her chest is squeezing in. She thinks it may be because of panic attack seen she has a history of anxiety. However it also happens when she is laying down and not feeling anxious. Most recently she was seen by her PCP for a B sting that caused her left hand to be swollen (showed pictures) She received prednisone which improved the swelling and is scheduled to have an MRI to assess further given the residual pain and inability to make a complete fist. Patient denies smoking and alcohol. She has had knee arthroscopy on her left knee and was pain free for at least 5 years. However, recently the knee has started to hurt. She reached out to the orthopedic surgeon who advised she cannot received any more cortisone injections in the left knee. Patient continue l stipulate to joint pain in her lower back knees hands neck. The patient denies personal history of psoriasis ulcerative colitis and Crohn's. She denies uveitis. The patient has consistently elevated ESR CRP dating back to 2006 at the time of the first rheumatologic workup. CRP and ESR continues to be elevated up to last value obtained March 2022. She had an MRI done in 2014 because she had edema to her left knee. Lab work done for Lyme disease back in 1999 12 and 2014. Pap work for rheumatoid factor done several times continues to be negative. She used to get an average of 3 injections per year to her knees. By way of family history patient reports that her grandfather, sister and her cousins have significant psoriasis for which they are treated with special medication. She also has a sister with multiple sclerosis. She denies family members with Crohn's and ulcerative colitis Past Visits: 47yoF female presents for follow-up of fibromyalgia. Last visit June 2021. Patient admits to continued intermittent pain in her neck, shoulders, upper arms, chest, mid back, lower back, knees and most recently pain in her breasts for 3 days. She states her breast pain is improved today. She denies any dimpling, lumps, skin changes or nipple discharge. She denies pain in her hands, ankles or feet. She denies any joint swelling. She admits to continued disrupted sleep and depression as well as anxiety. She is taking escitalopram and hydroxyzine. She states that the hydroxyzine helps with her anxiety and she notices her breathing gets better when she takes this. She is following with a psychiatrist and therapist, next appointment with her therapist this today. She was recently referred to Cardiology after echo showed LVEF of 48%. She does not have any known cardiac history. She does report a chronic pinching sensation in the chest on the left side when lying in bed, when she experiences this she states she cannot breathe and then she has to get up out of bed and the sensation resolves. The plan per cardiology is to get a stress test to assess for coronary artery disease, although she does not have any clear symptoms. If stress test is normal cardiology will consider cardiac MRI. She was referred to Pulmonary by Cardiology for her orthopnea She does not have any evidence of congestive heart failure or exertional symptoms . She has had sleep study in the past that was normal and recent chest x-ray without any acute process. She was referred to Pulmonary as she had some suspicion for small airway disease such as asthma on her pulmonary function test. She was previously following with endocrine for thyroiditis with subsequent normalization of thyroid function test. Per her last endocrine note she is euthyroid. Patient states she no longer needs to follow with Endocrine. DHEA-S level was slightly elevated in the setting of normal menses per endocrine note this is most consistent with polycystic ovary syndrome patient has normal menses and does not have significant hirtuism she was advised to follow-up with primary care and with Endocrine as needed. She continues to follow with GI for dysphagia/ineffective esophageal motility disorder she follows with a specialist in [place] as well. She is currently on metoclopramide 10 mg t.i.d. with meals. She states that she has not tried gabapentin or muscle relaxers, these have been avoided due to her esophageal dysmotility. She denies history of Raynaud's, photosensitivity, oral nasal ulcers, sicca symptoms, fevers, alopecia or history of miscarriage. Patient reports that she feels tightness in her shoulders daily. She states that she massages her shoulders every night with some improvement in her symptoms. She states that at times she has pain in her neck. She admits to chronic intermittent lower back pain that she describes as strong, pain is present with sitting and standing. Pain is improved with position changes and ibuprofen. She admits to sleep disturbance for greater then 6 months. She is following with psychiatry for anxiety depression and has been prescribed a new medication for depression, escitalopram, that she has not started yet. She admits to skin sensitivity and reports that multiple providers have asked her if she has fibromyalgia recently. Follows with GI for dysphagia. She was referred to [facility] for 2nd opinion and to neurology to see if there was a neurologic component to her symptoms. She states that she is due for an endoscopy this month. She states that she completed PT for her neck and it was very helpful. 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 Hx of ectopic Anxiety disorder Paroxysmal nocturnal dyspnea Amenorrhea Campbell's disease Arthritis Hyperthyroidism Goiter Vitamin D deficiency Non-toxic multinodular goiter Obesity Elevated dehydroepiandrosterone sulfate level Graves disease Degenerative arthritis of knee, bilateral Surgical History Hx of endoscopy H/O esophagogastroduodenoscopy History of tonsillectomy History of tubal ligation Family History Father Diabetes Mother Breast cancer BRCA gene mutation negative Maternal Uncle Heart transplanted Social History Alcohol intake: current Alcohol intake frequency: does not drink Patient Tobacco Use Status: Never used Tobacco Current occupational status: unemployed Current occupation: right hand Sexual orientation: Straight/Heterosexual Gender identity: Female Female Reproductive History Menstrual Age of Menarche: 13 Physical Exam Vital Signs: Last Vital Signs Temp 97 F 08/11/23 13:32 Pulse 78 08/11/23 13:32 BP 108/80 08/11/23 13:32 Pulse Ox 96 08/11/23 13:32 Oxygen Delivery Method Room Air 08/11/23 13:32 BMI result Body Mass Index 26.9 APPEARANCE: Patient in no acute distress EYES: no redness, eyelids normal EARS: External ear normal, normal. HEART: Regular rhythm, S1-S2 heard, no murmurs, rubs or gallops. LUNG: Clear auscultation, respiratory rate regular nonlabored. EXTREMITIES: No edema, no calf tenderness, normal peripheral pulses. NEURO: Oriented and alert x3. No focal weakness. Reflexes symmetric. Gait normal. SKIN: No inflammatory or neoplastic lesions. Normal color and turgor JOINT EXAM:?? Cervical Spine: Full range of motion without pain; Mild tenderness. Thoracic Spine:? No scoliosis.? No tenderness on palpation. Lumbar Spine:? Alignment normal.? Full range of motion without pain, Moderate tenderness. Hands:? Normal pain-free range of motion without increased warmth or erythema. Able to make a full fist with stiffness and right and has a moderate caregivers non medical strength. Left unable to make a full fist, trace swelling to left Wrists: Normal pain-free range of motion without, swelling, increased warmth or erythema. Mild tenderness Elbows: Normal pain-free range of motion without tenderness, swelling, increased warmth or erythema. Shoulders:?? Full range of motion without pain. No weakness, swelling, increased warmth or erythema. mild tenderness, Hips:? Full range of motion. Tenderness to right illiac crest with palpation and movement. Hip bursa:? No tenderness. Knees:?? Normal pain-free range of motion without swelling, increased warmth or erythema.? There is no effusion or crepitation, Left moderate tenderness, Right mild tenderness, Ankles:? Normal pain-free range of motion without tenderness, swelling, increased warmth or erythema. Feet:? Normal pain-free range of motion without tenderness, swelling, increased warmth or erythema. left plantar burning sensation Tender points:? Tenderness to palpation of the trapezius and second rib. Results Reviewed Results Reviewed: Laboratory Tests 05/10/23 12:10 WBC 5.8 RBC 4.79 Hgb 13.2 Hct 41.1 ESR 29 H C-Reactive Protein 0.16 HLA-B27 Negative EXAMINATION: MR HAND WITHOUT CONTRAST, LEFT CLINICAL INFORMATION: Left hand pain and swelling following hyperflexion injury. COMPARISON: Left hand radiographs dated 03/20/2023. TECHNIQUE: Multisequence MR imaging of the left hand was obtained without contrast on a high-field strength scanner. FINDINGS: BONE: No marrow edema or evidence of acute osseous abnormality. No acute fracture or dislocation. No concerning lytic or blastic osseous lesion. Grossly intact articular cartilage. MUSCLES/TENDONS: Trace fluid and edema within the third flexor digitorum tendon sheath, consistent with minimal tenosynovitis. No measurable tendon tear or tendon retraction. LIGAMENTS: Intact collateral ligaments. SOFT TISSUES: No soft tissue mass or fluid collection. No palmar fascial nodularity or evidence of fibroma. MR/MR hand LT wo con IMPRESSION: 1. Minimal third flexor digitorum tenosynovitis without a measurable tendon tear or tendon retraction. 2. No soft tissue mass, fluid collection, or fibroma. Ordering Physician: Filiberto Billingsley MD Date of Service: 07/03/23 Procedure(s): XR pelvis 1-2V Accession Number(s): [id number] cc: Filiberto Billingsley MD~ EXAMINATION: XR PELVIS CLINICAL INFORMATION: Hip pain COMPARISON: None available. TECHNIQUE: AP view of the pelvis. FINDINGS: The bony pelvis is intact. Alignment is maintained. Pedicles and SI joints within normal limits. Bilateral mild hip joint narrowings. No fracture or dislocation. Phleboliths. Mild fecal retention. XR/XR pelvis 1-2V IMPRESSION: No acute bony pathology. 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 She denies any side effects. We will continue Lelfunomide 20 mg QW. She continues with low back pain. I will give her a course of prednisone to help with the hand lambert and swelling. We will obtain labs before next visit in 8 weeks to monitor her CBC and CMP while on leflunomide. The minimal goal is to normalize her sed rate which is currently 38. #Trigger Finger Rght 5th: She has had tenosynovitis to the finger as a result of hyperreflexia injury. She is status post corticosteroid injection from hand surgeon. The tenderness has resolved but triggering remains. Per patient they may do surgery to stop the triggering. She should continue to follow hand surgeon to resolve. Note: Multiple serology negative for leukopenia or thrombocytopenia, rheumatoid factor, ds DNA.? The remainder of her serology was also unrevealing with negative Sm/COMMERCIAL CREDIT REVIEWER, negative scleroderma antibody, normal complements, negative Sjogren's antibodies.? She does have positive antithyroid antibodies and this is likely the source of her positive KIRT. Patient is now euthyroid and following with endocrine as needed. Follow-up with Pulmonary and Cardiology as scheduled. 25 minutes spent reviewing chart, evaluating patient, ordering and documenting. Prior Visit 04/2023: psoriatic arthritis. Ms. Gomez of 48-year-old female who has been seen for several years now deemed to have fibromyalgia is here for follow-up. After thoroughly examining patient's records, physical examination, evaluated diagnostics, I think it is reasonable to presume that this patient may have an inflammatory arthritis such as acSpA. She has a strong family history of psoriasis and on physical examination I saw evidence of psoriasis on her scalp. Clinically, she has had persistently elevated CRP and ESR, low back pain and intermittent swelling and pain to multiple joints. Considering her clinical picture, I think it is reasonable to start her on a DMARD. I will prescribe leflunomide and evaluate for effectiveness. We anticipate there should be at least a 30 - 50% improvement to her back, hands and shoulders. I encouraged patient to take pictures of her the nape of the scalp to monitor if the erythematous patches, likely psoriasis, seen on PE, have resolved. She was in her mid to late 30s when her episodes of back pain first started and has been told over the years that she has Fibromyalgia. Notwithstanding, there may be an element of Fibromyalgia but not to the exclusion of an AxSpa given her clinical history. Orders: Orders C Reactive Protein 8 Weeks M45.2 - Ankylosing spondylitis of cervical region, Z79.60 - remote computer terminal operator (current) use of unspecified immunomodulators and immunosuppressants Complete Blood Count Auto Diff 8 Weeks M45.2 - Ankylosing spondylitis of cervical region, Z79.60 - remote computer terminal operator (current) use of unspecified immunomodulators and immunosuppressants, Z79.899 - Other manager terminal (current) drug therapy Immunoglobulins,IgG IgA IgM 08/11/23 R76.8 - Other specified abnormal immunological findings in serum Erythrocyte Sedimentation Rate 8 Weeks M45.2 - Ankylosing spondylitis of cervical region, Z79.60 - prison (current) use of unspecified immunomodulators and immunosuppressants Comprehensive Met. 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
[2023-08-11 13:32] VITALS: BP 108/80; PULSE 78; TEMP 36.1; O2SAT 96; BMI 26.9
== END 2023-08-11 14:15 | disposition home or self-care (01) ==
PROVIDERS: PCP General Practice; Visit Provider Nurse Practitioner Family
DX: M45.2 Ankylosing spondylitis of cervical region (principal); L40.50 Arthropathic psoriasis, unspecified; Z79.60 Long term (current) use of unspecified immunomodulators and immunosuppressants; R76.8 Other specified abnormal immunological findings in serum; M65.351 Trigger finger, right little finger
CPT/HCPCS: 99213

== ENCOUNTER → 2023-08-11 13:23 | Outpatient (BNVA) | payer MEDICAID, SELFPAY | PROVIDERS: PCP General Practice; Visit Provider Nurse Practitioner Family | DX: L40.50 Arthropathic psoriasis, unspecified (principal); M45.2 Ankylosing spondylitis of cervical region; R76.8 Other specified abnormal immunological findings in serum; M65.351 Trigger finger, right little finger; Z79.60 Long term (current) use of unspecified immunomodulators and immunosuppressants | CPT/HCPCS: 99212 ==

== ENCOUNTER 2023-08-21 16:00 | Outpatient (RCR) | payer MEDICAID, SELFPAY ==
--- NOTE | 2023-07-13 10:48 | MHC.PT.EP ---
[facility] [place] [facility] [place] Office [place] Office [address] Paula Carrion [address] [phone] F: [phone] F: [phone] F: [phone] F: [phone] Physical Therapy Plan of Care Date of Evaluation: 07/13/23 Date of Surgery: N/A Diagnosis: arthritis of right hip (RL) Assessment: pt is a 48 y/o female presenting to physical therapy w/ referring diagnosis of arthritis of R hip. I am suspicious of hip flexor/adductor tendonitis. Impairments include pain, decreased range of motion, decreased strength, impaired functional mobility, impaired postural awareness, and altered ambulation mechanics. pt is a good candidate for skilled PT due to age, potential remediation of impairments, typical disease/condition progression and prognosis, comorbidities, and motivation. pt would benefit from skilled PT intervention to provide a tailored strengthening and stretching exercise program, functional training, gait training, postural re-training, neuromuscular re-education, modalities as needed for pain, equipment safety demonstration. Frequency and Duration: The patient will be seen 2x/wk for 4 wks Short Term Goals: pt will be I w/ HEP to promote neutral spine w/ seated ADLs. pt will demo modified car transfers to promote neutral spine/pelvis I level. Telemarketing Sales Representative Goals: pt will report a statistically significant improvement in self-reported outcome measure, LEFI, to promote return to PLOF. pt will improve R hip flexor strength by 1 MMT grade to promote ease in sit<>stand transfers. Treatment Plan: Modalities to reduce pain, spasms and effusion. Manual therapy to restore motion and function. Therapeutic exercise to improve strength and flexibility. Neuromuscular re-education for posture and balance. Therapeutic activities to return to functional activities of daily living. Electronically signed by: Bessie Bansal PT, DPT Please sign and return to therapist. Thank you for your referral.
--- NOTE | 2023-09-01 08:20 | MHC.PT.DC ---
[facility] [place] Office [place] [facility] [place] Office [address] Paula Carrion [address] [facility] [phone] F: [phone] F: [phone] F: [phone] F: [phone] Physical Therapy Discharge Report Diagnosis: arthritis of right hip (RL) Date of Surgery: N/A Date of Evaluation: 07/13/23 Date of Discharge: 09/01/23 Treatments to Date: 7 Cancellations to Date: 3 No Shows to Date: 4 Discharge Status: Recommend MD Follow-up Discharge Summary: The patient has had poor attendance with physical therapy due to other health concerns going on. She is discharged from this physical therapy plan of care with the recommendation to focus on managing her other health conditions at this time. She can return to PT when she feels these conditions are under control. Electronically signed by: Bessie Bansal PT, DPT Please sign and return to therapist. Thank you for your referral.
== END 2023-09-01 08:20 | disposition home or self-care (01) ==
LOC: HO.PT 16:00
PROVIDERS: PCP General Practice; Visit Provider Orthopaedic Surgery
DX: M16.11 Unilateral primary osteoarthritis, right hip (principal)
CPT/HCPCS: 97110; 97140; 97162; 97530

== ENCOUNTER → 2023-08-22 08:43 | Outpatient (REF) | payer MEDICAID, SELFPAY ==
--- NOTE | 2023-08-22 08:46 | CA_ITS ---
Transthoracic Echocardiogram Patient (Last, First, Middle): Crystal Ivan, Gender: Female Date of : 1975 Age: 48 Procedure Date: 08/22/2023 Procedure Type: Transthoracic Echocardiogram Location: OP Height: 170.18 cm Weight: 79.38 kg BSA: 1.91 m2 Heart Rate: 94 bpm BP: 110 / 78 mmHg Neighborhood Conservation Officer: SB Referring MD: Noa Medina INJURY/SAFETY HAZARD ASSESSMENTMichael Symptoms: I42.9 - Cardiomyopathy, unspecified Study Quality: Adequate ECG Rhythm: Sinus Conclusions: - The left ventricular systolic function is low normal. The calculated ejection fraction is 53% by biplane method. - No obvious valvular pathology seen on this study. Findings Left Ventricle Normal left ventricular cavity size. There is normal left ventricular wall thickness. The left ventricular systolic function is low normal. The calculated ejection fraction is 53% by biplane method. There is no evidence of regional wall motion abnormalities. Diastolic function is normal for age. LV peak GLS -14.3%. Right Ventricle Normal right ventricular cavity size and systolic function. Atria Both atria are normal in size. Aortic Valve The aortic valve was not well visualized. There is no aortic valve stenosis. There is no aortic valve regurgitation. Mitral Valve The mitral valve appears normal. There is no mitral valve regurgitation. There is no mitral valve stenosis. Pulmonic Valve The pulmonic valve is likely normal. Tricuspid Valve Normal tricuspid valve structure. There is trace tricuspid valve regurgitation. Tricuspid regurgitation envelope is inadequate for calculation of right ventricular systolic pressure. Great Vessels The asc aorta is normal in size. Venous The inferior vena cava is normal in size and collapses greater than 50% with inspiration. Pericardium/Pleural There is no evidence of pericardial effusion. Prior Study Comparison No significant change compared to prior study dated: 08/19/2022. Recommendations, Care & Conclusions No obvious valvular pathology seen on this study. Measurements 2D Linear Measurements IVSd: 0.68 0.6-0.9/0.6-1.0 cm LVIDd: 4.84 3.9-5.3/4.2-5.9 cm LVIDd Index: 2.53 2.4-3.2/2.2-3.1 cm/m2 LVIDs: 3.24 2.0-3.6 cm LVPWd: 0.48 0.7-1.1 cm LA Diam: 3.20 2.7-3.8/3.0-4.0 cm LAIDs Index: 1.68 1.5-2.3 cm/m2 LV Mass: 106.28 67-162/88-224 g LV Mass Index: 55.64 43-95/49-115 g/m2 LVOT Diam: 2.10 3.0+(-)1.3 cm 2D Systolic Function EF 4C: 53.90 >55% EF 2C: 52.60 >55% EF BiP: 52.80 >55% Mitral Valve MV Pk E: 0.68 MV PK A: 0.79 E/A: 0.90 E'Lateral: 15.90 E'Medial: 9.14 E/E' Med: 7.40 E/E' Lat: 4.30 Aortic Valve AoV Pk Jesús: 1.32 AoV Pk Grad: 7.00 FER: 2.87 LVOT LVOT Pk Jesús: 1.12 LVOT Mn Jesús: 0.78 LVOT VTI: 0.22 LVOT Pk Grad: 5.00 LVOT Mn Grad: 3.00 LVOT Diam: 2.10 LVOT Area: 3.46 Diastolic Function MV Pk E: 0.68 MV Pk A: 0.79 E/A: 0.90 E'Medial: 9.14 E/E' Med: 7.40 E' Laterial: 15.90 E/E' Lat: 4.30 Right Ventricle TAPSE (mm): 19.40 TVS' Jesús: 12.70 Tricuspid Valve RA Press: 3.00 Great Vessels Aorta Sinus of Valsalva: 2.80 2.0-3.5 cm Ao Asc: 2.90 2.1-3.4 cm Pulmonary Valve PV Pk Jesús: 0.82 Peak PV Grad: 3.00 Updated in Other Vendor System with Status of Final Marcus Baig MD electronically signed on 08/22/2023 10:22:03 AM with status of Final
== END ==
LOC: HO.CARD 08:43
PROVIDERS: PCP General Practice; Visit Provider Nurse Practitioner Family
DX: I42.9 Cardiomyopathy, unspecified (principal)
CPT/HCPCS: 93306; 93356

== ENCOUNTER → 2023-08-22 08:46 | Outpatient (BNV) | payer MEDICAID, SELFPAY | PROVIDERS: PCP General Practice; Visit Provider Internal Medicine | DX: I42.9 Cardiomyopathy, unspecified (principal) | CPT/HCPCS: 93306 ==

== ENCOUNTER 2023-08-29 07:53 | Outpatient (REF) | payer MEDICAID, SELFPAY ==
[2023-08-29 08:12] LABS: MANUAL DIFF FLAG NO
[2023-08-29 08:30] LABS: Basophils Percent Auto 0.7 % (0-2); Eosinophils Absolute Auto 0.2 X10*3/uL (0.0-0.4); Eosinophils Percent Auto 3.1 % (0-4); Hematocrit 40.6 % (37.0-47.0); Hemoglobin 13.3 g/dl (12.0-16.0); Imm Gran Abs Auto 0.02 X10*3/uL (0.00-0.03); Imm Gran Pct Auto 0.4 % (0.0-0.4); Lymphocytes Absolute Auto 2.4 X10*3/uL (1.2-4.9); Mean Corpuscular HGB Conc 32.8 g/dl (31.0-35.0); Mean Corpuscular Hemoglobin 27.8 pg (27.0-33.0); Mean Corpuscular Volume 84.9 fL (80.0-98.0); Mean Platelet Volume 10.1 fL (9.4-12.3); Monocytes Absolute Auto 0.3 X10*3/uL (0.1-1.2); Monocytes Percent Auto 6.2 % (2-11); Neutrophils Absolute Auto 2.6 x10*3/uL (2.0-8.3); Neutrophils Percent Auto 46.6 % (45-73); Platelet Count 242 X10*3/uL (160-400); Red Blood Count 4.78 X10*6/uL (4.20-5.50); Red Cell Distribution Width 13.2 % (11.0-16.0); White Blood Count 5.5 X10*3/uL (4.8-10.8)
[2023-08-29 09:02] LABS: Alanine Aminotransferase 14 U/L (0-31); Albumin Level 3.9 g/dL (3.5-5.0); Alkaline Phosphatase 86 U/L (39-117); Anion Gap 9 (12-20); Aspartate Amino Transferase 16 U/L (5-31); Bilirubin Total 0.5 mg/dL (0.0-1.0); Blood Urea Nitrogen 9 mg/dL (9-16); C Reactive Protein 0.21 mg/dL (< or = 0.50); Calcium 9.1 mg/dL (8.4-10.2); Carbon Dioxide 27 mmol/L (22-29); Chloride 108 mmol/L (96-108); Estimated Glomerular Filt Rate > 60; Glucose Random 108 mg/dL (60-115); Potassium 3.9 mmol/L (3.3-5.1); Sodium 140 mmol/L (135-145); Total Protein 7.6 g/dL (6.5-8.0)
[2023-08-29 09:15] LABS: Erythrocyte Sedimentation Rate 21 MM/HR (0-20)
[2023-08-31 05:59] LABS: IgA 609 mg/dL (47-310); IgG 1656 mg/dL (600-1640); IgM 72 mg/dL (50-300)
== END 2023-08-29 07:54 | disposition home or self-care (01) ==
LOC: HO.LAB 07:53
PROVIDERS: PCP General Practice; Visit Provider Nurse Practitioner Family
DX: M45.2 Ankylosing spondylitis of cervical region (principal); R76.8 Other specified abnormal immunological findings in serum; Z79.899 Other long term (current) drug therapy; Z79.60 Long term (current) use of unspecified immunomodulators and immunosuppressants
CPT/HCPCS: 36415; 80053; 82784; 85025; 85652; 86140

== ENCOUNTER 2023-10-06 14:01 | Outpatient (AMB) | payer MEDICAID, SELFPAY ==
--- NOTE | 2023-10-06 14:07 | A.OFFVIS_ITS ---
Intake Visit Reasons: PSA Intake Note: Patient last seen 08/11/23, presents today for follow up and test results. Reports never taking Prednisone that was sent. c/o right index finger swelling Weblogic Administrator Required: No Accompanied by: Self / Same As Patient Allergies cannabidiol (CBD) extract Allergy (Mild, Verified 10/10/23 12:04) Hives duloxetine Adverse Reaction (Intermediate, Verified 10/10/23 12:04) Nausea and Vomiting HPI Comments Details: Ms. Gomez is here follow-up after starting DMARD therapy for SpA. She has been taking Leflunomide and finds that she does have some improvement to her hand pain and most of the swelling is resolved. She does continue with right index finger tenosynovitis and says that started last week. There is some buckling in the joint of the 5th digit fingers and she thinks the injection she received from Ortho for triggering has not resolve the issue. The pain has improved but the triggering remains per patient she was told that she may need to do surgery to resolve the triggering. She continues to see GI for dysphagia secondary to chronic untreated GERD per GI. She eats only soft/puree foods. 05/10/2023 Visit Marlena Ms. Gomez is 48-year-old female here for follow-up of multiple joint pain and presumed fibromyalgia; her last visit was 04/14/2022. She is currently not taking any medications for her joint pain. She reports on her esophageal dysmotility, describes that she has been worked up for joint pain for a long time. She she is on a primarily liquid diet consisting of smoothies, juices, water and has not had solid food for the better part of 5 years. Within the last year or 2 she has been having difficulty breathing when she lays down. She reports that it feels like her chest is squeezing in. She thinks it may be because of panic attack seen she has a history of anxiety. However it also happens when she is laying down and not feeling anxious. Most recently she was seen by her PCP for a B sting that caused her left hand to be swollen (showed pictures) She received prednisone which improved the swelling and is scheduled to have an MRI to assess further given the residual pain and inability to make a complete fist. Patient denies smoking and alcohol. She has had knee arthroscopy on her left knee and was pain free for at least 5 years. However, recently the knee has started to hurt. She reached out to the orthopedic surgeon who advised she cannot received any more cortisone injections in the left knee. Patient continue l stipulate to joint pain in her lower back knees hands neck. The patient denies personal history of psoriasis ulcerative colitis and Crohn's. She denies uveitis. The patient has consistently elevated ESR CRP dating back to 2006 at the time of the first rheumatologic workup. CRP and ESR continues to be elevated up to last value obtained March 2022. She had an MRI done in 2014 because she had edema to her left knee. Lab work done for Lyme disease back in 1999 12 and 2014. Pap work for rheumatoid factor done several times continues to be negative. She used to get an average of 3 injections per year to her knees. By way of family history patient reports that her grandfather, sister and her cousins have significant psoriasis for which they are treated with special medication. She also has a sister with multiple sclerosis. She denies family members with Crohn's and ulcerative colitis Past Visits: 47yoF female presents for follow-up of fibromyalgia. Last visit June 2021. Patient admits to continued intermittent pain in her neck, shoulders, upper arms, chest, mid back, lower back, knees and most recently pain in her breasts for 3 days. She states her breast pain is improved today. She denies any dimpling, lumps, skin changes or nipple discharge. She denies pain in her hands, ankles or feet. She denies any joint swelling. She admits to continued disrupted sleep and depression as well as anxiety. She is taking escitalopram and hydroxyzine. She states that the hydroxyzine helps with her anxiety and she notices her breathing gets better when she takes this. She is following with a psychiatrist and therapist, next appointment with her therapist this today. She was recently referred to Cardiology after echo showed LVEF of 48%. She does not have any known cardiac history. She does report a chronic pinching sensation in the chest on the left side when lying in bed, when she experiences this she states she cannot breathe and then she has to get up out of bed and the sensation resolves. The plan per cardiology is to get a stress test to assess for coronary artery disease, although she does not have any clear symptoms. If stress test is normal cardiology will consider cardiac MRI. She was referred to Pulmonary by Cardiology for her orthopnea She does not have any evidence of congestive heart failure or exertional symptoms . She has had sleep study in the past that was normal and recent chest x-ray without any acute process. She was referred to Pulmonary as she had some suspicion for small airway disease such as asthma on her pulmonary function test. She was previously following with endocrine for thyroiditis with subsequent normalization of thyroid function test. Per her last endocrine note she is euthyroid. Patient states she no longer needs to follow with Endocrine. DHEA-S level was slightly elevated in the setting of normal menses per endocrine note this is most consistent with polycystic ovary syndrome patient has normal menses and does not have significant hirtuism she was advised to follow-up with primary care and with Endocrine as needed. She continues to follow with GI for dysphagia/ineffective esophageal motility disorder she follows with a specialist in [place] as well. She is currently on metoclopramide 10 mg t.i.d. with meals. She states that she has not tried gabapentin or muscle relaxers, these have been avoided due to her esophageal dysmotility. She denies history of Raynaud's, photosensitivity, oral nasal ulcers, sicca symptoms, fevers, alopecia or history of miscarriage. Patient reports that she feels tightness in her shoulders daily. She states that she massages her shoulders every night with some improvement in her symptoms. She states that at times she has pain in her neck. She admits to chronic intermittent lower back pain that she describes as strong, pain is present with sitting and standing. Pain is improved with position changes and ibuprofen. She admits to sleep disturbance for greater then 6 months. She is following with psychiatry for anxiety depression and has been prescribed a new medication for depression, escitalopram, that she has not started yet. She admits to skin sensitivity and reports that multiple providers have asked her if she has fibromyalgia recently. Follows with GI for dysphagia. She was referred to [facility] for 2nd opinion and to neurology to see if there was a neurologic component to her symptoms. She states that she is due for an endoscopy this month. She states that she completed PT for her neck and it was very helpful. 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 Hx of ectopic Anxiety disorder Paroxysmal nocturnal dyspnea Amenorrhea Campbell's disease Arthritis Hyperthyroidism Goiter Vitamin D deficiency Non-toxic multinodular goiter Obesity Elevated dehydroepiandrosterone sulfate level Graves disease Degenerative arthritis of knee, bilateral Surgical History Hx of endoscopy H/O esophagogastroduodenoscopy History of tonsillectomy History of tubal ligation Family History Father Diabetes Mother Breast cancer BRCA gene mutation negative Maternal Uncle Heart transplanted Social History Alcohol intake: current Alcohol intake frequency: does not drink Patient Tobacco Use Status: Never used Tobacco Current occupational status: unemployed Current occupation: right hand Sexual orientation: Straight/Heterosexual Gender identity: Female Female Reproductive History Menstrual Age of Menarche: 13 Review of Systems Const All systems reviewed & are unremarkable except as noted in HPI and below Physical Exam APPEARANCE: Patient in no acute distress EYES: no redness, eyelids normal EARS: External ear normal, normal. HEART: Regular rhythm, S1-S2 heard, no murmurs, rubs or gallops. LUNG: Clear auscultation, respiratory rate regular nonlabored. EXTREMITIES: No edema, no calf tenderness, normal peripheral pulses. NEURO: Oriented and alert x3. No focal weakness. Reflexes symmetric. Gait normal. SKIN: No inflammatory or neoplastic lesions. Normal color and turgor JOINT EXAM:?? Cervical Spine: Full range of motion without pain; Mild tenderness. Thoracic Spine:? No scoliosis.? No tenderness on palpation. Lumbar Spine:? Alignment normal.? Full range of motion without pain, Moderate tenderness. Hands:? Normal pain-free range of motion without increased warmth or erythema. Able to make a full fist with stiffness and right and has a moderate software configuration specialist strength. Left unable to make a full fist, trace swelling to left third finger Wrists: Normal pain-free range of motion without, swelling, increased warmth or erythema. Mild tenderness resolved Elbows: Normal pain-free range of motion without tenderness, swelling, increased warmth or erythema. Shoulders:?? Full range of motion without pain. No weakness, swelling, increased warmth or erythema. mild tenderness, Hips:? Full range of motion. Tenderness to right illiac crest with palpation and movement. Hip bursa:? No tenderness. Knees:?? Normal pain-free range of motion without swelling, increased warmth or erythema.? There is no effusion or crepitation, Left moderate tenderness, Right mild tenderness, Ankles:? Normal pain-free range of motion without tenderness, swelling, incr eased warmth or erythema. Feet:? Normal pain-free range of motion without tenderness, swelling, increased warmth or erythema. left plantar burning sensation Tender points:? Tenderness to palpation of the trapezius and second rib. 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 She continues with low back pain. I will give her a course of prednisone to help with the tenosynovitis to the right third finger. The minimal goal is to normalize her sed rate which is currently 21 down from 33, at this time I can say CRP and sed rate are at goal. I discussed with patient the nature of the disease process nrAxSpA/PsA and that tenosynovitis is often a part of the presentation of the disease. #Long Terrm Use: We will obtain labs before next visit to monitor her CBC and CMP while on leflunomide. Patient knows to hold leflunomide in the event of fevers, infections, surgery, and nonhealing wound. Patient patient is not at risk for while on leflunomide since she has had tubal ligation #Trigger Finger Right 5th: She has had tenosynovitis to the finger as a result of a hyperreflex injury. She is status post corticosteroid injection from hand surgeon. The tenderness has resolved but triggering remains. Per patient they may do surgery to stop the triggering. She should continue to follow hand surgeon to resolve residual catching Note: Multiple serology negative for leukopenia or thrombocytopenia, rheumatoid factor, ds DNA.? The remainder of her serology was also unrevealing with negative Sm/LOBSTER CATCHER, negative scleroderma antibody, normal complements, negative Sjogren's antibodies.? She does have positive antithyroid antibodies and this is likely the source of her positive KIRT. Patient is now euthyroid and following with endocrine as needed. 25 minutes spent reviewing chart, evaluating patient, ordering and documenting. Prior Visit 04/2023: psoriatic arthritis. Ms. Gomez of 48-year-old female who has been seen for several years now deemed to have fibromyalgia is here for follow-up. After thoroughly examining patient's records, physical examination, evaluated diagnostics, I think it is reasonable to presume that this patient may have an inflammatory arthritis such as acSpA. She has a strong family history of psoriasis and on physical examination I saw evidence of psoriasis on her scalp. Clinically, she has had persistently elevated CRP and ESR, low back pain and intermittent swelling and pain to multiple joints. Considering her clinical picture, I think it is reasonable to start her on a DMARD. I will prescribe leflunomide and evaluate for effectiveness. We anticipate there should be at least a 30 - 50% improvement to her back, hands and shoulders. I encouraged patient to take pictures of her the nape of the scalp to monitor if the erythematous patches, likely psoriasis, seen on PE, have resolved. She was in her mid to late 30s when her episodes of back pain first started and has been told over the years that she has Fibromyalgia. Notwithstanding, there may be an element of Fibromyalgia but not to the exclusion of an AxSpa given her clinical history. Orders: Orders Erythrocyte Sedimentation Rate 10/06/23 Z79.60 - long term care phlebotomist (current) use of unspecified immunomodulators and immunosuppressants, L40.50 - Arthropathic psoriasis, unspecified Complete Blood Count Auto Diff 10/06/23 Z79.60 - long term care phlebotomist (current) use of unspecified immunomodulators and immunosuppressants, L40.50 - Arthropathic psoriasis, unspecified Comprehensive Met. Panel 10/06/23 Z79.60 - prison (current) use of unspecified immunomodulators and immunosuppressants, L40.50 - Arthropathic psoriasis, unspecified C Reactive Protein 10/06/23 Z79.60 - prison (current) use of unspecified immunomodulators and immunosuppressants, L40.50 - Arthropathic psoriasis, unspecified Medications: Changed From prednisone 3 tablets per day x 7 days 2 tablets per day x 7 days 1 tablet per day x 14 days and stop 50 tabs 0RF M45.2 - Ankylosing spondylitis of cervical region To prednisone orally daily; 3 tablets per day x 7 days 2 tablets per day x 7 days 1 tablet per day x 14 days and stop 50 tabs 0RF M45.2 - Ankylosing spondylitis of cervical region Coding Level of Care Code Est Pt Level 3 (95791) Complex EM visit Add On G2211 Diagnoses 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
== END 2023-10-06 15:04 | disposition home or self-care (01) ==
PROVIDERS: PCP General Practice; Referring Provider General Practice; Visit Provider Nurse Practitioner Family
DX: L40.50 Arthropathic psoriasis, unspecified (principal); M45.2 Ankylosing spondylitis of cervical region; Z79.60 Long term (current) use of unspecified immunomodulators and immunosuppressants; M65.351 Trigger finger, right little finger
CPT/HCPCS: 99213; G2211

== ENCOUNTER → 2023-10-06 14:01 | Outpatient (BNVA) | payer MEDICAID, SELFPAY | PROVIDERS: PCP General Practice; Visit Provider Nurse Practitioner Family | DX: M45.2 Ankylosing spondylitis of cervical region (principal); L40.50 Arthropathic psoriasis, unspecified; M65.351 Trigger finger, right little finger; Z79.60 Long term (current) use of unspecified immunomodulators and immunosuppressants | CPT/HCPCS: 99212 ==

== ENCOUNTER 2023-10-09 09:56 | Outpatient (AMB) | payer MEDICAID, SELFPAY ==
[2023-10-09 10:29] VITALS: BP 104/80; PULSE 73; BMI 31.3
--- NOTE | 2023-10-09 10:29 | A.OFFVIS_ITS ---
Vital Signs 10/09/23 10:29 Height 5 ft 7 in Weight 200 lb 2.876 oz BMI 31.3 BP 104/80 Blood Pressure Location Lt brachial Position Sitting Pulse 73 Pulse Source Pulse Oximeter Intake Visit Reasons: f/up echo HS Director Institution Required: No Allergies cannabidiol (CBD) extract Allergy (Mild, Verified 10/09/23 10:31) Hives duloxetine Adverse Reaction (Intermediate, Verified 10/09/23 10:31) Nausea and Vomiting Medication List - Last Reconciled 10/09/23 by LILLI Nguyen albuterol sulfate 90 mcg/actuation 1 inh inhalation QID clonidine HCl 0.1 mg PO BEDTIME diclofenac sodium 1% 2 grams topical BID escitalopram oxalate 10 mg PO DAILY hydroxyzine pamoate 25 mg PO TID PRN leflunomide 20 mg PO DAILY omeprazole 20 mg PO BID prednisone orally daily; 3 tablets per day x 7 days 2 tablets per day x 7 days 1 tablet per day x 14 days and stop promethazine 25 mg PO BID PRN 30 days HPI HPI f/up echo HS: Details: Crystal is a 48-year-old female with past medical history of longstanding orthopnea symptom when laying on left side, anxiety, mild cardiomyopathy who presents for follow-up after tilt-table test and echocardiogram. Today she reports that she continues to to feel that she can not breathe good if laying on her left side. She has to sit up and try to catch her breath which is usually quick but can take a few minutes at times. She does not get this symptom as much if she lays on her right side. She feels that something is going on with the left side of her body. This symptom has been present for several years with out significant change. She typically sleeps on her back or her right side. No coughing, no shortness of breath during the daytime or with physical activity. No heart palpitations, chest pains, presyncope, syncope. She has had some lightheadedness especially with standing for prolonged periods of time. Reports high anxiety regarding her health. She tells me she has a problem with her esophagus as it was burned from reflux over the years. She says she can only eat pureed and liquid foods. She recently increased her water intake. She reports being active during the day. 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 Hx of ectopic Anxiety disorder Paroxysmal nocturnal dyspnea Amenorrhea Campbell's disease Arthritis Hyperthyroidism Goiter Vitamin D deficiency Non-toxic multinodular goiter Obesity Elevated dehydroepiandrosterone sulfate level Graves disease Degenerative arthritis of knee, bilateral Surgical History Hx of endoscopy H/O esophagogastroduodenoscopy History of tonsillectomy History of tubal ligation Family History Father Diabetes Mother Breast cancer BRCA gene mutation negative Maternal Uncle Heart transplanted Social History Alcohol intake: current Alcohol intake frequency: does not drink Patient Tobacco Use Status: Never used Tobacco Current occupational status: unemployed Current occupation: right hand Sexual orientation: Straight/Heterosexual Gender identity: Female Female Reproductive History Menstrual Age of Menarche: 13 Review of Systems Const All systems reviewed & are unremarkable except as noted in HPI and below ENT Reports dizziness Card Denies chest pain, Denies chest pain at rest, Denies chest pain with activity, Denies rapid heart rate, Denies pedal edema, Denies edema, Denies leg edema, Denies lightheadedness, Denies palpitations, Reports dyspnea, Denies dyspnea on exertion and Reports orthopnea Resp Denies cough, Reports dyspnea and Denies dyspnea on exertion GI Denies hematochezia and Denies change in stool character Musc Denies abnormal gait, Denies limited range of motion, Denies muscle cramps, Denies muscle weakness, Denies numbness, Denies radiating pain into limb, Denies stiffness and Denies tingling Neuro Denies abnormal gait, Reports dizziness, Denies numbness and Denies tingling Endo Denies palpitations Physical Exam Vital Signs: Last Vital Signs Pulse 73 10/09/23 10:29 BP 104/80 10/09/23 10:29 BMI result Body Mass Index 31.3 Const General: cooperative, healthy appearing, comfortable and no acute distress Orientation/consciousness: patient oriented x3 Neck Neck: Yes normal visual inspection and Yes no JVD Resp Effort & Inspection: normal respiratory effort Auscultation: clear to auscultation bilaterally, no rales, no rhonchi and no wheezes Cardio Jugular venous distension: no JVD Rate: regular rate Rhythm: regular rhythm Heart sounds: S1 normal heart sound present, S2 normal heart sound present, no murmurs and no rubs Neuro General: patient oriented x3 Extrem General: Yes normal to inspection and No no pedal edema Psych Appearance: grossly normal Mental Status: mental status grossly normal Speech and movement: Normal speech and movement present Assessment & Plan Assessment & Plan (1) Cardiomyopathy: Comment: She has decreased LVEF , but does not have any obvious congestive heart failure. Being followed by Cardiology Code(s): I42.9 - Cardiomyopathy, unspecified Category: Medical Plan: Reports of chronic feeling orthopnea when lying on left side. To evaluate she underwent an echocardiogram on 02/01/2022 showing EF 48%, no wall motion abnormalities and no valve abnormalities. A nuclear stress test was done on 06/26/2021 with exercise 6 minutes 30 seconds, no EKG changes of ischemia and normal myocardial perfusion imaging. Prior home sleep study done on 12/30/2020 shows no evidence of sleep apnea. With her mild cardiomyopathy she has no clinical signs indicating decompensated heart failure. Prior notes do suggest getting cardiac MRI however patient does have significant anxiety and is unsure if she could tolerate an MRI. A repeat limited echo done on 08/19/2022 showed EF 50-55%. Prior to this visit she was reporting some lightheadedness and underwent a echocardiogram on 08/22/2023 showing EF 53%, overall no significant change. She had a tilt-table test at [facility] which was negative for neurocardiogenic syncope her symptoms were nonspecific. Recommendation was for increasing hydration. At this point her lightheadedness has improved some. She continues to have the feeling of shortness of breath on her left side. No clear cardiac findings for this symptom. She has been seen by pulmonology wi thout clear findings as well. She states that a CT scan of her chest was recommended in the past. Will send message to pulmonology to see if this is indicated. Cardiology follow-up 6 months, sooner if needed. (2) Paroxysmal nocturnal dyspnea: Comment: This is a nonspecific symptom in her case. I think most likely her attacks of dyspnea are associated with anxiety/panic attacks. [place] : I discussed with her in detail, reassured that the basically her lungs are normal. Relaxing breathing exercises are explained . Code(s): R06.00 - Dyspnea, unspecified Category: Medical Plan: Following with pulmonology. No significant pulmonary conditions identified Plan Time spent on chart review, documentation, interview and assessment
== END 2023-10-09 11:09 | disposition home or self-care (01) ==
LOC: HO.HCS 09:56
PROVIDERS: PCP General Practice; Visit Provider Nurse Practitioner Family
DX: I42.9 Cardiomyopathy, unspecified (principal); R06.00 Dyspnea, unspecified
CPT/HCPCS: 99214

== ENCOUNTER → 2023-10-09 09:56 | Outpatient (BNVA) | payer MEDICAID, SELFPAY | PROVIDERS: PCP General Practice; Visit Provider Nurse Practitioner Family | DX: I42.9 Cardiomyopathy, unspecified (principal); R06.00 Dyspnea, unspecified | CPT/HCPCS: 99212 ==

== ENCOUNTER 2023-10-10 11:39 | Outpatient (AMB) | payer MEDICAID, SELFPAY ==
--- NOTE | 2023-10-10 11:40 | A.OFFVIS_ITS ---
Intake Visit Reasons: ov- tenosynovitis left hand Intake Note: Crystal is a 48 year old right hand dominant female who presents today for a follow up of her Left 5th finger, trigger finger. Last Injection administered on 07/26/23. Patient stated injection was not helpful and would like to move forward with surgery. Allergies cannabidiol (CBD) extract Allergy (Mild, Verified 10/10/23 12:04) Hives duloxetine Adverse Reaction (Intermediate, Verified 10/10/23 12:04) Nausea and Vomiting HPI HPI ov- tenosynovitis left hand: Details: Crystal is a 48 year old right hand dominant woman who returns to discuss her right small finger catching She says she continues to have catching of her right small finger, with no relief from her trigger finger injection on 07/26/23. She says this catching occurs in her left hand as well. All in all, while she has catching, she says it does not really bother her very much. Her primary complaint today is primarily bilateral hand pain, in multiple joints She has other complaints of pain in all fingers of her bilateral hands, with worsening pain in her right index finger for ~3 weeks. No fall or injury. She reports numbness in her hands throughout the week. She denies this being a daily occurrence but feels this is worsening. She has a hx of psoriatic arthritis and Fibromyalgia, and follows with Rheumatology. She has a hx of cardiomyopathy. She has difficulties with her esophagus and says she is unable to consume solid food. She drinks shakes and blended food and has for several years now. She is being seen in [place] for this. 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 Hx of ectopic Anxiety disorder Paroxysmal nocturnal dyspnea Amenorrhea Campbell's disease Arthritis Hyperthyroidism Goiter Vitamin D deficiency Non-toxic multinodular goiter Obesity Elevated dehydroepiandrosterone sulfate level Graves disease Degenerative arthritis of knee, bilateral Surgical History Hx of endoscopy H/O esophagogastroduodenoscopy History of tonsillectomy History of tubal ligation Family History Father Diabetes Mother Breast cancer BRCA gene mutation negative Maternal Uncle Heart transplanted Social History Alcohol intake: current Alcohol intake frequency: does not drink Patient Tobacco Use Status: Never used Tobacco Current occupational status: unemployed Current occupation: right hand Sexual orientation: Straight/Heterosexual Gender identity: Female Female Reproductive History Menstrual Age of Menarche: 13 Physical Exam Extrem Other: Evaluation of right Upper Extremity: The patient is alert, oriented, and in no acute distress Neuro: Median, Ulnar, Radial nerves motor and sensory intact and sensation is normal to the tips of all digits Vascular: Cap refill brisk ROM: She can make a fist and extend all her digits Gentle catching sensation of the right small finger with flexion of the MCP joint to about 90 degrees. Small finger does not get locked in a flexed position, and she has early active extension of the finger at all joints including the MCP joint. Right Small finger EDC tendon instability at dorsal aspect of MCP joint, with radial subluxation of the EDC tendon with full flexion that appears likely to be causing the catching sensation. Of note, the patient reports that her left small finger similarly catches with flexion. She says the catching in either hand is not particularly painful, and her fingers do not get stuck in flexion Left hand MRI: Not ordered by me, ordered by PCP for what the patient reports as persistent intense left hand pain, which has now improved. FINDINGS: BONE: No marrow edema or evidence of acute osseous abnormality. No acute fracture or dislocation. No concerning lytic or blastic osseous lesion. Grossly intact articular cartilage. MUSCLES/TENDONS: Trace fluid and edema within the third flexor digitorum tendon sheath, consistent with minimal tenosynovitis. No measurable tendon tear or tendon retraction. LIGAMENTS: Intact collateral ligaments. SOFT TISSUES: No soft tissue mass or fluid collection. No palmar fascial nodularity or evidence of fibroma. IMPRESSION: 1. Minimal third flexor digitorum tenosynovitis without a measurable tendon tear or tendon retraction. 2. No soft tissue mass, fluid collection, or fibroma. Dictated By: Gabe Graham MD 06/06/23 Radiographs: 3 views of the left hand from 03/20/23 were reviewed by me today in clinic. They show no fractures, dislocations, or osteolytic lesions. There are some arthritic changes in the small finger DIP joint Assessment & Plan Assessment & Plan (1) Tenosynovitis of extensor digitorum longus tendon: Code(s): M65.9 - Synovitis and tenosynovitis, unspecified Category: Medical Plan: R SF (2) Fibromyalgia: Comment: This disorder may be contributing to her nonspecific back pain and spasms in the back of left chest. Code(s): M79.7 - Fibromyalgia Category: Medical (3) Bilateral hand numbness: Code(s): R20.0 - Anesthesia of skin Category: Medical (4) Bilateral hand pain: Code(s): M79.641 - Pain in right hand; M79.642 - Pain in left hand Category: Medical (5) Psoriatic arthritis: Code(s): L40.50 - Arthropathic psoriasis, unspecified Category: Medical (6) Campbell's disease: Code(s): E06.3 - Autoimmune thyroiditis Category: Medical Plan Assessment & Plan: 1. Right small finger catching, now most likely felt to be secondary to EDC tendon instability, S/P injection for possible trigger finger with no improvement in catching sensation Date of injection: 07/26/23 I educated her about this condition I discussed operative and non-operative treatment options, including surgery She reports that she has similar catching in her left small finger but says it does not hurt, and her finger does not get stuck in that position. It has not terribly bothersome. She is not particularly bothered by this catching and I think surgery would be an extreme option at this time No intervention indicated at this time, we will manage this conservatively and she is in agreement. 2. Left index finger pain This began about a week ago without any known injury Likely secondary to psoriatic arthritis 3. Generalized bilateral hand pain Likely secondary to psoriatic arthritis The pain in her left index finger and generalized pain extending over the dorsal radial aspect of the hand to the wrist or her chief complaint today She is being treated by her conduit helper and was recently started on leflunomide I did explain that this may be secondary to her psoriatic arthritis, which will likely be best treated medically. She would still like for me to evaluate her. She will follow up in 4-6 weeks, with X-rays of bilateral hands 4. Bilateral hand numbness Symptoms intermittent and occasional Ordered bilateral NCS to assess for peripheral nerve compression She will follow up when completed for review Scribed for Yu Hutson MD by dEd Sepulveda, medical practice assistant, on 10/10/23 at 12:20 PM, EST. Orders: Orders NE nerve conduction velocity Today R20.0 - Anesthesia of skin, R20.2 - Paresthesia of skin Coding Level of Care Code Est Pt Level 4 (18987) Diagnoses Tenosynovitis of extensor digitorum longus tendon M65.9 Fibromyalgia M79.7 Bilateral hand numbness R20.0 Bilateral hand pain M79.641; M79.642 Psoriatic arthritis L40.50 Campbell's disease E06.3
== END 2023-10-10 12:27 | disposition home or self-care (01) ==
PROVIDERS: PCP General Practice; Referring Provider General Practice; Visit Provider Orthopaedic Surgery
DX: M65.9 Synovitis and tenosynovitis, unspecified (principal); M79.7 Fibromyalgia; R20.0 Anesthesia of skin; M79.641 Pain in right hand; M79.642 Pain in left hand; L40.50 Arthropathic psoriasis, unspecified; E06.3 Autoimmune thyroiditis
CPT/HCPCS: 99213

== ENCOUNTER → 2023-10-10 11:39 | Outpatient (BNVA) | payer MEDICAID, SELFPAY | PROVIDERS: PCP General Practice; Visit Provider Orthopaedic Surgery | DX: M65.352 Trigger finger, left little finger (principal); M79.645 Pain in left finger(s); M79.644 Pain in right finger(s); M65.9 Synovitis and tenosynovitis, unspecified; M79.7 Fibromyalgia; R20.0 Anesthesia of skin; L40.50 Arthropathic psoriasis, unspecified; E06.3 Autoimmune thyroiditis; R20.2 Paresthesia of skin | CPT/HCPCS: 99212 ==

== ENCOUNTER 2023-11-10 07:29 | Outpatient (REF) | payer MEDICARE, MEDICAID, SELFPAY ==
--- NOTE | ~2023-11-10 | CT_ITS ---
EXAMINATION: CT CHEST WITHOUT CONTRAST CLINICAL INFORMATION: Shortness of breath. COMPARISON: Chest radiographs dated 02/10/2022. TECHNIQUE: Multidetector volumetric CT imaging of the chest was done. Axial MIP volume rendering provided. Sagittal and coronal reformatted images were obtained. This CT examination was performed using dose optimization techniques as appropriate, variously including the following: *Automated exposure control *Adjustment of mA and/or kV according to patient size (this includes techniques or standardized protocols for targeted exams where dose is matched to indication/reason for exam; i.e. extremities or head) *Use of iterative reconstruction technique DLP: 174 mGy-cm FINDINGS: WOLF HUNTER: The lungs are symmetrically well-expanded and grossly clear. LUNGS: There are a few benign, calcified right lower lobe granulomas. The lungs are otherwise clear with no evidence of acute inflammation or noncalcified nodules. MEDIASTINUM: The mediastinum is normal. CORONARY ARTERY CALCIFICATION: None visualized on this study. PLEURA: There is no pleural effusion. No pleural mass or thickening. AXILLA: No lymphadenopathy. UPPER ABDOMEN: A tiny gallstone is seen. The adrenal glands are unremarkable. OSSEOUS STRUCTURES: There is mild thoracic spondylosis. No acute osseous abnormality is seen. CT/CT chest wo IV con IMPRESSION: 1. A few benign, calcified right lower lobe granulomas are seen. The lungs are otherwise clear, without noncalcified nodule, mass, infiltrate or groundglass opacity noted. 2. No thoracic lymphadenopathy pleural effusion is seen. 3. There is mild thoracic spondylosis. No aggressive osseous lesion is seen. 4. There is minimal cholelithiasis. Fleischner guidelines were followed.
== END 2023-11-10 07:30 | disposition home or self-care (01) ==
LOC: HO.CT 07:29
PROVIDERS: PCP General Practice; Visit Provider Nurse Practitioner Family
DX: R06.02 Shortness of breath (principal); R06.01 Orthopnea
CPT/HCPCS: 71250

== ENCOUNTER 2023-11-21 09:39 | Outpatient (AMB) | payer MEDICARE, MEDICAID, SELFPAY ==
--- NOTE | 2023-11-21 10:16 | A.OFFVIS_ITS ---
Vital Signs 11/21/23 10:24 Height 5 ft 7 in Weight 200 lb BMI 31.3 Intake Visit Reasons: O/V RT hand IF pain Intake Note: Crystal 48 year old right hand dominant female presents today for a follow right hand, SF and IF pain. Patient reports the locking and catching in small finger has gotten worse and is now causing her pain. States swelling in her IF as well as pain. Her pain radiates down the dorsal aspect of hand into her wrist. She is unable to make a full fist. Mild numbness and tingling in her IF. States not being contacted for an EMG appointment yet. Allergies cannabidiol (CBD) extract Allergy (Mild, Verified 11/21/23 10:35) Hives duloxetine Adverse Reaction (Intermediate, Verified 11/21/23 10:35) Nausea and Vomiting HPI HPI O/V RT hand IF pain: Details: Crystal is a 48 year old right hand dominant woman who returns to discuss her right hand pain. She complains of pain in her bilateral hands. Her primarily complaint of pain is in her right index finger, which she says radiates to the dorsal aspect of her hand & wrist. She also says her index finger has been swollen for ~3 months now, and she is not able to bring it down to a full fist. She says she continues to have catching of her right small finger, with no relief from her trigger finger injection on 07/26/23. She denies any falls or known injury. She continues to complain of bilateral hand numbness, symptoms intermittent, but daily, worse at night and primarily in the median nerve distribution. She says she was initially contacted for her NCS, but told there was an issue with her insurance and they would contact her again, which did not happen. She has a hx of psoriatic arthritis and Fibromyalgia, and follows with Rheumatology. She says she has an appointment on 11/28/23. She has a hx of cardiomyopathy. She has difficulties with her esophagus and says she is unable to consume solid food. She drinks shakes and blended food and has for several years now. She is being seen in [place] for this. 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 Hx of ectopic Anxiety disorder Paroxysmal nocturnal dyspnea Amenorrhea Campbell's disease Arthritis Hyperthyroidism Goiter Vitamin D deficiency Non-toxic multinodular goiter Obesity Elevated dehydroepiandrosterone sulfate level Graves disease Degenerative arthritis of knee, bilateral Surgical History Hx of endoscopy H/O esophagogastroduodenoscopy History of tonsillectomy History of tubal ligation Family History Father Diabetes Mother Breast cancer BRCA gene mutation negative Maternal Uncle Heart transplanted Social History Alcohol intake: current Alcohol intake frequency: does not drink Patient Tobacco Use Status: Never used Tobacco Current occupational status: unemployed Current occupation: right hand Sexual orientation: Straight/Heterosexual Gender identity: Female Female Reproductive History Menstrual Age of Menarche: 13 Physical Exam Vital Signs: BMI result Body Mass Index 31.3 Extrem Other: Evaluation of right Upper Extremity: The patient is alert, oriented, and in no acute distress Neuro: Median, Ulnar, Radial nerves motor and sensory intact and sensation is normal to the tips of all digits Vascular: Cap refill brisk ROM: She could bring her fingers into full extension With encouragement, and after working on ROM exercises in clinic, she could bring all her fingers closed to a fist No locking or catching No tenderness over the a1 nikole She has swelling of the index finger PIP joint & proximal phalanx aspect Mild tenderness of the index finger PIP joint. There were no lacerations or wounds Gentle catching of the right small finger with flexion of the MCP joint to ~90 degrees. This may be due to EDC subluxation Radiographs: 3 views of the right hand were taken & viewed by me today in clinic. They show no fractures or dislocations. Early DIP joint OA mostly involving the small finger, mild IP joint OA of the thumb. No significant osteoarthritic changes to the wrist. Left hand MRI: Not ordered by me, ordered by PCP for what the patient reports as persistent intense left hand pain, which has now improved. FINDINGS: BONE: No marrow edema or evidence of acute osseous abnormality. No acute fracture or dislocation. No concerning lytic or blastic osseous lesion. Grossly intact articular cartilage. MUSCLES/TENDONS: Trace fluid and edema within the third flexor digitorum tendon sheath, consistent with minimal tenosynovitis. No measurable tendon tear or tendon retraction. LIGAMENTS: Intact collateral ligaments. SOFT TISSUES: No soft tissue mass or fluid collection. No palmar fascial nodularity or evidence of fibroma. IMPRESSION: 1. Minimal third flexor digitorum tenosynovitis without a measurable tendon tear or tendon retraction. 2. No soft tissue mass, fluid collection, or fibroma. Dictated By: Gabe Graham MD 06/06/23 Assessment & Plan Assessment & Plan (1) Pain in right finger(s): Comment: R IF Code(s): M79.644 - Pain in right finger(s) Category: Medical (2) Tenosynovitis of extensor digitorum longus tendon: Comment: R SF Code(s): M65.9 - Synovitis and tenosynovitis, unspecified Category: Medical (3) Bilateral hand pain: Code(s): M79.641 - Pain in right hand; M79.642 - Pain in left hand Category: Medical (4) Bilateral hand numbness: Code(s): R20.0 - Anesthesia of skin Category: Medical (5) Fibromyalgia: Comment: This disorder may be contributing to her nonspecific back pain and spasms in the back of left chest. Code(s): M79.7 - Fibromyalgia Category: Medical (6) Psoriatic arthritis: Code(s): L40.50 - Arthropathic psoriasis, unspecified Category: Medical (7) Campbell's disease: Code(s): E06.3 - Autoimmune thyroiditis Category: Medical Plan Assessment & Plan: 1. Right index finger swelling & pain Possibly secondary to psoriatic arthritis This is her chief complaint today 2. Right small finger catching, now most likely felt to be secondary to EDC tendon instability, S/P injection for possible trigger finger with no improvement in catching sensation Date of injection: 07/26/23 3. Generalized bilateral hand pain Likely secondary to psoriatic arthritis I educated her about this condition. I recommend she continue to manage this with Rheumatology We talked about the importance of maintaining range of motion, and of activity modification. She will work on ROM exercises at home 4. Left index finger pain Not mentioned today 5. Bilateral hand numbness In the median nerve distribution Symptoms intermittent and occasional She had difficulty with her insurance and was not contacted to schedule this study. I told her to schedule an appointment with Dr. Infante before leaving today. She will follow up when completed for review Scribed for Yu Hutson MD by Edd Sepulveda, biomedical equipment tech, on 11/21/23 at 10:45 AM, EST. Orders: Orders XR hand RT min 3V Today M79.641 - Pain in right hand Coding Level of Care Code Est Pt Level 3 (46727) Diagnoses Pain in right finger(s) M79.644 Tenosynovitis of extensor digitorum longus tendon M65.9 Bilateral hand pain M79.641; M79.642 Bilateral hand numbness R20.0 Fibromyalgia M79.7 Psoriatic arthritis L40.50 Campbell's disease E06.3
[2023-11-21 10:24] VITALS: BMI 31.3
== END 2023-11-21 11:24 | disposition home or self-care (01) ==
PROVIDERS: PCP General Practice; Referring Provider General Practice; Visit Provider Orthopaedic Surgery
DX: M79.644 Pain in right finger(s) (principal); M65.9 Synovitis and tenosynovitis, unspecified; M79.641 Pain in right hand; M79.642 Pain in left hand; R20.0 Anesthesia of skin; M79.7 Fibromyalgia; L40.50 Arthropathic psoriasis, unspecified; E06.3 Autoimmune thyroiditis
CPT/HCPCS: 99213

== ENCOUNTER 2023-11-21 10:16 | Outpatient (REF) | payer MEDICARE, MEDICAID, SELFPAY ==
--- NOTE | ~2023-11-21 | XR_ITS ---
EXAMINATION: XR HAND, RIGHT CLINICAL INFORMATION: Pain in the right hand. Patient reports pain second and fifth digits. COMPARISON: None available. TECHNIQUE: PA, lateral, and oblique views of the right hand. FINDINGS: Exam is slightly limited because of metallic artifact overlying the second and fourth distal phalanges on the frontal projection and related to a bracelet still in place partially obscuring the wrist. Additional density overlying the portions of the distal phalanges related to finger nails. Otherwise the bones and soft tissues are normal. No fracture. Alignment is anatomic. Joint spaces are maintained. No erosions or soft tissue calcifications. XR/XR hand RT min 3V IMPRESSION: Normal right hand.
== END 2023-11-21 10:17 | disposition home or self-care (01) ==
LOC: HO.HOSX 10:16
PROVIDERS: Visit Provider Orthopaedic Surgery
DX: M79.641 Pain in right hand (principal); M79.642 Pain in left hand; M79.644 Pain in right finger(s); M65.9 Synovitis and tenosynovitis, unspecified; R20.0 Anesthesia of skin; M79.7 Fibromyalgia; L40.50 Arthropathic psoriasis, unspecified; E06.3 Autoimmune thyroiditis
CPT/HCPCS: 73130; 99212

== ENCOUNTER 2023-11-23 12:09 | Outpatient (REF) | payer MEDICARE, MEDICAID, SELFPAY ==
[2023-11-23 12:23] LABS: MANUAL DIFF FLAG NO
[2023-11-23 12:44] LABS: Basophils Absolute Auto 0.1 X10*3/uL (0.0-0.2); Basophils Percent Auto 0.8 % (0-2); Eosinophils Absolute Auto 0.2 X10*3/uL (0.0-0.4); Eosinophils Percent Auto 3.4 % (0-4); Hematocrit 37.1 % (37.0-47.0); Hemoglobin 12.3 g/dl (12.0-16.0); Imm Gran Abs Auto 0.02 X10*3/uL (0.00-0.03); Imm Gran Pct Auto 0.3 % (0.0-0.4); Lymphocytes Absolute Auto 2.3 X10*3/uL (1.2-4.9); Mean Corpuscular HGB Conc 33.2 g/dl (31.0-35.0); Mean Corpuscular Hemoglobin 28.3 pg (27.0-33.0); Mean Corpuscular Volume 85.3 fL (80.0-98.0); Mean Platelet Volume 11.3 fL (9.4-12.3); Monocytes Absolute Auto 0.3 X10*3/uL (0.1-1.2); Monocytes Percent Auto 5.2 % (2-11); Neutrophils Absolute Auto 3.1 x10*3/uL (2.0-8.3); Neutrophils Percent Auto 51.3 % (45-73); Platelet Count 211 X10*3/uL (160-400); Red Blood Count 4.35 X10*6/uL (4.20-5.50); Red Cell Distribution Width 13.3 % (11.0-16.0)
[2023-11-23 13:10] LABS: Alanine Aminotransferase 10 U/L (0-31); Albumin Level 3.8 g/dL (3.5-5.0); Alkaline Phosphatase 76 U/L (39-117); Anion Gap 9 (12-20); Aspartate Amino Transferase 15 U/L (5-31); Bilirubin Total 0.5 mg/dL (0.0-1.0); Blood Urea Nitrogen 10 mg/dL (9-16); C Reactive Protein 0.14 mg/dL (< or = 0.50); Calcium 9.4 mg/dL (8.4-10.2); Carbon Dioxide 27 mmol/L (22-29); Chloride 108 mmol/L (96-108); Estimated Glomerular Filt Rate > 60; Glucose Random 111 mg/dL (60-115); Potassium 3.8 mmol/L (3.3-5.1); Sodium 140 mmol/L (135-145); Total Protein 7.5 g/dL (6.5-8.0)
[2023-11-23 13:25] LABS: Erythrocyte Sedimentation Rate 27 MM/HR (0-20)
== END 2023-11-23 12:10 | disposition home or self-care (01) ==
LOC: HO.LAB 12:09
PROVIDERS: PCP General Practice; Visit Provider Nurse Practitioner Family
DX: L40.50 Arthropathic psoriasis, unspecified (principal); Z79.60 Long term (current) use of unspecified immunomodulators and immunosuppressants
CPT/HCPCS: 36415; 80053; 85025; 85652; 86140

== ENCOUNTER 2023-11-28 11:23 | Outpatient (AMB) | payer MEDICARE, MEDICAID, SELFPAY ==
--- NOTE | 2023-11-28 11:31 | MHC.OFFVIS ---
Vital Signs 11/28/23 11:32 Height 5 ft 7 in Weight 200 lb 13.458 oz BMI 31.5 BP 128/70 Blood Pressure Location Rt brachial Position Sitting Intake Visit Reasons: PSA Intake Note: Patient last seen 10/06/23 by Marlena, presents today for follow up and test results. Reports right index finger pain and swelling. Saw ortho Dr Hutson was told to follow up with Rheumatology. Also reports pain in shoulder, hip and knee. Pizzamaker Required: No Accompanied by: Self / Same As Patient Allergies cannabidiol (CBD) extract Allergy (Mild, Verified 11/28/23 11:42) Hives duloxetine Adverse Reaction (Intermediate, Verified 11/28/23 11:42) Nausea and Vomiting HPI Comments Details: Ms. Ivan 48yoF is here follow-up after starting DMARD therapy for AxSpA. She stopped the Leflunomide due to heart palpitations since last visit. She does finds that her symptoms have worsened since stopping >1month. Her hand pain, lower back and shoulders hurt more and she does not sleep as well. She says she got some good sleep when she was on the medication. She does continue with right index finger tenosynovitis and says the hand surgeon dismissed her since there is no more she can do to help the finger. The buckling continues in the joint of the 5th digit fingers, and now with pain. she thinks the injection she received from Ortho for triggering has not resolve the issue. 10/06/2023:Ms. Ivan is here follow-up after starting DMARD therapy for SpA. She has been taking Leflunomide and finds that she does have some improvement to her hand pain and most of the swelling is resolved. She does continue with right index finger tenosynovitis and says that started last week. There is some buckling in the joint of the 5th digit fingers and she thinks the injection she received from Ortho for triggering has not resolve the issue. The pain has improved but the triggering remains per patient she was told that she may need to do surgery to resolve the triggering. She continues to see GI for dysphagia secondary to chronic untreated GERD per GI. She eats only soft/puree foods. 05/10/2023 Visit Marlena Ms. Gomez is 48-year-old female here for follow-up of multiple joint pain and presumed fibromyalgia; her last visit was 04/14/2022. She is currently not taking any medications for her joint pain. She reports on her esophageal dysmotility, describes that she has been worked up for joint pain for a long time. She she is on a primarily liquid diet consisting of smoothies, juices, water and has not had solid food for the better part of 5 years. Within the last year or 2 she has been having difficulty breathing when she lays down. She reports that it feels like her chest is squeezing in. She thinks it may be because of panic attack seen she has a history of anxiety. However it also happens when she is laying down and not feeling anxious. Most recently she was seen by her PCP for a B sting that caused her left hand to be swollen (showed pictures) She received prednisone which improved the swelling and is scheduled to have an MRI to assess further given the residual pain and inability to make a complete fist. Patient denies smoking and alcohol. She has had knee arthroscopy on her left knee and was pain free for at least 5 years. However, recently the knee has started to hurt. She reached out to the orthopedic surgeon who advised she cannot received any more cortisone injections in the left knee. Patient continue l stipulate to joint pain in her lower back knees hands neck. The patient denies personal history of psoriasis ulcerative colitis and Crohn's. She denies uveitis. The patient has consistently elevated ESR CRP dating back to 2006 at the time of the first rheumatologic workup. CRP and ESR continues to be elevated up to last value obtained March 2022. She had an MRI done in 2014 because she had edema to her left knee. Lab work done for Lyme disease back in 1999 12 and 2014. Pap work for rheumatoid factor done several times continues to be negative. She used to get an average of 3 injections per year to her knees. By way of family history patient reports that her grandfather, sister and her cousins have significant psoriasis for which they are treated with special medication. She also has a sister with multiple sclerosis. She denies family members with Crohn's and ulcerative colitis Past Visits: 47yoF female presents for follow-up of fibromyalgia. Last visit June 2021. Patient admits to continued intermittent pain in her neck, shoulders, upper arms, chest, mid back, lower back, knees and most recently pain in her breasts for 3 days. She states her breast pain is improved today. She denies any dimpling, lumps, skin changes or nipple discharge. She denies pain in her hands, ankles or feet. She denies any joint swelling. She admits to continued disrupted sleep and depression as well as anxiety. She is taking escitalopram and hydroxyzine. She states that the hydroxyzine helps with her anxiety and she notices her breathing gets better when she takes this. She is following with a psychiatrist and therapist, next appointment with her therapist this today. She was recently referred to Cardiology after echo showed LVEF of 48%. She does not have any known cardiac history. She does report a chronic pinching sensation in the chest on the left side when lying in bed, when she experiences this she states she cannot breathe and then she has to get up out of bed and the sensation resolves. The plan per cardiology is to get a stress test to assess for coronary artery disease, although she does not have any clear symptoms. If stress test is normal cardiology will consider cardiac MRI. She was referred to Pulmonary by Cardiology for her orthopnea She does not have any evidence of congestive heart failure or exertional symptoms . She has had sleep study in the past that was normal and recent chest x-ray without any acute process. She was referred to Pulmonary as she had some suspicion for small airway disease such as asthma on her pulmonary function test. She was previously following with endocrine for thyroiditis with subsequent normalization of thyroid function test. Per her last endocrine note she is euthyroid. Patient states she no longer needs to follow with Endocrine. DHEA-S level was slightly elevated in the setting of normal menses per endocrine note this is most consistent with polycystic ovary syndrome patient has normal menses and does not have significant hirtuism she was advised to follow-up with primary care and with Endocrine as needed. She continues to follow with GI for dysphagia/ineffective esophageal motility disorder she follows with a specialist in [place] as well. She is currently on metoclopramide 10 mg t.i.d. with meals. She states that she has not tried gabapentin or muscle relaxers, these have been avoided due to her esophageal dysmotility. She denies history of Raynaud's, photosensitivity, oral nasal ulcers, sicca symptoms, fevers, alopecia or history of miscarriage. Patient reports that she feels tightness in her shoulders daily. She states that she massages her shoulders every night with some improvement in her symptoms. She states that at times she has pain in her neck. She admits to chronic intermittent lower back pain that she describes as strong, pain is present with sitting and standing. Pain is improved with position changes and ibuprofen. She admits to sleep disturbance for greater then 6 months. She is following with psychiatry for anxiety depression and has been prescribed a new medication for depression, escitalopram, that she has not started yet. She admits to skin sensitivity and reports that multiple providers have asked her if she has fibromyalgia recently. Follows with GI for dysphagia. She was referred to [facility] for 2nd opinion and to neurology to see if there was a neurologic component to her symptoms. She states that she is due for an endoscopy this month. She states that she completed PT for her neck and it was very helpful. 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 Hx of ectopic Anxiety disorder Paroxysmal nocturnal dyspnea Amenorrhea Campbell's disease Arthritis Hyperthyroidism Goiter Vitamin D deficiency Non-toxic multinodular goiter Obesity Elevated dehydroepiandrosterone sulfate level Graves disease Degenerative arthritis of knee, bilateral Surgical History Hx of endoscopy H/O esophagogastroduodenoscopy History of tonsillectomy History of tubal ligation Family History Father Diabetes Mother Breast cancer BRCA gene mutation negative Maternal Uncle Heart transplanted Social History Alcohol intake: current Alcohol intake frequency: does not drink Patient Tobacco Use Status: Never used Tobacco Current occupational status: unemployed Current occupation: right hand Sexual orientation: Straight/Heterosexual Gender identity: Female Female Reproductive History Menstrual Age of Menarche: 13 Review of Systems Const All systems reviewed & are unremarkable except as noted in HPI and below Physical Exam Vital Signs: Last Vital Signs BP 128/70 11/28/23 11:32 BMI result Body Mass Index 31.5 APPEARANCE: Patient in no acute distress EYES: no redness, eyelids normal EARS: External ear normal, normal. HEART: Regular rhythm, S1-S2 heard, no murmurs, rubs or gallops. LUNG: Clear auscultation, respiratory rate regular nonlabored. EXTREMITIES: No edema, no calf tenderness, normal peripheral pulses. NEURO: Oriented and alert x3. No focal weakness. Reflexes symmetric. Gait normal. SKIN: No inflammatory or neoplastic lesions. Normal color and turgor JOINT EXAM:?? Cervical Spine: Full range of motion without pain; Mild tenderness. Thoracic Spine:? No scoliosis.? No tenderness on palpation. Lumbar Spine:? Alignment normal.? Full range of motion without pain, Moderate tenderness. Hands:? Normal pain-free range of motion without increased warmth or erythema. 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 Mild tenderness returns Elbows: Normal pain-free range of motion without tenderness, swelling, increased warmth or erythema. Shoulders:?? Full range of motion without pain. No weakness, swelling, increased warmth or erythema. mild tenderness, Hips:? Full range of motion. Tenderness to right illiac crest with palpation and movement. Hip bursa:? No tenderness. Knees:?? Normal pain-free range of motion without swelling, increased warmth or erythema.? There is no effusion or crepitation, Left moderate tenderness, Right mild tenderness, Ankles:? Normal pain-free range of motion without tenderness, swelling, increased warmth or erythema. Feet:? Normal pain-free range of motion without tenderness, swelling, increased warmth or erythema. left plantar burning sensation Tender points:? Tenderness to palpation of the trapezius and second rib. Extrem Other: Evaluation of right Upper Extremity: The patient is alert, oriented, and in no acute distress Neuro: Median, Ulnar, Radial nerves motor and sensory intact and sensation is normal to the tips of all digits Vascular: Cap refill brisk ROM: She could bring her fingers into full extension With encouragement, and after working on ROM exercises in clinic, she could bring all her fingers closed to a fist No locking or catching No tenderness over the a1 nikole She has swelling of the index finger PIP joint & proximal phalanx aspect Mild tenderness of the index finger PIP joint. There were no lacerations or wounds Gentle catching of the right small finger with flexion of the MCP joint to ~90 degrees. This may be due to EDC subluxation Radiographs: 3 views of the right hand were taken & viewed by me today in clinic. They show no fractures or dislocations. Early DIP joint OA mostly involving the small finger, mild IP joint OA of the thumb. No significant osteoarthritic changes to the wrist. Left hand MRI: Not ordered by me, ordered by PCP for what the patient reports as persistent intense left hand pain, which has now improved. FINDINGS: BONE: No marrow edema or evidence of acute osseous abnormality. No acute fracture or dislocation. No concerning lytic or blastic osseous lesion. Grossly intact articular cartilage. MUSCLES/TENDONS: Trace fluid and edema within the third flexor digitorum tendon sheath, consistent with minimal tenosynovitis. No measurable tendon tear or tendon retraction. LIGAMENTS: Intact collateral ligaments. SOFT TISSUES: No soft tissue mass or fluid collection. No palmar fascial nodularity or evidence of fibroma. IMPRESSION: 1. Minimal third flexor digitorum tenosynovitis without a measurable tendon tear or tendon retraction. 2. No soft tissue mass, fluid collection, or fibroma. 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 She continues with low back pain. The Prednisone did not help with the tenosynovitis to the right third finger. ESR 27. I discussed with patient the nature of the disease process nrAxSpA/PsA and that tenosynovitis, low back pain is often a part of the presentation of the disease. I recommend we start patient on a stronger DMARD for trial and reassess. Will trial RINVOQ 15 mg QD x 28 days and reassess for improvement to fingers, lower back and hip pain and scalp PsO. #Long Terrm Use: We will obtain TB and Hep Panel for RINVOQ use. Patient knows to hold medication in the event of fevers, infections, surgery, and nonhealing wound. Patient patient is not at risk for - she has had tubal ligation #Trigger Finger Right 5th: She has had tenosynovitis to the finger as a result of a hyperreflex injury. She is status post corticosteroid injection from hand surgeon. The tenderness has resolved but triggering remains. Per patient they may do surgery to stop the triggering. She should continue to follow hand surgeon to resolve residual catching Note: Multiple serology negative for leukopenia or thrombocytopenia, rheumatoid factor, ds DNA.? The remainder of her serology was also unrevealing with negative Sm/MEDICAL CARE ADMINISTRATOR, negative scleroderma antibody, normal complements, negative Sjogren's antibodies.? She does have positive antithyroid antibodies and this is likely the source of her positive KIRT. Patient is now euthyroid and following with endocrine as needed. 25 minutes spent reviewing chart, evaluating patient, ordering and documenting. f/u 4 weeks Prior Visit 04/2023: psoriatic arthritis. Ms. Gomez of 48-year-old female who has been seen for several years now deemed to have fibromyalgia is here for follow-up. After thoroughly examining patient's records, physical examination, evaluated diagnostics, I think it is reasonable to presume that this patient may have an inflammatory arthritis such as acSpA. She has a strong family history of psoriasis and on physical examination I saw evidence of psoriasis on her scalp. Clinically, she has had persistently elevated CRP and ESR, low back pain and intermittent swelling and pain to multiple joints. Considering her clinical picture, I think it is reasonable to start her on a DMARD. I will prescribe leflunomide and evaluate for effectiveness. We anticipate there should be at least a 30 - 50% improvement to her back, hands and shoulders. I encouraged patient to take pictures of her the nape of the scalp to monitor if the erythematous patches, likely psoriasis, seen on PE, have resolved. She was in her mid to late 30s when her episodes of back pain first started and has been told over the years that she has Fibromyalgia. Notwithstanding, there may be an element of Fibromyalgia but not to the exclusion of an AxSpa given her clinical history. 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
[2023-11-28 11:32] VITALS: BP 128/70; BMI 31.5
== END 2023-11-28 12:19 | disposition home or self-care (01) ==
PROVIDERS: PCP General Practice; Visit Provider Nurse Practitioner Family
DX: M45.2 Ankylosing spondylitis of cervical region (principal); L40.50 Arthropathic psoriasis, unspecified; Z79.60 Long term (current) use of unspecified immunomodulators and immunosuppressants; M65.351 Trigger finger, right little finger
CPT/HCPCS: 99213; G2211

== ENCOUNTER → 2023-11-28 11:23 | Outpatient (BNVA) | payer MEDICARE, SELFPAY | PROVIDERS: PCP General Practice; Visit Provider Nurse Practitioner Family ==

== ENCOUNTER 2023-11-28 12:22 | Outpatient (REF) | payer MEDICARE, MEDICAID, SELFPAY ==
[2023-12-01 08:18] LABS: TS Negative Control Passed; TS Panel A 0; TS Panel B 0; TS Positive Control Passed; TSpotTB Negative (Negative)
== END 2023-11-28 12:23 | disposition home or self-care (01) ==
LOC: HO.10HDL 12:22
PROVIDERS: Visit Provider Nurse Practitioner Family
DX: Z11.9 Encounter for screening for infectious and parasitic diseases, unspecified (principal); M45.2 Ankylosing spondylitis of cervical region; L40.50 Arthropathic psoriasis, unspecified; M65.351 Trigger finger, right little finger
CPT/HCPCS: 36415; 86481; 99212

== ENCOUNTER 2024-01-19 12:49 | Outpatient (REF) | payer MEDICARE, MEDICAID, SELFPAY ==
--- NOTE | 2024-01-19 12:51 | EMG_ITS ---
Chief complaint: Bilateral hand pain Reason for referral: Evaluate for Carpal Tunnel Syndrome Referred by: Dr. Hutson Procedure done: Bilateral upper extremities NCS/EMG Precautions and/or limitations: None The limb temperature was monitored continuously and remained between 32-36 degrees C during the performance of the NCS. Nerve Conduction Studies Anti Sensory Summary Table ?Stim Site NR Onset (ms) Norm Onset (ms) Peak (ms) Norm Peak (ms) O-P Amp (?V) Norm O-P Amp Site1 Site2 Delta-0 (ms) Dist (cm) Jesús (m/s) Norm Jesús (m/s) Left Median Anti Sensory (2nd Digit) Wrist ? 2.3 2.9 <3.6 37.4 >10 Wrist 2nd Digit 2.3 14.0 61 Right Median Anti Sensory (2nd Digit) Wrist ? 2.1 2.9 <3.6 30.1 >10 Wrist 2nd Digit 2.1 14.0 67 Left Ulnar Anti Sensory (5th Digit) Wrist ? 1.5 2.9 <3.7 17.0 >15.0 Wrist 5th Digit 1.5 14.0 93 Right Ulnar Anti Sensory (5th Digit) Wrist ? 2.0 3.0 <3.7 15.6 >15.0 Wrist 5th Digit 2.0 14.0 70 Motor Summary Table ?Stim Site NR Onset (ms) Norm Onset (ms) O-P Amp (mV) Norm O-P Amp iAmp (mV) Amp (1st) (%) Site1 Site2 Delta-0 (ms) Dist (cm) Jesús (m/s) Norm Jesús (m/s) Left Median Motor (Abd Poll Brev) Wrist ? 3.0 <3.9 6.1 >4.5 7.2 100.0 Elbow Wrist 3.9 22.0 56 >45 Elbow ? 6.9 8.5 10.8 139.3 Right Median Motor (Abd Poll Brev) Wrist ? 3.2 <3.9 7.2 >4.5 9.1 100.0 Elbow Wrist 3.8 21.0 55 >45 Elbow ? 7.0 6.3 8.0 87.5 Left Ulnar Motor (Abd Dig Minimi) Wrist ? 2.6 <3.0 5.9 >5 7.1 100.0 B Elbow Wrist 2.9 19.5 67 >45 B Elbow ? 5.5 9.9 12.0 167.8 A Elbow B Elbow 1.2 10.0 83 >45 A Elbow ? 6.7 9.3 11.3 157.6 Right Ulnar Motor (Abd Dig Minimi) Wrist ? 2.3 <3.0 10.0 >5 12.1 100.0 B Elbow Wrist 3.2 20.0 63 >45 B Elbow ? 5.5 8.6 10.6 86.0 A Elbow B Elbow 1.3 10.0 77 >45 A Elbow ? 6.8 8.1 10.2 81.0 Comparison Summary Table ?Stim Site NR Peak (ms) Norm Peak (ms) P-T Amp (?V) Site1 Site2 Delta-P (ms) Norm Delta (ms) Right Median/Radial Dig I Comparison (Digit 1 - 10cm) Median ? 2.3 <2.9 28.2 Median Radial 0.1 Radial ? 2.2 <2.8 13.2 EMG ?Side Muscle Nerve Root Ins Act Fibs Psw Amp Dur Poly Recrt Int Pat Comment Right 1stDorInt Ulnar C8-T1 Nml Nml Nml Nml Nml 0 Nml Complete Right FlexCarRad Median C6-7 Nml Nml Nml Nml Nml 0 Nml Complete Right Biceps Musculocut C5-6 Nml Nml Nml Nml Nml 0 Nml Complete Right Triceps Radial C6-7-8 Nml Nml Nml Nml Nml 0 Nml Complete Right Deltoid Axillary C5-6 Nml Nml Nml Nml Nml 0 Nml Complete Left 1stDorInt Ulnar C8-T1 Nml Nml Nml Nml Nml 0 Nml Complete Left FlexCarRad Median C6-7 Nml Nml Nml Nml Nml 0 Nml Complete Left Biceps Musculocut C5-6 Nml Nml Nml Nml Nml 0 Nml Complete Left Triceps Radial C6-7-8 Nml Nml Nml Nml Nml 0 Nml Complete Left Deltoid Axillary C5-6 Nml Nml Nml Nml Nml 0 Nml Complete FINDINGS: All motor and sensory nerves tested showed normal latencies, amplitudes and conduction velocities. Concentric needle EMG was performed in selected muscles of the bilateral upper extremities. Study did not reveal signs of electric abnormalities as shown in the table above. IMPRESSION: 1. This is a normal study. 2. There is no electrodiagnostic evidence for median neuropathy, ulnar neuropathy, brachial plexopathy, or cervical radiculopathy. Thank you for your kind referral. Hannah Hagen MD, KATELIN Board Certified, [place] [employer] and Rehabilitation (ABPMR) Board Certified, [place] Board of Electrodiagnostic Medicine (ABEM) CODIN 26502 x 2 MTDD
== END 2024-01-19 12:50 | disposition home or self-care (01) ==
LOC: HO.NEURO 12:49
PROVIDERS: PCP General Practice; Visit Provider Orthopaedic Surgery
DX: R20.0 Anesthesia of skin (principal); R20.2 Paresthesia of skin
CPT/HCPCS: 95886; 95911

== ENCOUNTER → 2024-01-19 12:51 | Outpatient (BNV) | payer MEDICARE, MEDICAID, SELFPAY | PROVIDERS: PCP General Practice; Visit Provider Physical Medicine & Rehabilitation | DX: M79.641 Pain in right hand (principal); M79.642 Pain in left hand | CPT/HCPCS: 95886; 95911 ==

== ENCOUNTER 2024-02-15 12:14 | Outpatient (AMB) | payer MEDICARE, MEDICAID, SELFPAY ==
--- NOTE | 2024-02-15 12:20 | A.OFFVIS_ITS ---
Vital Signs 02/15/24 12:22 Height 5 ft 7 in Weight 198 lb BMI 31.0 BP 107/55 L Blood Pressure Location Lt brachial Position Sitting Pulse 80 Intake Visit Reasons: 6 month follow up Intake Note: Patient 6 month follow up for dysphagia Patient cc: nauseas on and off, acid reflex come and go, and some constipation last week. Secretary Office Clerk Required: No Accompanied by: Self / Same As Patient Allergies cannabidiol (CBD) extract Allergy (Mild, Verified 02/15/24 12:20) Hives duloxetine Adverse Reaction (Intermediate, Verified 02/15/24 12:20) Nausea and Vomiting Medication List - Last Reconciled 02/15/24 by Gonzalez Araujo MD albuterol sulfate 90 mcg/actuation 1 inh inhalation QID clonidine HCl 0.1 mg PO BEDTIME diclofenac sodium 1% 2 grams topical BID escitalopram oxalate 10 mg PO DAILY hydroxyzine pamoate 25 mg PO TID PRN omeprazole 20 mg PO BID promethazine 25 mg PO BID PRN 30 days upadacitinib ER (Rinvoq) 15 mg PO DAILY HPI HPI 6 month follow up: Details: FU GI CLINIC VISIT FOR THIS 48-YEAR-OLD FEMALE FOR FOLLOW-UP OF 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 ? CHRONIC ILLNESSES:?asthma, Graves disease ?IMAGING STUDIES:?Reviewed. ?ENDOSCOPIC STUDIES: 12/16/22 EGD SHOWED: Larynx:? Edema of arytenoid cartilages Esophagus:? Subtle mucosal changes with circular folds in the esophagus - biopsies were obtained from proximal esophagus to check for EOE.? Aperistaltic esophagus.? GE junction at 40 cms. No esophagitis or Soliman?s.? Esophageal? balloon dilation was performed with 20 mm CRE balloon time 60 seconds Stomach:? multiple 5-15 mm benign-appearing polyps in the gastric body and fundus -? biopsies.? Grade 2 flap valve on retroflexed examination of the cardia. BIOPSIES SHOWED: A.? Gastric polyps, biopsy:? Fundic gland polyps with minimal chronic inactive inflammation; negative for intestinal metaplasia and dysplasia (see comment).? B. Esophagus, proximal, biopsy:? Squamous mucosa specific change; no columnar mucosa present; no evidence of eosinophilic esophagitis.? 04/30/18 EGD showed: ? Larynx: Edema of arytenoid cartilages ? Esophagus: Subtle mucosal changes with circular folds in the esophagus ( ? suggestive of EOE) - biopsies were obtained. GE junction at 36 cms. No ? esophagitis or Soliman s. ? Stomach: Mild gastric erythema. Biopsies were obtained. Grade 2 flap valve on ? retroflexed examination of the cardia. ? Biopsies showed: ? A. Gastric, biopsies: ? Fragments of antral-type gastric mucosa with mild chronic gastritis. ? The Helicobacter pylori immunohistochemical stain is negative. ? B. Esophagus, proximal, biopsies: ? Fragments of unremarkable squamous mucosa. ? There is no evidence of eosinophilic esophagitis seen in this specimen. 04/16/20? HIGH-RESOLUTION ESOPHAGEAL MANOMETRY AT [facility] SHOWED: ? normal UES function,? short LES length. ? Hypotensive LES/ EGJ resting pressure with normal LES relaxation. ? No hiatal hernia was detected manometrically. ? Alva classification 3: ? ineffective esophageal motility TODAY'S VISIT Patient cc: nauseas, difficulty swallowing even the liquid, and occasional acid reflex Continues to have dysphagia Has been chewing the topping of pizza and spitting it out. Can have chest pain and difficulty breathing after taking it and resolves spontaneously in 25 to 30 min. Pt was seen by a surgeon [place] [facility] [place] [facility] who advised to have repeat esophageal Manometry to see if she has Achalasia and would benefit from surgery PAST VISIT: Complains of nausea Some days she wakes up with nausea which lasts all day. Taking liquids and a few Seen by Rodriguez Santos at [facility] and was referred to Thoracic Surgery PAST VISITS: EGD results reviewed with the patient. Chest felt a little different for a few days after EGD Stopped taking the PPI for 6 weeks before the EGD. [place] bad when she resumed taking. Notes a lot of pressure in the neck and throat at night with difficulty breathing. Able to sleep in the rt lat decubitis position and unable to sleep at night. Tried using a wedge and was not helpful. Denies nocturnal regurgitation. Also complains of intermittent chest pain radiating to the back 2-3 times Has to stand up to help her breathing and sometimes has to sleep sitting down She was tested for sleep apnea - negative per patient. And cardiac testing Unable to eat solid food x 6 yrs and remains on a liquid and blenderized foods. Stopped taking blederized foods since episodes of choking. Intermittent early satiety. Past history of constipation and now has diarrhea alternating with constipation. Not feeling too good. Has nausea daily without vomiting - not always related to eating. Taking blenderized food. Feels her symptoms are getting worse -? unable to eat mashed potatoes. Does not eat if she notes dysphagia with blenderized diet Only takes Ensure and Ensure plus, ice cream, smoothies. Takes a few spoons and gets a sensation in her chest (tightness and chest pain and gets anxious) and unable to eat any more. Notes gas after she takes Ensure or ice-cream which lasts for 45 min. Has been taking Omeprazole twice a day for GERD. Can have heartburn if she does not take Omeprazole for a few days. Patient follow up for dysphagia. Patient cc: Nauseas, gassy, constipation, and some dysphagia. Denies any other GI isuses. Notes nausea daily. Taking Omeprazole twice a day. Feels bloated and has problems with gas. Noted GERD symptoms for a week - attributes it to duloxetine. Takes 30 to 40 min to eat blenderized food. Notes chest pain if she tries to eat fast. Takes Naked smoothies which helps with constipation. Denies improvement in nausea despite taking Omeprazole Intermittent constipation - has a BM almost every day Sometimes can go 3-4 days without a BM. Did not have EGD with Gallardo due to anxiety regarding side effects. ??PAST VISIT No change in problems with eating. Takes yogurt, ensure and blenderized food. Saw Dr Armenta, Esophageal specialist at [facility] [place] She was told ineffective esophageal motility is due to long standing reflux - consult note has been requested. She is scheduled for an EGD with Gallardo on October 14 at [facility]. Prescribed a medication which she is taking daily ?? ? Taking ensure (1-2 times a day), liquids and ice-cream. ? ? ? Has gained weight and cut back on the Ensure from 3 to two times a day. ? ? ? Has an appt on 01/25/21 with GI at [facility] for a 2nd opinion on dysphagia. ? ? ? Seen by Rheumatology and all her tests were normal and no follow up appointment was advised ? ? ? Notes pains in the shoulder and pain in the hands. ? ? ? Has to sleep on her right side. ? ? ? Unable to sleep on her back or left side. ? ? ? Feel her throat closes and she is unable to breath. ? ? ? Her boy friend messages her shoulders which improves her symptoms. ?? ? Therapy to shoulders and neck helps - thinks her symptoms are related to her muscles. ?? ? Had a home sleep study in the past which was negative. ?? ? Notes palpitations and feels gassy when she takes coffee. ? High-resolution esophageal manometry results were reviewed with the patient. ? Patient denies change in symptoms and continuing to take blenderized food and ice-cream and protein shakes. ? Symptoms of dysphagia for the past 2 years. ? Is able to swallow and feels food is sitting in the lower neck/upper chest sometimes for 30 min. ? Also has a stuffy nose at the same time. ? Has not been able to take solid food for the past 2 years. ? Also has nausea. ? Had an episode of flushing, sudden fatigue and palpitations a week ago. ? Symptoms improved and had nausea following this episode. ? 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 ? Can eat corned beef on some days and not on other days. ? Also has bad constipation. No BM for 3 days and takes a hot chocolate which helps. ? Weight loss of 65 lbs over 7 months and has gained back 7 lbs after she started taking more ice-cream. ? Feels short of breath when she sleeps on the right side or back ? Since her last appointment in May, she was scheduled for a CT of the neck without contrast- this was scheduled due to ongoing issues with swallowing and xrays of neck revealing changes in the cervical vertebra. ? We received an urgent call from radiology regarding an abnormality noted in the soft tissue - ? soft tissue mass due to the asymmetry noted. Patient was set up urgently with ENT in [place]- seen the same day. ENT felt the abnormality was due to tissue removed from one side of throat during t onsillectomy. Additionally multinodular thyroid gland without enlargement and needs a US for further evaluation. 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 Patient is scheduled for a CT with contrast of neck as well US of thyroid. 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 Anxiety disorder Paroxysmal nocturnal dyspnea Amenorrhea Campbell's disease Arthritis Hyperthyroidism Goiter Vitamin D deficiency Non-toxic multinodular goiter Obesity Elevated dehydroepiandrosterone sulfate level Graves disease Degenerative arthritis of knee, bilateral Surgical History Hx of endoscopy H/O esophagogastroduodenoscopy History of tonsillectomy History of tubal ligation Family History Father Diabetes Mother Breast cancer BRCA gene mutation negative Maternal Uncle Heart transplanted Social History Alcohol intake: current Alcohol intake frequency: does not drink Patient Tobacco Use Status: Never used Tobacco Current occupational status: unemployed Current occupation: right hand Sexual orientation: Straight/Heterosexual Gender identity: Female Female Reproductive History Menstrual Age of Menarche: 13 Review of Systems Const All systems reviewed & are unremarkable except as noted in HPI and below Physical Exam Vital Signs: Last Vital Signs Pulse 80 02/15/24 12:22 BP 107/55 L 02/15/24 12:22 BMI result Body Mass Index 31.0 Const General: healthy appearing and no acute distress Nutritional Appearance: obese Orientation/consciousness: patient oriented x3 Limitations: no limitations HEENT Head: Yes normal to inspection Ears: hearing grossly normal bilaterally Eyes Sclerae: sclerae normal Pupils: Equal, round and reactive pupils present Neck Neck: Yes normal visual inspection Chest Chest palpation & inspection: normal inspection of the chest Resp Effort & Inspection: normal respiratory effort Auscultation: clear to auscultation bilaterally Cardio Palpation: normal PMI Rate: regular rate Rhythm: regular rhythm Heart sounds: S1 normal heart sound present, S2 normal heart sound present and no murmurs GI Palpation (GI): Soft to palpation, nontender and No hepatosplenomegaly present Auscultation: normal bowel sounds Rectal Exam - Female: deferred Skin General skin exam: no rashes or lesions noted Neuro General: patient oriented x3, gait normal and moves all extremities Cranial nerves: Yes Equal, round and reactive pupils present Psych Appearance: grossly normal Mental Status: mental status grossly normal Assessment & Plan Assessment & Plan (1) Dysphagia, pharyngoesophageal phase: Code(s): R13.14 - Dysphagia, pharyngoesophageal phase Category: Medical (2) Ineffective esophageal motility: Code(s): K22.4 - Dyskinesia of esophagus Category: Medical (3) Elevated anti-tissue transglutaminase (tTG) IgA level: Code(s): R76.8 - Other specified abnormal immunological findings in serum Category: Medical (4) Elevated immunoglobulin A: Code(s): R76.8 - Other specified abnormal immunological findings in serum Category: Medical (5) GERD (gastroesophageal reflux disease): Code(s): K21.9 - Gastro-esophageal reflux disease without esophagitis Category: Medical (6) Vitamin D deficiency: Code(s): E55.9 - Vitamin D deficiency, unspecified Category: Medical Plan 48 YF with asthma seen for FU of dysphagia to solid food for the past few years. Has been taking blenderized foods and protein shakes. An UGI was normal. EGD in 04/2018 showed gastritis and subtle mucosal changes suggestive of EOE. Esophgeal biopsies were negative for EOE and gastric biopsies did not show H Pylori. Pt was advised further evaluation with High Resolution Manometery to rule out esophageal motility disorder/achalasia. She was advised to continue taking a blendarized diet and protien shakes in the interim. 04/16/20? HIGH-RESOLUTION ESOPHAGEAL MANOMETRY AT [facility] SHOWED: ? normal UES function,? short LES length. ? Hypotensive LES/ EGJ resting pressure with normal LES relaxation. ? No hiatal hernia was detected manometrically. ? Alva classification 3: ? ineffective esophageal motility ?Patient was advised LAB tests to rule out presence of autoimmune disorder affecting esophageal motility - KIRT 1:80 nuclear/ speckled pattern. Pt was seen by Rheumatology? -? no evidence of lupus or connective tissue disease was detected.? She had a? negative rheumatoid factor, normal ESR and CRP, negative ds DNA.? The remainder of her serology was also unrevealing with negative Sm/[employer] NETWORK ARCHITECT, negative scleroderma antibody, normal complements, negative Sjogren's antibodies.? Source of positive KIRT was felt to be positive antithyroid antibodies. She was advised to start metoclopramide 10 mg 3 times daily with meals for dysphagia/ ineffective esophageal motility disorder. Of note:? Pt is undergoing additional testing with a CT scan due to elevated DHEA-sulfate levels. She was referred to the [facility] at [facility] for a 2nd opinion and has an appt on 01/25/21. Patient was referred to Neurology to rule out neurological source of her symptoms 12/16/22 EGD was performed in findings as noted above Pt is enrolled in a study at the [facility] at [facility] and stopped going since she is not experiancing any improvement in her symptoms Pt called.? On 09/11/22 she took 2-3 spoonful of some blenderized oatmeal which was a little thick. Noted chest pain and unable to swallow water. [place] bad in her chest and unable to breath Was going to go to the ED and symptoms resolved after 45 to 50 min. Continued to have chest pain the following day. Has been taking a liquid diet. She is participitating in a study at [facility] and continues to fu with Dr Armenta Only medication she is taking is Omeprazole Pt was advised to schedule an EGD for further evaluation 05/04/23 Some days she wakes up with nausea which lasts all day. Taking liquids and a few Seen by Rodriguez Santos at [facility] and was referred to Thoracic Surgery 02/15/24 Pt was seen by Dr Lyons (Thoracic Surgeon at [facility]) and advised repeat Manometry testing at to rule out Achalasia. Plan is for POEM procedure if repeat studies confirm Achalasia. Pt advised to schedule a FU visit with Dr Lyons Ref to Oncology for elevated Ig A levels Follow-up appointment in GI in 6 months ?FROM UP-TO-DATE: Ineffective esophageal motility: By high-resolution esophageal manometry, ineffective motility is defined as 50 to 90 percent of the liquid swallows being weak or failed. The manometric diagnosis of ineffective esophageal motility does not always correlate with symptoms or impaired esophageal function. In one study , only 30 percent of patients with ineffective esophageal motility reported dysphagia. Moreover, studies using esophageal intraluminal impedance testing have shown that up to 68 percent of liquid and 59 percent of viscous swallows in such patients showed normal bolus transit The prevalence of celiac disease and inflammatory bowel disease is probably modestly increased among individuals with autoimmune thyroid disease. Patients with persistent gastrointestinal symptoms should undergo screening for these disease Orders: Referrals Hematology & Oncology Referral R76.8 - Other specified abnormal immunological findings in serum Medications: New cholecalciferol (vitamin D3) 75 mcg (0.6 mL) PO DAILY 36 mL 2RF 60 days E55.9 - Vitamin D deficiency, unspecified Changed From omeprazole 20 mg PO BID R13.14 - Dysphagia, pharyngoesophageal phase, K21.9 - Gastro-esophageal reflux disease without esophagitis To omeprazole 20 mg PO BID 180 caps 1RF 90 days R13.14 - Dysphagia, pharyngoesophageal phase, K21.9 - Gastro-esophageal reflux disease without esophagitis Coding Level of Care Code Est Pt Level 4 (34819) Diagnoses Dysphagia, pharyngoesophageal phase R13.14 Ineffective esophageal motility K22.4 Elevated anti-tissue transglutaminase (tTG) IgA level R76.8 Elevated immunoglobulin A R76.8 GERD (gastroesophageal reflux disease) K21.9 Vitamin D deficiency E55.9 Time Spent (min) 22
[2024-02-15 12:22] VITALS: BP 107/55; PULSE 80; BMI 31.0
== END 2024-02-15 14:26 | disposition home or self-care (01) ==
PROVIDERS: PCP General Practice; Visit Provider Internal Medicine Gastroenterology
DX: R13.14 Dysphagia, pharyngoesophageal phase (principal); K22.4 Dyskinesia of esophagus; R76.8 Other specified abnormal immunological findings in serum; K21.9 Gastro-esophageal reflux disease without esophagitis; E55.9 Vitamin D deficiency, unspecified
CPT/HCPCS: 99214

== ENCOUNTER → 2024-02-15 12:14 | Outpatient (BNVA) | payer MEDICAID, SELFPAY | PROVIDERS: PCP General Practice; Visit Provider Internal Medicine Gastroenterology | DX: R13.14 Dysphagia, pharyngoesophageal phase (principal); K21.9 Gastro-esophageal reflux disease without esophagitis; K22.4 Dyskinesia of esophagus; R76.8 Other specified abnormal immunological findings in serum; E55.9 Vitamin D deficiency, unspecified | CPT/HCPCS: 99212 ==

== ENCOUNTER 2024-03-08 10:15 | Outpatient (AMB) | payer MEDICARE, MEDICAID, SELFPAY ==
[2024-03-08 11:18] VITALS: BMI 31.0
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
== END 2024-03-08 12:10 | disposition home or self-care (01) ==
PROVIDERS: PCP General Practice; Visit Provider Orthopaedic Surgery
DX: M77.12 Lateral epicondylitis, left elbow (principal); V49.50XA Passenger injured in collision with unspecified motor vehicles in traffic accident, initial encounter; Z04.3 Encounter for examination and observation following other accident
CPT/HCPCS: 20550; 99213

== ENCOUNTER → 2024-03-08 10:15 | Outpatient (BNVA) | payer MEDICAID, SELFPAY | PROVIDERS: PCP General Practice; Visit Provider Orthopaedic Surgery | DX: M77.12 Lateral epicondylitis, left elbow (principal) | CPT/HCPCS: 20550; 99212; J0665; J1100 ==

== ENCOUNTER 2024-03-08 16:22 | Emergency (ER) | payer MEDICARE, MEDICAID, SELFPAY ==
[2024-03-08 16:39] VITALS: BP 128/64; PULSE 83; RESP 17; TEMP 36.7; O2SAT 98; BMI 31.0
--- NOTE | 2024-03-08 16:41 | ECG_ITS ---
Test Reason : nuro symptoms Blood Pressure : / mmHG Vent. Rate : 088 BPM Atrial Rate : 088 BPM P-R Int : 178 ms QRS Dur : 072 ms QT Int : 330 ms P-R-T Axes : 073 001 042 degrees QTc Int : 399 ms Normal sinus rhythm Cannot rule out Anterior infarct , age undetermined Abnormal ECG When compared with ECG of 10-FEB-2022 12:55, DE interval has decreased Nonspecific T wave abnormality, worse in Anterior leads Referred By: Madison Henry Electronically Signed By:RACHELLE CHEUNG
--- NOTE | 2024-03-08 16:42 | ED_ITS ---
HPI - Neuro Symptoms/Deficit General Chief Complaint: Neuro Symptoms/Deficit Stated Complaint: l side numb after injection Time Seen by Provider: 03/08/24 22:26 Source: patient, RN notes reviewed and old records reviewed Mode of arrival: ambulatory Limitations: no limitations History of Present Illness ED Provider: Regina HPI Narrative: 48-year-old female with past medical history significant for psoriatic arthritis, anxiety, Campbell's thyroiditis, esophageal dysmotility presents for evaluation of left-sided numbness. Patient reports that she had a cortisone injection to her left elbow for ?tennis elbow around 12:10 p.m. today She states that during the injection she had a sharp sudden pain in the elbow that felt ?deep and different than the needle. ? She states that shortly after the injection she started to feel heaviness in her left arm This progressed or heaviness in the left leg and numbness in the left arm and leg. She reports having numbness in the left side of the face as well She was with her boyfriend and did not have any noticed facial droop These symptoms have slowly improved since waiting in the emergency department. She did not have any headache, chest pain, shortness of breath She also did not have any neck pain No other complaints or concerns at this time Related Data Home Medications ?Medication ?Instructions ?Recorded ?Confirmed escitalopram oxalate 10 mg tablet 10 mg PO DAILY 06/24/21 02/15/24 albuterol sulfate 90 mcg/actuation 1 inh inhalation QID 03/16/22 02/15/24 aerosol inhaler clonidine HCl 0.1 mg tablet 0.1 mg PO BEDTIME 05/04/23 02/15/24 diclofenac sodium 1 % topical gel 2 g topical BID 05/10/23 02/15/24 hydroxyzine pamoate 25 mg capsule 25 mg PO TID PRN anxiety 10/06/23 02/15/24 Previous Rx's ?Medication ?Instructions ?Recorded promethazine 25 mg tablet 25 mg PO BID PRN for 09/18/23 nausea/vomiting 30 days #30 tabs upadacitinib 15 mg tablet,extended 15 mg PO DAILY #28 tabs 11/28/23 release 24 hr (Rinvoq) cholecalciferol (vitamin D3) 125 75 mcg (0.6 mL) PO DAILY 60 days 02/15/24 mcg/mL (5,000 unit/mL) oral drops #36 mL omeprazole 20 mg capsule,delayed 20 mg PO BID 90 days #180 caps 02/15/24 release Allergies Allergy/AdvReac Type Severity Reaction Status Date / Time cannabidiol (CBD) extract Allergy Mild Hives Verified 03/08/24 16:42 duloxetine AdvReac Intermediate Nausea and Verified 03/08/24 16:42 Vomiting Review of Systems 2 Constitutional: Constitutional: Denies body ache(s), Denies chills, Denies fever(s), Denies frequent falls and Denies headache(s) Eyes: Eyes: Denies blurry vision ENT: Denies headache(s), Denies neck mass and Denies neck pain Cardiovascular: Cardiovascular: Denies chest pain and Denies dyspnea Respiratory: Respiratory: Denies cough and Denies dyspnea Gastrointestinal: Gastrointestinal: Denies abdominal pain, Denies nausea and Denies vomiting Musculoskeletal: Musculoskeletal: Denies back pain, Reports arthralgias, Denies joint swelling, Denies neck pain, Reports numbness, Reports radiating pain into limb and Reports tingling Integumentary/Breasts: Skin/Breast: Denies rash Neurologic: Denies frequent falls, Denies headache(s), Reports numbness and Reports tingling PMFSH Past Medical History Medical History Screening examination for infectious disease Elevated anti-tissue transglutaminase (tTG) IgA level Long-term use of immunosuppressant medication Peripheral muscle fatigue Muscle weakness of upper extremity Myalgia Psoriatic arthritis 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 Hx of ectopic Anxiety disorder Paroxysmal nocturnal dyspnea Amenorrhea Campbell's disease Arthritis Hyperthyroidism Goiter Vitamin D deficiency Non-toxic multinodular goiter Obesity Elevated dehydroepiandrosterone sulfate level Graves disease Degenerative arthritis of knee, bilateral Surgical History Hx of endoscopy H/O esophagogastroduodenoscopy History of tonsillectomy History of tubal ligation Family History Family History Father Diabetes Mother Breast cancer BRCA gene mutation negative Maternal Uncle Heart transplanted Social History Social History Alcohol intake: current Alcohol intake frequency: does not drink Patient Tobacco Use Status: Never used Tobacco Advance Directives: No Advance Directives Information Provided: No Do you have a plan to hurt others: No Plan Current occupational status: unemployed Current occupation: right hand Sexual orientation: Straight/Heterosexual Gender identity: Female Physical Exam 2 Vital Signs: Vital Signs: Last Vital Signs Temp 97.5 F 03/08/24 23:08 Pulse 79 03/08/24 23:08 Resp 17 03/08/24 23:08 BP 110/54 L 03/08/24 23:08 Pulse Ox 97 03/08/24 23:08 O2 Del Method Room Air 03/08/24 23:08 BMI result Body Mass Index 31.0 Const: General: healthy appearing, comfortable, no acute distress, alert and awake Nutritional Appearance: well nourished Orientation/consciousness: p atient oriented x3 HEENT: Head: Yes normocephalic and Yes atraumatic Eyes: Eyelids: Yes eyelids normal Conjunctivae: conjunctivae normal S clerae: sclerae normal Corneas: corneas normal Pupils: Equal, round and reactive pupils present EOM: EOMs intact bilaterally Neck: Neck: Yes full ROM Resp: Effort & Inspection: normal respiratory effort, able to speak in complete sentences and not labored Skin: General skin exam: elasticity normal Neuro: General: patient oriented x3 Cranial nerves: Yes CN's II-XII intact bilaterally, Yes Equal, round and reactive pupils present and Yes Bilaterally intact EOM present Cognition (Neuro): normal cognition Motor exam (neuro): 5/5 motor strength present throughout, Pronator motor function not present, no tremor noted, no asterixis, Motor fasciculations not present and Normal motor muscle tone present throughout Course Course Course Narrative: This is a Rapid Medical Examination (RME) performed by Raj Henry PA-C in triage. Full HPI, ROS, assessment and treatment plan per primary provider in the Main ED. 48 yo female history of Campbell thyroiditis, anxiety, panic attacks here for eval of left sidede numbness s/p steroid injection. Had corticosteroid injection to left elbow today by Dr. Billingsley. Began having tingling/numbness to left upper extremity, now in left lower extremity and left face which has slowly been resolving. called her PCP was told to come to ED. + exam nonfocal. No slurred speech, facial droop. Bleeding with steady gait. Strength 5/5 intact throughout. sensation intact throughout. Plan: labs, ekg Medical Decision Making Medical Decision Making [facility] Narrative: 40-year-old female with past medical history as documented above presents for evaluation of heaviness in the left arm and leg with associated numbness and tingling. She also reports left facial numbness that developed after the initial heaviness in the extremities. She has an NIH stroke score of 0. She is well-appearing, her symptoms are improving. She has no history of hypertension, hyperlipidemia, tobacco dependence, diabetes. No risk factors for CVA or atherosclerotic disease. Her symptoms are most likely reaction to her cortisone injection and possibly superimposed on an anxiety attack. Your symptoms are not consistent with a CVA, she had no objective findings of CVA. I do not see any indication for further emergent workup at this time. The patient be discharged to follow up with your PCP Differential Diagnosis Differential Diagnoses: The differential diagnosis associated with the presentation includes Paresthesias Numbness and tingling Cervical strain Radiculopathy CVA less likely Lab Data [facility] Lab Attestation statement: I reviewed the patient's lab results. No leukocytosis or anemia. Normal platelet count. The patient does have a left shift, likely related to the cortisone injection earlier today. Electrolytes within normal limits. Elevated glucose also may be related to decrease insulin sensitivity related to the cortisone injection 03/08/24 17:12 03/08/24 17:12 Labs: Lab Results 03/08/24 Range/Units 17:12 WBC 8.6 (4.8-10.8) X10*3/uL RBC 4.71 (4.20-5.50) X10*6/uL Hgb 13.4 (12.0-16.0) g/dl Hct 40.7 (37.0-47.0) % MCV 86.4 (80.0-98.0) fL MCH 28.5 (27.0-33.0) pg MCHC 32.9 (31.0-35.0) g/dl RDW 12.9 (11.0-16.0) % Plt Count 254 (160-400) X10*3/uL MPV 10.1 (9.4-12.3) fL Immature Gran % (Auto) 0.3 (0.0-0.4) % Neut % (Auto) 90.9 H (45-73) % Lymph % (Auto) 7.8 L (20-40) % Appling % (Auto) 0.8 L (2-11) % Eos % (Auto) 0.0 (0-4) % Baso % (Auto) 0.2 (0-2) % Lymph # (Auto) 0.7 L (1.2-4.9) X10*3/uL Appling # (Auto) 0.1 (0.1-1.2) X10*3/uL Eos # (Auto) 0.0 (0.0-0.4) X10*3/uL Baso # (Auto) 0.0 (0.0-0.2) X10*3/uL Abs Immat Gran (auto) 0.03 (0.00-0.03) X10*3/uL Absolute Neuts (auto) 7.8 (2.0-8.3) x10*3/uL Absolute Nucleated RBC 0.000 (0.0-0.012) X10*3/uL Nucleated RBC % (auto) 0.0 (0.0-0.2) /100WBC Smear Tech's Comments VERIFIED Sodium 138 (135-145) mmol/L Potassium 4.1 (3.3-5.1) mmol/L Chloride 107 (96-108) mmol/L Carbon Dioxide 25 (22-29) mmol/L Anion Gap 10 L (12-20) BUN 8 L (9-16) mg/dL Creatinine 0.86 (0.5-1.4) mg/dL Estim Creat Clear Calc 92.0 Estimated GFR > 60 Random Glucose 171 H (60-115) mg/dL Calcium 10.0 D (8.4-10.2) mg/dL Magnesium 2.0 (1.6-2.6) mg/dL Total Bilirubin 0.3 (0.0-1.0) mg/dL AST 18 (5-31) U/L ALT 17 (0-31) U/L Alkaline Phosphatase 83 (39-117) U/L Troponin I High Sens < 2.7 (<3.5-17.0) ng/L Total Protein 8.2 H (6.5-8.0) g/dL Albumin 4.1 (3.5-5.0) g/dL Discharge Plan Discharge Clinical Impression: Arm paresthesia, left Patient Disposition: Home, Self-Care Instructions: Paresthesia (ED) Additional Instructions: Your workup in the ER today was reassuring. This includes your blood work, your EKG Your symptoms are not consistent with a stroke Your symptoms are most likely related to the injection received today It is possible that the injection be irritated a nerve in your arm Follow-up with your primary doctor, return for new or worsening symptoms Prescriptions: No Action promethazine 25 mg tablet 25 mg PO BID PRN (Reason: for nausea/vomiting) 30 Days Qty: 30 1RF escitalopram oxalate 10 mg tablet 10 mg PO DAILY albuterol sulfate 90 mcg/actuation HFA aerosol inhaler 1 inh inhalation QID hydroxyzine pamoate 25 mg capsule 25 mg PO TID PRN (Reason: anxiety) clonidine HCl 0.1 mg tablet 0.1 mg PO BEDTIME omeprazole 20 mg capsule,delayed release(DR/EC) 20 mg PO BID 90 Days Qty: 180 1RF cholecalciferol (vitamin D3) 125 mcg/mL (5,000 unit/mL) drops 75 mcg PO DAILY 60 Days Qty: 36 2RF diclofenac sodium 1 % gel 2 g topical BID Rinvoq 15 mg tablet extended release 24 hr 15 mg PO DAILY Qty: 28 0RF Rx Instructions: Do not Dispense Sample Sample Sample Lot# [id number] Exp 03/10/2025 Print Language: Burundian
[2024-03-08 17:19] LABS: Basophils Percent Auto 0.2 % (0-2); Hematocrit 40.7 % (37.0-47.0); Hemoglobin 13.4 g/dl (12.0-16.0); Imm Gran Abs Auto 0.03 X10*3/uL (0.00-0.03); Imm Gran Pct Auto 0.3 % (0.0-0.4); Lymphocytes Absolute Auto 0.7 X10*3/uL (1.2-4.9); Lymphocytes Percent Auto 7.8 % (20-40); MANUAL DIFF FLAG SCAN; Mean Corpuscular HGB Conc 32.9 g/dl (31.0-35.0); Mean Corpuscular Hemoglobin 28.5 pg (27.0-33.0); Mean Corpuscular Volume 86.4 fL (80.0-98.0); Mean Platelet Volume 10.1 fL (9.4-12.3); Monocytes Absolute Auto 0.1 X10*3/uL (0.1-1.2); Monocytes Percent Auto 0.8 % (2-11); Neutrophils Absolute Auto 7.8 x10*3/uL (2.0-8.3); Neutrophils Percent Auto 90.9 % (45-73); Platelet Count 254 X10*3/uL (160-400); Red Blood Count 4.71 X10*6/uL (4.20-5.50); Red Cell Distribution Width 12.9 % (11.0-16.0); SCAN SMEAR FLAG 1; White Blood Count 8.6 X10*3/uL (4.8-10.8)
--- NOTE | 2024-03-08 17:26 | MHC.EDTECH ---
Patient blood drawn and sent to lab ,Ekg taken and was read by Provider .
[2024-03-08 17:32] LABS: Alanine Aminotransferase 17 U/L (0-31); Albumin Level 4.1 g/dL (3.5-5.0); Alkaline Phosphatase 83 U/L (39-117); Anion Gap 10 (12-20); Aspartate Amino Transferase 18 U/L (5-31); Bilirubin Total 0.3 mg/dL (0.0-1.0); Blood Urea Nitrogen 8 mg/dL (9-16); Carbon Dioxide 25 mmol/L (22-29); Chloride 107 mmol/L (96-108); Estimated Glomerular Filt Rate > 60; Glucose Random 171 mg/dL (60-115); Potassium 4.1 mmol/L (3.3-5.1); Sodium 138 mmol/L (135-145); Total Protein 8.2 g/dL (6.5-8.0)
[2024-03-08 17:40] LABS: Troponin-I High Sensitivity < 2.7 ng/L (<3.5-17.0)
[2024-03-08 17:47] LABS: SLIDE REVIEW VERIFIED
[2024-03-08 21:43] VITALS: BP 131/73; PULSE 88; RESP 18; TEMP 36.8; O2SAT 100
[2024-03-08 23:08] VITALS: BP 110/54; PULSE 79; RESP 17; TEMP 36.4; O2SAT 97
[2024-03-08 23:22] VITALS: BP 0/0; PULSE 0; RESP 0; TEMP -17.7; TEMP 0; O2SAT 0
== END 2024-03-08 23:24 | disposition home or self-care (01) ==
PROVIDERS: Physician Assistant Medical; Emergency Provider Emergency Medicine; PCP General Practice
DX: R20.2 Paresthesia of skin (principal); R94.31 Abnormal electrocardiogram [ECG] [EKG]; E06.3 Autoimmune thyroiditis; Z79.899 Other long term (current) drug therapy
CPT/HCPCS: 36415; 80053; 83735; 84484; 85025; 93005; 99283; 99284

== ENCOUNTER → 2024-03-18 13:23 | Outpatient (BNVA) | payer MEDICARE, MEDICAID, SELFPAY | PROVIDERS: PCP General Practice; Visit Provider Student in an Organized Health Care Education/Training Program | DX: M79.7 Fibromyalgia (principal); M77.12 Lateral epicondylitis, left elbow | CPT/HCPCS: 99212 ==

== ENCOUNTER → 2024-03-18 13:23 | Outpatient (AMB) | payer MEDICARE, MEDICAID, SELFPAY ==
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
[2024-03-18 13:36] VITALS: BP 112/72; PULSE 82; O2SAT 98; BMI 30.9
== END ==
PROVIDERS: PCP General Practice; Visit Provider Student in an Organized Health Care Education/Training Program
DX: M79.7 Fibromyalgia (principal); M77.12 Lateral epicondylitis, left elbow
CPT/HCPCS: 99213

== ENCOUNTER 2024-03-25 09:49 | Outpatient (AMB) | payer MEDICARE, MEDICAID, SELFPAY ==
--- NOTE | 2024-03-25 09:54 | MHC.OFFVIS ---
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: No Information Interpreted: clinical only Cafe Associate: Cafe Associate Present Allergies cannabidiol (CBD) extract Allergy (Mild, Verified 03/25/24 09:55) Hives duloxetine Adverse Reaction (Intermediate, Verified 03/25/24 09:55) Nausea and Vomiting Medication List - Last Reconciled 03/25/24 by Radha Valles CNM albuterol sulfate 90 mcg/actuation 1 inh inhalation QID cholecalciferol (vitamin D3) 75 mcg (0.6 mL) PO DAILY 60 days clonidine HCl 0.1 mg PO BEDTIME diclofenac sodium 1% 2 grams topical BID escitalopram oxalate 10 mg PO DAILY hydroxyzine pamoate 25 mg PO TID PRN omeprazole 20 mg PO BID 90 days promethazine 25 mg PO BID PRN 30 days Is last menstrual period known: Yes Last menstrual period: 02/23/24 Do you need a note to return to daycare/school/sports/work: No HPI HPI 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 She is expecting her period she says she gets a slight headache before her period. She also associates a variety of other symptoms with her period being about to come. She has a history of a tubal ligation but she had an ectopic after it in previous visits over the years she has discussed considerations for risk of because of this but today she seems relaxed and when I asked her about it she questioned my questioning about it. She has a variety of arthritis and fibromyalgia and other physical concerns and will be starting physical therapy for her left shoulder neck arm pain. Patient perceives that she has lost weight recently she says that she can not eat and has not been able to for years because she has got something going on with her esophagus so she drinks boost discussed whether not losing weight and having less full breasts might be beneficial for her neck and shoulder pain she did not think it was related. She feels she is doing fairly well as regards her anxiety in her everything. She is sexually active she is open to some testing for STIs but does not she needs blood work. Her mother had breast cancer she says she had it recur 3 times but she has good now she is said her mother tested negative for the BRCA gene patient herself is up-to-date on her mammograms. [facility] Medical History Elevated anti-tissue transglutaminase (tTG) IgA level Peripheral muscle fatigue Muscle weakness of upper extremity Myalgia Hx of ectopic Anxiety disorder Paroxysmal nocturnal dyspnea Amenorrhea Campbell's disease Arthritis Hyperthyroidism Goiter Vitamin D deficiency Non-toxic multinodular goiter Obesity Elevated dehydroepiandrosterone sulfate level Graves disease Degenerative arthritis of knee, bilateral Surgical History Hx of endoscopy H/O esophagogastroduodenoscopy History of tonsillectomy History of tubal ligation Family History Father Diabetes Mother Breast cancer BRCA gene mutation negative Maternal Uncle Heart transplanted Social History Alcohol intake: current Alcohol intake frequency: does not drink Patient Tobacco Use Status: Never used Tobacco Current occupational status: unemployed Current occupation: right hand Sexual orientation: Straight/Heterosexual Gender identity: Female Female Reproductive History Menstrual Age of Menarche: 13 Date of last menstrual period: 02/23/24 control method: permanent sterilization Total pregnancies: 5 Full term: 4 Date of last pap smear: 03/21/23 (negative,2021 & 2019 neg) History of abnormal pap smear: Yes (unsure date) Date of Mammogram: 07/20/23 (negative) History of abnormal mammogram: No Physical Exam Vital Signs: Last Vital Signs BP 126/72 03/25/24 09:55 BMI result Body Mass Index 31.0 Const General: healthy appearing, comfortable, no acute distress, well developed and alert Nutritional Appearance: average body habitus Orientation/consciousness: patient oriented x3 Limitations: no limitations HEENT Head: Yes normocephalic Neck Neck: Yes normal visual inspection Chest Chest palpation & inspection: normal inspection of the chest Breast/axilla inspection: normal inspection of the breasts and normal inspection of the axillae Breast/axilla palpation: normal palpation of the breasts and normal palpation of the axillae Resp Effort & Inspection: normal respiratory effort GI Inspection: Yes normal to inspection, No Abdominal wall edema and No distended Palpation (GI): Soft to palpation and nontender General: Yes bladder normal to palpation External Female Exam: normal external appearance and normal appearance of the urethra Speculum Exam - Vagina: normal appearance of the vagina, normal palpation and normal vaginal discharge Speculum Exam - Cervix: normal appearance of the cervix, normal palpation and nontender Bimanual exam- vagina & uterus: normal bimanual exam, normal palpation, uterine size normal, bladder normal to palpation, consistency normal, normal palpation, uterine mobility normal, uterine shape normal, No Cervical tenderness present, non-tender and no cervical motion tenderness Bimanual Exam- Adnexa, other: normal adnexae, no masses, normal and No adnexal tenderness Neuro General: patient oriented x3 Results Reviewed Results Reviewed: Name: Crystal Ivan Age/Sex: 47/F Attending: Radha Valles CNM : 1975 Submitted by: Radha Valles CNM Copies to: MR #: [id number] Status: DEP REF Collected: 03/20/23 Location: [facility] Received: 03/21/23 Interpretation General Category: Negative for intraepithelial lesion/malignancy. Adequacy: Endocervical component present. Interpretation: Inflammation with associated cellular changes. HPV mRNA E6/E7: Not Detected This assay detects E6/E7 viral messenger RNA (mRNA) from 14 high-risk HPV types (16, 18, 31, 33, 35, 39, 45, 51, 52, 56, 58, 59, 66, 68) HPV testing performed by [facility], [place], [place]. See reference laboratory portion of the EMR for entire report. Clinical Information LMP: 03/10/23 Previous PAP test: 03/17/22, WNL Material Received ThinPrep-Cervical Electronically Signed By: Abram Christianson MD 03/27/23 1643 The Pap Test is a screening procedure with the inherent possibility of both false negative and false positive results. Results should be interpreted in the context of historic and current clinical findings. Reliability of the Pap Test is enhanced by performing the test on a regular repetitive basis. Patient: Crystal Ivan Age/Sex: 47/F MR#: [id number] Page 1 of 1 Assessment & Plan Assessment & Plan (1) Painful arc syndrome of left shoulder: Code(s): M75.102 - Unspecified rotator cuff tear or rupture of left shoulder, not specified as traumatic Category: Medical (2) Hx of ectopic : Comment: left salpingectomy 01/23/2007, -Dr Leila Obrien Code(s): Z87.59 - Personal history of other complications of , childbirth and the puerperium Category: Medical (3) History of tubal ligation: Code(s): Z98.51 - Tubal ligation status Category: Surgical (4) Well woman exam with routine gynecological exam: Code(s): Z01.419 - Encounter for gynecological examination (general) (routine) without abnormal findings Category: Medical (5) Screen for sexually transmitted diseases: Code(s): Z11.3 - Encounter for screening for infections with a predominantly sexual mode of transmission Category: Medical (6) Cervical cancer screening: Comment: 03/16/2022 Pap is negative with negative HPV.; 03/20/2023 Pap is negative with negative HPV. Code(s): Z12.4 - Encounter for screening for malignant neoplasm of cervix Category: Medical (7) Hx of abnormal cervical Pap smear: Comment: see detail of hx of paps 2022,( 2004 ted 1, 2017= ascus, last pap neg 03/16/22. Code(s): Z87.42 - Personal history of other diseases of the female genital tract Category: Medical (8) Fibromyalgia: Comment: This disorder may be contributing to her nonspecific back pain and spasms in the back of left chest. 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 She is expecting her period she says she gets a slight headache before her period. She also associates a variety of other symptoms with her period being about to come. She has a history of a tubal ligation but she had an ectopic after it in previous visits over the years she has discussed considerations for risk of because of this but today she seems relaxed and when I asked her about it she questioned my questioning about it. She has a variety of arthritis and fibromyalgia and other physical concerns and will be starting physical therapy for her left shoulder neck arm pain. Patient perceives that she has lost weight recently she says that she can not eat and has not been able to for years because she has got something going on with her esophagus so she drinks boost discussed whether not losing weight and having less full breasts might be beneficial for her neck and shoulder pain she did not think it was related. She feels she is doing fairly well as regards her anxiety in her everything. She is sexually active she is open to some testing for STIs but does not she needs blood work. Her mother had breast cancer she says she had it recur 3 times but she has good now she is said her mother tested negative for the BRCA gene patient herself is up-to-date on her mammograms. Reviewed her history of abnormal Paps but her last 2 Paps were negative with negative HPV. Her cervix pink and smooth and healthy today. Discussed all of the above in connection with her breast screening and cervical cancer screening and ways of dealing with the aches and pains that happen discussed what symptoms might have something to do with her menses and what is would not. She also wanted to know when she would go through menopause but it is not possible to say exactly average age is in the 50s in this country but there is a wide variation. I did suggest she might want to ask her mother when she went through menopause. She says her mother had her when she was 15. Coding Level of Care Code Est Pt Prev Care 40-64y(97467) Diagnoses Painful arc syndrome of left shoulder M75.102 Hx of ectopic Z87.59 History of tubal ligation Z98.51 Well woman exam with routine gynecological exam Z01.419 Screen for sexually transmitted diseases Z11.3 Cervical cancer screening Z12.4 Hx of abnormal cervical Pap smear Z87.42 Fibromyalgia M79.7
[2024-03-25 09:55] VITALS: BP 126/72; BMI 31.0
== END 2024-03-25 10:55 | disposition home or self-care (01) ==
PROVIDERS: PCP General Practice; Visit Provider Advanced Practice Midwife
DX: Z01.419 Encounter for gynecological examination (general) (routine) without abnormal findings (principal)
CPT/HCPCS: G0101

== ENCOUNTER 2024-03-25 09:49 | Outpatient (REF) | payer MEDICARE, MEDICAID, SELFPAY ==
[2024-03-26 05:40] LABS: Bacterial Vaginosis PCR NEGATIVE (Negative); Candida Group PCR NOT DETECTED (Not Detect); Candida glab krusei PCR NOT DETECTED (Not Detect); Trichomonas vaginalis PCR NOT DETECTED (Not Detect)
[2024-03-26 06:10] LABS: CT PCR NOT DETECTED (Not Detect.); NG PCR NOT DETECTED (Not Detect.)
== END 2024-03-25 09:50 | disposition home or self-care (01) ==
LOC: HO.LAB 09:49
PROVIDERS: PCP General Practice; Visit Provider Advanced Practice Midwife
DX: Z01.419 Encounter for gynecological examination (general) (routine) without abnormal findings (principal); N89.8 Other specified noninflammatory disorders of vagina; Z20.2 Contact with and (suspected) exposure to infections with a predominantly sexual mode of transmission; M75.102 Unspecified rotator cuff tear or rupture of left shoulder, not specified as traumatic; M79.7 Fibromyalgia; Z87.59 Personal history of other complications of pregnancy, childbirth and the puerperium; Z87.42 Personal history of other diseases of the female genital tract; Z98.51 Tubal ligation status
CPT/HCPCS: 0352U; 87491; 87591; G0101

== ENCOUNTER → 2024-03-25 11:00 | Outpatient (BNV) | payer MEDICARE, MEDICAID, SELFPAY | PROVIDERS: PCP General Practice; Referring Provider Transplant Surgery; Visit Provider Internal Medicine Medical Oncology | DX: D47.2 Monoclonal gammopathy (principal) | CPT/HCPCS: 99204 ==

== ENCOUNTER 2024-05-02 10:44 | Outpatient (AMB) | payer MEDICARE, MEDICAID, SELFPAY ==
[2024-05-02 11:09] VITALS: BP 110/70; PULSE 78; O2SAT 99; BMI 31.3
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
== END 2024-05-02 11:40 | disposition home or self-care (01) ==
PROVIDERS: PCP General Practice; Visit Provider Internal Medicine
DX: R06.00 Dyspnea, unspecified (principal); J45.909 Unspecified asthma, uncomplicated; F41.9 Anxiety disorder, unspecified
CPT/HCPCS: 94010; 99213

== ENCOUNTER → 2024-05-02 10:44 | Outpatient (BNVA) | payer MEDICARE, MEDICAID, SELFPAY | PROVIDERS: PCP General Practice; Visit Provider Internal Medicine | DX: J45.909 Unspecified asthma, uncomplicated (principal); R06.00 Dyspnea, unspecified; F41.9 Anxiety disorder, unspecified | CPT/HCPCS: 94010; 99212 ==

== ENCOUNTER 2024-05-02 13:39 | Outpatient (REF) | payer OTHER, SELFPAY ==
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
== END 2024-05-02 13:40 | disposition home or self-care (01) ==
LOC: HO.HHCX 13:39
PROVIDERS: Visit Provider General Practice
DX: M25.512 Pain in left shoulder (principal); G89.29 Other chronic pain; M54.2 Cervicalgia
CPT/HCPCS: 72040; 73030

== ENCOUNTER 2024-05-09 10:07 | Outpatient (RCR) | payer OTHER, MEDICARE, MEDICAID, SELFPAY ==
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
--- NOTE | 2024-06-10 11:56 | MHC.PT.DC ---
[facility] [place] Office [place] Office [place] Office [address] [phone] F: [phone] F: [phone] F: [phone] F: [phone] Physical Therapy Discharge Report Diagnosis: Unspecified rotator cuff tear or rupture of left shoulder, not specified as traumatic Date of Surgery: n/a Date of Evaluation: 04/03/24 Date of Discharge: 06/10/24 Treatments to Date: 10 Cancellations to Date: No Shows to Date: Discharge Status: Discharge Summary: Pt was seen for PT from 04/03/24-05/09/24. Her last attended and scheduled appointment was 05/09/24. She is being D/C from skilled PT for L shoulder pain as she was recommended to follow up with her doctor regarding neck pain From last PT note on 05/09/24 by K.P.: INDEPENDENT WITH CURRENT HEP AND PAIN LEVELS HAVE REMAINED FAIRLY CONSTANT. [facility] FOLLOW UP FOR POSSIBLE FURTHER IMAGING AND PURSUE SCRIPT FOR C-SPINE RX Electronically signed by: Samira Abraham, PT, DPT Please sign and return to therapist. Thank you for your referral.
== END 2024-06-10 11:51 | disposition home or self-care (01) ==
LOC: HO.PT 10:07
PROVIDERS: PCP General Practice; Visit Provider Orthopaedic Surgery
DX: M75.102 Unspecified rotator cuff tear or rupture of left shoulder, not specified as traumatic (principal)
CPT/HCPCS: 97014; 97110; 97140; 97162

== ENCOUNTER 2024-06-11 10:51 | Outpatient (RCR) | payer MEDICARE, MEDICAID, SELFPAY ==
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
== END 2024-10-04 14:33 | disposition home or self-care (01) ==
LOC: HO.OT 10:51
PROVIDERS: PCP General Practice; Visit Provider Orthopaedic Surgery
DX: M77.12 Lateral epicondylitis, left elbow (principal)
CPT/HCPCS: 97035; 97110; 97140; 97166; 97535

== ENCOUNTER 2024-06-12 23:54 | Emergency (ER) | payer MEDICARE, MEDICAID, SELFPAY ==
--- NOTE | ~2024-06-12 | CT_ITS ---
EXAMINATION: CT HEAD WITHOUT CONTRAST CLINICAL INFORMATION: Right-sided vision loss. COMPARISON: None available. TECHNIQUE: Contiguous axial imaging was performed from the skull base to vertex without intravenous administration of contrast. This CT examination was performed using dose optimization techniques as appropriate, variously including the following: *Automated exposure control *Adjustment of mA and/or kV according to patient size (this includes techniques or standardized protocols for targeted exams where dose is matched to indication/reason for exam; i.e. extremities or head) *Use of iterative reconstruction technique DLP: 649 mGy-cm FINDINGS: The lateral, third and fourth ventricles are normally outlined. The cortical sulci and basal cisterns are only outlined as well. There is no acute territorial defect, hemorrhage or midline shift. The extra-axial spaces are unremarkable. Calvarium/scalp: Intact. Maxillofacial sinuses and mastoids: Clear as visualized. CT/CT head/brain wo IV con IMPRESSION: No acute intracranial pathology. Electronically signed by: Jose Escalante MD 06/13/2024 03:08 AM OLIVER[facility] GARCIA
[2024-06-12 23:56] VITALS: BP 148/77; PULSE 99; RESP 16; TEMP 37.3; O2SAT 100; BMI 31.3
--- NOTE | 2024-06-13 01:49 | ED_ITS ---
HPI - Eye Problem General Chief complaint: Eye Problems Stated complaint: Right eye blurry & right arm feels weak Time Seen by Provider: 06/13/24 01:20 Source: patient Mode of arrival: ambulatory Limitations: no limitations History of Present Illness ED Provider: HPI Narrative: Dust 20 minutes prior to arrival patient noticed flash of light with the line in the right eye no scotomas symptoms lasted only for few minutes none at this time no loss of vision no pain in the eyes Related Data Home Medications ?Medication ?Instructions ?Recorded ?Confirmed escitalopram oxalate 10 mg tablet 10 mg PO DAILY 06/24/21 03/25/24 albuterol sulfate 90 mcg/actuation 1 inh inhalation QID 03/16/22 03/25/24 aerosol inhaler clonidine HCl 0.1 mg tablet 0.1 mg PO BEDTIME 05/04/23 03/25/24 diclofenac sodium 1 % topical gel 2 g topical BID 05/10/23 03/25/24 hydroxyzine pamoate 25 mg capsule 25 mg PO TID PRN anxiety 10/06/23 03/25/24 Previous Rx's ?Medication ?Instructions ?Recorded promethazine 25 mg tablet 25 mg PO BID PRN for 09/18/23 nausea/vomiting 30 days #30 tabs cholecalciferol (vitamin D3) 125 75 mcg (0.6 mL) PO DAILY 60 days 02/15/24 mcg/mL (5,000 unit/mL) oral drops #36 mL omeprazole 20 mg capsule,delayed 20 mg PO BID 90 days #180 caps 02/15/24 release Allergies Allergy/AdvReac Type Severity Reaction Status Date / Time cannabidiol (CBD) extract Allergy Mild Hives Verified 06/13/24 00:00 duloxetine AdvReac Intermediate Nausea and Verified 06/13/24 00:00 Vomiting Review of Systems Review of Systems: Yes all other systems are reviewed and are negative PMFSH Past Medical History Medical History Asthma Elevated anti-tissue transglutaminase (tTG) IgA level Peripheral muscle fatigue Muscle weakness of upper extremity Myalgia Hx of ectopic Anxiety disorder Paroxysmal nocturnal dyspnea Amenorrhea Campbell's disease Arthritis Hyperthyroidism Goiter Vitamin D deficiency Non-toxic multinodular goiter Obesity Elevated dehydroepiandrosterone sulfate level Graves disease Degenerative arthritis of knee, bilateral Surgical History Hx of endoscopy H/O esophagogastroduodenoscopy History of tonsillectomy History of tubal ligation Family History Family History Father Diabetes Mother Breast cancer BRCA gene mutation negative Maternal Uncle Heart transplanted Social History Social History Household Members: Family Alcohol intake: never Patient Tobacco Use Status: Never used Tobacco Smoked in Last 30 Days: No Advance Directives: No Advance Directives Information Provided: Yes Do you have a plan to hurt others: No Plan service: No Current occupational status: unemployed Current occupation: right hand Sexual orientation: Straight/Heterosexual Gender identity: Female Physical Exam Vital Signs: Vital Signs: Last Vital Signs Temp 98.5 F 06/13/24 03:50 Pulse 76 06/13/24 03:50 Resp 16 06/13/24 03:50 BP 118/53 L 06/13/24 03:50 Pulse Ox 98 06/13/24 03:50 O2 Del Method Room Air 06/13/24 03:50 BMI result Body Mass Index 31.3 Appearance: Alert. Oriented X3. No acute distress. EYE: Pupils normal size normal reaction to light fundus exam normal fundus exam of the right side no signs of which was hemorrhage no signs of retinal detachment visual kenney normal visual acuity normal ENT: Pharynx normal. Oral Mucosa moist Neck: Normal inspection. Neck supple. CVS: Normal heart rate and rhythm. Pulses normal. Respiratory: No respiratory distress. Equal air entry bilateral, no wheezing/rales/rhonchi Skin: Skin warm and dry. Normal skin color. Normal skin turgor. Extremities: No lower extremity edema. Neuro: Oriented X 3. 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 operator avoid straining Now patient's said that she had at the onset of symptoms noticed that she could not see the right side from the right eye which lasted only for few minutes got better after rubbing her eyes then developed the scotomas with flushing of the light does have chronic left-sided pain and weakness been followed by PCP and chiropractor no neck pain had some physical therapy for the neck yesterday no symptoms at that time patient has multiple complaints no complaining of headache also will do a CT scan of the head clinically patient does not have any carotid dissection or stroke could be migraine equivalent Differential Diagnosis Differential Diagnoses: The differential diagnosis associated with the prese ntation includes CVA/TIAs/migraine headache/vitreous detachment Independent Interpretation I performed an independent interpretation of an: CT Scan Interpretation: NAD Radiology Impression Discussion of test interpretation with radiology: I have reviewed the radiologist's reading. Discharge Plan Discharge Clinical Impression: Posterior vitreous detachment, right eye Patient Disposition: Home, Self-Care Instructions: Visual Floaters (ED) Additional Instructions: possibly you have minor vitals detachment in the right eye causing the floaters See tucking machine operator as advised Report to the ER if loss of vision or worsening of the symptoms Avoid straining/sneezing/cough Prescriptions: No Action promethazine 25 mg tablet 25 mg PO BID PRN (Reason: for nausea/vomiting) 30 Days Qty: 30 1RF escitalopram oxalate 10 mg tablet 10 mg PO DAILY albuterol sulfate 90 mcg/actuation HFA aerosol inhaler 1 inh inhalation QID hydroxyzine pamoate 25 mg capsule 25 mg PO TID PRN (Reason: anxiety) clonidine HCl 0.1 mg tablet 0.1 mg PO BEDTIME omeprazole 20 mg capsule,delayed release(DR/EC) 20 mg PO BID 90 Days Qty: 180 1RF cholecalciferol (vitamin D3) 125 mcg/mL (5,000 unit/mL) drops 75 mcg PO DAILY 60 Days Qty: 36 2RF diclofenac sodium 1 % gel 2 g topical BID Referrals: Jayro Reinoso [Physician] - 1 day Interventions: ED Discharge Assessment Last Done: 06/13/24 03:50 Discharge Date/Time: 06/13/24 03:51 Print Language: Tamazight
[2024-06-13 02:00] VITALS: BP 118/53; PULSE 76; RESP 16; TEMP 36.9; O2SAT 98
--- NOTE | 2024-06-13 02:12 | PC.NURSE ---
Pt seen by dr Bess hold on discharge at this time.
[2024-06-13 03:50] VITALS: BP 118/53; PULSE 76; RESP 16; TEMP 36.9; O2SAT 98
== END 2024-06-13 03:51 | disposition home or self-care (01) ==
PROVIDERS: Emergency Provider Internal Medicine; PCP General Practice
DX: H43.811 Vitreous degeneration, right eye (principal)
CPT/HCPCS: 70450; 99284

== ENCOUNTER 2024-08-19 12:03 | Outpatient (RCR) | payer OTHER, MEDICARE, MEDICAID, SELFPAY | END 2024-08-22 08:18 | disposition home or self-care (01) | LOC: HO.PT 12:03 | PROVIDERS: PCP General Practice; Visit Provider General Practice | DX: M47.812 Spondylosis without myelopathy or radiculopathy, cervical region (principal) | CPT/HCPCS: 97012; 97110; 97112; 97140; 97161 ==

== ENCOUNTER 2024-08-27 09:48 | Outpatient (AMB) | payer MEDICARE, MEDICAID, SELFPAY ==
--- NOTE | 2024-08-27 09:51 | A.OFFVIS_ITS ---
Vital Signs 08/27/24 09:52 Height 5 ft 7 in Weight 202 lb BMI 31.6 BP 110/71 Blood Pressure Location Lt brachial Position Sitting Pulse 86 Pulse Oximetry (%) 99 Oxygen Delivery Method Room Air Intake Visit Reasons: 6 month follow up Intake Note: Patient follow up for Dysphagia, pharyngoesophageal phase. Patient cc: acid reflex on and off, a lot of hungry. Patient said pharmacy is not giving her the boost completely, they just been giving her one box and half/monthly. Air Boatswain Required: No Accompanied by: Self / Same As Patient Allergies cannabidiol (CBD) extract Allergy (Mild, Verified 08/27/24 09:51) Hives duloxetine Adverse Reaction (Intermediate, Verified 08/27/24 09:51) Nausea and Vomiting Medication List - Last Reconciled 08/27/24 by Gonzalez Araujo MD albuterol sulfate 90 mcg/actuation 1 inh inhalation QID cholecalciferol (vitamin D3) 75 mcg (0.6 mL) PO DAILY 60 days clonidine HCl 0.1 mg PO BEDTIME diclofenac sodium 1% 2 grams topical BID escitalopram oxalate 10 mg PO DAILY hydroxyzine pamoate 25 mg PO TID PRN omeprazole 20 mg PO BID 90 days promethazine 25 mg PO BID PRN 30 days HPI HPI 6 month follow up: Details: FU GI CLINIC VISIT FOR THIS 49-YEAR-OLD FEMALE FOR FOLLOW-UP OF 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 ? CHRONIC ILLNESSES:?asthma, Graves disease TODAY'S VISIT Patient cc: acid reflex on and off, a lot of hunger. Patient said pharmacy is not giving her the boost completely, they just been giving her one box and half/monthly. Has not scheduled Esophageal Manometry yet - feels too anxious about it. Taking a liquid diet since she feels some choking even with the blendarized diet. Able to buy 1 box of Ensure. PAST VISIT: Continues to have dysphagia Has been chewing the topping of pizza and spitting it out. Can have chest pain and difficulty breathing after taking it and resolves spontaneously in 25 to 30 min. Pt was seen by a surgeon at ? [facility] or [facility] who advised to have repeat esophageal Manometry to see if she has Achalasia and would benefit from surgery Complains of nausea Some days she wakes up with nausea which lasts all day. Taking liquids and a few Seen by Rodriguez Santos at [facility] and was referred to Thoracic Surgery PAST VISITS: EGD results reviewed with the patient. Chest felt a little different for a few days after EGD Stopped taking the PPI for 6 weeks before the EGD. [place] bad when she resumed taking. Notes a lot of pressure in the neck and throat at night with difficulty breathing. Able to sleep in the rt lat decubitis position and unable to sleep at night. Tried using a wedge and was not helpful. Denies nocturnal regurgitation. Also complains of intermittent chest pain radiating to the back 2-3 times Has to stand up to help her breathing and sometimes has to sleep sitting down She was tested for sleep apnea - negative per patient. And cardiac testing Unable to eat solid food x 6 yrs and remains on a liquid and blenderized foods. Stopped taking blederized foods since episodes of choking. Intermittent early satiety. Past history of constipation and now has diarrhea alternating with constipation. Not feeling too good. Has nausea daily without vomiting - not always related to eating. Taking blenderized food. Feels her symptoms are getting worse -? unable to eat mashed potatoes. Does not eat if she notes dysphagia with blenderized diet Only takes Ensure and Ensure plus, ice cream, smoothies. Takes a few spoons and gets a sensation in her chest (tightness and chest pain and gets anxious) and unable to eat any more. Notes gas after she takes Ensure or ice-cream which lasts for 45 min. Has been taking Omeprazole twice a day for GERD. Can have heartburn if she does not take Omeprazole for a few days. Patient follow up for dysphagia. Patient cc: Nauseas, gassy, constipation, and some dysphagia. Denies any other GI isuses. Notes nausea daily. Taking Omeprazole twice a day. Feels bloated and has problems with gas. Noted GERD symptoms for a week - attributes it to duloxetine. Takes 30 to 40 min to eat blenderized food. Notes chest pain if she tries to eat fast. Takes Naked smoothies which helps with constipation. Denies improvement in nausea despite taking Omeprazole Intermittent constipation - has a BM almost every day Sometimes can go 3-4 days without a BM. Did not have EGD with Gallardo due to anxiety regarding side effects. ??PAST VISIT No change in problems with eating. Takes yogurt, ensure and blenderized food. Saw Dr Botoman, Esophageal specialist at [facility] in [place] She was told ineffective esophageal motility is due to long standing reflux - consult note has been requested. She is scheduled for an EGD with Sami on October 14 at [facility]. Prescribed a medication which she is taking daily ?? ? Taking ensure (1-2 times a day), liquids and ice-cream. ? ? ? Has gained weight and cut back on the Ensure from 3 to two times a day. ? ? ? Has an appt on 01/25/21 with GI at [facility] for a 2nd opinion on dysphagia. ? ? ? Seen by Rheumatology and all her tests were normal and no follow up appointment was advised Notes pains in the shoulder and pain in the hands. ? ? ? Has to sleep on her right side. ? ? ? Unable to sleep on her back or left side. ? ? ? Feel her throat closes and she is unable to breath. ? ? ? Her boy friend messages her shoulders which improves her symptoms. ?? ? Therapy to shoulders and neck helps - thinks her symptoms are related to her muscles. ?? ? Had a home sleep study in the past which was negative. ?? ? Notes palpitations and feels gassy when she takes coffee. ? High-resolution esophageal manometry results were reviewed with the patient. ? Patient denies change in symptoms and continuing to take blenderized food and ice-cream and protein shakes. ? Symptoms of dysphagia for the past 2 years. ? Is able to swallow and feels food is sitting in the lower neck/upper chest sometimes for 30 min. ? Also has a stuffy nose at the same time. ? Has not been able to take solid food for the past 2 years. ? Also has nausea. ? Had an episode of flushing, sudden fatigue and palpitations a week ago. ? Symptoms improved and had nausea following this episode. ? Takes oatmeal after putting it in the flour blender. ? Can eat corned beef on some days and not on other days. ? Also has bad constipation. No BM for 3 days and takes a hot chocolate which helps. ? Weight loss of 65 lbs over 7 months and has gained back 7 lbs after she started taking more ice-cream. ? Feels short of breath when she sleeps on the right side or back Since her last appointment in May, she was scheduled for a CT of the neck without contrast- this was scheduled due to ongoing issues with swallowing and xrays of neck revealing changes in the cervical vertebra. ? We received an urgent call from radiology regarding an abnormality noted in the soft tissue - ? soft tissue mass due to the asymmetry noted. Patient was set up urgently with ENT in [place]- seen the same day. ENT felt the abnormality was due to tissue removed from one side of throat during t onsillectomy. Additionally multinodular thyroid gland without enlargement and needs a US for further evaluation. 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 Patient is scheduled for a CT with contrast of neck as well US of thyroid. Patient is going to be scheduled for physical therapy for neck and will follow up about 2 months ?IMAGING STUDIES:?Reviewed. ?ENDOSCOPIC STUDIES: 12/16/22 EGD SHOWED: Larynx:? Edema of arytenoid cartilages Esophagus:? Subtle mucosal changes with circular folds in the esophagus - biopsies were obtained from proximal esophagus to check for EOE.? Aperistaltic esophagus.? GE junction at 40 cms. No esophagitis or Soliman?s.? Esophageal? balloon dilation was performed with 20 mm CRE balloon time 60 seconds Stomach:? multiple 5-15 mm benign-appearing polyps in the gastric body and fundus -? biopsies.? Grade 2 flap valve on retroflexed examination of the cardia. BIOPSIES SHOWED: A.? Gastric polyps, biopsy:? Fundic gland polyps with minimal chronic inactive inflammation; negative for intestinal metaplasia and dysplasia (see comment).? B. Esophagus, proximal, biopsy:? Squamous mucosa specific change; no columnar mucosa present; no evidence of eosinophilic esophagitis.? 04/30/18 EGD showed: ? Larynx: Edema of arytenoid cartilages ? Esophagus: Subtle mucosal changes with circular folds in the esophagus ( ? suggestive of EOE) - biopsies were obtained. GE junction at 36 cms. No ? esophagitis or Soliman s. ? Stomach: Mild gastric erythema. Biopsies were obtained. Grade 2 flap valve on ? retroflexed examination of the cardia. ? Biopsies showed: ? A. Gastric, biopsies: ? Fragments of antral-type gastric mucosa with mild chronic gastritis. ? The Helicobacter pylori immunohistochemical stain is negative. ? B. Esophagus, proximal, biopsies: ? Fragments of unremarkable squamous mucosa. ? There is no evidence of eosinophilic esophagitis seen in this specimen. 04/16/20? HIGH-RESOLUTION ESOPHAGEAL MANOMETRY AT [facility] SHOWED: ? normal UES function,? short LES length. ? Hypotensive LES/ EGJ resting pressure with normal LES relaxation. ? No hiatal hernia was detected manometrically. ? [place] classification 3: ? ineffective esophageal motility ? PFSH Medical History Asthma Elevated anti-tissue transglutaminase (tTG) IgA level Peripheral muscle fatigue Muscle weakness of upper extremity Myalgia Hx of ectopic Anxiety disorder Paroxysmal nocturnal dyspnea Amenorrhea Campbell's disease Arthritis Hyperthyroidism Goiter Vitamin D deficiency Non-toxic multinodular goiter Obesity Elevated dehydroepiandrosterone sulfate level Graves disease Degenerative arthritis of knee, bilateral Surgical History Hx of endoscopy H/O esophagogastroduodenoscopy History of tonsillectomy History of tubal ligation Family History Father Diabetes Mother Breast cancer BRCA gene mutation negative Maternal Uncle Heart transplanted Social History Household Members: Family Alcohol intake: never Patient Tobacco Use Status: Never used Tobacco service: No Current occupational status: unemployed Current occupation: right hand Sexual orientation: Straight/Heterosexual Gender identity: Female Female Reproductive History Menstrual Age of Menarche: 13 Review of Systems Const All systems reviewed & are unremarkable except as noted in HPI and below Physical Exam Vital Signs: Last Vital Signs Pulse 86 08/27/24 09:52 BP 110/71 08/27/24 09:52 Pulse Ox 99 08/27/24 09:52 Oxygen Delivery Method Room Air 08/27/24 09:52 BMI result Body Mass Index 31.6 Const General: healthy appearing and no acute distress Nutritional Appearance: obese Orientation/consciousness: patient oriented x3 Limitations: no limitations HEENT Head: Yes normal to inspection Ears: hearing grossly normal bilaterally Eyes Sclerae: sclerae normal Pupils: Equal, round and reactive pupils present Neck Neck: Yes normal visual inspection Chest Chest palpation & inspection: normal inspection of the chest Resp Effort & Inspection: normal respiratory effort Auscultation: clear to auscultation bilaterally Cardio Palpation: normal PMI Rate: regular rate Rhythm: regular rhythm Heart sounds: S1 normal heart sound present, S2 normal heart sound present and no murmurs GI Palpation (GI): Soft to palpation, nontender and No hepatosplenomegaly present Auscultation: normal bowel sounds Rectal Exam - Female: deferred Skin General skin exam: no rashes or lesions noted Neuro General: patient oriented x3, gait normal and moves all extremities Cranial nerves: Yes Equal, round and reactive pupils present Psych Appearance: grossly normal Mental Status: mental status grossly normal Assessment & Plan Assessment & Plan (1) Dysphagia, pharyngoesophageal phase: Code(s): R13.14 - Dysphagia, pharyngoesophageal phase Category: Medical (2) Ineffective esophageal motility: Code(s): K22.4 - Dyskinesia of esophagus Category: Medical (3) Early satiety: Code(s): R68.81 - Early satiety Category: Medical (4) GERD (gastroesophageal reflux disease): Code(s): K21.9 - Gastro-esophageal reflux disease without esophagitis Category: Medical Plan 49 YF with asthma seen for FU of dysphagia to solid food for the past few years. Has been taking blenderized foods and protein shakes. An UGI was normal. EGD in 04/2018 showed gastritis and subtle mucosal changes suggestive of EOE. Esophgeal biopsies were negative for EOE and gastric biopsies did not show H Pylori. Pt was advised further evaluation with High Resolution Manometery to rule out esophageal motility disorder/achalasia. She was advised to continue taking a blendarized diet and protien shakes in the interim. 04/16/20? HIGH-RESOLUTION ESOPHAGEAL MANOMETRY AT [facility] SHOWED: ? normal UES function,? short LES length. ? Hypotensive LES/ EGJ resting pressure with normal LES relaxation. ? No hiatal hernia was detected manometrically. ? [place] classification 3: ? ineffective esophageal motility ?Patient was advised LAB tests to rule out presence of autoimmune disorder affecting esophageal motility - KIRT 1:80 nuclear/ speckled pattern. Pt was seen by Rheumatology? -? no evidence of lupus or connective tissue disease was detected.? She had a? negative rheumatoid factor, normal ESR and CRP, negative ds DNA.? The remainder of her serology was also unrevealing with negative Sm/NETWORK SUPPORT MANAGER, neg ative scleroderma antibody, normal complements, negative Sjogren's antibodies.? Source of positive KIRT was felt to be positive antithyroid antibodies. She was advised to start metoclopramide 10 mg 3 times daily with meals for dysphagia/ ineffective esophageal motility disorder. Of note:? Pt is undergoing additional testing with a CT scan due to elevated DHEA-sulfate levels. She was referred to the [facility] at [facility] for a 2nd opinion and has an appt on 01/25/21. Patient was referred to Neurology to rule out neurological source of her symptoms 12/16/22 EGD was performed in findings as noted above Pt is enrolled in a study at the [facility] at [facility] and stopped going since she is not experiancing any improvement in her symptoms Pt called.? On 09/11/22 she took 2-3 spoonful of some blenderized oatmeal which was a little thick. Noted chest pain and unable to swallow water. [place] bad in her chest and unable to breath Was going to go to the ED and symptoms resolved after 45 to 50 min. Continued to have chest pain the following day. Has been taking a liquid diet. She is participitating in a study at [facility] and continues to fu with Dr Armenta Only medication she is taking is Omeprazole Pt was advised to schedule an EGD for further evaluation 05/04/23 Some days she wakes up with nausea which lasts all day. Taking liquids and a few Seen by Rodriguez Santos at [facility] and was referred to Thoracic Surgery 02/15/24 Pt was seen by Dr Lyons (Thoracic Surgeon at [facility]) and advised repeat Manometry testing at to rule out Achalasia. Plan is for POEM procedure if repeat studies confirm Achalasia. Pt advised to schedule a FU visit with Dr Lyons Ref to Oncology for elevated Ig A levels 08/27/24 Has not scheduled Esophageal Manometry yet - feels too anxious about it. Taking a liquid diet since she feels some choking even with the blendarized diet. Pt advised to schedule a screenig colonoscopy. Fluoroscopy procedure and potential complications including bleeding, perforation and reaction to anesthetic were reviewed with the patient Follow-up appointment in GI in 6 months ?FROM UP-TO-DATE: Ineffective esophageal motility: By high-resolution esophageal manometry, ineffective motility is defined as 50 to 90 percent of the liquid swallows being weak or failed. The manometric diagnosis of ineffective esophageal motility does not always correlate with symptoms or impaired esophageal function. In one study, only 30 percent of patients with ineffective esophageal motility reported dysphagia. Moreover, studies using esophageal intraluminal impedance testing have shown that up to 68 percent of liquid and 59 percent of viscous swallows in such patients showed normal bolus transit The prevalence of celiac disease and inflammatory bowel disease is probably modestly increased among individuals with autoimmune thyroid disease. Patients with persistent gastrointestinal symptoms should undergo screening for these diseas Medications: New bisacodyl (Dulcolax (bisacodyl)) Take 4 tablets at 12 pm the day before colonoscopy appointment 20 mg (4 x 5 mg) PO ONCE 1 day 4 tabs 0RF colon prep polyethylene glycol 3350 (Miralax) Mix Miralax with 64 oz(8 cups) of Crystal light. Take 2 tablets of Dulcolax qt 12 pm. Wait to have your 1st bowel movement, then begin drinking Miralax. Drink a glass of Miralax every 10-15 minutes until you are finished. You will drink at least another 4 cups of clear liquid of your choice over the next 2 hours. Please drink as many clear liquids as possible You may have clear liquids up to four hours before your procedure 17 grams PO DAILY 1 day 238 grams 0RF colon prep Coding Level of Care Code Est Pt Level 4 (56936) Diagnoses Dysphagia, pharyngoesophageal phase R13.14 Ineffective esophageal motility K22.4 Early satiety R68.81 GERD (gastroesophageal reflux disease) K21.9 Time Spent (min) 21
[2024-08-27 09:52] VITALS: BP 110/71; PULSE 86; O2SAT 99; BMI 31.6
--- OUTSIDE RECORDS SUMMARY | 2024-08-27 11:11 | XMS_ITS | Encounter Summary ---
Author Organization [employer] Address [address] [place] [address] [address] [place] [address] Care Team Providers Care Associate Curator Name Role Phone Batsheva Cabrera MD Primary Care Provider [phone] Reason for Visit * Reason Onset Date Comments recall 08/13/2024 Encounter Details Date Type Department Care Team ([facility] st Contact Info) Description 08/13/2024 Telephone [facility] MEDICINE [address] [place], [place] [phone] Batsheva Cabrera MD [address] [place], [place] [phone] recall Social History Tobacco Use Types Packs/Day Years Used Date Smoking Tobacco: Never Passive Smoke Exposure: Never Smokeless Tobacco: Never Alcohol Use Standard Drinks/Week Comments Never 0 (1 standard drink = 0.6 oz pur e alcohol) PHQ-2 Answer Date Recorded Patient Health Questionnaire-2 Score 0 10/28/2022 Housing Stability Answer Date Recorded What is your housing situation today? I have jovana soto 04/05/[address] you li ve. Do you have problems with any of the following? None of the above 04/05/2023 Food Insecurity Answer Date Recorded Within the past 12 months, y ou worried that your food would run out before you got money to buy more: Never True 04/05/2023 Within the past 12 months,th e food you bought just didn't last and you didn't have enough money to get more: Never True Transportation Answer Date Recorded In the past 12 months, has l ack of transportation kept you from medical appts, meetings, work or from getting things needed for daily living? No 08/31/2023 Utilities Answer Date Recorded In the past 12 months, has t he electric, gas, oil or water company threatened to shut off services in your home? No 04/05/2023 Depression Answer Date Recorded Patient Health Questionnaire-2 Score 0 10/28/2022 Comments Unknown Sex and Gender Information Value Date Recorded Sex Assigned at Female 04/18/2022 10:14 AM EDT Legal Sex Female 10:14 AM EDT Gender Identity Female 04/18/2022 10:14 AM EDT Sexual Orientation Straight 04/18/2022 10 :14 AM EDT documented as of this encounter Miscellaneous Notes * Telephone Encounter - Niki Scales MA - 08/13/2024 1:01 PM EST Telephone call to patient to schedule the following recall: Visit type: Office visit Appointment notes: eating issues Patient agree to appointment on 10/25/24 at 4 PM with Rick. documented in this encounter Plan of Treatment Upcoming Encounters Date Type Department Care Team (Late st Contact Info) Description 10/25/2024 4:00 PM EDT Office Visit [facility] MED[facility]INE [address] [place] [address] Batsheva Cabrera MD [address] [place] [address] documented as of this encounter Visit Diagnoses Not on filedocumented in this encounter Care Teams Associate Curator Relationship Specialty Start Date End Date Batsheva Cabrera MD [address] [place] [id number] PCP - General Family Medicine 07/24/20 documented as of this encounter
--- OUTSIDE RECORDS SUMMARY | 2024-08-27 11:11 | XMS_ITS | Encounter Summary ---
Author Organization [employer] Address [address] [facility] [address] [place] [address] Care Team Providers Care Slackline Operator Name Role Phone Batsheva Cabrera MD Primary Care Provider [phone] Reason for Visit * Reason Comments Med Change Request Encounter Details Date Type Department Care Team ([facility] Contact Info) Description 04/28/2024 Refill [facility] MEDICINE [address] [place], [place] [phone] Batsheva Cabrera MD [address] [place] [address] Social History Tobacco Use Types Packs/Day Years [...] AM EDT documented as of this encounter Plan of Treatment Upcoming Encounters Date Type Department Care Team (Late st Contact Info) Description 10/25/2024 4:00 PM EDT Office Visit [facility] MEDICINE [address] [place], [place] [phone] Batsheva Cabrera MD [address] [place] [address] documented as of this encounter Visit Diagnoses Not on filedocumented in this encounter Care Teams Slackline Operator Relationship Specialty Start Date End Date Batsheva Cabrera MD [address] [place] [phone] PCP - General Family Medicine 07/24/20 documented as of this encounter
--- OUTSIDE RECORDS SUMMARY | 2024-08-27 11:11 | XMS_ITS | Encounter Summary ---
Author Organization [email or web address] Address [address] [place] [address] 7t [place] [address] Care Team Providers Care Weigh Boss Name Role Phone Batsheva Cabrera MD Primary Care Provider [phone] Reason for Referral * Consultation (Routine) - Closed Specialty Diagnoses / Procedures Referred By Contac t Referred To Contact Physical Therapy Diagnoses Spondylosis of cervical region without myelopathy or radiculopathy Batsheva Cabrera MD [address] [place] [address] Phone: tel: fax: [facility] [address] [place] [address] Phone: tel: fax: Referral ID Status Reason Start Date Expiration Date V isits Requested Visits Authorized [id number] Closed Specialty Services Required 05/15/2024 05/15/2025 1 1 Encounter Details Date Type Department Care Team (Late st Contact Info) Description 05/15/2024 Orders Only [facility] MED[facility] [address] [place], [place] [phone] Batsheva Cabrera MD [address] [place], [place] [phone] Spondylosis of cervical region without myelopathy or radiculopathy (Primary Dx) Social History Tobacco Use Types Packs/Day Years [...] Description 10/25/2024 4:00 PM EDT Office Visit [facility] [address] [place] [address] Batsheva Cabrera MD [address] [place] [address] Scheduled Referrals Name Type Priority Associated Diagnoses Orde r Schedule Referral to Physical Therapy Outpatient Referral Routine Spondylosis of cervical region without myelopathy or radiculopathy Expected: 05/15/2024 (Approximate), Expires: 05/15/2025 documented as of this encounter Procedures Procedure Name Priority Date/Time Associated Diagnosis Comments CT HEAD WO CONTRAST Routine 06/13/2024 2 :12 AM EST documented in this encounter Results * CT Head w/o Contrast (06/13/2024 2:12 AM EST) Anatomical Region Laterality Modality Head, Neck Computed Tomogra phy 06/13/2024 2:12 AM EST Narrative 06/13/2024 3:12 AM EST ? [facility] ?[address] ?[place] [address] ? CT Scan Report ? Signed ? Patient: Ivan,Marangely ?MR#: [id number] ?? [id number] ? : 1975 ?Acct:[id number] ? Age/Sex: 49 / F ?ADM Date: 06/13/24 ? Loc: HO.ED ? Attending Dr: ? Ordering Physician: Pb Light MD ?? Date of Service: 06/13/24 ?? Procedure(s): CT head/brain wo IV con ?? Accession Number(s): [id number] ? cc: Batsheva Cabrera; Pb Light MD ? EXAMINATION: ?? CT HEAD WITHOUT CONTRAST ? CLINICAL INFORMATION: ?? Right-sided vision loss. ? COMPARISON: ?? None available. ? TECHNIQUE: ?? Contiguous axial imaging was performed from the skull base to vertex ?? without intravenous administration of contrast. ? This CT examination was performed using dose optimization techniques as ?? appropriate, variously including the following: ?? *Automated exposure control ?? *Adjustment of mA and/or kV according to patient size (this includes ?? techniques or standardized protocols for targeted exams where dose is ?? matched to indication/reason for exam; i.e. extremities or head) ?? *Use of iterative reconstruction technique ? DLP: ?? 649 mGy-cm ? FINDINGS: ?? The lateral, third and fourth ventricles are normally outlined. The ?? cortical sulci and basal cisterns are only outlined as well. There is ?? no acute territorial defect, hemorrhage or midline shift. The ?? extra-axial spaces are unremarkable. ? Calvarium/scalp: Intact. ? Maxillofacial sinuses and mastoids: Clear as visualized. ? CT/CT head/brain wo IV con ?? IMPRESSION: ?? No acute intracranial pathology. ? Electronically signed by: ??Jose Escalante MD ??06/13/2024 03:08 AM EST RP ? Dictated By: ?Jose Escalante MD ? Signed By: ?<Electronically signed by Jose Escalante MD in OV> ?06/13/24 0308 ? DD/ 0212 ? TD/TT: 06/13/24 0230 ? Kiln Remover: ? Procedure Note Donotuseinterpreter, Image - 06/13/[address] [address] [address] Scan Report Signed Patient: Crystal IvanMR#: [id number] : 1975Acct:[id number] Age/Sex: 49 / FADM Date: 06/13/24 Loc: HO.ED Attending Dr: Ordering Physician: Pb Light MD Date of Service: 06/13/24 Procedure(s): CT head/brain wo IV con Accession Number(s): [id number] cc: Batsheva Cabrera; Pb Lihgt MD EXAMINATION: CT HEAD WITHOUT CONTRAST CLINICAL INFORMATION: Right-sided vision loss. COMPARISON: None available. TECHNIQUE: Contiguous axial imaging was performed from the skull base to vertex without intravenous administration of contrast. This CT examination was performed using dose optimization techniques as appropriate, variously including the following: *Automated exposure control *Adjustment of mA and/or kV according to patient size (this includes techniques or standardized protocols for targeted exams where dose is matched to indication/reason for exam; i.e. extremities or head) *Use of iterative reconstruction technique DLP: 649 mGy-cm FINDINGS: The lateral, third and fourth ventricles are normally outlined. The cortical sulci and basal cisterns are only outlined as well. There is no acute territorial defect, hemorrhage or midline shift. The extra-axial spaces are unremarkable. Calvarium/scalp: Intact. Maxillofacial sinuses and mastoids: Clear as visualized. CT/CT head/brain wo IV con IMPRESSION: No acute intracranial pathology. Electronically signed by: Jose Escalante MD 06/13/2024 03:08 AM [facility] Dictated By: Jose Escalante MD Signed By: <Electronically signed by Jose Escalante MD in OV> 06/13/24 0308 DD/ 0212 TD/TT: 06/13/24 0230 Kiln Remover: [facility] External Provider IMG CT PROCEDURES Edited Result - Final documented in this encounter Visit Diagnoses Diagnosis Spondylosis of cervical region without myelopathy or radiculopathy- Primary documented in this encounter Care Teams Weigh Boss Relationship Specialty Start Date End Date Batsheva Cabrera MD [address] [place] [address] PCP - General Family Medicine 07/24/20 documented as of this encounter
--- OUTSIDE RECORDS SUMMARY | 2024-08-27 11:11 | XMS_ITS | Encounter Summary ---
Author Organization [employer] Address [address] [place] [address] 7t [place] [address] Care Team Providers Care Handmade Tile Artist Name Role Phone Batsheva Cabrera MD Primary Care Provider [phone] Reason for Visit * Reason Onset Date Comments Results 06/07/2023 Encounter Details Date Type Department Care Team ([facility] st Contact Info) Description 06/07/2023 Telephone [facility] MEDICINE [address] [place], [place] [phone] Batsheva Cabrera MD [address] [place], [place] [phone] Results Social History Tobacco Use Types Packs/Day Years [...] from getting things needed for daily living? Yes, it has kept me from medical appointments or getting medications. 03/27/2023 Utilities Answer Date Recorded In the past [...] encounter Miscellaneous Notes * Telephone Encounter - Adina Love RN - 06/08/2023 9:57 AM EST TC placed to pt [phone] in regards to below message. Pt reports she would like to be referred to the hand surgeon (Dr. Hutson) as the pain continues and pt also has been having pain in her wrist. Pt advised she will receive a letter in the mail with her appt date and time w/ Dr. Hutson or a call from the office. Pt verbalized understanding. Pt to f/u PRN. Please place referral to hand surgeon * Telephone Encounter - Delbert Nickerson - 06/07/2023 1:38 PM EST Tc from patient requesting a call back in regards to MRI results documented in this encounter Plan of Treatment Upcoming Encounters Date Type Department Care Team (Late st Contact Info) Description 10/25/2024 4:00 PM EDT Office Visit [facility] MED[facility]INE [address] [place] [address] Batsheva Cabrera MD [address] [place] [address] documented as of this encounter Visit Diagnoses Not on filedocumented in this encounter Care Teams Handmade Tile Artist Relationship Specialty Start Date End Date Batsheva Cabrera MD [address] [place] [address] PCP - General Family Medicine 07/24/20 documented as of this encounter
--- OUTSIDE RECORDS SUMMARY | 2024-08-27 11:12 | XMS_ITS | Encounter Summary ---
Author Organization [employer] [facility] Address [address] [place] [address] 7t [place] [address] Care Team Providers Care Applications Analyst Name Role Phone Batsheva Cabrera MD Primary Care Provider [phone] Encounter Details Date Type Department Care Team (Late st Contact Info) Description 08/01/2022 Orders Only [facility] MEDICINE [address] [place] [phone] Mamie Templeton LPN Social History Tobacco Use Types Packs/Day Years Used Date Smoking Tobacco: Never Smokeless Tobacco: Never Comments Unknown Sex and Gender Information Value Date Recorded Sex Assigned at Female 04/18/2022 10:14 AM EDT Legal Sex Female 10:14 AM EDT Gender Identity Female 04/18/2022 10:14 AM EDT Sexual Orientation Straight 04/18/2022 10 :14 AM EDT COVID-19 Exposure Response Date Recorded In the last 10 days, have yo u been in contact with someone who was confirmed or suspected to have Coronavirus/COVID-19? No / Unsure 08/01/2022 4:47 PM EST documented as of this encounter Plan of Treatment Upcoming Encounters Date Type Department Care Team (Late st Contact Info) Description 10/25/2024 4:00 PM EDT Office Visit [facility] MED[facility]INE [address] [place] [phone] Batsheva Cabrera MD [address] [place] [phone] documented as of this encounter Visit Diagnoses Not on filedocumented in this encounter Care Teams Applications Analyst Relationship Specialty Start Date End Date Batsheva Cabrera MD [address] [place] [address] PCP - General Family Medicine 07/24/20 documented as of this encounter
--- OUTSIDE RECORDS SUMMARY | 2024-08-27 11:12 | XMS_ITS | Data Portability ---
Author Organization [place] - [facility] Address [address] [place] [address] Care Team Providers Care Umbrella Cutter Name Role Phone KONRAD SRIDEVI Primary Care Provider [phone] Assessment Encounter Date Assessment Date Assessment LastModified by Organization Details LastModified Time 06/17/2024 06/17/2024 Recommendations: Follow up with referring provider. Amplification is medical intervention is not an option. [email or web address] Not available 06/17/2024 10:46:45 06/17/2024 06/17/2024 Patient complain s of difficulty hearing from the right ear. Physical exam unrevealing on that side. Cerumen removed from left EAC; otologic exam otherwise unremarkable. Audiometric testing demonstrates conductive hearing loss with absent otoacoustic reflexes on the right side, and normal hearing on the left. Reviewed with patient pathophysiology of otosclerosis. Recommend consult with Dr. Ramirez next available for consideration of stapedectomy versus amplification. In the interim, recommend good listening strategies. [email or web address] Not available 06/17/2024 12:33:04 Plan of Treatment Reminders Order Date Submit Date Provider Last Modified By Organization Details Last Modified Time Details Appointments Otology Referral 2024 11:30A M CHERYL RAMIREZ MD Not available Not available Not available Lab None recorded. Referral None recorded. Procedures None recorded. Surgeries None recorded. Imaging None recorded. Medication Orders None recorded. Patient TargetsNo targets recorded. Patient InstructionsNo instructions recorded. Reason for Referral None Reported. Results Created Date Observation Date Name Description Value Unit Range Abnormal Flag Note LastModifiedBy Organization Detail LastModifiedTime 06/17/20 24 audio gram No observ ation record ed. BARCODE Not Available 2023 13:36:55 Result Notes None recorded. 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 Thyroid (cystic) nodule NOS; Note: Date Diagnosed : 08/15/2018 6:47 PM (E04.1) Not Available [facility] 4 02:29:02 Dysphagia 23556067 Active 2017 Other dysphagia ; Note: Date Diagnosed : 8 1:08 PM (R13.19) Not Available [facility] 4 02:29:05 Injury of thyroid gland 926798553 Active 2017 Other specified injuries of thyroid gland, initial encounter ; Note: Date Diagnosed : 8 1:13 PM (S19.84XA ) Not Available [facility] 4 02:29:00 Conductiv e hearing loss 82748450 Active 2023 ZEKE AGUILAR [address] [facility],[place] [address], [place], [address] , [facility] - [facility] 4 10:46:50 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 Procedures Surgical History Date Name Laterality Status Provider Name and Address Organization Details Recorded Time 4 Comp Audio with Tymps (24988 & 97966) completed ZEKE AGUILAR [address] [facility], [place], [address], [place] - [facility] 06/17/2024 10:34:55 Cerumen removal without microscope left completed NURIA DRIVER PA-C [address] [facility], [place], [address], [place] - [facility] 06/17/2024 11:22:21 Imaging Results Imaging Date Name Status LastModified by Organiz ation Details LastModified Time 06/17/2024 audiogram completed BARCODE Information no t available 06/17/2024 13:36:55 Procedure Notes None recorded. Medical Equipment None Reported. Medications Name Sig Start Date Stop Date Status Note LastModified by Organization Details LastModified Time amoxicillin 500 mg capsule TAKE 1 CAPSULE BY MOUTH 3 TIMES A DAY 06/17 completed Not Available Not Available Not Available clonidine HCl 0.1 mg tablet TAKE 1 TABLET BY MOUTH NEEDED AT ONSET OF PANIC ATTACK active Not Available Not Available No t Available ibuprofen 800 mg tablet TAKE 1 TABLET (800 MG) BY MOUTH EVERY 8 (EIGHT) HOURS IF NEEDED FOR MODERATE PAIN OR FEVER. 06/17 completed Not Available Not Available Not Available prednisone 5 mg tablet TAKE 3 TABLETS PER DAY X7 DAYS, 2 TABLETS PER DAY X7 DAYS, THEN 1 TABLET PER DAY X 14 DAYS AND STOP 06/17 completed Not Available Not Available Not Available leflunomide 20 mg tablet TAKE 1 TABLET BY MOUTH EVERY DAY active Not Available Not Available No t Available acetaminoph en 500 mg tablet TAKE 1 TABLET (500 MG) BY MOUTH EVERY 8 (EIGHT) HOURS IF NEEDED FOR MILD PAIN FOR UP TO 10 DAYS. 06/17 completed Not Available Not Available Not Available promethazin e 25 mg tablet TAKE 1 TABLET BY MOUTH TWICE A DAY NEEDED NEEDED FOR NAUSEA AND VOMITING FOR 30 DAYS 06/17 completed Not Available Not Available Not Available ibuprofen 400 mg tablet TAKE 1 TAB BY MOUTH EVERY 12 (TWELVE) HOURS IF NEEDED FOR MODERATE PAIN OR FEVER FOR UP TO 10 DAYS. active Not Available Not Available No t Available omeprazole 20 mg capsule,del ayed release TAKE 1 CAPSULE BY MOUTH TWICE A DAY active Not Available Not Available No t Available albuterol sulfate HFA 90 mcg/actuati on aerosol inhaler INHALE 2 PUFFS EVERY 6 HOURS IF NEEDED FOR WHEEZING. active Not Available Not Available No t Available hydroxyzine pamoate 25 mg capsule TAKE 1 CAPSULE BY MOUTH 3 TIMES A DAY NEEDED FOR ANXIETY active Not Available Not Available No t Available escitalopra m 10 mg tablet TAKE 1 TABLET BY MOUTH EVERY DAY FOR MOOD active Not Available Not Available No t Available Advair HFA 45 mcg-21 mcg/actuati on aerosol inhaler INHALE 2 PUFFS IN THE MORNING AND AT BEDTIME active Not Available Not Available No t Available diclofenac 1 % topical gel PLEASE SEE ATTACHED FOR DETAILED DIRECTION S active Not Available Not Available No t Available cholecalcif liat (vitamin D3) 125 mcg/mL (5,000 unit/mL) oral drops GIVE 0.6MLS BY MOUTH EVERY DAY active Not Available Not Available No t Available Vitals Date Recorded Body weight Body mass index (BMI) Body height Provider Name and Address Organization Details Last Updated DateTime 06/17/2024 36516.47 g 31.3 kg/m2 170.18 cm Nancy Griffin [place] - [facility] 06/17/2024 10:05:54 Social History None recorded. Functional Status None recorded. Mental Status None recorded. Family History Nothing Reported. Medical History No medical history recorded. Gynecological HistoryNo gynecological history recorded. Obstetrics History GPAL:G 0 P 0 0 0 0 Past Encounters Encounter ID Performer Location Encounter Start Date Encounter Closed Date Diagnosis/Indication Diagnosis SNOMED-CT Code Diagnosis ICD10 Code Diagnosis Note [id number] NURIA DRIVER PA-C [facility] [address] [address] 06/17/2024 09:59:17 06/17/2024 11:31:10 Conductive hearing loss 65086219 H90.11 Otoscleros is of ossicle of right ear 8081695790 135919 H80.91 Impacted c erumen in left ear 2554493683 689189 H61.22 [id number] ZEKE AGUILAR [facility] [address] [address] 06/17/2024 10:34:16 06/20/2024 14:57:33 Conductive hearing loss 80314394 H90.2 Audiologic al evaluation results:Ri ght ear:{{Norm al sloping Mi ld* Modera te Moderat baldo-severe Severe Pr ofound Nor mal auditory thresholds }} {{sensorin eural hearing loss with condu ctive hearing loss with* mixe d hearing loss with}} {{excellen t* good fa ir poor no t measurable }} word recognitio n.Left ear:{{Norm al sloping Mi ld Moderat e Moderate ly-severe Severe Pro found Norm al auditory thresholds *}} with {{excellen t* good fa ir poor no t measurable }} word recognitio n.Tympanom etry:Right Ear:{{Type A Type As* Type Ad Type C Type C, shallow & rounded Ty pe B Type B with large volume Cou ld not maintain a hermetic seal}}Left Ear:{{Type A Type As* Type Ad Type C Type C, shallow & rounded Ty pe B Type B with large volume Cou ld not maintain a hermetic seal}} Absent ipsi and contra acoustic reflexes, AU. Health Concerns Section Related Observation LastModified by Organization Detai ls LastModified Time None Recorded Concern Status LastModified by Organization Details LastModified Time None Recorded Advance Directives Directive None Recorded Payers Encounter Date Sequence Insurance Name Policy Number Policy Dukes Covered Member ID Dukes Member ID Guarantor Name 06/17/2024 2 [place]: [facility] Crystal Gilios [id number] [facility] 06/17/2024 1 MEDICARE B-[place]: [facility] Ivan [id number] [facility] 06/17/2024 2 [place]: [facility] Crystal Gilios [id number] [facility] 06/17/2024 1 [facility]IC[facility] B[facility] [id number] [facility] Ivan Notes Date Note Type Note Provider Name and Address Organization Details Recorded Time 06/17/2024 text/html 49 year old naseem gatica presents for evaluation of ears. States that whenever she goes to a doctor they tell her they are clogged with wax. She has been given drops for this, which she continues to take. Patient feels her hearing is good bilaterally, though it does fluctuate at times. There is some tinnitus in the right ear, whooshing noise. Patient reports intermittent pain in the right ear. The pain is mild and brief. No history of otorrhea. No history of recurrent otitis. No history of ear surgery. Endorses Q-tip use. She notes years ago she damaged the right ear with a nataliia pin. No known family history of early hearing loss. NURIA DRIVER PA-C [address] [facility],[address], [address], [facility] 06/17/2024 12:33:13 06/17/2024 text/html Audiological Evaluation HPIReported bypatient.Hearing loss perceived:hearing loss in both ears: right ear worse Tinnitus reported:right ear ZEKE AGUILAR [address] [facility],[place] [address], [place], [address], [facility] 06/17/2024 10:48:51 OBGyn Episode No OBEpisode recorded.
--- OUTSIDE RECORDS SUMMARY | 2024-08-27 11:12 | XMS_ITS | Encounter Summary ---
Author Organization [employer] Address [address] [place] [address] 7t [place] [address] Care Team Providers Care New Accounts Banking Representative Name Role Phone Batsheva Cabrera MD Primary Care Provider [phone] Reason for Visit * Reason Onset Date Comments Durable Medical Equipment 10/04/2022 Encounter Details Date Type Department Care Team ([facility] st Contact Info) Description 10/04/2022 Telephone [facility] MEDICINE [address] [place], [place] [phone] Batsheva Cabrera MD [address] [place] [address] Durable Medical Equipment Social History Tobacco Use Types Packs/Day Years [...] encounter Miscellaneous Notes * Telephone Encounter - Lyndsey Ontiveros - 10/06/2022 2:01 PM EDT VM left for Blaire informing her DX of GERD is not enough for insurance payment of position bed. * Telephone Encounter - Lyndsey Ontiveros - 10/05/2022 10:47 AM EDT Please review message below for position bed. I did not see any diagnoses that will justify request. If you agree patient will require an appointment for documentation. Thank you. * Telephone Encounter - Chiquis Sheila - 10/04/2022 2:17 PM EDT Tc from [facility] from [facility] care requesting a high position adjustable bed that not a hospital bed. documented in this encounter Plan of Treatment Upcoming Encounters Date Type Department Care Team (Late st Contact Info) Description 10/25/2024 4:00 PM EDT Office Visit [facility] MEDICINE [address] [place], [place] [phone] Batsheva Cabrera MD [address] [place] [address] documented as of this encounter Visit Diagnoses Not on filedocumented in this encounter Care Teams New Accounts Banking Representative Relationship Specialty Start Date End Date Batsheva Cabrera MD [address] [place] [phone] PCP - General Family Medicine 07/24/20 documented as of this encounter
--- OUTSIDE RECORDS SUMMARY | 2024-08-27 11:12 | XMS_ITS | Encounter Summary ---
Author Organization [employer] Address [address] [facility] 7t [place] [address] Care Team Providers Care Auto Carrier Driver Name Role Phone Batsheva Cabrera MD Primary Care Provider [phone] Reason for Visit * Reason Comments Med Change Request Encounter Details Date Type Department Care Team ([facility] Contact Info) Description 06/13/2024 Refill [facility] MEDICINE [address] [place] [address] Sumi Almaguer MD [address] [place] [address] Viral upper respiratory tract infection Social History Tobacco Use Types Packs/Day Years [...] Description 10/25/2024 4:00 PM EDT Office Visit [facility] MEDICINE [address] [place] [address] Batsheva Cabrera MD [address] [place] [address] documented as of this encounter Visit Diagnoses Diagnosis Viral upper respiratory tract infection Acute upper respiratory infections of unspecified site documented in this encounter Care Teams Auto Carrier Driver Relationship Specialty Start Date End Date Batsheva Cabrera MD [address] [place] [address] PCP - General Family Medicine 07/24/20 documented as of this encounter
--- OUTSIDE RECORDS SUMMARY | 2024-08-27 11:12 | XMS_ITS | Encounter Summary ---
Author Organization [employer] Address [address] [place] [address] 7t [place] [address] Care Team Providers Care Restaurant Service Manager Name Role Phone Batsheva Cabrera MD Primary Care Provider [phone] Reason for Visit * Reason Onset Date Comments Results 03/23/2023 Encounter Details Date Type Department Care Team ([facility] st Contact Info) Description 03/23/2023 Telephone [facility] MEDICINE [address] [place], [place] [phone] Batsheva Cabrera MD [address] [place], [place] [phone] Results Social History Tobacco Use Types Packs/Day Years Used Date Smoking Tobacco: Never Passive Smoke Exposure: Never Smokeless Tobacco: Never Alcohol Use Standard Drinks/Week Comments Never 0 (1 standard drink = 0.6 oz pur e alcohol) PHQ-2 Answer Date Recorded Patient Health Questionnaire-2 Score 0 10/28/2022 Housing Stability Answer Date Recorded What is your housing situation today? I have jovana soto 03/27/[address] you li ve. Do you have problems with any of the following? None of the above 03/27/2023 Food Insecurity Answer Date Recorded Within the past 12 months, y ou worried that your food would run out before you got money to buy more: Never True 03/27/2023 Within the past 12 months,th e food you bought just didn't last and you didn't have enough money to get more: Never True 02/2023 Transportation Answer Date Recorded In the past [...] shut off services in your home? No 03/27/2023 Depression Answer Date Recorded Patient Health Questionnaire-2 Score 0 10/28/2022 Comments Unknown Sex and Gender Information Value Date Recorded Sex Assigned at Female 04/18/2022 10:14 AM EDT Legal Sex Female 10:14 AM EDT Gender Identity Female 04/18/2022 10:14 AM EDT Sexual Orientation Straight 04/18/2022 10 :14 AM EDT documented as of this encounter Miscellaneous Notes * Telephone Encounter - dAina Love RN - 2023 11:00 AM EDT TC placed to pt [phone] in regards to below message. Pt informed of Xray results showing the slightest arthritis but no fractures or dislocations. Pt advised she can soak them in warm water and apply diclofenac/voltaren gel. Pt verbalized understanding and is requesting for script for diclofenac gel to be sent to the pharmacy. * Telephone Encounter - Chiquis Sosa - 03/23/2023 9:07 AM EDT Tc from pt requesting xray results . States were done at [facility] . documented in this encounter Plan of Treatment Upcoming Encounters Date Type Department Care Team (Late st Contact Info) Description 10/25/2024 4:00 PM EDT Office Visit [facility] MEDICINE [address] [place] [address] Batsheva Cabrera MD [address] [place] [address] documented as of this encounter Visit Diagnoses Not on filedocumented in this encounter Care Teams Restaurant Service Manager Relationship Specialty Start Date End Date Batsheva Cabrera MD [address] [place] [address] PCP - General Family Medicine 07/24/20 documented as of this encounter
--- OUTSIDE RECORDS SUMMARY | 2024-08-27 11:12 | XMS_ITS | Encounter Summary ---
Author Organization [employer] Address [address] [place] [address] 7[address] [place] [address] Care Team Providers Care Aquatic Facility Manager Name Role Phone Batsheva Cabrera MD Primary Care Provider [phone] Reason for Visit * Reason Onset Date Comments Triage 11/15/2022 Encounter Details Date Type Department Care Team ([facility] st Contact Info) Description 11/15/2022 Telephone [facility] MEDICINE [address] [place], [place] [phone] Batsheva Cabrera MD [address] [place], [place] [phone] Triage Social History Tobacco Use Types Packs/Day Years Used Date Smoking Tobacco: Never Smokeless Tobacco: Never Alcohol Use Standard Drinks/Week Comments Never 0 (1 standard drink = 0.6 oz pur e alcohol) PHQ-2 Answer Date Recorded Patient Health Questionnaire-2 Score 0 10/28/2022 Depression Answer Date Recorded Patient Health Questionnaire-2 [...] suspected to have Coronavirus/COVID-19? No / Unsure 10/28/2022 1:23 PM EDT documented as of this encounter Miscellaneous Notes * Telephone Encounter - Netta Roque RN - 11/15/2022 9:48 AM EDT Triage call Pt reports tested positive for Covid 11/06 Pt symptoms have decreased gradually and Pt has mainly headache and stuffy nose. Pt also reports a lump in middle of throat which Pt feels is a lymph node. Pt is drinking adequate liquids and is feeling better overall. Pt agreed with home care disposition and will call back if lump either gets bigger or doesn't go away in a few days. Protocol Used: COVID-19 - Diagnosed or Suspected (Adult) Protocol-Based Disposition: Home Care Positive Triage Question: * [1] COVID-19 diagnosed by positive lab test (e.g., PCR, rapid self-test kit) AND [2] mild symptoms (e.g., cough, fever, others) AND [3] no complications or SOB * All higher-acuity triage questions were negative Care Advice Discussed: * Reassurance and Education - Positive COVID-19 Lab Test and Mild Symptoms * General Care Advice for COVID-19 Symptoms * Cough Medicines * Humidifier * Coughing Spells * Pain and Fever Medicines * Reasons To Call Back - Fever over 103 F (39.4 C) - Fever lasts over 3 days - Fever returns after being gone for 24 hours - Chest pain or difficulty breathing occurs - You become worse * COVID-19 - Symptoms * Clean Your Hands Often * FAQ - When Can I Stop Home Isolation If I Am Sick With COVID-19? * Keep Your Body Strong * Telephone Encounter - Marifer Recio - 11/15/2022 9:17 AM EDT Symptom: Neck Swelling Outcome: Schedule a same-day appointment or talk to a nurse or provider today Reason: Caller denied all higher acuity questions The caller accepted this outcome documented in this encounter Plan of Treatment Upcoming Encounters Date Type Department Care Team (Late st Contact Info) Description 10/25/2024 4:00 PM EDT Office Visit [facility] MEDICINE [address] [place] [address] Batsheva Cabrera MD [address] [place] [address] documented as of this encounter Visit Diagnoses Not on filedocumented in this encounter Care Teams Aquatic Facility Manager Relationship Specialty Start Date End Date Batsheva Cabrera MD [address] [place] [address] PCP - General Family Medicine 07/24/20 documented as of this encounter
--- OUTSIDE RECORDS SUMMARY | 2024-08-27 11:12 | XMS_ITS | Encounter Summary ---
Author Organization [employer] Address [address] [facility] 7t [place] [address] Care Team Providers Care Survey Rodman Name Role Phone Batsheva Cabrera MD Primary Care Provider [phone] Encounter Details Date Type Department Care Team (Late st Contact Info) Description [address] [facility] MEDICINE [address] [place], [place] [phone] Batsheva Cabrera MD [address] [place], [place] [phone] Hand arthritis (Primary Dx) Social History Tobacco Use Types [...] Description 10/25/2024 4:00 PM EDT Office Visit [facility] MEDICINE [address] [place] [address] Batsheva Cabrera MD [address] [place] [address] documented as of this encounter Visit Diagnoses Diagnosis Hand arthritis- Primary Unspecified arthropathy, hand documented in this encounter Care Teams Survey Rodman Relationship Specialty Start Date End Date Batsheva Cabrera MD [address] [place] [address] PCP - General Family Medicine 07/24/20 documented as of this encounter
== END 2024-08-27 10:50 | disposition home or self-care (01) ==
LOC: HO.HGI 09:49
PROVIDERS: PCP General Practice; Visit Provider Internal Medicine Gastroenterology
DX: R13.14 Dysphagia, pharyngoesophageal phase (principal); K22.4 Dyskinesia of esophagus; R68.81 Early satiety; K21.9 Gastro-esophageal reflux disease without esophagitis
CPT/HCPCS: 99214

== ENCOUNTER → 2024-08-27 09:48 | Outpatient (BNVA) | payer MEDICARE, MEDICAID, SELFPAY | PROVIDERS: PCP General Practice; Visit Provider Internal Medicine Gastroenterology | DX: R13.14 Dysphagia, pharyngoesophageal phase (principal); K22.4 Dyskinesia of esophagus; K21.9 Gastro-esophageal reflux disease without esophagitis; R68.81 Early satiety | CPT/HCPCS: 99212 ==

== ENCOUNTER 2024-08-29 15:58 | Outpatient (REF) | payer MEDICARE, MEDICAID, SELFPAY ==
--- NOTE | ~2024-08-29 | XR_ITS ---
EXAMINATION: XR KNEE, RIGHT CLINICAL INFORMATION: acute on chronic pain COMPARISON: 12/09/2019. TECHNIQUE: Four views of the right knee. FINDINGS: No fracture, dislocation, or suspicious bone lesion. Normal bone mineralization. Normal alignment. Moderate medial compartment joint space narrowing, with marginal osteophytes. Mild patellofemoral and lateral compartment narrowing. Mild spurring of the tibial spines. There is a moderate sized suprapatellar joint effusion. Soft tissues appear normal. XR/XR knee RT 4V IMPRESSION: 1. Moderate osteoarthritis medial compartment. Milder changes lateral and patellofemoral compartments. 2. Moderate size joint effusion. Electronically signed by: Lance Edmondson MD 08/29/2024 04:42 PM EDT
--- OUTSIDE RECORDS SUMMARY | 2024-08-29 19:17 | XMS_ITS | Encounter Summary ---
Author Organization [employer] Address [address] [facility] 7t [place] [address] Care Team Providers Care Account Advisor Name Role Phone Batsheva Cabrera MD Primary Care Provider [phone] Encounter Details Date Type Department Care Team (Late st Contact Info) Description 08/29/2024 3:30 PM EDT Office Visit [facility] MEDICINE [address] [place] [address] Sumi Almaguer MD [address] [place] [address] Acute pain of right knee (Primary Dx); Injury of right knee, initial encounter Social History Tobacco Use Types Packs/Day Years [...] AM EDT documented as of this encounter Last Filed Vital Signs Vital Sign Reading Time Taken Comments Blood Pressure 122/78 08/29/2024 3:34 PM EDT Pulse 78 08/29/2024 3:34 PM EDT Temperature 35.8 ??C (96.4 ??F) 08/29/2024 3:34 PM ED T Respiratory Rate 18 08/29/2024 3:34 PM EDT Oxygen Saturation - - Inhaled Oxygen Concentration - - Weight 93.8 kg (206 lb 11.2 oz) 08/29/2024 3:34 PM EDT Height 170.2 cm (5' 7 ) 08/29/2024 3:34 PM EDT Body Mass Index 32.37 08/29/2024 3:34 PM EDT documented in this encounter Progress Notes * Sumi Macdonald MD - 08/29/2024 3:30 PM EDT SUBJECTIVE: Crystal Ivan is a 49 y.o. year old female who presents for knee pain . Acute Concerns: Patient reports she has been having acute on chronic pain on her right knee, she tells me she had along time ago a lot of pain in the left knee and required the injections and then surgery for meniscal repair she feels the pain is very similar to the one that she felt back then she also tells me that she has on and off pain on her right hip, patient denies triggering activity or trauma Social History Social History Narrative Lives with boyfriend Unemployed currently 4 children, all grown Patient Active Problem List Diagnosis Avoidant-restrictive food intake disorder (ARFID) Fibromyalgia Ineffective esophageal motility Hyperthyroidism Multiple joint pain Allergic rhinitis Class 1 obesity Impacted cerumen Normal mammography Vitamin D deficiency Chronic low back pain Gastroesophageal reflux disease without esophagitis Dyspepsia Anxiety Tricompartment osteoarthritis of both knees Weakness Lactose intolerance Left hand pain Dysuria Orthostatic hypotension Dizziness Spondyloarthritis Lateral epicondylitis of left elbow Mild persistent asthma without complication Chronic left shoulder pain Clogged ear, bilateral Viral upper respiratory tract infection Acute pain of right knee Injury of right knee No family history on file. Review of Systems Constitutional: Negative. HENT: Negative. Respiratory: Negative. Cardiovascular: Negative. Musculoskeletal: Positive for arthralgias and myalgias. OBJECTIVE: Vitals: 08/29/24 1534 BP: 122/78 BP Location: Left arm Patient Position: Sitting BP Cuff Size: Adult Pulse: 78 Resp: 18 Temp: 96.4 ??F (35.8 ??C) TempSrc: Oral Weight: 206 lb 11.2 oz (93.8 kg) Height: 5' 7 (1.702 m) Physical Exam Constitutional: Appearance: Normal appearance. Cardiovascular: Rate and Rhythm: Normal rate and regular rhythm. Pulmonary: Effort: Pulmonary effort is normal. Breath sounds: Normal breath sounds. Abdominal: General: Abdomen is flat. Palpations: Abdomen is soft. Musculoskeletal: Right knee: Crepitus present. Decreased range of motion. Tenderness present over the medial joint line. Neurological: Mental Status: She is alert. Follow Up: No follow-ups on file. Current Outpatient Medications on File Prior to Visit Medication Sig Dispense Refill albuterol (Ventolin HFA) 108 (90 Base) MCG/ACT inhaler Inhale 2 puffs every 6 (six) hours if neededfor wheezing. 18 g 6 amoxicillin (Amoxil) 500 MG capsule Take 500 mg by mouth 3 times daily. Cholecalciferol (Vitamin D3) 5000 UNIT/ML liquid GIVE 0.6MLS BY MOUTH EVERY DAY cloNIDine (Catapres) 0.1 MG tablet TAKE 1 TABLET BY MOUTH NEEDED AT ONSET OF PANIC ATTACK escitalopram (Lexapro) 10 MG tablet Take 10 mg by mouth in the morning. fluticasone (Flonase) 50 MCG/ACT nasal spray Administer 1-2 sprays into each nostril Once per day. Shake gently. Before first use, prime pump. After use, clean tip and replace cap. 16 g 1 fluticasone-salmeterol (Advair HFA) 45-21 MCG/ACT inhaler Inhale 2 puffs in the morning and at bedtime. 12 g 11 hydrOXYzine pamoate (Vistaril) 25 MG capsule TAKE 1 CAPSULE BY MOUTH 3 TIMES A DAY NEEDED FOR ANXIETY leflunomide (Arava) 20 MG tablet Take 20 mg by mouth in the morning. lidocaine (Lidoderm) 5 % patch APPLY 1 PATCH IN THE MORNING REMOVE AND DISARD PATCH WITHIN 12 HOURSOR DIRECTED 30 patch 11 omeprazole (PriLOSEC) [address] capsule TAKE 1 CAPSULE BY MOUTH 2 TIMES A DAY BEFORE MEALS. pediatric multivitamin-iron (Poly-Vi-Josefina w/ Iron) 11 MG/ML solution No current facility-administered medications on file prior to visit. Problem List Items Addressed This Visit Acute pain of right knee - Primary Elevate knee apply ice and rest I will prescribe for patient knee brace I will prescribe for patient ibuprofen 600 mg every 8 hours with full stomach as needed Patient already has an appointment with orthopedics in a month I recommend not to miss his appointment x-ray ordered today patient will be contacted with results Relevant Medications ibuprofen 600 MG tablet Other Relevant Orders XR Knee 4+ Views Right Injury of right knee Relevant Medications ibuprofen 600 MG tablet documented in this encounter Miscellaneous Notes * Assessment & Plan Note - Sumi Macdonald MD - 08/29/2024 4:03 PM EDT Associated Problem(s): Acute pain of right knee Elevate knee apply ice and rest I will prescribe for patient knee brace I will prescribe for patient ibuprofen 600 mg every 8 hours with full stomach as needed Patient already has an appointment with orthopedics in a month I recommend not to miss his appointment x-ray ordered today patient will be contacted with results documented in this encounter Plan of Treatment Upcoming Encounters Date Type Department Care Team (Late st Contact Info) Description 10/25/2024 4:00 PM EDT Office Visit [facility] MEDICINE [address] [place] [address] Batsheva Cabrera MD [address] [facility] [place] [address] documented as of this encounter Procedures Procedure Name Priority Date/Time Associated Diagnosis Comments XR KNEE 4+ VIEWS RIGHT Routine 08/29/2024 4:00 PM EDT Acute pain of right knee documented in this encounter Results * XR Knee 4+ Views Right (08/29/2024 4:00 PM EDT) Anatomical Region Laterality Modality Lower Extremities, Knee Right Radiogra phic Imaging 08/29/2024 4:00 PM EDT Narrative 08/29/2024 4:45 PM EDT ?[facility] ?Leonid Mccall. ?[place] [id number] ?XRay Report ? Signed ? Patient: Ivan,Marangely ?MR#: [id number] ?? [id number] ? : 1975 ?Acct:[id number] ? Age/Sex: 49 / F ?ADM Date: 08/29/24 ? Loc: HO.HHCX ? Attending Dr: Sumi Macdonald MD ? Ordering Physician: Sumi Almaguer MD ?? Date of Service: 08/29/24 ?? Procedure(s): XR knee RT 4V ?? Accession Number(s): [id number] ? cc: Sumi Almaguer MD ? EXAMINATION: ?? XR KNEE, RIGHT ? CLINICAL INFORMATION: ?? acute on chronic pain ? COMPARISON: ?? 12/09/2019. ? TECHNIQUE: ?? Four views of the right knee. ? FINDINGS: ?? No fracture, dislocation, or suspicious bone lesion. Normal bone ?? mineralization. ?? Normal alignment. ?? Moderate medial compartment joint space narrowing, with marginal ?? osteophytes. Mild patellofemoral and lateral compartment narrowing. ?? Mild spurring of the tibial spines. ?? There is a moderate sized suprapatellar joint effusion. ? Soft tissues appear normal. ? XR/XR knee RT 4V ?? IMPRESSION: ?? 1. Moderate osteoarthritis medial compartment. Milder changes lateral ?? and patellofemoral compartments. ? 2. Moderate size joint effusion. ? Electronically signed by: ??Lance Edmondson MD ??08/29/2024 04:42 PM EDT RP ? Dictated By: ?Lance Edmondson MD ? Signed By: ?<Electronically signed by Lance Edmondson MD in OV> ?08/29/24 1642 ? DD/ 1600 ? TD/TT: 08/29/24 1620 ? Tool And Die Manager: ? Procedure Note Donjohnnyfrannyanatoliyter, Image - 08/29/[address] [address] XRay Report Signed Patient: Crystal IvanMR#: [id number] : 1975Acct:[id number] Age/Sex: 49 / FADM Date: 08/29/24 Loc: HO.HHCX Attending Dr: Sumi Macdonald MD Ordering Physician: Sumi Almaguer MD Date of Service: 08/29/24 Procedure(s): XR knee RT 4V Accession Number(s): [id number] cc: Sumi Almaguer MD EXAMINATION: XR KNEE, RIGHT CLINICAL INFORMATION: acute on chronic pain COMPARISON: 12/09/2019. TECHNIQUE: Four views of the right knee. FINDINGS: No fracture, dislocation, or suspicious bone lesion. Normal bone mineralization. Normal alignment. Moderate medial compartment joint space narrowing, with marginal osteophytes. Mild patellofemoral and lateral compartment narrowing. Mild spurring of the tibial spines. There is a moderate sized suprapatellar joint effusion. Soft tissues appear normal. XR/XR knee RT 4V IMPRESSION: 1. Moderate osteoarthritis medial compartment. Milder changes lateral and patellofemoral compartments. 2. Moderate size joint effusion. Electronically signed by: Lance Edmondson MD 08/29/2024 04:42 PM EDT Dictated By: Lance Edmondson MD Signed By: <Electronically signed by Lance Edmondson MD in OV> 08/29/24 1642 DD/ 1600 TD/TT: 08/29/24 1620 Tool And Die Manager: us Sumi Macdonald MD IMG XR PROCEDURES Evans tamera Result - Final documented in this encounter Visit Diagnoses Diagnosis Acute pain of right knee- Primary Injury of right knee, initial encounter documented in this encounter Care Teams Account Advisor Relationship Specialty Start Date End Date Batsheva Cabrera MD [address] [place] [address] PCP - General Family Medicine 07/24/20 documented as of this encounter
--- OUTSIDE RECORDS SUMMARY | 2024-08-29 19:17 | XMS_ITS | Data Portability ---
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 Thyroid (cystic) nodule NOS; Note: Date Diagnosed : 08/15/2018 6:47 PM (E04.1) Not Available [facility] 4 02:29:02 Dysphagia 30855700 Active 2017 Other dysphagia ; Note: Date Diagnosed : 8 1:08 PM (R13.19) Not Available [facility] 4 02:29:05 Injury of thyroid gland 090388252 Active 2017 Other specified injuries of thyroid gland, initial encounter ; Note: Date Diagnosed : 8 1:13 PM (S19.84XA ) Not Available [facility] 4 02:29:00 Conductiv e hearing loss 34199571 Active 2023 ZEKE AGUILAR [address] [facility],[place] [address], [place], [address] , [facility] - [facility] 4 10:46:50 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 19663008715 65009 Active 2023 NURIA DRIVER PA-C [address] [place] [address],[place] [address] [place], [address] , [facility] - [facility] 4 11:21:21 Impacted cerumen in left ear 32762707234 Active 2023 NURIA DRIVER PA-C [address] [place] [address],[place] [address] [place], [address] , [facility] - [facility] 4 11:22:33 Problem Notes None recorded. Procedures Surgical History Date Name Laterality Status Provider Name and Address Organization Details Recorded Time 4 Comp Audio with Tymps (31478 & 62372) completed ZEKE AGUILAR [address] [facility] [address], [place], [address], [place] - [facility] 06/17/2024 10:34:55 Cerumen removal without microscope left completed NURIA DRIVER PA-C [address] [facility], [place], [address], [place] - [facility] 06/17/2024 11:22:21 Imaging Results Imaging Date Name [...] Address Organization Details Last Updated DateTime 06/17/2024 74501.47 g 31.3 kg/m2 170.18 cm Nancy Griffin [place] - [facility] 06/17/2024 10:05:54 Social History None recorded. Functional Status None recorded. Mental Status None recorded. Family History Nothing Reported. Medical History No medical history recorded. Gynecological HistoryNo gynecological history recorded. Obstetrics History GPAL:G 0 P 0 0 0 0 Past Encounters Encounter ID Performer Location Encounter Start Date Encounter Closed Date Diagnosis/Indication Diagnosis SNOMED-CT Code Diagnosis ICD10 Code Diagnosis Note [id number] NURIA DRIVER PA-C [facility] [address] [address] 06/17/2024 09:59:17 06/17/2024 11:31:10 Conductive hearing loss 98151951 H90.11 Otoscleros is of ossicle of right ear 2614628411 039972 H80.91 Impacted c erumen in left ear 0107843493 145712 H61.22 [id number] ZEKE AGUILAR [facility] [address] [address] 06/17/2024 10:34:16 06/20/2024 14:57:33 Conductive hearing loss 49647959 H90.2 Audiologic al evaluation results:Ri ght ear:{{Norm [...] Dukes Member ID Guarantor Name 06/17/2024 2 MEDICAID-[facility]: [facility] Crystal Gilios [id number] [facility] 06/17/2024 1 MEDICARE B-[facility]: [facility] Ivan [id number] [facility] 06/17/2024 2 MEDICAID-[facility]: [facility] Crystal Gilios [id number] [facility] 06/17/2024 1 [facility] [id number] [facility] Ivan Notes Date Note Type Note [...] early hearing loss. NURIA DRIVER PA-C [address] [facility],[address], [address], [facility] 06/17/2024 12:33:13 06/17/2024 text/html Audiological Evaluation HPIReported bypatient.Hearing loss perceived:hearing loss in both ears: right ear worse Tinnitus reported:right ear ZEKE AGUILAR [address] [facility],[place] [address], [place], [address], [facility] 06/17/2024 10:48:51 OBGyn Episode No OBEpisode recorded.
--- OUTSIDE RECORDS SUMMARY | 2024-08-29 19:17 | XMS_ITS | Encounter Summary ---
Author Organization [email or web address] Address [address] [place] [address] 7t [place] [address] Care Team Providers Care Boom Crane Operator Name Role Phone Batsheva Cabrera MD Primary Care Provider [phone] Reason for Visit * Reason Onset Date Comments Nurse Triage 08/28/2024 Encounter Details Date Type Department Care Team ([facility] st Contact Info) Description 08/28/2024 Telephone [facility] MED[facility]INE [address] [place], [place] [phone] Batsheva Cabrera MD [address] [place], [place] [phone] Nurse Triage Social History Tobacco Use Types Packs/Day [...] encounter Miscellaneous Notes * Telephone Encounter - Deisy Crouch RN - 08/28/2024 3:22 PM EDT called pt to triage, spoke to pt. pt states right knee pain for 1-2 weeks duration, that radiates into the right hip. pt denies known injury, inability to stand or walk, fevers, or other associated symptoms. given appt tomorrow with red team provider at 3:30 for exam. advised home care: rest, ice, heat, OTC pain reliever as needed, and call back if worsening or new concerns. pt understands and agrees with plan. insurance verified. Protocol Used: Knee Pain (Adult) Protocol-Based Disposition: See in Office or Video Visit within 3 Days Video visit offer not recorded Positive Triage Question: * Patient wants to be seen * All higher-acuity triage questions were negative Care Advice Discussed: * Reassurance and Education - Knee Pain * Pain Medicines * Pain Medicines - Extra Notes and Warnings * Using Heat for Pain * Reasons To Call Back - Moderate pain (interferes with normal activities, limping) lasts over 3 days - Mild pain lasts over 7 days - Signs of infection occur (spreading redness, warmth, fever) - You become worse * Telephone Encounter - Kim Rob - 08/28/2024 2:50 PM EDT Symptoms: Knee Pain - Not From Injury, Hip Pain - Not From Injury Outcome: Schedule an urgent appointment (within 1 hour) or talk to a nurse or provider soon Reason: Trouble walking The caller accepted this outcome. [phone] documented in this encounter Plan of Treatment Upcoming Encounters Date Type Department Care Team (Late st Contact Info) Description 10/25/2024 4:00 PM EDT Office Visit [facility] MED[facility]INE [address] [place], [place] [phone] Batsheva Cabrera MD [address] [place] [address] documented as of this encounter Visit Diagnoses Not on filedocumented in this encounter Care Teams Boom Crane Operator Relationship Specialty Start Date End Date Batsheva Cabrera MD [address] [place] [address] [phone] PCP - General Family Medicine 07/24/20 documented as of this encounter
--- OUTSIDE RECORDS SUMMARY | 2024-08-29 19:17 | XMS_ITS | Encounter Summary ---
Author Organization [employer] Address [address] [place] [address] 7t [place] [address] Care Team Providers Care Medical Office Scheduler Name Role Phone Batsheva Cabrera MD Primary Care Provider [phone] Reason for Visit * Reason Onset Date Comments recall 08/13/2024 Encounter Details Date Type Department Care Team ([facility] st Contact Info) Description 08/13/2024 Telephone [facility] MEDICINE [address] [place], [place] [phone] Batsheva Cabrera MD [address] [place], [place] [phone] recall Social History Tobacco Use Types Packs/Day [...] Description 10/25/2024 4:00 PM EDT Office Visit [facility] MEDICINE [address] [place] [address] Batsheva Cabrera MD 230 [place] [address] documented as of this encounter Visit Diagnoses Not on filedocumented in this encounter Care Teams Medical Office Scheduler Relationship Specialty Start Date End Date Batsheva Cabrera MD [address] [place] [phone] PCP - General Family Medicine 07/24/20 documented as of this encounter
--- OUTSIDE RECORDS SUMMARY | 2024-08-29 19:17 | XMS_ITS | Encounter Summary ---
Author Organization [employer] Address [address] [place] [address] 7t [place] [address] Care Team Providers Care Registered Nurse Midwife Name Role Phone Batsheva Cabrera MD Primary Care Provider [phone] Reason for Visit * Reason Onset Date Comments Durable Medical Equipment 10/04/2022 Encounter Details Date Type Department Care Team ([facility] st Contact Info) Description 10/04/[address] [facility] MEDICINE [address] [place], [place] [phone] Batsheva Cabrera MD [address] [place] [address] Durable Medical Equipment Social History Tobacco Use [...] 2:17 PM EDT Tc [facility] requesting a high position adjustable bed that not a hospital bed. documented in this encounter Plan of Treatment Upcoming Encounters Date Type Department Care Team (Late st Contact Info) Description 10/25/2024 4:00 PM EDT Office Visit [facility] MEDICINE [address] [place], [place] [phone] Batsheva Cabrera MD [address] [place] [address] documented as of this encounter Visit Diagnoses Not on filedocumented in this encounter Care Teams Registered Nurse Midwife Relationship Specialty Start Date End Date Batsheva Cabrera MD [address] [place] [address] [phone] PCP - General Family Medicine 07/24/20 documented as of this encounter
--- OUTSIDE RECORDS SUMMARY | 2024-08-29 19:17 | XMS_ITS | Encounter Summary ---
Author Organization [employer] Address [address] [place] [address] 7t [place] [address] Care Team Providers Care Pipe Fittings Molder Name Role Phone Batsheva Cabrera MD Primary Care Provider [phone] Reason for Referral * Consultation (Routine) - Closed Specialty Diagnoses / Procedures Referred By Contac t Referred To Contact Physical Therapy Diagnoses Spondylosis of cervical region without myelopathy or radiculopathy Batsheva Cabrera MD [address] [place] [address] Phone: tel: fax: [facility] [address] [place] [address] Phone: tel: fax: Referral ID Status Reason Start Date Expiration Date V isits Requested Visits Authorized [id number] Closed Specialty Services Required 05/15/2024 05/15/2025 1 1 Encounter Details Date Type Department Care Team (Late st Contact Info) Description 05/15/2024 Orders Only [facility] MEDICINE [address] [place], [place] [phone] Batsheva Cabrera MD [address] [place], [place] [phone] Spondylosis of cervical region without myelopathy or [...] Description 10/25/2024 4:00 PM EDT Office Visit [facility] [address] [place] [address] Batsheva Cabrera MD [address] [place] [address] Scheduled Referrals Name Type Priority Associated Diagnoses [...] EST Narrative 06/13/2024 3:12 AM EST ? [facility] ?[address] ?[place] [address] ? CT Scan Report ? Signed ? Patient: Ivan,Marangely ?MR#: [id number] ?? [id number] ? : 1975 ?Acct:[id number] ? Age/Sex: 49 / F ?ADM Date: 06/13/24 ? Loc: HO.ED ? Attending Dr: ? Ordering Physician: Pb Light MD ?? Date of Service: 06/13/24 ?? Procedure(s): CT head/brain wo IV con ?? Accession Number(s): [id number] ? cc: Batsheva Cabrera; Pb Light MD [...] DD/ 0212 ? TD/TT: 06/13/24 0230 ? Economic Developer: ? Procedure Note Donotuseinterpreter, Image - 06/13/[address] [address] [address] Scan Report Signed Patient: Crystal IvanMR#: [id number] : 1975Acct:[id number] Age/Sex: 49 / FADM Date: 06/13/24 Loc: HO.ED Attending Dr: Ordering Physician: Pb Light MD Date of Service: 06/13/24 Procedure(s): CT head/brain wo IV con Accession Number(s): [id number] cc: Batsheva Cabrera; Pb Light MD EXAMINATION: CT HEAD WITHOUT CONTRAST CLINICAL [...] by: Jose Escalante MD 06/13/2024 03:08 AM [facility] Dictated By: Jose Escalante MD Signed By: <Electronically signed by Jose Escalante MD in OV> 06/13/24 0308 DD/ 0212 TD/TT: 06/13/24 0230 Economic Developer: [facility] External Provider IMG CT PROCEDURES Edited Result - Final documented in this encounter Visit Diagnoses Diagnosis Spondylosis of cervical region without myelopathy or radiculopathy- Primary documented in this encounter Care Teams Pipe Fittings Molder Relationship Specialty Start Date End Date Batsheva Cabrera MD [address] [place] [phone] PCP - General Family Medicine 07/24/20 documented as of this encounter
--- OUTSIDE RECORDS SUMMARY | 2024-08-29 19:17 | XMS_ITS | Encounter Summary ---
Author Organization [employer] Address [address] [place] [address] 7t [place] [address] Care Team Providers Care Energy Audit Advisor Name Role Phone Batsheva Cabrera MD Primary Care Provider [phone] Reason for Visit * Reason Onset Date Comments Results 03/23/2023 Encounter Details Date Type Department Care Team ([facility] st Contact Info) Description 03/23/2023 Telephone [facility] MEDICINE [address] [place], [place] [phone] Batsheva Cabrera MD [address] [place], [place] [phone] Results Social History Tobacco Use Types Packs/Day [...] Telephone Encounter - Adina Love RN - 2023 11:00 AM EDT TC placed to pt [phone] in regards to below message. Pt informed [...] xray results . States were done at [facility] . documented in this encounter Plan of Treatment Upcoming Encounters Date Type Department Care Team (Late st Contact Info) Description 10/25/2024 4:00 PM EDT Office Visit [facility] MEDICINE [address] [place] [address] Batsheva Cabrera MD [address] [place] [address] documented as of this encounter Visit Diagnoses Not on filedocumented in this encounter Care Teams Energy Audit Advisor Relationship Specialty Start Date End Date Batsheva Cabrera MD [address] [place] [address] PCP - General Family Medicine 07/24/20 documented as of this encounter
--- OUTSIDE RECORDS SUMMARY | 2024-08-29 19:17 | XMS_ITS | Encounter Summary ---
Author Organization [employer] Address [address] [facility] 7t [place] [address] Care Team Providers Care Underwriting Support Specialist Name Role Phone Batsheva Cabrera MD Primary Care Provider [phone] Reason for Visit * Reason Comments Med Change Request Encounter Details Date Type Department Care Team ([facility] Contact Info) Description 06/13/2024 Refill [facility] [address] [place] [address] Sumi Almaguer MD [address] [place] [address] Viral upper respiratory tract infection Social History [...] Description 10/25/2024 4:00 PM EDT Office Visit [facility] MED[facility]INE [address] [place] [address] Batsheva Cabrera MD [address] [place] [address] documented as of this encounter Visit Diagnoses Diagnosis Viral upper respiratory tract infection Acute upper respiratory infections of unspecified site documented in this encounter Care Teams Underwriting Support Specialist Relationship Specialty Start Date End Date Batsheva Cabrera MD [address] [place] [address] PCP - General Family Medicine 07/24/20 documented as of this encounter
--- OUTSIDE RECORDS SUMMARY | 2024-08-29 19:17 | XMS_ITS | Encounter Summary ---
Author Organization [employer] Address [address] [place] [address] 7t [place] [address] Care Team Providers Care Software Test Technician Name Role Phone Batsheva Cabrera MD Primary Care Provider [phone] Reason for Visit * Reason Onset Date Comments Results 06/07/2023 Encounter Details Date Type Department Care Team ([facility] st Contact Info) Description 06/07/2023 Telephone [facility] MEDICINE 230 [place], [place] [phone] Batsheva Cabrera MD [address] [place], [place] [phone] Results Social History Tobacco Use Types Packs/Day [...] 9:57 AM EST TC placed to pt [phone] in regards to below message. Pt reports [...] Description 10/25/2024 4:00 PM EDT Office Visit [facility] MEDICINE [address] [place] [address] Batsheva Cabrera MD [address] [place] [address] documented as of this encounter Visit Diagnoses Not on filedocumented in this encounter Care Teams Software Test Technician Relationship Specialty Start Date End Date Batsheva Cabrera MD [address] [place] [address] PCP - General Family Medicine 07/24/20 documented as of this encounter
--- OUTSIDE RECORDS SUMMARY | 2024-08-29 19:17 | XMS_ITS | Encounter Summary ---
Author Organization [employer] [facility] Address [address] [place] [address] 7t [place] [address] Care Team Providers Care Brand Advisor Name Role Phone Batsheva Cabrera MD Primary Care Provider [phone] Encounter Details Date Type Department Care Team (Late st Contact Info) Description 08/01/2022 Orders Only [facility] MEDICINE [address] [place] [address] [phone] Mamie Templeton LPN Social History Tobacco Use [...] EDT Office Visit [facility] MED[facility]INE [address] [place] [address] [phone] Batsheva Cabrera MD [address] [place] [address] [phone] documented as of this encounter Visit Diagnoses Not on filedocumented in this encounter Care Teams Brand Advisor Relationship Specialty Start Date End Date Batsheva Cabrera MD [address] [place] [address] PCP - General Family Medicine 07/24/20 documented as of this encounter
--- OUTSIDE RECORDS SUMMARY | 2024-08-29 19:17 | XMS_ITS | Encounter Summary ---
Author Organization [employer] Address [address] [facility] 7t [place] [address] Care Team Providers Care Heating And Ventilating Drafter Name Role Phone Batsheva Cabrera MD Primary Care Provider [phone] Reason for Visit * Reason Comments Med Change Request Encounter Details Date Type Department Care Team ([facility] Contact Info) Description 04/28/2024 Refill [facility] MEDICINE 230 [place], [place] [phone] Batsheva Cabrera MD 230 [place] [address] Social History Tobacco Use Types Packs/Day Years [...] Description 10/25/2024 4:00 PM EDT Office Visit [facility] MEDICINE 230 [place], [place] [phone] Batsheva Cabrera MD [address] [place] [address] documented as of this encounter Visit Diagnoses Not on filedocumented in this encounter Care Teams Heating And Ventilating Drafter Relationship Specialty Start Date End Date Batsheva Cabrera MD [address] [place] [address] [phone] PCP - General Family Medicine 07/24/20 documented as of this encounter
--- OUTSIDE RECORDS SUMMARY | 2024-08-29 19:17 | XMS_ITS | Encounter Summary ---
Author Organization [employer] Address [address] [facility] 7t [place] [address] Care Team Providers Care Sow Farm Manager Name Role Phone Batsheva Cabrera MD Primary Care Provider [phone] Encounter Details Date Type Department Care Team (Latest Contact Info) Description 08/29/2024 Travel Social History Tobacco Use Types Packs/Day Years [...] Description 10/25/2024 4:00 PM EDT Office Visit [facility] MEDICINE 230 [place] [address] Batsheva Cabrera MD 230 [place] [address] documented as of this encounter Visit Diagnoses Not on filedocumented in this encounter Care Teams Sow Farm Manager Relationship Specialty Start Date End Date Batsheva Cabrera MD [address] [place] [phone] PCP - General Family Medicine 07/24/20 documented as of this encounter
--- OUTSIDE RECORDS SUMMARY | 2024-08-29 19:17 | XMS_ITS | Clinical Summary ---
Author Organization [employer] Address [address] [place] [address] 7[address] [place] [address] Care Team Providers Care Horticultural Worker Name Role Phone Batsheva Cabrera MD Primary Care Provider [phone] Allergies Active Allergy Reactions Criticality Noted Date Comments Cannabidiol Hives,Itching 04/14/2020 Medications escitalopram (Lexapro) 10 MG tablet Take 10 mg by mouth in the morning. 3 Active pediatric multivitamin-iron (Poly-Vi-Josefina w/ Iron) 11 MG/ML solution 1 Active lidocaine (Lidoderm) 5 % patchIndications: Influenza-like symptoms APPLY 1 PATCH IN THE MORNING REMOVE AND DISARD PATCH WITHIN 12 HOURS OR DIRECTED 30 patch 11 3 Active cloNIDine (Catapres) 0.1 MG tablet TAKE 1 TABLET BY MOUTH NEEDED AT ONSET OF PANIC ATTACK 3 Active leflunomide (Arava) 20 MG tablet Take 20 mg by mouth in the morning. 4 Active hydrOXYzine pamoate (Vistaril) 25 MG capsule TAKE 1 CAPSULE BY MOUTH 3 TIMES A DAY NEEDED FOR ANXIETY 4 Active amoxicillin (Amoxil) 500 MG capsule Take 500 mg by mouth 3 times daily. 4 Active Cholecalciferol (Vitamin D3) 5000 UNIT/ML liquidIndications :Vitamin D deficiency GIVE 0.6MLS BY MOUTH EVERY DAY 4 Active omeprazole (PriLOSEC) [address] capsuleIndication s:Gastroesophagea l reflux disease without esophagitis TAKE 1 CAPSULE BY MOUTH 2 TIMES A DAY BEFORE MEALS. 4 Active albuterol (Ventolin HFA) 108 (90 Base) MCG/ACT inhalerIndication s:Mild persistent asthma without complication Inhale 2 puffs every 6 (six) hours if needed for wheezing. 18 g 6 4 Active fluticasone-salme terol (Advair HFA) 45-21 MCG/ACT inhaler Inhale 2 puffs in the morning and at bedtime. 12 g 11 4 Active fluticasone (Flonase) 50 MCG/ACT nasal sprayIndications: Viral upper respiratory tract infection Administer 1-2 sprays into each nostril Once per day. Shake gently. Before first use, prime pump. After use, clean tip and replace cap. 16 g 1 4 05/29/20 25 Active ibuprofen 600 MG tabletIndications :Acute pain of right knee,Injury of right knee, initial encounter Take 1 tablet (600 mg) by mouth every 8 (eight) hours if needed for mild pain for up to 10 days. 30 tablet 5 09/09/19 25 Active Active Problems Problem Noted Date Diagnosed Date Acute pain of right knee 08/29/2024 Assessment & Plan (08/29/2024 4:03 PM EDT): Elevate knee apply ice and rest I will prescribe for patient knee brace I will prescribe for patient ibuprofen 600 mg every 8 hours with full stomach as needed Patient already has an appointment with orthopedics in a month I recommend not to miss his appointment x-ray ordered today patient will be contacted with results Injury of right knee 08/29/2024 Clogged ear, bilateral 05/29/2024 Viral upper respiratory tract infection 05/29/20 24 Chronic left shoulder pain 05/10/2024 Assessment & Plan (05/10/2024 6:32 AM EST): Will check xrays of shoulder and neck per PT request, and as she is not making progress in PT Continue with PT as long as there are no concerning findings on xray Mild persistent asthma without complication 03/20 Lateral epicondylitis of left elbow 02/23/2024 Overview (02/23/2024): Seemingly not infectious in nature, consistent with tendonitis. No known injury. No fevers. -recommended icing and heat if helping. -advised to take Tylenol and ibuprofen PRN for pain -given pt an elbow brace to use when using her arm at home. -pt has appt with Orthopedics at the end of 02/2024. Assessment & Plan (02/23/2024 1:42 PM EDT): Seemingly not infectious in nature, consistent with tendonitis. No known injury. No fevers. -recommended icing and heat if helping. -advised to take Tylenol and ibuprofen PRN for pain -given pt an elbow brace to use when using her arm at home. -pt has appt with Orthopedics at the end of 02/2024. 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 Assessment & Plan (01/26/2024 10:58 PM EDT): Axial spondyloarthritis,Psoriatic arthritis Seems exacerbation of arthritis 11/2023 ESR 27 H Urine diptick neg Normal neuro exam -tylenol PRN -ibuprofen 400 mg mod pain -Warm compress -lidoderm patch has at home -rec no muscle relaxants for GI issues -f w marketing analytics lead Next apt 03/18/2024 and advised to start new med px w sp -apt w PCP 04/10 Dizziness 10/17/2023 Assessment & Plan (10/17/2023 12:26 PM EDT): Due to intermittent dizziness and orthostatic hypotension, will generate prescription for shower chair and grab bars for safety in the bathroom Orthostatic hypotension 07/18/2023 Assessment & Plan (10/02/2023 8:22 AM EDT): Increase hydration with clear fluids, not soda or juices, per recommendation of tilt table testing Negative for neurocardiogenic syncope Assessment & Plan (07/18/2023 9:42 AM EST): Consider POTS Add small amount of salt, just a pinch, to blenderized foods Dysuria 05/05/2023 Left hand pain 03/20/2023 Lactose intolerance 02/11/2023 Assessment & Plan (02/11/2023 11:51 AM EDT): Suggested by history and response to dietary elimination Continue to drink oatmilk, or other dairy milk substitutes Weakness 01/30/2023 Assessment & Plan (02/11/2023 11:52 AM EDT): Continue to measure BP at home, initial values are supportive of some degree of orthostatic hypotension Drink more water 4-6 glasses daily Assessment & Plan (01/30/2023 2:08 PM EDT): Measure BP when feeling weak to help rule in or out POTS followup in 2 weeks via telephone Drink more water 4-6 glasses daily Tricompartment osteoarthritis of both knees 10/17 Assessment & Plan (10/31/2022 8:58 AM EDT): Declines further steroid injections into knees Would like to consider medications, depending on her kidney function Impacted cerumen 10/20/2022 Chronic low back pain 10/20/2022 Fibromyalgia 10/13/2022 Multiple joint pain 10/13/2022 Dyspepsia 10/22/2021 Assessment & Plan (01/30/2023 2:08 PM EDT): Trial off lactose Avoid milkshakes, eat healthful nutrient dense foods Assessment & Plan (10/31/2022 8:56 AM EDT): Completed functional dyspepsia study at [facility] Follow their recommendations Normal mammography 03/08/2021 Avoidant-restrictive food intake disorder (ARFID ) 01/30/2021 Assessment & Plan (10/02/2023 8:25 AM EDT): Saw a second surgeon for another opinion-- he offered that if a diagnosis of achlasia were confirmed she would be eligible for other types of surgical treatment Prior studies have not confirmed this diagnosis, she will consider having manometry performed again In the mean time continues on ice cream, oat shakes, Boost, occ blenderized foods. 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 Gastroesophageal reflux disease without esophagi tis 01/30/2021 Assessment & Plan (05/05/2023 2:11 PM EST): Completed functional dyspepsia study at [facility] Followed by GI at [facility], Dr Araujo Seeing surgeon, presumably to talk about fundoplication GI started her on Boost Assessment & Plan (10/31/2022 8:56 AM EDT): Continue omeprazole per GI Has upcoming EGD in November with Dr rAaujo at [facility] Anxiety 01/30/2021 Hyperthyroidism 11/15/2018 Vitamin D deficiency 11/15/2018 Allergic rhinitis 10/26/2015 Class 1 obesity 10/26/2015 Resolved Problems Problem Noted Date Diagnosed Date Resolved Date Epicondylitis elbow, medial, left 02/23/2024 02/23/2024 Tonsillar exudate 10/20/2022 04/10/2024 Asthma 11/02/2021 12/01/2022 Mild intermittent asthma without complication 10/26/19 16 04/10/2024 Assessment & Plan (10/02/2023 8:22 AM EDT): Controlled with [facility] Encounters Date Type Department Care Team Description 08/29/2024 3:30 PM EDT Office Visit [facility] [address] [place] [address] Sumi Almaguer MD Acute pain of right knee (Primary Dx); Injury of right knee, initial encounter 08/29/2024 Travel 08/28/2024 Telephone [facility] [address] [place], [place] [phone] Batsheva Cabrera MD Nurse Triage 08/13/2024 Telephone [facility] [address] [place] [address] Batsheva Cabrera MD recall 06/13/2024 Refill [facility] [address] [place] [address] Sumi Almaguer MD Viral upper respiratory tract infection 05/31/2024 Telephone [facility] [address] [place] [address] Batsheva Cabrera MD Medication Question from Last 3 Months Immunizations Name Administration Dates Next Due DT (pediatric) 04/24/1989,12/10/1981 DTaP 10/08/1980,07/16/1980,04/15/1980 Hep B, adult 03/22/2016,11/10/2015,10/09/2015 IPV 04/24/1989, 2,10/08/1980,07/16/1980,03/20 Influenza, IIV3, injectable 04/10/2014 MMR 02/07/1992,04/15/1980 Tdap 04/14/2011 Social History Tobacco Use Types Packs/Day Years Used Date Smoking Tobacco: Never Passive Smoke Exposure: Never Smokeless Tobacco: Never Tobacco Cessation:Counseling Given: Not Answered Alcohol Use Standard Drinks/Week Comments Never 0 (1 standard drink = 0.6 oz pur e alcohol) PHQ-2 Answer Date Recorded Patient Health Questionnaire-2 Score 0 10/28/2022 Housing Stability Answer Date Recorded What is your housing situation today? I have jovanajoseline soto 04/05/[address] you [...] Orientation Straight 04/18/2022 10 :14 AM EDT Last Filed Vital Signs Vital Sign Reading Time Taken Comments Blood Pressure 122/78 08/29/2024 3:34 PM EDT Pulse 78 08/29/2024 3:34 PM EDT Temperature 35.8 ??C (96.4 ??F) 08/29/2024 3:34 PM ED T Respiratory Rate 18 08/29/2024 3:34 PM EDT Oxygen Saturation 99% 05/29/2024 10: 30 AM EST Inhaled Oxygen Concentration - - Weight 93.8 kg (206 lb 11.2 oz) 08/29/2024 3:34 PM EDT Height 170.2 cm (5' 7 ) 08/29/2024 3:34 PM EDT Body Mass Index 32.37 08/29/2024 3:34 PM EDT Plan of Treatment Upcoming Encounters Date Type Department Care Team (Late st Contact Info) Description 10/25/2024 4:00 PM EDT Office Visit [facility] [address] [place] [address] Batsheva Cabrera MD [address] [place] [address] Health Maintenance Due Date Last Done Comments CT Colonography 1975 Colonoscopy 1975 Colorectal Cancer Screening 1975 FIT DNA/Cologuard 1975 FIT 1975 FOBT 1975 Sigmoidoscopy 1975 Alcohol/Substance Use Screening 1987 Family Planning (PISQ) 1990 Pneumococcal Vaccine: Pediatrics (0 to 5 Years) and At-Risk Patients (6 to 49) Years) (1 of 2 - PCV) 1994 DTaP/Tdap/Td Vaccines (5 - Td or Tdap) 04/14/2021 04/14/2011, 10/08/1980, 07/16/1980, Additional history exists Depression Screening 10/29/2023 10/28/2022, 10/29/19 COVID-19 Vaccine ( season) 2024 Influenza Vaccine (#1) 2024 04/10/2014 Mammogram 07/20/2024 07/20/2023, 06/20, 07/14/2022, Additional history exists SDOH Screening 08/30/2024 08/31/2023 Zoster Vaccines (1 of 2) 2025 Tobacco Screening 08/29/2025 08/29/2024 Cervical Cancer Screening 03/16/2027 HPV/Cotest 03/16/2027 03/16/2022, 02/18, 06/21/2019, Additional history exists Pap Smear 03/16/2027 03/16/2022 RSV Patients and Patients Aged 60 years or older (1 - 1-dose 75+ series) 2050 IPV Vaccines Completed 04/24/1989, 11/18, 10/08/1980, Additional history exists Hepatitis B Vaccines Completed 03/22/2016, 11/10/2015, 10/09/2015 HIV Screening Completed 01/02/2020, 06/21/2019 Hepatitis C Screening Completed 05/10/2023 , 01/10/2020, 01/02/2020, Additional history exists HIB Vaccines Aged Out No longer eligi ble based on patient's age to complete this topic HPV Vaccines Aged Out No longer eligi ble based on patient's age to complete this topic Hepatitis A Vaccines Aged Out No long er eligible based on patient's age to complete this topic Meningococcal Vaccine Aged Out No bonnie nadia eligible based on patient's age to complete this topic RSV under 20 months Aged Out No longe r eligible based on patient's age to complete this topic Rotavirus Vaccines Aged Out No longer eligible based on patient's age to complete this topic Procedures Procedure Name Priority Date/Time Associated Diagnosis Comments XR KNEE 4+ VIEWS RIGHT Routine 5 4:00 PM EDT Acute pain of right knee CT HEAD WO CONTRAST Routine 06/13/2024 2 :12 AM EST BI MAMMOGRAM SCREENING TOMOSYNTHESIS BILATERAL Routine 07/20/2023 10:50 AM EST HEPATITIS PANEL, GENERAL Routine 05/10/2023 12:10 PM EST [facility] HISTORICAL HPV E6/E7 RFLX VY 16 18/45 Routine 03/16/2022 10:25 AM EDT HM PAP/HPV Routine 03/16/2022 [facility] HISTORICAL HIV AB/AG Routine 01/02/2020 8:35 AM EDT from Last 3 Months or Most Recently Relevant to Health Maintenance Results * XR Knee 4+ Views Right (08/29/2024 4:00 PM EDT) Anatomical Region Laterality Modality Lower Extremities, Knee Right Radiogra phic Imaging 08/29/2024 4:00 PM EDT Narrative 08/29/2024 4:45 PM EDT ?[facility] ?[address] ?[place] [address] ?XRay Report ? Signed ? Patient: Ivan,Marangely ?MR#: [id number] ?? [id number] ? : 1975 ?Acct:[id number] ? Age/Sex: 49 / F ?ADM Date: 08/29/24 ? Loc: HO.HHCX ? Attending Dr: Sumi Macdonald MD ? Ordering Physician: Sumi Almaguer MD ?? Date of Service: 08/29/24 ?? Procedure(s): XR knee RT 4V ?? Accession Number(s): [id number] ? cc: Sumi Almaguer MD ? EXAMINATION: [...] DD/ 1600 ? TD/TT: 08/29/24 1620 ? Avionics Electronics Technician: ? Procedure Note Ephraim, Image - 08/29/[address] [address] XRay Report Signed Patient: Crystal IvanMR#: [id number] : 1975Acct:[id number] Age/Sex: 49 / FADM Date: 08/29/24 Loc: HO.HHCX Attending Dr: Sumi Macdonald MD Ordering Physician: Sumi Almaguer MD Date of Service: 08/29/24 Procedure(s): XR knee RT 4V Accession Number(s): [id number] cc: Sumi Almaguer MD EXAMINATION: XR KNEE, [...] 08/29/24 1642 DD/ 1600 TD/TT: 08/29/24 1620 Avionics Electronics Technician: us Sumi Caballero Terese Macdonald MD IMG XR PROCEDURES Evans tamera Result - Final * CT Head w/o Contrast (06/13/2024 2:12 AM EST) Anatomical Region Laterality Modality Head, Neck Computed Tomogra phy 06/13/2024 2:12 AM EST Narrative 06/13/2024 3:12 AM EST ? [facility] ?[address] ?[place] [address] ? CT Scan Report ? Signed ? Patient: Ivan,Marangely ?MR#: [id number] ?? [id number] ? : 1975 ?Acct:[id number] ? Age/Sex: 49 / F ?ADM Date: 06/13/24 ? Loc: HO.ED ? Attending Dr: ? Ordering Physician: Pb Light MD ?? Date of Service: 06/13/24 ?? Procedure(s): CT head/brain wo IV con ?? Accession Number(s): [id number] ? cc: Batsheva Cabrera; Pb Light MD [...] DD/ 0212 ? TD/TT: 06/13/24 0230 ? Avionics Electronics Technician: ? Procedure Note Donjohnter, Image - 06/13/[address] [place] [address] [address] Scan Report Signed Patient: Crystla IvanMR#: [id number] : 1975Acct:[id number] Age/Sex: 49 / FADM Date: 06/13/24 Loc: HO.ED Attending Dr: Ordering Physician: Pb Light MD Date of Service: 06/13/24 Procedure(s): CT head/brain wo IV con Accession Number(s): [id number] cc: Batsheva Cabrera; Pb Light MD EXAMINATION: [...] by: Jose Escalante MD 06/13/2024 03:08 AM EST RP Dictated By: Jose Escalante MD Signed By: <Electronically signed by Jose Escalante MD in OV> 06/13/24 0308 DD/ 0212 TD/TT: 06/13/24 0230 Avionics Electronics Technician: [facility] External Provider IMG CT PROCEDURES Edited Result - Final * BI Mammogram Screening Tomosynthesis Bilateral (07/20/2023 10:50 AM EST) Anatomical Region Laterality Modality Breast Bilateral Mammography 07/20/2023 10:5 0 AM EST Narrative 08/12/2023 10:57 AM EST ? [facility] ? [address] ?[place] [address] ? Mammography Report ? Signed ? Patient: Ivan,Marangely ?MR#: [id number] ?? [id number] ? : 1975 ?Acct:[id number] ? Age/Sex: 48 / F ?ADM Date: 07/20/ ? Loc: HO.MAMMO ? Attending Dr: Batsheva Cabrera MD ? Ordering Physician: Batsheva Cabrera ?Results: 1Negative ? Date of Service: 07/20/ ?Follow Up: 1 Year From Orig ?? inal Mammogram ? Procedure(s): MM tomosynthesis screening BI ?? Accession Number(s): [id number] ? cc: Batsheva Cabrera ? EXAMINATION: ?? MM SCREENING DIGITAL BREAST TOMOSYNTHESIS, BILATERAL ? CLINICAL INFORMATION: ? Screening. Asymptomatic. ? COMPARISON: ?? Mammography: This study is compared with prior exams dating back to ?? 2018. ? TECHNIQUE: ?? Digital breast tomosynthesis is performed in both the craniocaudal and ?? mediolateral oblique views along with computer-aided detection (CAD). ?? Synthesized 2D images are generated from the tomosynthesis. ? FINDINGS: ?? The breasts are almost entirely fatty (ACR BI-RADS breast composition ?? Category a). ? There are no significant masses, abnormal calcifications, or other ?? abnormalities. ? MM/MM tomosynthesis screening BI ?? IMPRESSION: ?? No mammographic evidence of malignancy. ? ASSESSMENT: ? BI-RADS BI-RADS 1 - Negative ? RECOMMENDATION: ?? Routine annual mammography screening. ? 1 year F/U ? This examination should not preclude the clinical evaluation of a ?? suspicious palpable abnormality. ? This patient's information was entered into a reminder system with a ?? target due date for their next mammogram. ? Dictated By: ?Minnie Espinoza MD ? Signed By: ?<Electronically signed by Minnie Espinoza MD in OV> ? 08/12/23 1053 ? DD/ 49 ? TD/TT: ? Avionics Electronics Technician: ? Procedure Note Ephraim, Heraclio - 08/12/2023 [facility] [address] [place] [address] Dr. Alex, [place] [address] Mammography Report Signed Patient: Srinivas Ivan#: [id number] : 1975Acct:[id number] Age/Sex: 48 / FADM Date: 07/20/23 Loc: HO.MAMMO Attending Dr: Batsheva Cabrera MD Ordering Physician: Avtar Cabreraults: 1Negative Date of Service: 07/20/23Follow Up: 1 Year From Orig inal Mammogram Procedure(s): MM tomosynthesis screening BI Accession Number(s): [id number] cc: Batsheva Cabrera EXAMINATION: MM SCREENING DIGITAL BREAST TOMOSYNTHESIS, BILATERAL CLINICAL INFORMATION: Screening. Asymptomatic. COMPARISON: Mammography: This study is compared with prior exams dating back to 2019. TECHNIQUE: Digital breast tomosynthesis is performed in both the craniocaudal and mediolateral oblique views along with computer-aided detection (CAD). Synthesized 2D images are generated from the tomosynthesis. FINDINGS: The breasts are almost entirely fatty (ACR BI-RADS breast composition Category a). There are no significant masses, abnormal calcifications, or other abnormalities. MM/MM tomosynthesis screening BI IMPRESSION: No mammographic evidence of malignancy. ASSESSMENT: BI-RADS BI-RADS 1 - Negative RECOMMENDATION: Routine annual mammography screening. 1 year F/U This examination should not preclude the clinical evaluation of a suspicious palpable abnormality. This patient's information was entered into a reminder system with a target due date for their next mammogram. Dictated By: Minnie Espinoza MD Signed By: <Electronically signed by Minnie Espinoza MD in OV> 08/12/23 1053 DD/ 1050 TD/TT: Avionics Electronics Technician: Batsheva Cabrera MD IMG BI PROCEDURES Edited Resul t - Final * Hepatitis Panel, General (05/10/2023 12:10 PM EST) Hepatitis A IgM Nonreactive Nonreactive [facility] Comment:IgM antibodies to CUNHA V not detected; does not exclude earlyacute or recovered HAV infection. ~Hepatitis B Surface Antibody REACTIVE Nonreactive [facility] Comment:REACTIVE: > 11.99 mI U/mL Hepatitis B Core Antibody Nonreactive Nonreactive [facility] Hepatitis C Antibody Nonreactive Nonreactive [facility] Comment:Antibodies to HCV no t detected; does not exclude early acuteHCV infection. Hepatitis B Surface Ag Negative Negative [facility] 05/10/2023 12:1 0 PM EST 05/10/2023 12:10 PM EST Generic External Data Provider LAB BLOOD ORDERAB LES Final Result Performing Organization Address City/[facility]/ZIP Co de Phone Number [facility] [address] [place] [address] [phone] * HPV E6/E7 RFLX VY 16 18/45 (03/16/2022 10:25 AM EDT) HPV mRNA E6/E7 rflx Not Detected Not Detected [facility] Comment: Methodology: Recruiting Scheduler-Mediated Amplification This assay detects E6/E7 viral messenger RNA (mRNA) from 14 high-risk HPV types (16,18,31,33,35,39,45,51,52,56,58,59,66,68). Cervical sources are required for HPV testing. If a vaginal source from a patient who has had a total hysterectomy with removal of cervix was submitted, please contact the testing laboratory for alternative testing options. For additional information, please refer to http://education.infoBizz/faq/MVN067n2 (This link if provided for information/ educational purposes only.) THIS TEST WAS PERFORMED AT: [facility] [address] [place] [address],[address] [place], [place] ??[phone] EMERY FIGUEROA MD 03/16/2022 10:2 5 AM EDT [place] [place] HISTORICAL/NON ORDERABLE LABS Fi nal Result [facility] * Hm Pap Smear (03/16/2022) Pathologist [facility] HM Pap smear done on 03/16/2022 @ [facility] Historical Provider HEALTH MAINTENANCE Final Result * HIV AB/AG (01/02/2020 8:35 AM EDT) HIV AG/AB NONREACTIVE [facility] Comment: HIV-1 p24 Ag and/or HIV-1/HIV-2 Ab not detected. ?? A test result that is nonreactive does not exclude the possibility of exposure to or infection with HIV-1 and/or HIV-2. Nonreactive results in this assay for individuals with prior exposure to HIV-1 and/or HIV-2 may be due to antigen and antibody levels that are below the limit of detection of this assay. ?? The [employer] HIV Ag/Ab Combo assay result and supplemental assay results should be interpreted in conjunction with the patient's clinical presentation, history and other laboratory results. ??If the results are inconsistent with clinical evidence, additional testing is suggested to confirm the result. 01/02/2020 8:35 AM EDT us Kelsey Todd NP HISTORICAL/NON ORDERABLE LABS Fi nal Result [facility] [address] from Last 3 Months or Most Recently Relevant to Health Maintenance Insurance [facility] STANDARD MEDICARE Care Teams Horticultural Worker Relationship Specialty Start Date End Date Batsheva Cabrera MD [address] [place] [phone] PCP - General Family Medicine 07/24/20
--- OUTSIDE RECORDS SUMMARY | 2024-08-29 19:17 | XMS_ITS | Encounter Summary ---
Author Organization [employer] Address [address] [place] [address] [address] [place] [address] Care Team Providers Care Clubhouse Attendant Name Role Phone Batsheva Cabrera MD Primary Care Provider [phone] Reason for Visit * Reason Onset Date Comments Triage 11/15/2022 Encounter Details Date Type Department Care Team ([facility] st Contact Info) Description 11/15/2022 Telephone [facility] [address] [place], [place] [phone] Batsheva Cabrera MD [address] [place], [place] [phone] Triage Social History Tobacco Use Types Packs/Day [...] Description 10/25/2024 4:00 PM EDT Office Visit [facility] [address] [place] [address] Batsheva Cabrera MD [address] [place] [address] documented as of this encounter Visit Diagnoses Not on filedocumented in this encounter Care Teams Clubhouse Attendant Relationship Specialty Start Date End Date Batsheva Cabrera MD [address] [place] [address] PCP - General Family Medicine 07/24/20 documented as of this encounter
--- OUTSIDE RECORDS SUMMARY | 2024-08-29 19:18 | XMS_ITS | Encounter Summary ---
Author Organization [employer] Address [address] [facility] 7t [place] [address] Care Team Providers Care Direct Marketing Manager Name Role Phone Batsheva Cabrera MD Primary Care Provider [phone] Encounter Details Date Type Department Care Team (Late st Contact Info) Description 2023 Orders Only [facility] [address] [place], [place] [phone] Batsheva Cabrera MD [address] [place], [place] [phone] Hand arthritis (Primary Dx) Social History Tobacco [...] Description 10/25/2024 4:00 PM EDT Office Visit [facility] [address] [place] [phone] Batsheva Cabrera MD [address] [place] [phone] documented as of this encounter Visit Diagnoses Diagnosis Hand arthritis- Primary Unspecified arthropathy, hand documented in this encounter Care Teams Direct Marketing Manager Relationship Specialty Start Date End Date Batsheva Cabrera MD [address] [place] [phone] PCP - General Family Medicine 07/24/20 documented as of this encounter
== END 2024-08-29 15:59 | disposition home or self-care (01) ==
LOC: HO.HHCX 15:58
PROVIDERS: Visit Provider Internal Medicine
DX: M25.561 Pain in right knee (principal)
CPT/HCPCS: 73564

== ENCOUNTER → 2024-08-29 16:00 | Outpatient (BNV) | payer MEDICARE, MEDICAID, SELFPAY | PROVIDERS: Visit Provider Radiology Diagnostic Radiology | DX: M17.11 Unilateral primary osteoarthritis, right knee (principal); M25.461 Effusion, right knee | CPT/HCPCS: 73564 ==

== ENCOUNTER 2024-09-15 19:11 | Outpatient (REF) | payer MEDICARE, MEDICAID, SELFPAY | END 2024-09-15 19:12 | disposition home or self-care (01) | LOC: HO.MRI 19:11 | PROVIDERS: PCP General Practice; Visit Provider Internal Medicine | DX: Z13.89 Encounter for screening for other disorder (principal) ==

== ENCOUNTER 2024-09-24 08:54 | Outpatient (REF) | payer MEDICARE, MEDICAID, SELFPAY ==
--- NOTE | 2024-09-24 09:12 | EMG_ITS ---
Left median and ulnar motor and sensory studies were performed. Left radial sensory study was performed and paraspinal muscles were tested with a needle. IMPRESSION: This is an unremarkable study with no evidence of median or ulnar neuropathy or radiculopathy. MD LYNETTE Pearce/BISMARK / [id number]
--- OUTSIDE RECORDS SUMMARY | 2024-09-24 09:31 | XMS_ITS | Data Portability ---
Author Organization [place] [facility] Address [address] [place] [phone] Care Team Providers Care Decorating Kiln Operator Name Role Phone SRIDEVI SILVESTRE Primary Care Provider Assessment Encounter Date Assessment [...] listening strategies. [email or web address] Not available 06/17/2024 12:33:04 09/10/2024 09/10/2024 The patient's history, physical exam, audiogram, and tuning fork testing are consistent with a conductive component of right-sided hearing loss secondary to otosclerosis. The pathophysiology of otosclerosis was discussed with the patient, and the stapes brochure discussed in detail. We discussed the available options including the use of amplification as well as surgical options. We discussed laser stapedotomy with vein graft in detail, going over the surgical steps in the brochure. We discussed the 1% risk of partial or complete sensorineural hearing loss as a result of surgery, the 3-4% risk that the hearing will stay the same after surgery, but overall a 95% chance that the patient will experience a significant improvement in the hearing in the operated ear. We discussed the risks of surgery including the risk of bleeding, infection, temporary or permanent taste disturbance, temporary or long-term balance disturbance, tinnitus, or tympanic membrane perforation. We also discussed the need to harvest a small vein graft from the back of the hand to serve as a seal around the base of the prosthesis as it enters the inner ear. We discussed anesthetic options including a general anesthetic versus a local anesthetic with intravenous sedation. After full discussion, the patient would like to pursue amplification rather than surgery. I have given her a copy of her audiogram, a list of [facility] hearing aid providers, and medical clearance to pursue this at her convenience. If she changes her mind and would like to proceed with surgery she can come back to see me in the future as needed. [email or web address] Not available 09/11/2024 14:15:13 Plan of Treatment Reminders Order Date Submit Date Provider Last Modified By Organization Details Last Modified Time Details Appointments None record ed. Lab None record ed. Referral None record ed. Procedures None record ed. Surgeries None record ed. Imaging None record ed. Medication Orders None record ed. Patient TargetsNo targets recorded. Patient InstructionsNo instructions recorded. Reason for Referral None Reported. Results Created Date Observation Date Name Description Value Unit Range Abnormal Flag Note LastModifiedBy Organization Detail LastModifiedTime 06/17/20 24 audio gram No observ ation record ed. BARCODE Not Available 2023 13:36:55 09/11/19 25 audio gram No observ ation record ed. BARCODE Not Available 2024 13:55:20 Result Notes None recorded. Problems Name Problem SNOMED Code Status Onset Date Resolution Date Notes Provider Name and Address Organization Details Recorded Time Hypertrop hy of tonsils 42067443 Active 2017 Hypertrop hy of tonsils; Note: Date Diagnosed : 8 1:12 PM (J35.1) Not Available [facility] 4 02:28:55 Non-toxic uninodula r goiter 148217149 Active 2018 Thyroid (cystic) nodule NOS; Note: Date Diagnosed : 08/15/2018 6:47 PM (E04.1) Not Available [facility] 4 02:29:02 Dysphagia 49241188 Active 2017 Other dysphagia ; Note: Date Diagnosed : 8 1:08 PM (R13.19) Not Available [facility] 4 02:29:05 Injury of thyroid gland 673698824 Active 2017 Other specified injuries of thyroid gland, initial encounter ; Note: Date Diagnosed : 8 1:13 PM (S19.84XA ) Not Available [facility] 4 02:29:00 Conductiv e hearing loss 22626550 Active 2023 ZEKE AGUILAR [address],[place] [address], [place], [address] , [place] [facility] 4 10:46:50 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 86444677985 05246 Active 2023 JACKELIN DRIVER PA-C [address] [facility],[place] [address], [place], [address] , [place] - [facility] 4 11:21:21 Impacted cerumen in left ear 38543948855 31637 Active 2023 GABBY ELIZALDEC [address],[place] [address], [place], [address] , [place] - [facility] 4 11:22:33 Mixed conductiv e 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 Procedures Surgical History Date Name Laterality Status Provider Name and Address Organization Details Recorded Time 5 Comp Audio with Tymps (30076 & 52420) completed ZEKE PERAZA [address],[place] [address], [place], [address], [place] - [facility] 09/10/2024 12:08:22 4 Comp Audio with Tymps (01095 & 56056) completed ZEKE AGUILAR [address] [facility] [address], [place], [address], [facility] - [facility] 06/17/2024 10:34:55 4 Cerumen removal without microscope left completed JACKELIN DRIVER PA-C [address] [facility] [address], [place], [address], [facility] - [facility] 06/17/2024 11:22:21 Imaging Results Imaging Date Name Status LastModified by Organiz ation Details LastModified Time 06/17/2024 audiogram completed BARCODE Information no t available 06/17/2024 13:36:55 09/10/2024 audiogram completed BARCODE Information no t available 09/10/2024 13:55:20 Procedure Notes None recorded. Medical Equipment None Reported. Allergies Allergen ID Allergen Name Allergen Category Reaction Reaction Severity Criticality Documentation Date Start Date Code Code System Note Provider Name and Address Organization Details Recorded Time 040678 cannabidi ol medicatio n hives moderate Not available 09/10/202454895 71 RxNorm Jenae walters [place] [facility] 5 11:38:22 Medications Name Sig Start Date Stop Date Status Note LastModified by Organization Details LastModified Time amoxicillin 500 mg capsule TAKE 1 CAPSULE BY MOUTH 3 TIMES A DAY 06/17 completed Not Available Not Available Not Available clonidine HCl 0.1 mg tablet TAKE 1 TABLET BY MOUTH ONCE A DAY NEEDED FOR PANIC ATTACK active Not Available Not Available [...] Available Not Available No t Available ibuprofen 600 mg tablet TAKE 1 TABLET BY MOUTH EVERY 8 HOURS IF NEEDED FOR MILD PAIN FOR UP TO 10 DAYS. active Not Available Not Available No t Available albuterol sulfate HFA 90 mcg/actuati on aerosol inhaler INHALE 2 PUFFS EVERY 6 HOURS IF NEEDED FOR WHEEZING. active Not Available Not Available No t Available hydroxyzine pamoate 25 mg capsule TAKE 1 CAPSULE BY MOUTH TWICE A DAY NEEDED FOR ANXIETY active Not Available Not Available No t Available Laxative (bisacodyl) 5 mg tablet,luis yed release TAKE 4 TABS BY MOUTH ONCE FOR COLON PREP FOR 1 DAY AT 12 PM THE DAY BEFORE COLONOSCO PY APPOINTME NT active Not Available Not Available No t [...] Not Available Not Available No t Available Gavilax 17 gram/dose oral powder PLEASE SEE ATTACHED FOR DETAILED DIRECTION S active Not Available Not Available No t Available cholecalcif liat (vitamin D3) 125 mcg/mL (5,000 unit/mL) oral drops GIVE 0.6MLS BY MOUTH EVERY DAY active Not Available Not Available No t Available Vitals Date Recorded Body height Body weight Provider Name and Address Organization Details Last Updated DateTime 09/10/2024 170.18 cm 27714.47 g Jenae Barry [place] [facility] 09/10/2024 11:38:14 Date Recorded Body weight Body mass index (BMI) Body height Provider Name and Address Organization Details Last Updated DateTime 06/17/2024 03735.47 g 31.3 kg/m2 170.18 cm Nancy Griffin [place] [facility] 06/17/2024 10:05:54 Social History None recorded. Functional Status None recorded. Mental Status None recorded. Family History Nothing Reported. Medical History Condition Response Allergies/Hayfever Y Anxiety Y Emphysema N Migraines N Developmental Delay N Glaucoma N Depression Y COPD N Nasal or Sinus Problems N Anesthesia Complications Y Heart Attack (PR) N Other Skin Condition N Diabetes N Rhinitis N Bleeding Disorder N Food Allergy N Arthritis Y Hearing Loss Y Cancer N Stroke N Dementia N Nasal polyps N Asthma Y High Cholesterol N Sleep Disorder Y GERD/Reflux Y Liver Disease N Headaches N Fibromyalgia Y Speech Delay N Kidney Disease N Gynecological HistoryNo gynecological history recorded. Obstetrics History GPAL:G 0 P 0 0 0 0 Past Encounters Encounter ID Performer Location Encounter Start Date Encounter Closed Date Diagnosis/Indication Diagnosis SNOMED-CT Code Diagnosis ICD10 Code Diagnosis Note [id number] JACKELIN DRIVER PA-C [facility] [address] [address] 06/17/2024 09:59:17 06/17/2024 11:31:10 Conductive hearing loss 43250218 H90.11 Otoscleros is of ossicle of right ear 4507101157 448894 H80.91 Impacted c erumen in left ear 9553608827 361023 H61.22 [id number] ZEKE AGUILAR [facility] [address] [address] 06/17/2024 10:34:16 06/20/2024 14:57:33 Conductive hearing loss 02625582 H90.2 Audiologic al evaluation results:Ri ght ear:{{Norm [...] [place]. [id number] CHERYL RAMIREZ MD [facility] [address] [place] [address] 09/10/2024 11:18:40 09/10/2024 12:23:08 Mixed conductive and sensorineural hearing loss of right ear 7881909727 9105 H90.71 Audiologic al evaluation results: 09/10/2024 Right ear: {{Normal N ormal through 2 kHz Mild* Moderate M oderately- severe Sev ere Profou nd}} {{hearing hearing. s loping to a mild slopi ng to a moderate s loping to moderately severe slo ping to severe slo ping to profound f lat high frequency low frequency mid frequency cookie bite casillas curve risi ng to normal#}} {{with sen sorineural hearing loss with condu ctive hearing loss with mixed hearing loss with*}} {{excellen t* good fa ir poor no measurable }} word recognitio n. Left ear: {{Normal* Normal through 2 kHz Mild M oderate Mo derately-s evere Tamra re Profoun d}} {{hearing* hearing. sloping to a mild slopi ng to a moderate s loping to moderately severe slo ping to severe slo ping to profound f lat high frequency low frequency mid frequency cookie bite casillas curve}} {{with* se nsorineura l hearing loss with condu ctive hearing loss with mixed hearing loss with}} {{excellen t* good fa ir poor no measurable }} word recognitio n. Tympanomet ry: Right Ear:{{Type A* Type A with rounded peak Type A with double peak Type As Type As with rounded peak Type Ad Type C Type C, shallow & rounded peak Type B Type B with large volume Cou ld not maintain a hermetic seal}} Left Ear:{{Type A* Type A with rounded peak Type A with double peak Type As Type As with rounded peak Type Ad Type C Type C, shallow & rounded peak Type B Type B with large volume Cou ld not maintain a hermetic seal}} Otoscleros is of ossicle of right ear 1553192714 922671 H80.91 [id number] ZEKE PERAZA [facility] [address] [place] [address] 09/10/2024 12:07:13 09/16/2024 13:25:42 Mixed conductive and sensorineural hearing loss of right ear 3035827480 9105 H90.71 Audiologic al evaluation results: 09/10/2024 Right ear: {{Normal N ormal through 2 kHz Mild* Moderate M oderately- severe Sev ere Profou nd}} {{hearing hearing. s loping to a mild slopi ng to a moderate s loping to moderately severe slo ping to severe slo ping to profound f lat high frequency low frequency mid frequency cookie bite casillas curve risi ng to normal#}} {{with sen sorineural hearing loss with condu ctive hearing loss with mixed hearing loss with*}} {{excellen t* good fa ir poor no measurable }} word recognitio n. Left ear: {{Normal* Normal through 2 kHz Mild M oderate Mo derately-s evere Tamra re Profoun d}} {{hearing* hearing. sloping to a mild slopi ng to a moderate s loping to moderately severe slo ping to severe slo ping to profound f lat high frequency low frequency mid frequency cookie bite casillas curve}} {{with* se nsorineura l hearing loss with condu ctive hearing loss with mixed hearing loss with}} {{excellen t* good fa ir poor no measurable }} word recognitio n. Tympanomet ry: Right Ear:{{Type A* Type A with rounded peak Type A with double peak Type As Type As with rounded peak Type Ad Type C Type C, shallow & rounded peak Type B Type B with large volume Cou ld not maintain a hermetic seal}} Left Ear:{{Type A* Type A with rounded peak Type A with double peak Type As Type As with rounded peak Type Ad Type C Type C, shallow & rounded peak Type B Type B with large volume Cou ld not maintain a hermetic seal}} Health Concerns Section Related Observation LastModified by Organization Detai ls LastModified Time None Recorded Concern Status LastModified by Organization Details LastModified Time None Recorded Advance Directives Directive None Recorded Payers Encounter Date Sequence Insurance Name Policy Number Policy Dukes Covered Member ID Dukes Member ID Guarantor Name 06/17/2024 2 [place] [facility] Crystal Ivan [id number] Crystal Ivan 06/17/2024 1 [place] [employer] Mardineshly Ivan [id number] Marangely Ivan 06/17/2024 2 [place] Jordenly Ivan [id number] Marangely Ivan 06/17/2024 1 [place] [employer] Marangely Ivan [id number] Marangely Ivan 09/10/2024 2 [place] [facility] Crystal Gilios [id number] Marangely Ivan 09/10/2024 1 [place] Mardineshly Ivan [id number] Marangely Ivan 09/10/2024 2 [place] Jordenly Ivan [id number] Marangely Ivan 09/10/2024 1 [place] Jordenly Ivan [id number] Cristinaangely Ivan Notes Date Note Type Note Provider [...] known family history of early hearing loss. JACKELIN DRIVER PA-C [address] [place] [address], [address], [place] [facility] [place] [address]/2024 12:33:13 06/17/2024 text/html Audiological Evaluation HPIReported bypatient.Hearing loss perceived:hearing loss in both ears: right ear worse Tinnitus reported:right ear ZEKE AGUILAR [address] [facility],[address], [address], [place] [facility] 06/17/2024 10:48:51 09/10/2024 text/html Patient previous ly seen by Jackelin Driver PA-C. She was noted to have a significant conductive hearing loss in the right ear with absent tympanic reflexes. Patient is unsure how long the hearing loss has been present. She does notice mild roaring tinnitus in the right ear. CHERYL RAMIREZ MD [address] [facility],[place] [address], [place], [address], [facility] 09/11/2024 14:15:36 OBGyn Episode No OBEpisode recorded.
== END 2024-09-24 08:55 | disposition home or self-care (01) ==
LOC: HO.NEURO 08:54
PROVIDERS: Visit Provider Internal Medicine
DX: R20.0 Anesthesia of skin (principal); M54.2 Cervicalgia
CPT/HCPCS: 95860; 95909

== ENCOUNTER 2024-09-26 10:11 | Outpatient (AMB) | payer MEDICARE, MEDICAID, SELFPAY ==
[2024-09-26 10:21] VITALS: BMI 31.6
--- NOTE | 2024-09-26 10:21 | A.OFFVIS_ITS ---
Vital Signs 09/26/24 10:21 Height 5 ft 7 in Weight 202 lb BMI 31.6 Intake Visit Reasons: RT knee pain that is radiating hip Intake Note: Crystal is a 49 year old female who presents today for a follow up of her right hip and right knee pain. She was last seen in Jun 2023 where she was informed that she has mild Right Hip OA and Moderate Right Knee OA. She was given a compounding cream and informed that we would discuss Gel injections at next appointment. Currently she reports that her right knee pain has increased, she was seen at [facility] and was ordered a brace. Her pain has started to radiat up to the hip and makes getting in and out of the car difficult. Her pain is on and off and she explains that she came to the appointment because she was told to from the [facility] Allergies cannabidiol (CBD) extract Allergy (Mild, Verified 08/27/24 09:51) Hives duloxetine Adverse Reaction (Intermediate, Verified 08/27/24 09:51) Nausea and Vomiting HPI HPI RT knee pain that is radiating hip: Details: 49-year-old female with right medial knee pain. She has a history of knee pain. We have done arthroscopy on the contralateral leg. Today she comes in because about 2 weeks ago she started developing pain in her right knee. She went to an urgent care and they suggested she come in here for follow up. The pain has since resolved but she did get x-rays which showed some medial compartment osteoarthritis. [facility] Medical History Asthma Elevated anti-tissue transglutaminase (tTG) IgA level Peripheral muscle fatigue Muscle weakness of upper extremity Myalgia Hx of ectopic Anxiety disorder Paroxysmal nocturnal dyspnea Amenorrhea Campbell's disease Arthritis Hyperthyroidism Goiter Vitamin D deficiency Non-toxic multinodular goiter Obesity Elevated dehydroepiandrosterone sulfate level Graves disease Degenerative arthritis of knee, bilateral Surgical History Hx of endoscopy H/O esophagogastroduodenoscopy History of tonsillectomy History of tubal ligation Family History Father Diabetes Mother Breast cancer BRCA gene mutation negative Maternal Uncle Heart transplanted Social History Household Members: Family Alcohol intake: never Patient Tobacco Use Status: Never used Tobacco service: No Current occupational status: unemployed Current occupation: right hand Sexual orientation: Straight/Heterosexual Gender identity: Female Female Reproductive History Menstrual Age of Menarche: 13 Physical Exam Vital Signs: BMI result Body Mass Index 31.6 Extrem Other: Full range of motion and stable to ligamentous exam. She has tenderness to palpation in the medial joint line with a negative Adrian's and no effusion. Results Reviewed Results Reviewed: I personally reviewed relevant radiographs. Moderate predominantly medial compartment arthritis right knee Assessment & Plan Assessment & Plan (1) Arthritis of right knee: Code(s): M17.11 - Unilateral primary osteoarthritis, right knee Category: Medical Plan: This is a 49-year-old with osteoarthritis of the right knee. She is doing well right now and no intervention is warranted. Should her pain return we can consider injections. I discussed these findings with her. She does describe occasional lateral right hip pain but this does not seem to be a pressing issue for her. She may follow up PRN. Coding Level of Care Code Est Pt Level 3 (15639) Diagnoses Arthritis of right knee M17.11
--- OUTSIDE RECORDS SUMMARY | 2024-09-26 11:54 | XMS_ITS | Encounter Summary ---
Author Organization [employer] Address [address] [facility] 7t [place] [address] Care Team Providers Care Artificial Insemination Technician Name Role Phone Batsheva Cabrera MD Primary Care Provider [phone] Reason for Visit * Reason Comments Med Change Request Encounter Details Date Type Department Care Team ([facility] Contact Info) Description 04/28/2024 Refill [facility] [address] [place], [place] [phone] Batsheva Cabrera MD [address] [place] [address] Social History Tobacco Use Types Packs/Day Years [...] 4:00 PM EDT Office Visit [facility] [address] [place], [place] [phone] Batsheva Cabrera MD [address] [place] [address] documented as of this encounter Visit Diagnoses Not on filedocumented in this encounter Care Teams Artificial Insemination Technician Relationship Specialty Start Date End Date Batsheva Cabrera MD [address] [place] [phone] PCP - General Family Medicine 07/24/20 documented as of this encounter
--- OUTSIDE RECORDS SUMMARY | 2024-09-26 11:54 | XMS_ITS | Encounter Summary ---
Author Organization [employer] Address [address] [place] [address] 7t [place] [address] Care Team Providers Care Java Engineer Name Role Phone Batsheva Cabrera MD Primary Care Provider [phone] Reason for Referral * Consultation (Routine) - Closed Specialty Diagnoses / Procedures Referred By Contac t Referred To Contact Physical Therapy Diagnoses Spondylosis of cervical region without myelopathy or radiculopathy Batsheva Cabrera MD [address] [place] [address] Phone: tel: fax: [facility] [address] [place] [address] Phone: tel: fax: Referral ID Status Reason Start Date Expiration Date V isits Requested Visits Authorized [id number] Closed Specialty Services Required 05/15/2024 05/15/2025 1 1 Encounter Details Date Type Department Care Team (Late st Contact Info) Description 05/15/[address] [facility] [address] [place], [place] [phone] Batsheva Cabrera MD [address] [place], [place] [phone] Spondylosis of cervical region without myelopathy or [...] 10/25/2024 4:00 PM EDT Office Visit [facility] [address] [place] [address] Batsheva Cabrera MD [address] [place] [address] Scheduled Referrals Name Type Priority Associated Diagnoses [...] EST Narrative 06/13/2024 3:12 AM EST ? [facility] ?[address] ?[place] [address] ? CT Scan Report ? Signed ? Patient: Ivan,Marangely ?MR#: [id number] ?? [id number] ? : 1975 ?Acct:[id number] ? Age/Sex: 49 / F ?ADM Date: 06/13/24 ? Loc: HO.ED ? Attending Dr: ? Ordering Physician: Pb Light MD ?? Date of Service: 06/13/24 ?? Procedure(s): CT head/brain wo IV con ?? Accession Number(s): [id number] ? cc: Batsheva Cabrera; Pb Light MD [...] DD/ 0212 ? TD/TT: 06/13/24 0230 ? Athletic Instructor: ? Procedure Note Donotuseinterpreter, Image - 06/13/[address] [address] [place] Scan Report Signed Patient: Crystal IvanMR#: [id number] : 1975Acct:[id number] Age/Sex: 49 / FADM Date: 06/13/24 Loc: HO.ED Attending Dr: Ordering Physician: Pb Light MD Date of Service: 06/13/24 Procedure(s): CT head/brain wo IV con Accession Number(s): [id number] cc: Batsheva Cabrera; Pb Light MD EXAMINATION: [...] by: Jose Escalante MD 06/13/2024 03:08 AM [facility] Dictated By: Jose Escalante MD Signed By: <Electronically signed by Jose Escalante MD in OV> 06/13/24 0308 DD/ 0212 TD/TT: 06/13/24 0230 Athletic Instructor: [facility] External Provider IMG CT PROCEDURES Edited Result - Final documented in this encounter Visit Diagnoses Diagnosis Spondylosis of cervical region without myelopathy or radiculopathy- Primary documented in this encounter Care Teams Java Engineer Relationship Specialty Start Date End Date Batsheva Cabrera MD [address] [place] [address] PCP - General Family Medicine 07/24/20 documented as of this encounter
--- OUTSIDE RECORDS SUMMARY | 2024-09-26 11:54 | XMS_ITS | Encounter Summary ---
Author Organization [employer] Address [address] [place] [address] 7t [place] [address] Care Team Providers Care It Technical Support Specialist Name Role Phone Batsheva Cabrera MD Primary Care Provider [phone] Reason for Visit * Reason Onset Date Comments Results 06/07/2023 Encounter Details Date Type Department Care Team ([facility] st Contact Info) Description 06/07/2023 Telephone [facility] [address] [place], [place] [phone] Batsheva Cabrera MD [address] [place], [place] [phone] Results Social History Tobacco Use Types Packs/Day [...] 9:57 AM EST TC placed to pt [phone] in regards to below message. Pt reports [...] Description 10/25/2024 4:00 PM EDT Office Visit [facility] [address] [place] [address] Batsheva Cabrera MD [address] [place] [address] documented as of this encounter Visit Diagnoses Not on filedocumented in this encounter Care Teams It Technical Support Specialist Relationship Specialty Start Date End Date Batsheva Cabrera MD [address] [place] [address] PCP - General Family Medicine 07/24/20 documented as of this encounter
--- OUTSIDE RECORDS SUMMARY | 2024-09-26 11:55 | XMS_ITS | Encounter Summary ---
Author Organization [employer] Address [address] [place] [address] 7t [place] [address] Care Team Providers Care Hydroelectric Plant Operator Name Role Phone Batsheva Cabrera MD Primary Care Provider [phone] Reason for Visit * Reason Onset Date Comments Results 03/23/2023 Encounter Details Date Type Department Care Team ([facility] st Contact Info) Description 03/23/2023 Telephone [facility] MED[facility]INE [address] [place], [place] [phone] Batsheva Cabrera MD [address] [place], [place] [phone] Results Social History Tobacco Use Types Packs/Day [...] 11:00 AM EDT TC placed to pt [phone] in regards to below message. Pt informed [...] xray results . States were done at [facility] . documented in this encounter Plan of Treatment Upcoming Encounters Date Type Department Care Team (Late st Contact Info) Description 10/25/2024 4:00 PM EDT Office Visit [facility] [address] [place] [address] Batsheva Cabrera MD [address] [place] [address] documented as of this encounter Visit Diagnoses Not on filedocumented in this encounter Care Teams Hydroelectric Plant Operator Relationship Specialty Start Date End Date Batsheva Cabrera MD [address] [place] [address] PCP - General Family Medicine 07/24/20 documented as of this encounter
--- OUTSIDE RECORDS SUMMARY | 2024-09-26 11:55 | XMS_ITS | Encounter Summary ---
Author Organization [email or web address] [facility] Address [address] [place] [address] 7t [place] [address] Care Team Providers Care Needle Punch Operator Name Role Phone Batsheva Cabrera MD Primary Care Provider [phone] Encounter Details Date Type Department Care Team (Late st Contact Info) Description 08/01/2022 Orders Only [facility] MEDICINE [address] [place] [address] [phone] Mamie Templeton LPN Social History Tobacco Use [...] 4:00 PM EDT Office Visit [facility] MEDICINE [address] [place] [address] [phone] Batsheva Cabrera MD [address] [place] [address] [phone] documented as of this encounter Visit Diagnoses Not on filedocumented in this encounter Care Teams Needle Punch Operator Relationship Specialty Start Date End Date Batsheva Cabrera MD [address] [place] [address] PCP - General Family Medicine 07/24/20 documented as of this encounter
--- OUTSIDE RECORDS SUMMARY | 2024-09-26 11:55 | XMS_ITS | Encounter Summary ---
Author Organization [employer] Address [address] [facility] 7t [place] [address] Care Team Providers Care Wireless Technician Name Role Phone Batsheva Cabrera MD Primary Care Provider [phone] Reason for Visit * Reason Comments Med Change Request Encounter Details Date Type Department Care Team ([facility] Contact Info) Description 06/13/2024 Refill [facility] MEDICINE [address] [place] [address] Sumi Almaguer MD [address] [place] [address] Viral upper respiratory tract infection Social History [...] Description 10/25/2024 4:00 PM EDT Office Visit [facility] MEDICINE [address] [place] [address] Batsheva Cabrera MD [address] [place] [address] documented as of this encounter Visit Diagnoses Diagnosis Viral upper respiratory tract infection Acute upper respiratory infections of unspecified site documented in this encounter Care Teams Wireless Technician Relationship Specialty Start Date End Date Batsheva Cabrera MD [address] [place] [address] PCP - General Family Medicine 07/24/20 documented as of this encounter
--- OUTSIDE RECORDS SUMMARY | 2024-09-26 11:55 | XMS_ITS | Encounter Summary ---
Author Organization [employer] Address [address] [facility] 7t [place] [address] Care Team Providers Care Psychiatric Specialist Name Role Phone Batsheva Cabrera MD Primary Care Provider [phone] Encounter Details Date Type Department Care Team (Late st Contact Info) Description 2023 Orders Only [facility] MEDICINE [address] [place], [place] [phone] Batsheva Cabrera MD [address] [place], [place] [phone] Hand arthritis (Primary Dx) Social History Tobacco [...] EDT Office Visit [facility] MEDICINE [address] [place] [address] Batsheva Cabrera MD [address] [place] [address] documented as of this encounter Visit Diagnoses Diagnosis Hand arthritis- Primary Unspecified arthropathy, hand documented in this encounter Care Teams Psychiatric Specialist Relationship Specialty Start Date End Date Batsheva Cabrera MD [address] [place] [address] PCP - General Family Medicine 07/24/20 documented as of this encounter
--- OUTSIDE RECORDS SUMMARY | 2024-09-26 11:55 | XMS_ITS | Encounter Summary ---
Author Organization [employer] Address [address] [place] [address] 7t [place] [address] Care Team Providers Care Golf Starter And Ranger Name Role Phone Batsheva Cabrera MD Primary Care Provider [phone] Reason for Visit * Reason Onset Date Comments Results 09/26/2024 Encounter Details Date Type Department Care Team ([facility] st Contact Info) Description 09/26/2024 Telephone [facility] MEDICINE [address] [place], [place] [phone] Batsheva Cabrera MD [address] [place], [place] [phone] Results Social History Tobacco Use Types Packs/Day [...] Telephone Encounter - Adina Love RN - 09/26/2024 8:50 AM EDT TC placed to patient [phone] to inform of below message. Patient verbalized understanding and did not have any further questions/concerns. Patient to f/u [facility] Team Nurses Cover DR. Gudino's PAQ. Please let patient know nerve conduction study was negative. Follow up with PCP as scheduled. Thank you! documented in this encounter Plan of Treatment Upcoming Encounters Date Type Department Care Team (Late st Contact Info) Description 10/25/2024 4:00 PM EDT Office Visit [facility] MEDICINE [address] [place] [address] Batsheva Cabrera MD [address] [place] [address] documented as of this encounter Visit Diagnoses Not on filedocumented in this encounter Care Teams Golf Starter And Ranger Relationship Specialty Start Date End Date Batsheva Cabrera MD [address] [place] [address] PCP - General Family Medicine 07/24/20 documented as of this encounter
--- OUTSIDE RECORDS SUMMARY | 2024-09-26 11:55 | XMS_ITS | Encounter Summary ---
Author Organization [employer] Address [address] [place] [address] 7t [place] [address] Care Team Providers Care Used Car Make Ready Mechanic Name Role Phone Batsheva Cabrera MD Primary Care Provider [phone] Reason for Visit * Reason Onset Date Comments Triage 11/15/2022 Encounter Details Date Type Department Care Team ([facility] st Contact Info) Description 11/15/2022 Telephone [facility] MEDICINE [address] [place], [place] [phone] Batsheva Cabrera MD [address] [place], [place] [phone] Triage Social History Tobacco Use Types Packs/Day [...] Description 10/25/2024 4:00 PM EDT Office Visit [facility] MED[facility]INE [address] [place] [address] Batsheva Cabrera MD [address] [place] [address] documented as of this encounter Visit Diagnoses Not on filedocumented in this encounter Care Teams Used Car Make Ready Mechanic Relationship Specialty Start Date End Date Batsheva Cabrera MD [address] [place] [address] PCP - General Family Medicine 07/24/20 documented as of this encounter
--- OUTSIDE RECORDS SUMMARY | 2024-09-26 11:55 | XMS_ITS | Encounter Summary ---
Author Organization [employer] Address [address] [place] [address] 7t [place] [address] Care Team Providers Care Sand Sifter Name Role Phone Batsheva Cabrera MD Primary Care Provider Reason for Visit * Reason Onset Date Comments Durable Medical Equipment 10/04/2022 Encounter Details Date Type Department Care Team ([facility] st Contact Info) Description 10/04/[address] [facility] MEDICINE [address] [place], [place] [phone] Batsheva Cabrera MD [address] [place] [address] Durable Medical Equipment Social History Tobacco Use [...] 2:17 PM EDT Tc [facility] requesting a high position adjustable bed that not a hospital bed. documented in this encounter Plan of Treatment Upcoming Encounters Date Type Department Care Team (Late st Contact Info) Description 10/25/2024 4:00 PM EDT Office Visit [facility] MEDICINE [address] [place], [place] [phone] Batsheva Cabrera MD [address] [place] [address] documented as of this encounter Visit Diagnoses Not on filedocumented in this encounter Care Teams Sand Sifter Relationship Specialty Start Date End Date Batsheva Cabrera MD [address] [place] [address] [phone] PCP - General Family Medicine 07/24/20 documented as of this encounter
--- OUTSIDE RECORDS SUMMARY | 2024-09-26 11:55 | XMS_ITS | Clinical Summary ---
Author Organization [employer] Address [address] [place] [address] 7t [place] [address] Care Team Providers Care Tire Cord Weaver Name Role Phone Batsheva Cabrera MD Primary Care Provider [phone] Allergies Active Allergy Reactions Criticality Noted Date Comments Cannabidiol Hives,Itching 04/14/2020 Medications escitalopram (Lexapro) 10 MG tablet Take 10 mg by mouth in the morning. 3 Active pediatric multivitamin-iro n (Poly-Vi-Josefina w/ Iron) 11 MG/ML solution 1 Active lidocaine (Lidoderm) 5 % patchIndications :Influenza-like symptoms APPLY 1 PATCH IN THE MORNING [...] 4 Active Cholecalciferol (Vitamin D3) 5000 UNIT/ML liquidIndication s:Vitamin D deficiency GIVE 0.6MLS BY MOUTH EVERY DAY 4 Active omeprazole (PriLOSEC) [address] capsuleIndicatio ns:Gastroesophag eal reflux disease without esophagitis TAKE 1 CAPSULE BY MOUTH 2 TIMES A DAY BEFORE MEALS. 4 Active albuterol (Ventolin HFA) 108 (90 Base) MCG/ACT inhalerIndicatio ns:Mild persistent asthma without complication Inhale 2 puffs every 6 (six) hours if needed for wheezing. 18 g 6 4 Active fluticasone-salm eterol (Advair HFA) 45-21 MCG/ACT inhaler Inhale 2 puffs in the morning and at bedtime. 12 g 11 4 Active fluticasone (Flonase) 50 MCG/ACT nasal sprayIndications :Viral upper respiratory tract infection Administer 1-2 sprays into each nostril Once per day. Shake gently. Before first use, prime pump. After use, clean tip and replace cap. 16 g 1 4 05/29/20 25 Active diphenhydrAMINE (BENADryl) 12.5 MG/5ML elixirIndication s:Allergic reaction, initial encounter Take 10 mL (25 mg) by mouth every 6 (six) hours if needed for itching for up to 10 days. 120 mL 5 Active ibuprofen 600 MG tabletIndication s:Acute pain of right knee,Injury of right knee, initial encounter Take 1 tablet (600 mg) by mouth every 8 (eight) hours if needed for mild pain for up to 10 days. 30 tablet 5 09/09/19 25 predniSONE (Deltasone) 20 MG tabletIndication s:Neck pain,Allergic reaction, initial encounter Take 2 tablets (40 mg) by mouth Once per day for 5 days. 10 tablet 5 09/12/19 25 Active Problems Problem Noted Date Diagnosed Date Neck pain 09/06/2024 Assessment & Plan (09/06/2024 3:13 PM EDT): I will order MRI of her neck + nerve conduction studies I will contact patient with results and plan Left arm numbness 09/06/2024 Allergic reaction 09/06/2024 Assessment & Plan (09/06/2024 3:14 PM EDT): I advise to take out acrylic and avoid in the future offending agent Benadryl liquid prescribed + prednisone ED precautions where reviewed with patient Acute pain of right knee 08/29/2024 Assessment [...] muscle relaxants for GI issues -f w science technician Next apt 03/18/2024 and advised to start [...] AM EDT): Completed functional dyspepsia study at [facility] Follow their recommendations Normal mammography 03/08/2021 Avoidant-restrictive [...] PM EST): Completed functional dyspepsia study at [facility] [place] [facility] Araujo Seeing surgeon, presumably to talk about fundoplication GI started her on Boost Assessment & Plan (10/31/2022 8:56 AM EDT): Continue omeprazole per GI Has upcoming EGD in November with Dr Araujo at [facility] Anxiety 01/30/2021 Assessment & Plan (09/06/2024 3:14 PM EDT): F/u with psychiatrist and therapist Hyperthyroidism 11/15/2018 Vitamin D deficiency 11/15/2018 Allergic rhinitis 10/26/2015 Class 1 obesity 10/26/2015 Resolved Problems Problem Noted Date Diagnosed Date Resolved Date Epicondylitis elbow, medial, left 02/23/2024 02/23/2024 Tonsillar exudate 10/20/2022 04/10/2024 Asthma 11/02/2021 12/01/2022 Mild intermittent asthma without complication 10/26/19 16 04/10/2024 Assessment & Plan (10/02/2023 8:22 AM EDT): Controlled with SANDI Encounters Date Type Department Care Team Description 09/26/2024 Telephone [facility] [address] [place] [address] Batsheva Cabrera MD Results 09/11/[address] [address] Batsheva Cabrera MD Durable Medical Equipment 09/06/2024 2:20 PM EDT Office Visit [facility] [address] [place] [address] Sumi Almaguer MD Neck pain (Primary Dx); Left arm numbness; Allergic reaction, initial encounter; Anxiety 09/04/[address] [address] Batsheva Cabrera MD Durable Medical Equipment 09/03/[address] [address] Batsheva Cabrera MD Results 08/29/2024 3:30 PM EDT Office Visit [address] [address] Sumi Almaguer MD Acute pain of right knee (Primary Dx); Injury of right knee, initial encounter 08/29/2024 Travel 08/28/[address] [address] Batsheva Cabrera MD Nurse Triage 08/13/[address] [address] Batsheva Cabrera MD recall from Last 3 Months Immunizations Name Administration [...] Sign Reading Time Taken Comments Blood Pressure 141/106 09/06/2024 2:07 PM EDT Pulse 98 09/06/2024 2:07 PM EDT Temperature 36.7 ??C (98 ??F) 09/06/2024 2:07 PM EDT Respiratory Rate 18 09/06/2024 2:07 PM EDT Oxygen Saturation 99% 05/29/2024 10:30 AM EST Inhaled Oxygen Concentration - - Weight 93 kg (205 lb) 09/06/2024 2:07 PM EDT Height 170.2 cm (5' 7 ) 09/06/2024 2:07 PM EDT Body Mass Index 32.11 09/06/2024 2:07 PM EDT Plan of Treatment Upcoming Encounters Date Type Department Care Team (Late st Contact Info) Description 10/25/2024 4:00 PM EDT Office Visit [facility] [address] [place] [address] Batsheva Cabrera MD [address] [place], [place] [phone] Health Maintenance Due Date Last Done Comments [...] history exists Depression Screening 10/29/2023 10/28/2022, 10/29/19 23 COVID-19 Vaccine ( - season) 2024 Influenza Vaccine (#1) 2024 04/10/2014 Mammogram 07/20/2024 07/20/2023, 06/20, 07/14/2022, Additional history exists SDOH Screening 08/30/2024 08/31/2023 Zoster Vaccines (1 of 2) 2025 Tobacco Screening 09/06/2025 09/06/2024 Cervical Cancer Screening 03/16/2027 HPV/Cotest 03/16/2027 03/16/2022, [...] PM EDT Acute pain of right knee BI MAMMOGRAM SCREENING TOMOSYNTHESIS BILATERAL Routine 07/20/2023 10:50 AM EST HEPATITIS PANEL, GENERAL Routine 05/10/2023 12:10 PM EST [facility] HISTORICAL HPV E6/E7 RFLX VY 16 18/45 Routine 03/16/2022 10:25 AM EDT HM PAP/HPV Routine 03/16/2022 [facility] HISTORICAL HIV AB/AG Routine 01/02/2020 8:35 AM EDT from Last 3 Months or Most Recently Relevant to Health Maintenance Results * XR Knee 4+ Views Right (08/29/2024 4:00 PM EDT) Anatomical Region Laterality Modality Lower Extremities, Knee Right Radiogra phic Imaging 08/29/2024 4:00 PM EDT Narrative 08/29/2024 4:45 PM EDT ?[facility] ?[address] ?[place] [address] ?XRay Report ? Signed ? Patient: Crystal Ivan ?MR#: [id number] ?? [id number] ? : 1975 ?Acct:[id number] ? Age/Sex: 49 / F ?ADM Date: 08/29/24 ? Loc: HO.HHCX ? Attending Dr: Sumi Macdonald MD ? Ordering Physician: Sumi Almaguer MD ?? Date of Service: 08/29/24 ?? Procedure(s): XR knee RT 4V ?? Accession Number(s): [id number] ? cc: Sumi Almaguer MD ? EXAMINATION: [...] DD/ 1600 ? TD/TT: 08/29/24 1620 ? Race And Sports Book Writer: ? Procedure Note Ephraim, Image - 08/29/[address] [address] XRay Report Signed Patient: Crystal IvanMR#: [id number] : 1975Acct:[id number] Age/Sex: 49 / FADM Date: 08/29/24 Loc: HO.HHCX Attending Dr: Sumi Macdonald MD Ordering Physician: Sumi Almaguer MD Date of Service: 08/29/24 Procedure(s): XR knee RT 4V Accession Number(s): [id number] cc: Sumi Almaguer MD EXAMINATION: XR KNEE, [...] 08/29/24 1642 DD/ 1600 TD/TT: 08/29/24 1620 Race And Sports Book Writer: Sumi Macdonald MD IMG XR PROCEDURES Evans tamera Result - Final * BI Mammogram Screening Tomosynthesis Bilateral (07/20/2023 10:50 AM EST) Anatomical Region Laterality Modality Breast Bilateral Mammography 07/20/2023 10:5 0 AM EST Narrative 08/12/2023 10:57 AM EST ? [facility] ? [address] ?[place] [address] ? Mammography Report ? Signed ? Patient: Ivan,Marangely ?MR#: [id number] ?? [id number] ? : 1975 ?Acct:[id number] ? Age/Sex: 48 / F ?ADM Date: 07/20/23 ? Loc: HO.MAMMO ? Attending Dr: Batsheva Cabrera MD ? Ordering Physician: Batsheva Cabrera ?Results: 1Negative ? Date of Service: 07/20/23 ?Follow Up: 1 Year From Orig ?? inal Mammogram ? Procedure(s): MM tomosynthesis screening BI ?? Accession Number(s): [id number] ? cc: Batsheva Cabrera ? EXAMINATION: ?? MM SCREENING DIGITAL BREAST TOMOSYNTHESIS, BILATERAL ? CLINICAL INFORMATION: ? Screening. Asymptomatic. ? COMPARISON: ?? Mammography: This study is compared with prior exams dating back to ?? 2019. ? TECHNIQUE: ?? Digital breast tomosynthesis is [...] by Minnie Espinoza MD in OV> ? 08/12/231052 ? DD/ 1050 ? TD/TT: ? Race And Sports Book Writer: ? Procedure Note Heraclio Ye - 08/12/2023 [facility] [address] [place] [address] Mammography Report Signed Patient: Srinivas Ivan#: [id number] : 1975Acct:[id number] Age/Sex: 48 / FADM Date: 07/20/23 Loc: HO.MAMMO Attending Dr: Batsheva Cabrera MD Ordering Physician: Avtar Cabreraults: 1Negative Date of Service: 07/20/23Follow Up: 1 Year From Orig inal Mammogram Procedure(s): MM tomosynthesis screening BI Accession Number(s): [id number] cc: Batsheva Cabrera EXAMINATION: MM SCREENING DIGITAL [...] in OV> 08/12/23 1053 DD/ 1050 TD/TT: Race And Sports Book Writer: Batsheva Cabrera MD IMG BI PROCEDURES Edited Resul t - Final * Hepatitis Panel, General (05/10/2023 12:10 PM EST) Hepatitis A IgM Nonreactive Nonreactive [facility] Comment:IgM antibodies to CUNHA V not detected; does not exclude earlyacute or recovered HAV infection. ~Hepatitis B Surface Antibody REACTIVE Nonreactive [facility] Comment:REACTIVE: > 11.99 mI U/mL Hepatitis B Core Antibody Nonreactive Nonreactive [facility] Hepatitis C Antibody Nonreactive Nonreactive [facility] Comment:Antibodies to HCV no t detected; does not exclude early acuteHCV infection. Hepatitis B Surface Ag Negative Negative [facility] 05/10/2023 12:1 0 PM EST 05/10/2023 12:10 PM EST us Generic External Data Provider LAB BLOOD ORDERAB LES Final Result [facility] [address] [place] [phone] * HPV E6/E7 RFLX VY 16 18/45 (03/16/2022 10:25 AM EDT) HPV mRNA E6/E7 rflx Not Detected Not Detected [facility] Comment: Methodology: Construction Pit Worker-Mediated Amplification This assay detects E6/E7 viral messenger RNA (mRNA) from 14 high-risk HPV types (16,18,31,33,35,39,45,51,52,56,58,59,66,68). Cervical sources are required for HPV testing. If a vaginal source from a patient who has had a total hysterectomy with removal of cervix was submitted, please contact the testing laboratory for alternative testing options. For additional information, please refer to http://education.Planearth NET/faq/TEL527h6 (This link if provided for information/ educational purposes only.) THIS TEST WAS PERFORMED AT: [email or web address] [address] [place] [address] [address]LO[address] [place], [place] ??[address] EMERY FIGUEROA MD 03/16/2022 10:2 5 AM EDT [facility] HISTORICAL/NON ORDERABLE LABS Fi nal Result [facility] * Pap Smear (03/16/2022) Pap smear done on 03/16/2022 [place] [facility] Historical Provider HEALTH MAINTENANCE Final Result * HIV AB/AG (01/02/2020 8:35 AM EDT) Pathologist [facility] HIV AG/AB NONREACTIVE NR FOUNDATI ON LAB [...] detection of this assay. ?? The [employer] Route Deliverer HIV Ag/Ab Combo assay result and supplemental assay results should be interpreted in conjunction with the patient's clinical presentation, history and other laboratory results. ??If the results are inconsistent with clinical evidence, additional testing is suggested to confirm the result. 01/02/2020 8:35 AM EDT Kelsey Todd NP HISTORICAL/NON ORDERABLE LABS Fi nal Result [facility] [address] from Last 3 Months or Most Recently Relevant to Health Maintenance Insurance [facility] [place] [address] [place] [address] Care Teams Tire Cord Weaver Relationship Specialty Start Date End Date Batsheva Cabrera MD [address] [place] [address] PCP - General Family Medicine 07/24/20
--- OUTSIDE RECORDS SUMMARY | 2024-09-26 11:55 | XMS_ITS | Data Portability ---
Author Organization [place] [facility] Address [address] [place] [address] Care Team Providers Care Cone Winder Name Role Phone SRIDEVI SILVESTRE Primary Care [...] copy of her audiogram, a list of [facility] hearing aid providers, and medical clearance to pursue this at her convenience. If she changes her mind and would like to proceed with surgery she can come back to see me in the future as needed. [email or web address] Not available 09/11/2024 14:15:13 Plan of Treatment [...] Details Recorded Time Hypertrop hy of tonsils 17320917 Active 2017 Hypertrop hy of tonsils; Note: Date Diagnosed : 8 1:12 PM (J35.1) Not Available [facility] 4 02:28:55 Non-toxic uninodula r goiter 307237631 Active 2018 Thyroid (cystic) nodule NOS; Note: Date Diagnosed : 08/15/2018 6:47 PM (E04.1) Not Available [facility] 4 02:29:02 Dysphagia 67463000 Active 2017 Other dysphagia ; Note: Date Diagnosed : 8 1:08 PM (R13.19) Not Available [facility] 4 02:29:05 Injury of thyroid gland 221957274 Active 2017 Other specified injuries of thyroid gland, initial encounter ; Note: Date Diagnosed : 8 1:13 PM (S19.84XA ) Not Available [facility] 4 02:29:00 Conductiv e hearing loss 96845418 Active 2023 ZEKE AGUILAR [address] [place] [address], [place], [address] , [place] [facility] 4 10:46:50 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 62468872430 55314 Active 2023 JACKELIN DRIVER PA-C [address] [facility] [address], [place], [address] , [place] [facility] 4 11:21:21 Impacted cerumen in left ear 15953229393 28227 Active 2023 GABBY ELIZALDEC [address] [place] [address], [place], [address] , [place] [facility] 4 11:22:33 Mixed conductiv e and sensorine ural hearing loss of right ear 89371932611 105 Active 2024 ZEKE PERAZA [address] [facility],[place] [address], [place], [address] , [place] [facility] 5 12:08:44 Problem Notes None recorded. Procedures Surgical History Date Name Laterality Status Provider Name and Address Organization Details Recorded Time 5 Comp Audio with Tymps (00786 & 18503) completed ZEKE PERAZA [address] [facility] [place] [address], [place], [address], [place] [facility] 09/10/2024 12:08:22 4 Comp Audio with Tymps (09125 & 93101) completed ZEKE AGUILAR [address] [facility], [place], [address], [facility] 06/17/2024 10:34:55 4 Cerumen removal without microscope left completed JACKELIN DRIVER PA-C [address] [facility], [place], [address], [facility] [...] Name and Address Organization Details Recorded Time 973578 cannabidi ol medicatio n hives moderate Not available 09/10/202492765 71 RxNorm Jenae walters [place] [facility] [...] Details Last Updated DateTime 09/10/2024 170.18 cm 18510.47 g Jenae Barry [place] [facility] 09/10/2024 11:38:14 Date Recorded Body weight Body mass index (BMI) Body height Provider Name and Address Organization Details Last Updated DateTime 06/17/2024 05819.47 g 31.3 kg/m2 170.18 cm Nancy Griffin [place] [facility] 06/17/2024 10:05:54 Social History None recorded. Functional Status None recorded. Mental Status None recorded. Family History Nothing Reported. Medical History Condition Response Allergies/Hayfever Y Anxiety Y Emphysema N Migraines N Glaucoma N Depression Y COPD N Developmental Delay N Nasal or Sinus Problems N Anesthesia Complications Y Heart Attack (CA) N Other Skin Condition N Diabetes N Rhinitis N Bleeding Disorder N Food Allergy N Arthritis Y Hearing Loss Y Cancer N Stroke N Dementia N Nasal polyps N Asthma Y Sleep Disorder Y GERD/Reflux Y High Cholesterol N Liver Disease N Headaches N Fibromyalgia Y Speech Delay N Kidney Disease N Gynecological HistoryNo gynecological history recorded. Obstetrics History GPAL:G 0 P 0 0 0 0 Past Encounters Encounter ID Performer Location Encounter Start Date Encounter Closed Date Diagnosis/Indication Diagnosis SNOMED-CT Code Diagnosis ICD10 Code Diagnosis Note [id number] JACKELIN DRIVER PA-C [facility] [address] [address] 06/17/2024 09:59:17 06/17/2024 11:31:10 Conductive hearing loss 90998740 H90.11 Otoscleros is of ossicle of right ear 6194310042 509757 H80.91 Impacted c erumen in left ear 4285872466 645863 H61.22 [id number] ZEKE AGUILAR [facility] [address] [address] 06/17/2024 10:34:16 06/20/2024 14:57:33 Conductive hearing loss 40686856 H90.2 Audiologic al evaluation results:Ri ght ear:{{Norm [...] [place]. [id number] CHERYL RAMIREZ MD [facility] [address] [place] [address] 09/10/2024 11:18:40 09/10/2024 12:23:08 Mixed conductive and sensorineural hearing loss of right ear 7031533152 9105 H90.71 Audiologic al evaluation results: 09/10/2024 [...] Otoscleros is of ossicle of right ear 1197668448 303593 H80.91 [id number] ZEKE PERAZA [facility] [address] [place] [address] 09/10/2024 12:07:13 09/16/2024 13:25:42 Mixed conductive and sensorineural hearing loss of right ear 5703411205 9105 H90.71 Audiologic al evaluation results: 09/10/2024 [...] Member ID Guarantor Name 06/17/2024 2 [place] [facility] Crystal Ivan [id number] Crystal Ivan 06/17/2024 1 [place] [employer] Mardineshly Ivan [id number] Marangely Ivan 06/17/2024 2 [place] Jordenly Ivan [id number] Marangely Ivan 06/17/2024 1 [place] [place] Marangely Ivan [id number] Marangely Ivan 09/10/2024 2 [place] [facility] Crystal Gilios [id number] Marangely Ivan 09/10/2024 1 [place] Mardineshly Ivan [id number] Marangely Ivan 09/10/2024 2 [place] Jordenly Ivan [id number] Marangely Ivan 09/10/2024 1 [place] Jordenly Ivan [id number] Cristinaangely Ivan Notes Date Note Type Note [...] of early hearing loss. JACKELIN DRIVER PA-C [address] [place] [address], [address], [place] [facility] [place] [address]/30/2024 12:33:13 06/17/2024 text/html Audiological Evaluation HPIReported bypatient.Hearing loss perceived:hearing loss in both ears: right ear worse Tinnitus reported:right ear ZEKE AGUILAR 100 [facility],[address], [address], [place] [facility] 06/17/2024 10:48:51 09/10/2024 text/html Patient previous ly seen by Jackelin Driver PA-C. She was noted to have a significant conductive hearing loss in the right ear with absent tympanic reflexes. Patient is unsure how long the hearing loss has been present. She does notice mild roaring tinnitus in the right ear. CHERYL RAMIREZ MD 100 [facility],[place] [address], [place], [address], [facility] 09/11/2024 14:15:36 OBGyn Episode No OBEpisode recorded.
== END 2024-09-26 10:52 | disposition home or self-care (01) ==
LOC: HO.HOS 10:12
PROVIDERS: PCP General Practice; Visit Provider Orthopaedic Surgery
DX: M17.11 Unilateral primary osteoarthritis, right knee (principal)
CPT/HCPCS: 99213

== ENCOUNTER → 2024-09-26 10:11 | Outpatient (BNVA) | payer MEDICARE, MEDICAID, SELFPAY | PROVIDERS: PCP General Practice; Visit Provider Orthopaedic Surgery | DX: M17.11 Unilateral primary osteoarthritis, right knee (principal); M25.551 Pain in right hip | CPT/HCPCS: 99212 ==

== ENCOUNTER 2024-12-26 11:41 | Outpatient (REF) | payer MEDICARE, MEDICAID, SELFPAY ==
--- OUTSIDE RECORDS SUMMARY | 2024-12-26 12:17 | XMS_ITS | Encounter Summary ---
Author Organization [employer] Address [address] [place] [address] 7t [place] [address] Care Team Providers Care Hosiery Looper Name Role Phone Batsheva Cabrera MD Primary Care Provider [phone] Reason for Referral * Consultation (Routine) - Closed Specialty Diagnoses / Procedures Referred By Contac t Referred To Contact Physical Therapy Diagnoses Spondylosis of cervical region without myelopathy or radiculopathy Batsheva Cabrera MD [address] [place] [address] Phone: tel: fax: [facility] [address] [place] [address] Phone: tel: fax: Referral ID Status Reason Start Date Expiration Date V isits Requested Visits Authorized [id number] Closed Specialty Services Required 05/15/2024 05/15/2025 1 1 Encounter Details Date Type Department Care Team (Late st Contact Info) Description 05/15/2024 Orders Only [facility] [address] [place], [place] [phone] Batsheva Cabrera MD [address] [place], [place] [phone] Spondylosis of cervical region without myelopathy or [...] as of this encounter Plan of Treatment Scheduled Referrals Name Type Priority Associated Diagnoses [...] AM EST Narrative 06/13/2024 3:12 AM EST [address] [address] [address] Scan Report Signed Patient: Crystal Ivan MR#: [id number] : 1975 Acct:[id number] Age/Sex: 49 / F ADM Date: 06/13/24 Loc: HO.ED Attending Dr: Ordering Physician: Pb Light MD Date of Service: 06/13/24 Procedure(s): CT head/brain wo IV con Accession Number(s): [id number] cc: Batsheva Cabrera; Pb Light MD EXAMINATION: [...] by: Jose Escalante MD 06/13/2024 03:[address] [facility] Dictated By: Jose Escalante MD Signed By: <Electronically signed by Jose Escalante MD in OV> 06/13/24 0308 DD/ 0212 TD/TT: 06/13/24 0230 Oil Pipe Inspector: Procedure Note Donotuseinterpreter, Image - 06/13/[address] [address] [address] Scan Report Signed Patient: Crystal IvanMR#: [id number] : 1975Acct:[id number] Age/Sex: 49 / FADM Date: 06/13/24 Loc: HO.ED Attending Dr: Ordering Physician: Pb Light MD Date of Service: 06/13/24 Procedure(s): CT head/brain wo IV con Accession Number(s): [id number] cc: Batsheva Cabrera; Pb Light MD EXAMINATION: [...] by: Jose Escalante MD 06/13/2024 03:[address] [facility] Dictated By: Jose Escalante MD Signed By: <Electronically signed by Jose Escalante MD in OV> 06/13/24 0308 DD/ 0212 TD/TT: 06/13/24 0230 Oil Pipe Inspector: [facility] External Provider IMG CT PROCEDURES Edited Result - Final documented in this encounter Visit Diagnoses Diagnosis Spondylosis of cervical region without myelopathy or radiculopathy- Primary documented in this encounter Care Teams Hosiery Looper Relationship Specialty Start Date End Date Batsheva Cabrera MD [address] [place] [address] PCP - General Family Medicine 07/24/20 documented as of this encounter
--- OUTSIDE RECORDS SUMMARY | 2024-12-26 12:17 | XMS_ITS | Data Portability ---
Author Organization [place] - [facility], Allergy Address [address] [address] Care Team Providers Care Retail General Manager Name Role Phone SRIDEVI SILVESTRE Primary Care Provider [phone] Assessment Encounter Date Assessment Date Assessment LastModified [...] copy of her audiogram, a list of [facility] hearing aid providers, and medical clearance to pursue this at her convenience. If she changes her mind and would like to proceed with surgery she can come back to see me in the future as needed. Not available 09/11/2024 14:15:13 Plan of Treatment [...] Details Recorded Time Hypertrop hy of tonsils 12707996 Active 2017 Hypertrop hy of tonsils; Note: Date Diagnosed : 8 1:12 PM (J35.1) Not Available [facility] 02[facility] Non-toxic uninodula r goiter 430571769 Active 2018 Thyroid (cystic) nodule NOS; Note: Date Diagnosed : 08/15/2018 6:47 PM (E04.1) Not Available [facility] 4 02:29:02 Dysphagia 54130752 Active 2017 Other dysphagia ; Note: Date Diagnosed : 8 1:08 PM (R13.19) Not Available [facility] 4 02:29:05 Injury of thyroid gland 991140759 Active 2017 Other specified injuries of thyroid gland, initial encounter ; Note: Date Diagnosed : 8 1:13 PM (S19.84XA ) Not Available [facility] 4 02:29:00 Conductiv e hearing loss 82514857 Active 2023 ANI BENOIT, ZEKE [address], [place], [address] , [place] - [facility] 4 10:46:50 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 70682180745 42663 Active 2023 NURIA DRIVER PA-C [address] [place], [place], [address] , [place] - [facility] 4 11:21:21 Impacted cerumen in left ear 27585321141 52229 Active 2023 NURIA DRIVER PA-C [address] [place] [address], [place], [place], [address] , [place] - [facility] 4 11:22:33 Mixed conductiv e and sensorine ural hearing loss of right ear 42476874989 105 Active 2024 ARMAAN SAUNDERS AUD [address] [facility] [place] [address], [place], [address] , [place] - [facility] 5 12:08:44 Problem Notes None recorded. Procedures Surgical History Date Name Laterality Status Provider Name and Address Organization Details Recorded Time 5 Comp Audio with Tymps - 22223 & 11009 completed ARMAAN SAUNDERS AUD [address], [place], [address], [place] - [facility] 09/10/2024 12:08:22 4 Comp Audio with Tymps - 66800 & 52208 completed ANI BENOIT ZEKE [address] [facility] [place], [place], [address], [facility] - [facility] 06/17/2024 10:34:55 4 Cerumen removal without microscope left completed NURIA DRIVER PA-C [address] [place], [place], [address], [facility] - [facility] 06/17/2024 11:22:21 Imaging Results None recorded. Procedure Notes None recorded. Medical Equipment None Reported. Allergies Allergen ID Allergen Name Allergen Category Reaction Reaction Severity Criticality Documentation Date Start Date Code Code System Note Provider Name and Address Organization Details Recorded Time 647709 cannabidi ol medicatio n hives moderate Not available 09/10/2024 71 RxNorm Jenae walters [place] - [facility] 5 11:38:22 Medications Name Sig Start Date [...] Details Last Updated DateTime 09/10/2024 170.18 cm 04028.47 g Jenae Barry [place] - [facility] 09/10/2024 11:38:14 Date Recorded Body weight Body mass index (BMI) Body height Provider Name and Address Organization Details Last Updated DateTime 06/17/2024 20515.47 g 31.3 kg/m2 170.18 cm Nancy Griffin [place] - [facility] 06/17/2024 10:05:54 Social History None recorded. Functional Status None recorded. Mental Status None recorded. Family History Nothing Reported. Medical History Condition Response Allergies/Hayfever Y Anxiety Y Emphysema N Migraines N Glaucoma N Depression Y COPD N Developmental Delay N Nasal or Sinus Problems N Anesthesia Complications Y Heart Attack ([place]) N Other Skin Condition N Diabetes N [...] SNOMED-CT Code Diagnosis ICD10 Code Diagnosis Note [id number] NURIA DRIVER PA-C [facility] [address] [address] 06/17/2024 09:59:17 06/17/2024 11:31:10 Conductive hearing loss 03536408 H90.11 Otoscleros is of ossicle of right ear 4539955196 547214 H80.91 Impacted c erumen in left ear 5272621566 541188 H61.22 [id number] ZEKE AGUILAR [facility] [address] [address] 06/17/2024 10:34:16 06/20/2024 14:57:33 Conductive hearing loss 22674237 H90.2 Audiologic al evaluation results:Ri ght ear:Mild conductive hearing loss with excellent word recognitio n.Left ear:Normal auditory thresholds with excellent word recognitio n.Tympanom etry:Right Ear:Type AsLeft Ear:Type [place]. [id number] CHERLY RAMIREZ MD [facility] [address] [address] 09/10/2024 11:18:40 09/10/2024 12:23:08 Mixed conductive and sensorineural hearing loss of right ear 4415935026 9105 H90.71 Audiologic al evaluation results: 09/10/2024 Right ear: Mild rising to normal mixed hearing loss with excellent word recognitio n. Left ear: Normal hearing with excellent word recognitio n. Tympanomet ry: Right Ear:Type A Left Ear:Type A Otoscleros is of ossicle of right ear 3923562253 661108 H80.91 [id number] ZEKE PERAZA [facility] [address] [place] [address] 09/10/2024 12:07:13 09/16/2024 13:25:42 Mixed conductive and sensorineural hearing loss of right ear 2519953172 9105 H90.71 Audiologic al evaluation results: 09/10/2024 Right ear: Mild rising to normal mixed hearing loss with excellent word recognitio n. Left ear: Normal hearing with excellent word recognitio n. Tympanomet ry: Right Ear:Type A Left Ear:Type A Health Concerns Section Related Observation LastModified by Organization Detai ls LastModified Time None Recorded Concern Status LastModified by Organization Details LastModified Time None Recorded Advance Directives Directive None Recorded Payers Insurance Date Sequence Insurance Name Policy Number Policy Dukes Covered Member ID Dukes Member ID Guarantor Name 09/26/2024 2 [place] [facility] Crystal Gilios [id number] Crystal Ivan 09/10/2024 1 MEDIC[place] B[place] [employer] Crystal Gilios [id number] Crystal Gilios Notes Date Note Type Note Provider Name [...] early hearing loss. NURIA DRIVER PA-C 100 [facility],[address], [address], [facility] - [facility] 06/17/2024 12:33:13 06/17/2024 text/html Audiological Evaluation HPIReported bypatient.Hearing loss perceived:hearing loss in both ears: right ear worse Tinnitus reported:right ear ZEKE AGUILAR 100 [facility],[address], [address], [facility] - [facility] 06/17/2024 10:48:51 09/10/2024 text/html Patient previous ly seen by Nuria Driver PA-C. She was noted to have a significant conductive hearing loss in the right ear with absent tympanic reflexes. Patient is unsure how long the hearing loss has been present. She does notice mild roaring tinnitus in the right ear. CHERYL RAMIREZ MD [address] [facility],[address], [address], [facility] - [facility] 09/11/2024 14:15:36 OBGyn Episode No OBEpisode recorded.
== END 2024-12-26 11:42 | disposition home or self-care (01) ==
LOC: HO.MAMMO 11:41
PROVIDERS: PCP General Practice; Visit Provider General Practice
DX: Z12.31 Encounter for screening mammogram for malignant neoplasm of breast (principal)
CPT/HCPCS: 77063; 77067

== ENCOUNTER → 2024-12-26 12:00 | Outpatient (BNV) | payer MEDICARE, MEDICAID, SELFPAY | PROVIDERS: PCP General Practice; Visit Provider Internal Medicine | DX: Z12.31 Encounter for screening mammogram for malignant neoplasm of breast (principal) | CPT/HCPCS: 77063; 77067 ==

== ENCOUNTER 2025-01-21 17:21 | Outpatient (REF) | payer MEDICARE, MEDICAID, SELFPAY ==
--- OUTSIDE RECORDS SUMMARY | 2025-01-21 17:24 | XMS_ITS | Clinical Summary ---
Author Organization [facility] Address [address] [place] [address] Phone Care Team Providers Care Consumer Experience Consultant Name Role Phone Gonzalez Araujo MD Unavailable [phone] [facility], Facility Primary Care Provider Allergies No known active allergies Medications hydrOXYzine (ATARAX) 25 MG tablet Take 25 mg by mouth daily. 2 or 3 times a day Active albuterol 90 mcg/actuation inhaler Inhale 2 puffs into the lungs as needed for wheezing. Active escitalopram oxalate (LEXAPRO) 10 MG tablet 1 Active POLY--MATTHEW WITH IRON 11 mg iron/mL oral solution 1 Active naproxen (NAPROSYN) 500 MG tablet Take 1 tablet (500 mg total) by mouth 2 (two) times a day with meals. 20 tablet 1 Active Additional Information Patient not taking.Reported on 10/22/2021 cyclobenzaprine (FLEXERIL) 10 MG tablet Take 1 tablet (10 mg total) by mouth 2 (two) times a day as needed. 20 tablet 1 Active Additional Information Patient not taking.Reported on 10/22/2021 omeprazole (PRILOSEC) 20 MG tablet Take 20 mg by mouth 2 (two) times a day. Active omeprazole (PRILOSEC) 20 MG capsuleIndicatio ns:Gastroesophag eal reflux disease without esophagitis TAKE 1 CAPSULE BY MOUTH 2 TIMES A DAY BEFORE MEALS. 180 capsule 2 4 Active Active Problems Problem Noted Date Diagnosed Date Dyspepsia 10/22/2021 Gastroesophageal reflux disease without esophagi tis 01/30/2021 Esophageal dysphagia 01/30/2021 Ineffective esophageal motility 01/30/2021 Anxiety 01/30/2021 Avoidant-restrictive food intake disorder (ARFID ) 01/30/2021 Mild intermittent asthma without complication Obesity (BMI 30-39.9) 01/25/2021 Social History Tobacco Use Types Packs/Day Years Used Date Smoking Tobacco: Never Smokeless Tobacco: Never Education Answer Date Recorded Are you interested in more education? Not on kellie e 10/15/2022 Are you concerned about learning? Not on file 10/15/2022 No 10/15/2022 No 10/15/2022 Digital Access Answer Date Recorded No 11/12/2022 No 11/12/2022 No 11/12/2022 Reliable internet access at home? Not on file 11/12/2022 Device with a working camera? Not on file Comments Unknown Sex and Gender Information Value Date Recorded Sex Assigned at Not on file Legal Sex Female 9:57 AM EDT Gender Identity Not on file Sexual Orientation Not on file Last Filed Vital Signs Vital Sign Reading Time Taken Comments Blood Pressure 114/76 06/29/2022 4:23 PM EST Pulse 83 06/29/2022 4:23 PM EST Temperature 36.5 C (97.7 F) 06/29/2022 4:23 PM EST Respiratory Rate 18 05/18/2021 3:07 PM EST Oxygen Saturation 100% 06/29/2022 4:23 PM EST Inhaled Oxygen Concentration - - Weight 90.9 kg (200 lb 8 oz) 06/29/2022 4:23 PM EST Height 166.5 cm (5' 5.55 ) 01/25/2021 8:17 AM ED T Body Mass Index 32.81 01/25/2021 8:17 AM EDT Plan of Treatment Health Maintenance Due Date Last Done Comments LIPID PANEL 1975 DEPRESSION SCREENING 1987 HEPATITIS C SCREENING 1993 HIV ONE-TIME SCREENING (18-65 YEARS) 1993 PNEUMOCOCCAL VACCINES (0-49 years) (1 of 2 - PCV) 1994 PAP SMEAR 1996 SCREENING FOR DIABETES 2010 COLOGUARD 2020 COLONOSCOPY 2020 COLORECTAL CANCER SCREENING 2020 FIT TEST 2020 FOBT 2020 SIGMOIDOSCOPY 2020 VIRTUAL COLONOSCOPY 2020 Adult Td,Tdap Booster 04/14/2021 04/14/2011 COVID-19 VACCINE ( season) 2024 MAMMOGRAM 07/14/2024 07/14/2022, 06/20, 07/12/2021, Additional history exists SMOKING STATUS SCREENING (Once After 26 Yrs) Completed 05/18/2021 HEPATITIS A VACCINES Aged Out No long er eligible based on patient's age to complete this topic HIB VACCINES Aged Out No longer eligi ble based on patient's age to complete this topic MENINGOCOCCAL VACCINES (ACWY) Aged Out No longer eligible based on patient's age to complete this topic MENINGOCOCCAL VACCINES (B) Aged Out N o longer eligible based on patient's age to complete this topic Medical Devices Not on file Insurance C3 ACO C3 ACO C3 ACO C3 ACO C3 ACO C3 ACO C3 ACO C3 ACO C3 ACO C3 ACO [employer] Care Teams Consumer Experience Consultant Relationship Specialty Start Date End Date [facility] [address] [place] [address] PCP - General 05/18/21 Gonzalez Araujo MD [address] [place] [address] [address] [place] [address] Gastroenterology 01/24/21 Additional Source Comments The information contained in this document represents components of the legal health record. It is not the complete legal health record.[facility]
== END 2025-01-21 17:22 | disposition home or self-care (01) ==
LOC: HO.HHCLNP 17:21
PROVIDERS: Visit Provider Family Medicine
DX: R39.9 Unspecified symptoms and signs involving the genitourinary system (principal)
CPT/HCPCS: 87086

== ENCOUNTER 2025-01-31 13:30 | Outpatient (AMB) | payer MEDICARE, MEDICAID, SELFPAY ==
--- OUTSIDE RECORDS SUMMARY | 2025-01-31 13:34 | XMS_ITS | Clinical Summary ---
Author Organization [facility] Address [address] [facility] [address] [place] [address] Phone Care Team Providers Care Route Contractor Name Role Phone Gonzalez Araujo MD Unavailable [phone] [facility], Facility Primary Care Provider Allergies No known [...] ACO C3 [employer] Care Teams Route Contractor Relationship Specialty Start Date End Date [facility] [address] [place] [address] PCP - General 05/18/21 Gonzalez Araujo MD [address] [place] [address] [address] [place] [address] Gastroenterology 01/24/21 Additional Source Comments The information contained in this document represents components of the legal health record. It is not the complete legal health record.[facility]
[2025-01-31 13:38] VITALS: BP 108/72; PULSE 85; BMI 31.1
--- NOTE | 2025-01-31 13:38 | A.OFFVIS_ITS ---
Vital Signs 01/31/25 13:38 Height 5 ft 7 in Weight 198 lb 13.711 oz BMI 31.1 BP 108/72 Blood Pressure Location Rt brachial Position Sitting Pulse 85 Pulse Source Monitor Intake Visit Reasons: PT Rq chest pain Joint Terminal Attack Controller Required: No Allergies cannabidiol (CBD) extract Allergy (Mild, Verified 01/31/25 13:42) Hives duloxetine Adverse Reaction (Intermediate, Verified 01/31/25 13:42) Nausea and Vomiting Medication List - Last Reconciled 01/31/25 by Noa Medina, [employer]-C albuterol sulfate 90 mcg/actuation 1 inh inhalation QID clonidine HCl 0.1 mg PO BEDTIME escitalopram oxalate 10 mg PO DAILY hydroxyzine pamoate 25 mg PO TID PRN HPI HPI PT Rq chest pain: Details: Crystal is a 49-year-old female with past medical history of longstanding orthopnea symptom when laying on left side, anxiety, mild cardiomyopathy who presents for follow-up. Her last prior visit was 10/09/2023. Today she reports that she continues to to feel that she can not breathe good if laying on her left side. She also notices this feeling if she lays on her right side and has a pillow on her left side or if she is driving in the car and leans back against the seat. Overall she feels her symptoms are worsening with time. She has had discomfort in the left shoulder and down the left arm also tightness in the back of her neck. She reports discomfort raising the left arm up over her head. She will get chest discomfort that occurs randomly and when she has shortness of breath. She has ongoing issues with her esophagus and can only have liquids and pureed foods. She is going to pursue further testing on this. When she has thickened liquids it feels like it gets stuck. No heart palpitations, presyncope, syncope. No recent lightheadedness, presyncope, syncope. Reports ongoing high anxiety regarding her health. [facility] Medical History Asthma Elevated anti-tissue transglutaminase (tTG) IgA level Peripheral muscle fatigue Muscle weakness of upper extremity Myalgia Hx of ectopic Anxiety disorder Paroxysmal nocturnal dyspnea Amenorrhea Campbell's disease Arthritis Hyperthyroidism Goiter Vitamin D deficiency Non-toxic multinodular goiter Obesity Elevated dehydroepiandrosterone sulfate level Graves disease Degenerative arthritis of knee, bilateral Surgical History Hx of endoscopy H/O esophagogastroduodenoscopy History of tonsillectomy History of tubal ligation Family History Father Diabetes Mother Breast cancer BRCA gene mutation negative Maternal Uncle Heart transplanted Social History Household Members: Family Alcohol intake: never Patient Tobacco Use Status: Never used Tobacco service: No Current occupational status: unemployed Current occupation: right hand Sexual orientation: Straight/Heterosexual Gender identity: Female Female Reproductive History Menstrual Age of Menarche: 13 Review of Systems Const All systems reviewed & are unremarkable except as noted in HPI and below ENT Denies dizziness Card Details: left shoulder and arm discomfort Denies chest pain, Denies chest pain at rest, Denies chest pain with activity, Denies rapid heart rate, Denies pedal edema, Denies edema, Denies leg edema, Denies lightheadedness, Denies palpitations, Reports dyspnea, Denies dyspnea on exertion and Reports orthopnea (on left side) Resp Denies cough, Reports dyspnea and Denies dyspnea on exertion GI Denies hematochezia and Denies change in stool character Musc Denies abnormal gait, Reports limited range of motion, Reports muscle cramps, Denies muscle weakness, Denies numbness, Denies radiating pain into limb, Denies stiffness and Denies tingling Neuro Denies abnormal gait, Denies dizziness, Denies numbness and Denies tingling Endo Denies palpitations Physical Exam Vital Signs: Last Vital Signs Pulse 85 01/31/25 13:38 BP 108/72 01/31/25 13:38 BMI result Body Mass Index 31.1 Const General: cooperative, healthy appearing, comfortable and no acute distress Orientation/consciousness: patient oriented x3 Neck Neck: Yes normal visual inspection and Yes no JVD Resp Effort & Inspection: normal respiratory effort Auscultation: clear to auscultation bilaterally, no rales, no rhonchi and no wheezes Cardio Jugular venous distension: no JVD Rate: regular rate Rhythm: regular rhythm Heart sounds: S1 normal heart sound present, S2 normal heart sound present, no murmurs and no rubs Neuro General: patient oriented x3 Extrem General: Yes normal to inspection and No no pedal edema Psych Appearance: grossly normal Mental Status: mental status grossly normal Speech and movement: Normal speech and movement present Office Procedures EKG Details: Today, read by me, normal sinus rhythm, rate 85, QTC 418 milliseconds [id number], Complete Assessment & Plan Assessment & Plan (1) Cardiomyopathy: Comment: She has decreased LVEF , but does not have any obvious congestive heart failure. Being followed by Cardiology Code(s): I42.9 - Cardiomyopathy, unspecified Category: Medical Plan: Reports of chronic feeling orthopnea when lying on left side. To evaluate she underwent an echocardiogram on 02/01/2022 showing EF 48%, no wall motion abnormalities and no valve abnormalities. A nuclear stress test was done on 06/26/2021 with exercise 6 minutes 30 seconds, no EKG changes of ischemia and normal myocardial perfusion imaging. Prior home sleep study done on 12/30/2020 s hows no evidence of sleep apnea. Prior notes suggested getting cardiac MRI however patient does have significant anxiety and not able to tolerate an MRI. A repeat limited echo done on 08/19/2022 showed EF 50-55%, and echocardiogram on 08/22/2023 showed EF 53%. Her EF had remained stable. Currently reporting increasing symptoms of shortness of breath especially laying on her left side and atypical chest discomfort. She does not appear fluid overloaded on exam. Offered reassurance that symptoms are likely noncardiac. For completeness will do a limited echo to reassess EF and wall motion. Will do an exercise stress test to evaluate for ischemia. Plan to call her with test results. If no significant change or abnormality then her cardiology follow-up can be as needed. (2) Paroxysmal nocturnal dyspnea: Comment: This is a nonspecific symptom in her case. Today she describes it more like, neuromuscular problem. May have been aggravated by her recent cervical strain, for which she is getting physical therapy. Code(s): R06.00 - Dyspnea, unspecified Category: Medical Plan: Following with pulmonology. No significant pulmonary conditions identified (3) Shortness of breath: Code(s): R06.02 - Shortness of breath Category: Medical Plan: As above (4) Chest discomfort: Code(s): R07.89 - Other chest pain Category: Medical Plan: Atypical symptoms. Checking ETT for completeness Plan I discussed with the patient the need for a treadmill stress test and echocardiogram to evaluate her cardiac function, given her symptoms and previous findings of low normal cardiac function. We also talked about the potential need for further esophageal testing to rule out achalasia, which could explain her dysphagia and associated symptoms. I advised that anxiety management may need to be adjusted based on the outcomes of these tests. Orders: Orders CA stress test Today I42.9 - Cardiomyopathy, unspecified, R06.02 - Shortness of breath, R07.89 - Other chest pain CA Echo Limited Today I42.9 - Cardiomyopathy, unspecified Patient Instructions: - Schedule and complete the treadmill stress test and echocardiogram as instructed. - Follow up with your GI provider for further esophageal testing and discuss potential treatment options. - Monitor symptoms of anxiety and shortness of breath, and report any significant changes. Patient was informed and verbally consented to the use of an ambient scribe for clinic note documentation during this visit. Visit time spent on chart review, interview, assessment, orders, documentation. Coding Level of Care Code Est Pt Level 4 (28060) Complex EM visit Add On G2211 Diagnoses Cardiomyopathy I42.9 Paroxysmal nocturnal dyspnea R06.00 Shortness of breath R06.02 Chest discomfort R07.89 CPT Codes EKG - CPT: 96047-Gpbkppyatbmjlfefo, Complete ([id number]) Time Spent (min) 28
== END 2025-01-31 14:13 | disposition home or self-care (01) ==
LOC: HO.HCS 13:30
PROVIDERS: PCP General Practice; Visit Provider Nurse Practitioner Family
DX: I42.9 Cardiomyopathy, unspecified (principal); R06.00 Dyspnea, unspecified; R06.02 Shortness of breath; R07.89 Other chest pain
CPT/HCPCS: 93010; 99214; G2211

== ENCOUNTER → 2025-01-31 13:30 | Outpatient (BNVA) | payer MEDICARE, MEDICAID, SELFPAY | PROVIDERS: PCP General Practice; Visit Provider Nurse Practitioner Family | DX: I42.9 Cardiomyopathy, unspecified (principal); R06.00 Dyspnea, unspecified; R06.02 Shortness of breath; R07.89 Other chest pain | CPT/HCPCS: 93005; 99212 ==

== ENCOUNTER 2025-03-06 10:54 | Outpatient (AMB) | payer MEDICARE, MEDICAID, SELFPAY ==
--- NOTE | 2025-03-06 10:58 | MHC.OFFVIS ---
Vital Signs 03/06/25 10:59 Height 5 ft 7 in Weight 199 lb BMI 31.2 BP 124/76 Blood Pressure Location Lt brachial Position Sitting Pulse 76 Pulse Oximetry (%) 95 Oxygen Delivery Method Room Air Intake Visit Reasons: 6m Dysphagia, GERD Intake Note: Patient 6 month for Dysphagia, and GERD. Patient cc: nauseas, abdominal discomfort, acid reflux, and dysphagia. 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 ? CHRONIC ILLNESSES:?asthma, Graves disease TODAY'S VISIT Patient cc: nauseas, abdominal discomfort, acid reflux, and dysphagia. Feels a little nausea today Taking a liquid diet only - unable to tolerate a blenderized food Has a choking sensation with blenderized diet Took a peanut butter/banana smoothie and noted constipation Not taking a PPI since did not feel good when she took it in the past. Scheduled for a stress test and an Echo on 03/07/25 Has had increased anxiety. Complains of aches and pains in the muscles and shoulders and scheduled to see a Counter Weigher on 05/09/25 PAST VISIT: Patient said pharmacy is not giving her the boost completely, they just been giving her one box and half/monthly. Has not scheduled Esophageal Manometry yet - feels too anxious about it. Taking a liquid diet since she feels some choking even with the blendarized diet. Able to buy 1 box of Ensure. Continues to have dysphagia Has been chewing the topping of pizza and spitting it out. Can have chest pain and difficulty breathing after taking it and resolves spontaneously in 25 to 30 min. Pt was seen by a surgeon at ? [facility] or [facility] who advised to have repeat esophageal Manometry to see if she has Achalasia and would benefit from surgery Complains of nausea Some days she wakes up with nausea which lasts all day. Taking liquids and a few Seen by Rodriguez Santos at [facility] and was referred to Thoracic Surgery PAST VISITS: EGD results reviewed with the patient. Chest felt a little different for a few days after EGD Stopped taking the PPI for 6 weeks before the EGD. [place] bad when she resumed taking. Notes a lot of pressure in the neck and throat at night with difficulty breathing. Able to sleep in the rt lat decubitis position and unable to sleep at night. Tried using a wedge and was not helpful. Denies nocturnal regurgitation. Also complains of intermittent chest pain radiating to the back 2-3 times Has to stand up to help her breathing and sometimes has to sleep sitting down She was tested for sleep apnea - negative per patient. And cardiac testing Unable to eat solid food x 6 yrs and remains on a liquid and blenderized foods. Stopped taking blederized foods since episodes of choking. Intermittent early satiety. Past history of constipation and now has diarrhea alternating with constipation. Not feeling too good. Has nausea daily without vomiting - not always related to eating. Taking blenderized food. Feels her symptoms are getting worse -? unable to eat mashed potatoes. Does not eat if she notes dysphagia with blenderized diet Only takes Ensure and Ensure plus, ice cream, smoothies. Takes a few spoons and gets a sensation in her chest (tightness and chest pain and gets anxious) and unable to eat any more. Notes gas after she takes Ensure or ice-cream which lasts for 45 min. Has been taking Omeprazole twice a day for GERD. Can have heartburn if she does not take Omeprazole for a few days. Patient follow up for dysphagia. Patient cc: Nauseas, gassy, constipation, and some dysphagia. Denies any other GI isuses. Notes nausea daily. Taking Omeprazole twice a day. Feels bloated and has problems with gas. Noted GERD symptoms for a week - attributes it to duloxetine. Takes 30 to 40 min to eat blenderized food. Notes chest pain if she tries to eat fast. Takes Naked smoothies which helps with constipation. Denies improvement in nausea despite taking Omeprazole Intermittent constipation - has a BM almost every day Sometimes can go 3-4 days without a BM. Did not have EGD with Gallardo due to anxiety regarding side effects. ??PAST VISIT No change in problems with eating. Takes yogurt, ensure and blenderized food. Saw Dr Armenta, Esophageal specialist at [facility] in [place] She was told ineffective esophageal motility is due to long standing reflux - consult note has been requested. She is scheduled for an EGD with Gallardo on October 14 at [facility]. Prescribed a medication which she is taking daily ?? ? Taking ensure (1-2 times a day), liquids and ice-cream. ? ? ? Has gained weight and cut back on the Ensure from 3 to two times a day. ? ? ? Has an appt on 01/25/21 with GI at [facility] for a 2nd opinion on dysphagia. ? ? ? Seen by Rheumatology and all her tests were normal and no follow up appointment was advised Notes pains in the shoulder and pain in the hands. ? ? ? Has to sleep on her right side. ? ? ? Unable to sleep on her back or left side. ? ? ? Feel her throat closes and she is unable to breath. ? ? ? Her boy friend messages her shoulders which improves her symptoms. ?? ? Therapy to shoulders and neck helps - thinks her symptoms are related to her muscles. ?? ? Had a home sleep study in the past which was negative. ?? ? Notes palpitations and feels gassy when she takes coffee. ? High-resolution esophageal manometry results were reviewed with the patient. ? Patient denies change in symptoms and continuing to take blenderized food and ice-cream and protein shakes. ? Symptoms of dysphagia for the past 2 years. ? Is able to swallow and feels food is sitting in the lower neck/upper chest sometimes for 30 min. ? Also has a stuffy nose at the same time. ? Has not been able to take solid food for the past 2 years. ? Also has nausea. ? Had an episode of flushing, sudden fatigue and palpitations a week ago. ? Symptoms improved and had nausea following this episode. ? Takes oatmeal after putting it in the rn surgical. ? Can eat corned beef on some days and not on other days. ? Also has bad constipation. No BM for 3 days and takes a hot chocolate which helps. ? Weight loss of 65 lbs over 7 months and has gained back 7 lbs after she started taking more ice-cream. ? Feels short of breath when she sleeps on the right side or back Since her last appointment in May, she was scheduled for a CT of the neck without contrast- this was scheduled due to ongoing issues with swallowing and xrays of neck revealing changes in the cervical vertebra. ? We received an urgent call from radiology regarding an abnormality noted in the soft tissue - ? soft tissue mass due to the asymmetry noted. Patient was set up urgently with ENT in [place]- seen the same day. ENT felt the abnormality was due to tissue removed from one side of throat during tonsillectomy. Additionally multinodular thyroid gland without enlargement and needs a US for further evaluation. 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 Patient is scheduled for a CT with contrast of neck as well US of thyroid. Patient is going to be scheduled for physical therapy for neck and will follow up about 2 months ?IMAGING STUDIES:?Reviewed. ?ENDOSCOPIC STUDIES: 12/16/22 EGD SHOWED: Larynx:? Edema of arytenoid cartilages Esophagus:? Subtle mucosal changes with circular folds in the esophagus - biopsies were obtained from proximal esophagus to check for EOE.? Aperistaltic esophagus.? GE junction at 40 cms. No esophagitis or Soliman?s.? Esophageal? balloon dilation was performed with 20 mm CRE balloon time 60 seconds Stomach:? multiple 5-15 mm benign-appearing polyps in the gastric body and fundus -? biopsies.? Grade 2 flap valve on retroflexed examination of the cardia. BIOPSIES SHOWED: A.? Gastric polyps, biopsy:? Fundic gland polyps with minimal chronic inactive inflammation; negative for intestinal metaplasia and dysplasia (see comment).? B. Esophagus, proximal, biopsy:? Squamous mucosa specific change; no columnar mucosa present; no evidence of eosinophilic esophagitis.? 04/30/18 EGD showed: ? Larynx: Edema of arytenoid cartilages ? Esophagus: Subtle mucosal changes with circular folds in the esophagus ( ? suggestive of EOE) - biopsies were obtained. GE junction at 36 cms. No ? esophagitis or Soliman s. ? Stomach: Mild gastric erythema. Biopsies were obtained. Grade 2 flap valve on ? retroflexed examination of the cardia. ? Biopsies showed: ? A. Gastric, biopsies: ? Fragments of antral-type gastric mucosa with mild chronic gastritis. ? The Helicobacter pylori immunohistochemical stain is negative. ? B. Esophagus, proximal, biopsies: ? Fragments of unremarkable squamous mucosa. ? There is no evidence of eosinophilic esophagitis seen in this specimen. 04/16/20? HIGH-RESOLUTION ESOPHAGEAL MANOMETRY AT [facility] SHOWED: ? normal UES function,? short LES length. ? Hypotensive LES/ EGJ resting pressure with normal LES relaxation. ? No hiatal hernia was detected manometrically. ? Paterson classification 3: ? ineffective esophageal motility PFSH Medical History Asthma Elevated anti-tissue transglutaminase (tTG) IgA level Peripheral muscle fatigue Muscle weakness of upper extremity Myalgia Hx of ectopic Anxiety disorder Paroxysmal nocturnal dyspnea Amenorrhea Campbell's disease Arthritis Hyperthyroidism Goiter Vitamin D deficiency Non-toxic multinodular goiter Obesity Elevated dehydroepiandrosterone sulfate level Graves disease Degenerative arthritis of knee, bilateral Surgical History Hx of endoscopy H/O esophagogastroduodenoscopy History of tonsillectomy History of tubal ligation Family History Father Diabetes Mother Breast cancer BRCA gene mutation negative Maternal Uncle Heart transplanted Social History Household Members: Family Alcohol intake: never Patient Tobacco Use Status: Never used Tobacco service: No Current occupational status: unemployed Current occupation: right hand Sexual orientation: Straight/Heterosexual Gender identity: Female Female Reproductive History Menstrual Age of Menarche: 13 Review of Systems Const All systems reviewed & are unremarkable except as noted in HPI and below Physical Exam Vital Signs: Last Vital Signs Pulse 76 03/06/25 10:59 BP 124/76 03/06/25 10:59 Pulse Ox 95 03/06/25 10:59 Oxygen Delivery Method Room Air 03/06/25 10:59 BMI result Body Mass Index 31.2 Const General: healthy appearing, no acute distress and anxious Nutritional Appearance: obese Orientation/consciousness: patient oriented x3 Limitations: no limitations HEENT Head: Yes normal to inspection Ears: hearing grossly normal bilaterally Eyes Sclerae: sclerae normal Pupils: Equal, round and reactive pupils present Neck Neck: Yes normal visual inspection Chest Chest palpation & inspection: normal inspection of the chest Resp Effort & Inspection: normal respiratory effort Auscultation: clear to auscultation bilaterally Cardio Palpation: normal PMI Rate: regular rate Rhythm: regular rhythm Heart sounds: S1 normal heart sound present, S2 normal heart sound present and no murmurs GI Palpation (GI): Soft to palpation, nontender and No hepatosplenomegaly present Auscultation: normal bowel sounds Rectal Exam - Female: deferred Skin General skin exam: no rashes or lesions noted Neuro General: patient oriented x3, gait normal and moves all extremities Cranial nerves: Yes Equal, round and reactive pupils present Psych Appearance: grossly normal Mental Status: mental status grossly normal Assessment & Plan Assessment & Plan (1) Dysphagia, pharyngoesophageal phase: Code(s): R13.14 - Dysphagia, pharyngoesophageal phase Category: Medical (2) Ineffective esophageal motility: Code(s): K22.4 - Dyskinesia of esophagus Category: Medical (3) Nausea: Code(s): R11.0 - Nausea Category: Medical (4) GERD (gastroesophageal reflux disease): Code(s): K21.9 - Gastro-esophageal reflux disease without esophagitis Category: Medical (5) Colon cancer screening: Code(s): Z12.11 - Encounter for screening for malignant neoplasm of colon Category: Medical Plan 49 YF with asthma seen for FU of dysphagia to solid food for the past few years. Has been taking blenderized foods and protein shakes. An UGI was normal. EGD in 04/2018 showed gastritis and subtle mucosal changes suggestive of EOE. Esophgeal biopsies were negative for EOE and gastric biopsies did not show H Pylori. Pt was advised further evaluation with High Resolution Manometery to rule out esophageal motility disorder/achalasia. She was advised to continue taking a blendarized diet and protien shakes in the interim. 04/16/20? HIGH-RESOLUTION ESOPHAGEAL MANOMETRY AT [facility] SHOWED: ? normal UES function,? short LES length. ? Hypotensive LES/ EGJ resting pressure with normal LES relaxation. ? No hiatal hernia was detected manometrically. ? Paterson classification 3: ? ineffective esophageal motility ?Patient was advised LAB tests to rule out presence of autoimmune disorder affecting esophageal motility - KIRT 1:80 nuclear/ speckled pattern. Pt was seen by Rheumatology? -? no evidence of lupus or connective tissue disease was detected.? She had a? negative rheumatoid factor, normal ESR and CRP, negative ds DNA.? The remainder of her serology was also unrevealing with negative Sm/GRIND OPERATOR, negative scleroderma antibody, normal complements, negative Sjogren's antibodies.? Source of positive KIRT was felt to be positive antithyroid antibodies. She was advised to start metoclopramide 10 mg 3 times daily with meals for dysphagia/ ineffective esophageal motility disorder. Of note:? Pt is undergoing additional testing with a CT scan due to elevated DHEA-sulfate levels. She was referred to the [facility] at [facility] for a 2nd opinion and has an appt on 01/25/21. Patient was referred to Neurology to rule out neurological source of her symptoms 12/16/22 EGD was performed in findings as noted above Pt is enrolled in a study at the [facility] at [facility] and stopped going since she is not experiancing any improvement in her symptoms Pt called.? On 09/11/22 she took 2-3 spoonful of some blenderized oatmeal which was a little thick. Noted chest pain and unable to swallow water. [place] bad in her chest and unable to breath Was going to go to the ED and symptoms resolved after 45 to 50 min. Continued to have chest pain the following day. Has been taking a liquid diet. She is participitating in a study at [facility] and continues to fu with Dr Armenta Only medication she is taking is Omeprazole Pt was advised to schedule an EGD for further evaluation 05/04/23 Some days she wakes up with nausea which lasts all day. Taking liquids and a few Seen by Rodriguez Santos at [facility] and was referred to Thoracic Surgery 02/15/24 Pt was seen by Dr Lyons (Thoracic Surgeon at [facility]) and advised repeat Manometry testing at to rule out Achalasia. Plan is for POEM procedure if repeat studies confirm Achalasia. Pt advised to schedule a FU visit with Dr Lyons Ref to Oncology for elevated Ig A levels 08/27/24 Has not scheduled Esophageal Manometry yet - feels too anxious about it. Taking a liquid diet since she feels some choking even with the blendarized diet. Pt advised to schedule a screening colonoscopy. Colonoscopy procedure and potential complications including bleeding, perforation and reaction to anesthetic were reviewed with the patient 03/06/25 Pt advised to start Famotidine 20 mg twice daily for GERD Follow-up appointment in GI in 8 months ?FROM UP-TO-DATE: Ineffective esophageal motility: By high-resolution esophageal manometry, ineffective motility is defined as 50 to 90 percent of the liquid swallows being weak or failed. The manometric diagnosis of ineffective esophageal motility does not always correlate with symptoms or impaired esophageal function. In one study, only 30 percent of patients with ineffective esophageal motility reported dysphagia. Moreover, studies using esophageal intraluminal impedance testing have shown that up to 68 percent of liquid and 59 percent of viscous swallows in such patients showed normal bolus transit The prevalence of celiac disease and inflammatory bowel disease is probably modestly increased among individuals with autoimmune thyroid disease. Patients with persistent gastrointestinal symptoms should undergo screening for these diseases Orders: Referrals GI Procedure Notification R13.14 - Dysphagia, pharyngoesophageal phase, Z12.11 - Encounter for screening for malignant neoplasm of colon Medications: New famotidine 20 mg PO BID 180 tabs 3RF 90 days K21.9 - Gastro-esophageal reflux disease without esophagitis Coding Level of Care Code Est Pt Level 4 (35337) Diagnoses Dysphagia, pharyngoesophageal phase R13.14 Ineffective esophageal motility K22.4 Nausea R11.0 GERD (gastroesophageal reflux disease) K21.9 Colon cancer screening Z12.11 Time Spent (min) 21
[2025-03-06 10:59] VITALS: BP 124/76; PULSE 76; O2SAT 95; BMI 31.2
--- OUTSIDE RECORDS SUMMARY | 2025-03-06 13:01 | XMS_ITS | Clinical Summary ---
Author Organization [employer] Address [address] [place] [address] 7[address] [place] [address] Care Team Providers Care Franchise Field Consultant Name Role Phone Batsheva Cabrera MD Primary Care Provider [phone] Allergies Active Allergy Reactions Criticality Noted Date Comments Cannabidiol Hives,Itching 04/14/2020 Medications escitalopram (Lexapro) 10 MG tablet Take 10 mg by mouth in the morning. 08/24/19 23 Active pediatric multivitamin-ir on (Poly-Vi-Josefina w/ Iron) 11 MG/ML solution 03/08/20 21 Active lidocaine (Lidoderm) 5 % patchIndication s:Influenza-lik e symptoms APPLY 1 PATCH IN THE MORNING REMOVE AND DISARD PATCH WITHIN 12 HOURS OR DIRECTED 30 patch 11 11/26/19 23 Active cloNIDine (Catapres) 0.1 MG tablet TAKE 1 TABLET BY MOUTH NEEDED AT ONSET OF PANIC ATTACK 04/13/20 23 Active leflunomide (Arava) 20 MG tablet Take 20 mg by mouth in the morning. 06/23/19 24 Active hydrOXYzine pamoate (Vistaril) 25 MG capsule TAKE 1 CAPSULE BY MOUTH 3 TIMES A DAY NEEDED FOR ANXIETY 07/18/19 24 Active Cholecalciferol (Vitamin D3) 5000 UNIT/ML liquidIndicatio ns:Vitamin D deficiency GIVE 0.6MLS BY MOUTH EVERY DAY 02/15/20 24 Active omeprazole (PriLOSEC) [address] capsuleIndicati ons:Gastroesoph ageal reflux disease without esophagitis TAKE 1 CAPSULE BY MOUTH 2 TIMES A DAY BEFORE MEALS. 02/15/20 24 Active fluticasone-j carlos meterol (Advair HFA) 45-21 MCG/ACT inhaler Inhale 2 puffs in the morning and at bedtime. 12 g 11 04/11/20 24 Active bisacodyl (Dulcolax) 5 MG EC tablet TAKE 4 TABS BY MOUTH ONCE FOR COLON PREP FOR 1 DAY AT 12 PM THE DAY BEFORE COLONOSCOPY APPOINTMENT Active GaviLAX 17 GM/SCOOP powder PLEASE SEE ATTACHED FOR DETAILED DIRECTIONS 08/28/19 25 Active albuterol (Ventolin HFA) 108 (90 Base) MCG/ACT inhalerIndicati ons:Viral upper respiratory illness Inhale 2 puffs every 6 (six) hours if needed for wheezing. 18 g 6 12/07/19 25 Active ibuprofen 600 MG tabletIndicatio ns:Chronic pain in left shoulder Take 1 tablet (600 mg) by mouth every 6 (six) hours if needed for mild pain. 30 tablet 2 01/28/20 25 026 Active fluticasone (Flonase) 50 MCG/ACT nasal sprayIndication s:Viral upper respiratory tract infection ADMINISTER 1-2 SPRAYS INTO EACH NOSTRIL ONCE PER DAY. SHAKE GENTLY. BEFORE FIRST USE, PRIME PUMP. AFTER USE, CLEAN TIP AND REPLACE CAP. 48 mL 02/22/20 25 026 Active fluticasone (Flonase) 50 MCG/ACT nasal sprayIndication s:Viral upper respiratory tract infection Administer 1-2 sprays into each nostril Once per day. Shake gently. Before first use, prime pump. After use, clean tip and replace cap. 16 g 1 05/29/20 24 025 Discontinued Active Problems Problem Noted Date Diagnosed Date Encounter for screening mamm ogram for malignant neoplasm of breast 10/30/2024 Mixed conductive and sensori neural hearing loss of right ear 09/10/2024 Neck pain 09/06/2024 Assessment & Plan (10/30/2024 10:20 AM EDT): Lorazepam 0.5mg prescribed for MRI/claustrophobia anxiety Follow-up with me after Mri is complete Continue supportive care for now Assessment & Plan (09/06/2024 3:13 PM EDT): [...] today patient will be contacted with results Conductive hearing loss 06/17/2024 Otosclerosis of ossicle of right ear 06/17/2024 Clogged ear, bilateral 05/29/2024 Chronic left shoulder pain 05/10/2024 Assessment & [...] muscle 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 Next apt 03/18/2024 and advised to start [...] AM EDT): Completed functional dyspepsia study at [facility] Follow their recommendations Normal mammography 03/08/2021 Avoidant-restrictive [...] PM EST): Completed functional dyspepsia study at [facility] Followed by GI at [facility], Dr Araujo Seeing surgeon, presumably to talk about fundoplication GI started her on Boost Assessment & Plan (10/31/2022 8:56 AM EDT): Continue omeprazole per GI Has upcoming EGD in November with Dr Araujo at [facility] Anxiety 01/30/2021 Assessment & Plan (09/06/2024 3:14 PM EDT): F/u with psychiatrist and therapist Hyperthyroidism 11/15/2018 Vitamin D deficiency 11/15/2018 Non-toxic uninodular goiter 08/15/2018 Overview (10/25/2024): Thyroid (cystic) nodule NOS; Note: Date Diagnosed: 08/15/2018 6:47 PM (E04.1) Dysphagia 06/13/2018 Overview (10/25/2024): Other dysphagia; Note: Date Diagnosed: 06/13/2018 1:08 PM (R13.19) Hypertrophy of tonsils 06/13/2018 Overview (10/25/2024): Hypertrophy of tonsils; Note: Date Diagnosed: 06/13/2018 1:12 PM (J35.1) Allergic rhinitis 10/26/2015 Class 1 obesity 10/26/2015 Resolved Problems Problem Noted Date Diagnosed Date Resolved Date Injury of right knee 08/29/2024 025 Viral upper respiratory tract infection 05/29/2024 10/30/2024 Epicondylitis elbow, medial, left 02/23/2024 02/23/2024 Tonsillar exudate 10/20/2022 04/10/2024 Asthma 11/02/2021 12/01/2022 Mild intermittent asthma without complication 10/26/19 16 04/10/2024 Assessment & Plan (10/02/2023 8:22 AM EDT): Controlled with [facility] Encounters Date Type Department Care Team Description 02/21/2025 Refill [facility] [address] [place] [address] Sumi Almaguer MD Viral upper respiratory tract infection 01/27/2025 1:00 PM EDT Office Visit [facility] [address] [place] [address] Eugenie Dunaway FNP Chronic pain in left shoulder (Primary Dx); Left face and left arm tingling; UTI symptoms 01/27/2025 Travel 01/23/2025 Telephone [facility] [address] [place] [address] Batsheva Cabrera MD Nurse Triage 01/21/2025 9:40 AM EDT Office Visit [facility] [address] [place] [address] Nancy Ramirez MD UTI symptoms 01/21/2025 Refill [facility] [address] [place] [address] Sumi Almaguer MD 01/21/2025 Travel 01/21/[address] [address] Batsheva Cabrera MD Nurse Triage 01/01/2025 6:40 PM EDT Office Visit [facility] [address] [place] [address] Diaz Hill MD Acute bilateral low back pain without sciatica (Primary Dx) 01/01/2025 Travel 01/01/[address] [address] Batsheva Cabrera MD Nurse Triage 12/06/2024 2:00 PM EDT Office Visit [address] [address] Eugenie Dunaway FNP Viral upper respiratory illness 12/06/2024 Travel 12/06/[address] [address] Batsheva Cabrera MD Nurse Triage from Last 3 Months Immunizations Immunization Administration Dates Next Due DT (pediatric) 04/24/1989,12/10/1981 [...] drink = 0.6 oz pur e alcohol) Depression Answer Date Recorded Patient Health Questionnaire-9 Score 12 10/25/2024 Patient Health Questionnaire-9 Score 12 10/25/2024 Last PHQ-9: Questionnaire Data Not on file 0 10/25/2024 Housing Stability Answer Date Recorded What is your housing situation today? I have jovana brittany 10/21/[address] you li ve. Do you have problems with any of the following? None of the above 10/21/2024 Food Insecurity Answer Date Recorded Within the past 12 months, y ou worried that your food would run out before you got money to buy more: Never True 10/21/2024 Within the past 12 months,th e food you bought just didn't last and you didn't have enough money to get more: Never True 10/2024 Transportation Answer Date Recorded In the past 12 months, has l ack of transportation kept you from medical appts, meetings, work or from getting things needed for daily living? No 10/21/2024 Utilities Answer Date Recorded In the past 12 months, has t he electric, gas, oil or water company threatened to shut off services in your home? No 10/21/2024 Depression Answer Date Recorded Patient Health Questionnaire-2 Score 5 10/25/2024 Internet Access Answer Date Recorded Internet Access Q1 Yes 10/21/2024 Internet Access Q2 Not on file 10/21/2024 Comments No Intention Date Recorded No desire to become (finding) 0 10/25/2024 Sex and Gender Information Value Date Recorded Sex Assigned at Female 04/18/2022 10:14 AM EDT Legal Sex Female 10:14 AM EDT Gender Identity Female 04/18/2022 10:14 AM EDT Sexual Orientation Straight 04/18/2022 10 :14 AM EDT Last Filed Vital Signs Vital Sign Reading Time Taken Comments Blood Pressure 120/74 01/27/2025 1:00 PM EDT Pulse 90 01/27/2025 1:00 PM EDT Temperature 36.2 C (97.1 F) 01/27/2025 1:00 PM EDT Respiratory Rate 16 01/27/2025 1:00 PM EDT Oxygen Saturation 99% 01/21/2025 9:44 AM EDT Inhaled Oxygen Concentration - - Weight 92.1 kg (203 lb) 01/27/2025 1:00 PM EDT Height 170.2 cm (5' 7 ) 01/27/2025 1:00 PM EDT Body Mass Index 31.79 01/27/2025 1:00 PM EDT Plan of Treatment Health Maintenance Due Date Last Done Comments CT Colonography 1975 Colonoscopy 1975 FIT DNA/Cologuard 1975 FIT 1975 FOBT 1975 Sigmoidoscopy 1975 Pneumococcal Vaccine: Pediatrics (0 to 5 Years) and At-Risk Patients (6 to 49) Years (1 of 2 - PCV) 1994 DTaP/Tdap/Td Vaccines (6 - Td or Tdap) 04/14/2021 04/14/2011, 04/24/1989, 12/10/1981, Additional history exists COVID-19 Vaccine ( season) 2025 Influenza Vaccine (#1) 2025 04/10/2014 Zoster Vaccines (1 of 2) 2025 Depression Monitoring 04/27/2025 10/25/2024, 025 SDOH Screening 10/21/2025 10/21/2024 Alcohol/Substance Use Screening 10/25/2025 10/25/2024 Colorectal Cancer Screening 10/25/2025 Postponed from 1975 (Patient Refused) Disability Screening 10/25/2025 10/25/2024 Family Planning (PISQ) 10/30/2025 10/30/2024 Mammogram 12/26/2025 12/26/2024, 02/0 06/2023, 07/15/2022, Additional history exists Tobacco Screening 01/27/2026 01/27/2025 Cervical Cancer Screening 03/16/2027 HPV/Cotest 03/16/2027 03/16/2022, [...] patient's age to complete this topic Meningococcal B Vaccine Aged Out No l onger eligible based on patient's age to complete [...] Procedure Name Priority Date/Time Associated Diagnosis Comments ECG 12-LEAD Routine 01/27/2025 3:43 PM EDT Left face and left arm tingling CULTURE, URINE, ROUTINE Routine 01/21/2025 10:30 AM EDT UTI symptoms POCT URINALYSIS DIPSTICK Routine 01/21/2025 9:51 AM EDT UTI symptoms BI MAMMOGRAM SCREENING TOMOSYNTHESIS BILATERAL Routine 12/26/2024 11:45 AM EDT Encounter for screening mammogram for malignant neoplasm of breast POCT RAPID COVID ANTIGEN Routine 12/06/2024 2:22 PM EDT Viral upper respiratory illness POCT RAPID STREP A Routine 12/06/2024 2: 21 PM EDT Viral upper respiratory illness HEPATITIS PANEL, GENERAL Routine 05/10/2023 12:10 PM EST [facility] HISTORICAL HPV E6/E7 RFLX VY 16 18/45 Routine 03/16/2022 10:25 AM EDT PAP/HPV Routine 03/16/2022 [facility] HISTORICAL HIV AB/AG Routine 01/02/2020 8:35 AM EDT from Last 3 Months or Most Recently Relevant to Health Maintenance Results * ECG 12 lead (01/27/2025 3:43 PM EDT) Edison OrionEugenie FNP - 01/27/2025 3:43 PM EDT NSR. See scanned report [facility] ECG ORDERABLES Final Result * Culture, Urine, Routine (01/21/2025 10:30 AM EDT) Urine Urine specimen obtained by clean catch procedure / Unknown 01/21/2025 10:30 AM EDT 01/21/2025 5:22 PM EDT Comment:[facility] - 01/23/2025 10:27 AM EDT Urine Culture Report Result Urine Culture 50,000 to 100,000 cfu/ml Urine Culture Mixed bacterial sara characteristic of Urine Culture urogenital contamination. Specimen Source: Urine clean catch Nancy Ramirez MD LAB MICROBIOLOGY - GENERAL ORDERABLES Final Result [facility] [place] [address] [phone] * (ABNORMAL) POCT urinalysis dipstick manually resulted (01/21/2025 9:51 AM EDT) Color, UA Yellow Comment:Dark Clarity, UA Clear Glucose, UA Negative Bilirubin, UA Few 15 Comment:Small Ketones, UA Negative Spec Grav, UA 1.020 Blood, UA Positive(A) Negative, None Detected Comment:Small pH, UA 7.0 Protein, UA 2+ 125++ Comment:100Mg Urobilinogen, UA 0.2 Leukocytes, UA Many(A) Negative, Rare, Trace Comment:Large Nitrite, UA Negative Negative, None Detected Appearance, UA OK Urine 01/21/2025 9:51 AM EDT Nancy Ramirez MD POINT OF CARE TEST ENTER/E DIT ORDERABLES Final Result * BI Mammogram Screening Tomosynthesis Bilateral (12/26/2024 11:45 AM EDT) Anatomical Region Laterality Modality Breast Bilateral Mammography 12/26/2024 11:4 5 AM EDT Narrative 01/09/2025 11:43 AM EDT [facility] [address] [place] [address] Mammography Report Signed Patient: Crystal Ivan MR#: [id number] : 1975 Acct:[id number] Age/Sex: 49 / F ADM Date: 12/26/24 Loc: HO.MAMMO Attending Dr: Batsheva Cabrera MD Ordering Physician: Batsheva Cabrera Results: 1Negative Date of Service: 12/26/24 Follow Up: 1 Year From [facility] Mammogram Procedure(s): MM tomosynthesis screening BI Accession Number(s): [id number] cc: Batsheva Cabrera EXAMINATION: MM SCREENING DIGITAL BREAST TOMOSYNTHESIS, BILATERAL CLINICAL INFORMATION: Screening. Asymptomatic. COMPARISON: Mammography: Comparison is made with available priors TECHNIQUE: Digital breast mammography with tomosynthesis is performed in both the craniocaudal and mediolateral oblique views along with computer-aided detection (CAD). FINDINGS: There are scattered areas of fibroglandular density (ACR BI-RADS breast composition Category b). There are no significant masses, abnormal calcifications, [...] target due date for their next mammogram. Electronically signed by: Mireya Fernández DO 01/09/2025 11:40 AM EDT RP Dictated By: Mireya Fernández DO Signed By: <Electronically signed by Mireya Fernández DO in OV> 01/09/25 1140 DD/ 1145 TD/TT: 12/26/24 1200 Town Planner: Procedure Note Donotuseinterpreter, Image - 01/09/2025 [facility] [address] [place] [address] Mammography Report Signed Patient: Crystal IvanMR#: [id number] : 1975Acct:[id number] Age/Sex: 49 / FADM Date: 12/26/24 Loc: JonaMAMMO Attending Dr: Batsheva Cabrera MD Ordering Physician: Avtar Cabreraults: 1Negative Date of Service: 12/26/24Follow Up: 1 Year From [facility] M[facility] Procedure(s): MM tomosynthesis screening BI Accession Number(s): [id number] cc: Batsheva Cabrera EXAMINATION: MM SCREENING DIGITAL BREAST TOMOSYNTHESIS, BILATERAL CLINICAL INFORMATION: Screening. Asymptomatic. COMPARISON: Mammography: Comparison is made with available priors TECHNIQUE: Digital breast mammography with tomosynthesis is performed in both the craniocaudal and mediolateral oblique views along with computer-aided detection (CAD). FINDINGS: There are scattered areas of fibroglandular density (ACR BI-RADS breast composition Category b). There are no significant masses, abnormal calcifications, [...] target due date for their next mammogram. Electronically signed by: Mireya Fernández DO 01/09/2025 11:40 AM EDT RP Dictated By: Mireya Fernández DO Signed By: <Electronically signed by Mireya Fernández DO in OV> 01/09/25 1140 DD/ 1145 TD/TT: 12/26/24 1200 Town Planner: Batsheva Cabrera MD IMG BI PROCEDURES Edited Resul t - Final * POCT Rapid Covid-19 BinaxNOW (12/06/2024 2:22 PM EDT) [facility] Rapid COVID Ag Negative Swab 12/06/2024 2:22 PM EDT [facility] SUPERVISOR ROVING POINT OF CARE TEST ENTER/EDIT ORDERABLES Final Result * POCT Rapid Strep A OSOM (12/06/2024 2:21 PM EDT) [facility] Rapid Strep A Screen Negative Negative, None Detected Swab 12/06/2024 2:21 PM EDT Result [facility] SUPERVISOR ROVING POINT OF CARE TEST ENTER/EDIT ORDERABLES Final Result * Hepatitis Panel, General (05/10/2023 12:10 PM EST) [facility] Hepatitis A IgM Nonreactive Nonreactive [facility] Comment:IgM antibodies to CUNHA V not detected; does not exclude earlyacute or recovered HAV infection. ~Hepatitis B Surface Antibody REACTIVE Nonreactive [facility] Comment:REACTIVE: > 11.99 mI U/mL Hepatitis B Core Antibody Nonreactive Nonreactive [facility] Hepatitis C Antibody Nonreactive Nonreactive [facility] Comment:Antibodies to HCV no t detected; does not exclude early acuteHCV infection. Hepatitis B Surface Ag Negative Negative [facility] 05/10/2023 12:1 0 PM EST 05/10/2023 12:10 PM EST Result [facility] Generic External Data Provider LAB BLOOD ORDERAB LES Final Result [facility] [address] [place] [address] [phone] * HPV E6/E7 RFLX VY 16 18/45 (03/16/2022 10:25 AM EDT) [facility] HPV mRNA E6/E7 rflx Not Detected Not Detected [facility] Comment: Methodology: Concrete Floor Installer-Mediated Amplification This assay detects E6/E7 viral messenger RNA (mRNA) from 14 high-risk HPV types (16,18,31,33,35,39,45,51,52,56,58,59,66,68). Cervical sources are required for HPV testing. If a vaginal source from a patient who has had a total hysterectomy with removal of cervix was submitted, please contact the testing laboratory for alternative testing options. For additional information, please refer to http://education.Payoff/faq/JFG152v9 (This link if provided for information/ educational purposes only.) THIS TEST WAS PERFORMED AT: [facility] [address] [facility] [address] FLO[address],[place] [address] EMERY FIGUEROA MD 03/16/2022 10:2 5 AM EDT [place] HISTORICAL/NON ORDERABLE LABS Fi nal Result [facility] * Pap Smear (03/16/2022) [facility] Pap smear done on 03/16/2022 @ [facility] Historical Provider HEALTH MAINTENANCE Final Result * HIV AB/AG (01/02/2020 8:35 AM EDT) [facility] HIV AG/AB NONREACTIVE [facility] Comment: HIV-1 p24 Ag and/or HIV-1/HIV-2 Ab not detected. A test result that is nonreactive does not exclude the possibility of exposure to or infection with HIV-1 and/or HIV-2. Nonreactive results in this assay for individuals with prior exposure to HIV-1 and/or HIV-2 may be due to antigen and antibody levels that are below the limit of detection of this assay. [employer] Head HIV Ag/Ab Combo assay result and supplemental assay results should be interpreted in conjunction with the patient's clinical presentation, history and other laboratory results. If the results are inconsistent with clinical evidence, additional testing is suggested to confirm the result. 01/02/2020 8:35 AM EDT us Kelsey Todd NP HISTORICAL/NON ORDERABLE LABS Fi nal Result [facility] [address] from Last 3 Months or Most Recently Relevant to Health Maintenance Insurance [facility] MEDICARE Care Teams Franchise Field Consultant Relationship Specialty Start Date End Date Batsheva Cabrera MD [address] [place], [place] [phone] PCP - General Family Medicine 07/24/20
--- OUTSIDE RECORDS SUMMARY | 2025-03-06 13:01 | XMS_ITS | Encounter Summary ---
Author Organization [employer] Address [address] [facility] [address] [place] [address] Care Team Providers Care Meat Service Team Member Name Role Phone Batsheva Cabrera MD Primary Care Provider [phone] Reason for Visit * Reason Comments Med Refill Encounter Details Date Type Department Care Team ([facility] Contact Info) Description 01/21/2025 Refill [facility] [address] [place] [address] Sumi Almaguer MD [address] [place] [address] Social History Tobacco Use Types Packs/Day Years [...] housing situation today? I have jovana soto 10/21/[address] you li [...] Q2 Not on file 10/21/2024 Comments No Sex and Gender Information Value Date Recorded Sex Assigned at Female 04/18/2022 10:14 AM EDT Legal Sex Female 10:14 AM EDT Gender Identity Female 04/18/2022 10:14 AM EDT Sexual Orientation Straight 04/18/2022 10 :14 AM EDT documented as of this encounter Plan of Treatment Not on file documented as of this encounter Visit Diagnoses Not on filedocumented in this encounter Additional Health Concerns Assessment Noted Time PHQ-9 Depression Total Score: 12 025 4:27 PM EDT documented as of this encounter Care Teams Meat Service Team Member Relationship Specialty Start Date End Date Batsheva Cabrera MD [address] [place] [address] PCP - General Family Medicine 07/24/20 documented as of this encounter
--- OUTSIDE RECORDS SUMMARY | 2025-03-06 13:01 | XMS_ITS | Encounter Summary ---
Author Organization [employer] Address [address] [place] [address] 7t [place] [address] Care Team Providers Care Invas Tech Name Role Phone Batsheva Cabrera MD Primary Care Provider [phone] Reason for Referral * Consultation (Routine) - Closed Specialty Diagnoses / Procedures Referred By Contac t Referred To Contact Physical Therapy Diagnoses Spondylosis of cervical region without myelopathy or radiculopathy Batsheva Cabrera MD [address] [place] [address] Phone: tel: fax: [facility] Physical Therapy [address] [place] [address] Phone: tel: fax: Referral ID Status Reason Start Date Expiration Date V isits Requested Visits Authorized [id number] Closed Specialty Services Required 05/15/2024 05/15/2025 1 1 Encounter Details Date Type Department Care Team (Late st Contact Info) Description 05/15/2024 Orders Only [facility] [address] [place], [place] [phone] Batsheva Cabrera MD [address] [place], [place] [phone] Spondylosis of cervical region without myelopathy or [...] AM EST Narrative 06/13/2024 3:12 AM EST [address] [address] [address] Scan Report Signed Patient: Crystal Ivan MR#: [id number] : 1975 Acct:[id number] Age/Sex: 49 / F ADM Date: 06/13/24 Loc: HO.ED Attending Dr: Ordering Physician: Pb Light MD Date of Service: 06/13/24 Procedure(s): CT head/brain wo IV con Accession Number(s): [id number] cc: Batsheva Cabrera; Pb Light MD EXAMINATION: [...] by: Jose Escalante MD 06/13/2024 03:08 AM [facility] Dictated By: Jose Escalante MD Signed By: <Electronically signed by Jose Escalante MD in OV> 06/13/24 0308 DD/ 0212 TD/TT: 06/13/24 0230 School Office Manager: Procedure Note Donotuseinterpreter, Image - 06/13/[address] [address] [address] Scan Report Signed Patient: Crystal IvanMR#: [id number] : 1975Acct:[id number] Age/Sex: 49 / FADM Date: 06/13/24 Loc: HO.ED Attending Dr: Ordering Physician: Pb Light MD Date of Service: 06/13/24 Procedure(s): CT head/brain wo IV con Accession Number(s): [id number] cc: Batsheva Cabrera; Pb Light MD EXAMINATION: [...] by: Jose Escalante MD 06/13/2024 03:08 AM [facility] Dictated By: Jose Escalante MD Signed By: <Electronically signed by Jose Escalante MD in OV> 06/13/24 0308 DD/ 0212 TD/TT: 06/13/24 0230 School Office Manager: [facility] External Provider IMG CT PROCEDURES Edited Result - Final documented in this encounter Visit Diagnoses Diagnosis Spondylosis of cervical region without myelopathy or radiculopathy- Primary documented in this encounter Care Teams Invas Tech Relationship Specialty Start Date End Date Batsheva Cabrera MD [address] [place] [address] PCP - General Family Medicine 07/24/20 documented as of this encounter
--- OUTSIDE RECORDS SUMMARY | 2025-03-06 13:01 | XMS_ITS | Encounter Summary ---
Author Organization [employer] Address [address] [facility] 7t [place] [address] Care Team Providers Care Diamond Picker Name Role Phone Batsheva Cabrera MD Primary Care Provider Reason for Visit * Reason Onset Date Comments Results 06/07/2023 Encounter Details Date Type Department Care Team ([facility] st Contact Info) Description 06/07/2023 Telephone [facility] MEDICINE [address] [place] [address] Batsheva Cabrera MD [address] [place], [place] [phone] Results Social History Tobacco Use Types Packs/Day [...] 9:57 AM EST TC placed to pt [phone] in regards to below message. Pt reports [...] documented in this encounter Plan of Treatment Not on file documented as of this encounter Visit Diagnoses Not on filedocumented in this encounter Care Teams Diamond Picker Relationship Specialty Start Date End Date Batsheva Cabrera MD [address] [place] [address] PCP - General Family Medicine 07/24/20 documented as of this encounter
--- OUTSIDE RECORDS SUMMARY | 2025-03-06 13:01 | XMS_ITS | Clinical Summary ---
Author Organization [facility] Address [address] [facility] [address] [place] [address] Phone Care Team Providers Care Mechanic/Welder Name Role Phone Gonzalez Araujo MD Unavailable [phone] [facility], Facility Primary Care Provider Allergies No [...] COLONOSCOPY 2020 Adult Td,Tdap Booster 04/14/2021 04/14/2011 MAMMOGRAM 07/14/2024 07/14/2022, 06/20, 07/12/2021, Additional history exists INFLUENZA VACCINE (#1) 2025 04/10/2014 COVID-19 VACCINE ( season) 2025 SMOKING STATUS SCREENING (Once After 26 Yrs) [...] ACO [employer] Care Teams Mechanic/Welder Relationship Specialty Start Date End Date [facility] 230 [place] [address] PCP - General 05/18/21 Gonzalez Araujo MD [address] [place] [address] [place] [address] Gastroenterology 01/24/21 Additional Source Comments The information contained in this document represents components of the legal health record. It is not the complete legal health record.[facility]
--- OUTSIDE RECORDS SUMMARY | 2025-03-06 13:01 | XMS_ITS | Encounter Summary ---
Author Organization [employer] Address [address] [facility] 7t [place] [address] Care Team Providers Care Asphalt Still Operator Name Role Phone Batsheva Cabrera MD Primary Care Provider [phone] Reason for Visit * Reason Comments Med Change Request Encounter Details Date Type Department Care Team ([facility] Contact Info) Description 06/13/2024 Refill [facility] MEDICINE 230 [place] [address] Sumi Almaguer MD [address] [place] [address] Viral upper respiratory tract infection Social History [...] site documented in this encounter Care Teams Asphalt Still Operator Relationship Specialty Start Date End Date Batsheva Cabrera MD [address] [place] [address] PCP - General Family Medicine 07/24/20 documented as of this encounter
--- OUTSIDE RECORDS SUMMARY | 2025-03-06 13:01 | XMS_ITS | Encounter Summary ---
Author Organization [facility] Address [address] [place] [address] Phone Care Team Providers Care Radio Antenna Installer Name Role Phone Gonzalez Araujo MD Unavailable [phone] [facility], [facility] Primary Care Provider Encounter Details Date Type Department Care Team (Late st Contact Info) Description 10/15/2021 Procedure Pass [facility] [address] [facility], 4th [place] [address] Social History Tobacco Use Types Packs/Day Years Used Date Smoking Tobacco: Never Smokeless Tobacco: Never Comments Unknown Sex and Gender Information Value Date Recorded Sex Assigned at Not on file Legal Sex Female 9:57 AM EDT Gender Identity Not on file Sexual Orientation Not on file documented as of this encounter Plan of Treatment Not on file documented as of this encounter Visit Diagnoses Not on filedocumented in this encounter Care Teams Radio Antenna Installer Relationship Specialty Start Date End Date [facility] 230 [place] [address] PCP - General 05/18/21 Gonzalez Araujo MD [address] [place] [address] Dr [address] [place] [address] Gastroenterology 01/24/21 documented as of this encounter Additional Source Comments The information contained in this document represents components of the legal health record. It is not the complete legal health record.[facility]
--- OUTSIDE RECORDS SUMMARY | 2025-03-06 13:01 | XMS_ITS | Encounter Summary ---
Author Organization [employer] Address [address] [place] [address] 7t [place] [address] Care Team Providers Care Senior It Architect Name Role Phone Batsheva Cabrera MD Primary Care Provider [phone] Encounter Details Date Type Department Care Team (Late st Contact Info) Description 08/01/2022 Orders Only [facility] MEDICINE 230 [place], [place] [phone] Mamie [place] LPN Social History Tobacco Use [...] on filedocumented in this encounter Care Teams Senior It Architect Relationship Specialty Start Date End Date Batsheva Cabrera MD 230 [place], [place] [phone] PCP - General Family Medicine 07/24/20 documented as of this encounter
--- OUTSIDE RECORDS SUMMARY | 2025-03-06 13:01 | XMS_ITS | Encounter Summary ---
Author Organization [employer] Address [address] [facility] 7t [place] [address] Care Team Providers Care Etl Informatica Architect Name Role Phone Batsheva Cabrera MD Primary Care Provider [phone] Reason for Visit * Reason Comments Med Change Request Encounter Details Date Type Department Care Team ([facility] Contact Info) Description 04/28/[address] [facility] MEDICINE 230 [place] [address] Batsheva Cabrera MD 230 [place] [address] Social History Tobacco Use Types Packs/Day Years Used Date Smoking Tobacco: Never Passive Smoke Exposure: Never Smokeless Tobacco: Never Alcohol Use Standard Drinks/Week Comments Never 0 (1 standard drink = 0.6 oz pur e alcohol) PHQ-2 Answer Date Recorded Patient Health Questionnaire-2 Score 0 10/28/2022 Housing Stability Answer Date Recorded What is your housing situation today? I have jovana soot 04/05/[address] you li [...] on filedocumented in this encounter Care Teams Etl Informatica Architect Relationship Specialty Start Date End Date Batsheva Cabrera MD 230 [place] [address] PCP - General Family Medicine 07/24/20 documented as of this encounter
--- OUTSIDE RECORDS SUMMARY | 2025-03-06 13:02 | XMS_ITS | Encounter Summary ---
Author Organization [employer] Address [address] [place] [address] 7t [place] [address] Care Team Providers Care Certified Tower Climber Name Role Phone Batsheva Cabrera MD Primary Care Provider Reason for Visit * Reason Onset Date Comments Durable Medical Equipment 10/04/2022 Encounter Details Date Type Department Care Team ([facility] st Contact Info) Description 10/04/2022 Telephone [facility] MEDICINE 230 [place] [address] Batsheva Cabrera MD 230 [place] [address] Durable Medical Equipment Social History Tobacco Use [...] Thank you. * Telephone Encounter - Chiquis Sosa - 10/04/2022 2:17 PM EDT Tc from [place] from [facility] requesting a high position adjustable bed that not a hospital bed. documented in this encounter Plan of Treatment Not on file documented as of this encounter Visit Diagnoses Not on filedocumented in this encounter Care Teams Certified Tower Climber Relationship Specialty Start Date End Date Batsheva Cabrera MD [address] [place] [address] PCP - General Family Medicine 07/24/20 documented as of this encounter
--- OUTSIDE RECORDS SUMMARY | 2025-03-06 13:02 | XMS_ITS | Encounter Summary ---
Author Organization [employer] Address [address] [facility] 7t [place] [address] Care Team Providers Care Sidewalk Inspector Name Role Phone Batsheva Cabrera MD Primary Care Provider [phone] Reason for Visit * Reason Onset Date Comments Results 03/23/2023 Encounter Details Date Type Department Care Team ([facility] st Contact Info) Description 03/23/2023 Telephone [facility] MEDICINE 230 [place] [address] Batsheva Cabrera MD 230 [place] [address] Results Social History Tobacco Use Types Packs/Day [...] 11:00 AM EDT TC placed to pt [phone] in regards to below message. Pt informed [...] xray results . States were done at [facility] . documented in this encounter Plan of Treatment Not on file documented as of this encounter Visit Diagnoses Not on filedocumented in this encounter Care Teams Sidewalk Inspector Relationship Specialty Start Date End Date Batsheva Cabrera MD [address] [place] [address] PCP - General Family Medicine 07/24/20 documented as of this encounter
--- OUTSIDE RECORDS SUMMARY | 2025-03-06 13:02 | XMS_ITS | Encounter Summary ---
Author Organization [employer] Address [address] [place] [address] 7t [place] [address] Care Team Providers Care Soccer Player Name Role Phone Batsheva Cabrera MD Primary Care Provider [phone] Reason for Visit * Reason Onset Date Comments Triage 11/15/2022 Encounter Details Date Type Department Care Team ([facility] st Contact Info) Description 11/15/2022 Telephone [facility] MEDICINE 230 [place] [address] Batsheva Cabrera MD [address] [place] [address] Triage Social History Tobacco Use Types Packs/Day [...] on filedocumented in this encounter Care Teams Soccer Player Relationship Specialty Start Date End Date Batsheva Cabrera MD [address] [place] [address] PCP - General Family Medicine 07/24/20 documented as of this encounter
--- OUTSIDE RECORDS SUMMARY | 2025-03-06 13:02 | XMS_ITS | Encounter Summary ---
Author Organization [employer] Address [address] [facility] 7t [place] [address] Care Team Providers Care Digital Sales Manager Name Role Phone Batsheva Cabrera MD Primary Care Provider [phone] Encounter Details Date Type Department Care Team (Late st Contact Info) Description 2023 Orders Only [facility] MEDICINE 230 [place], [place] [phone] Batsheva Cabrera MD 230 [place], [place] [phone] Hand arthritis (Primary Dx) Social History Tobacco [...] hand documented in this encounter Care Teams Digital Sales Manager Relationship Specialty Start Date End Date Batsheva Cabrera MD 230 [place] [address] PCP - General Family Medicine 07/24/20 documented as of this encounter
== END 2025-03-06 11:53 | disposition home or self-care (01) ==
LOC: HO.HGI 10:55
PROVIDERS: PCP General Practice; Visit Provider Internal Medicine Gastroenterology
DX: R13.14 Dysphagia, pharyngoesophageal phase (principal); K22.4 Dyskinesia of esophagus; R11.0 Nausea; K21.9 Gastro-esophageal reflux disease without esophagitis
CPT/HCPCS: 99214

== ENCOUNTER → 2025-03-06 10:54 | Outpatient (BNVA) | payer MEDICARE, MEDICAID, SELFPAY | PROVIDERS: PCP General Practice; Visit Provider Internal Medicine Gastroenterology | DX: Z12.11 Encounter for screening for malignant neoplasm of colon (principal); R13.14 Dysphagia, pharyngoesophageal phase; R11.0 Nausea; K22.4 Dyskinesia of esophagus; K21.9 Gastro-esophageal reflux disease without esophagitis | CPT/HCPCS: 99212 ==

== ENCOUNTER → 2025-03-07 07:44 | Outpatient (REF) | payer MEDICARE, MEDICAID, SELFPAY ==
--- NOTE | 2025-03-07 07:46 | CA_ITS ---
Transthoracic Echocardiogram Patient (Last, First, Middle): Crystal Ivan, Gender: Female Date of : 1975 Age: 49 Procedure Date: 03/07/2025 Procedure Type: Transthoracic Echocardiogram Location: OP Height: 170.18 cm Weight: 90.27 kg BSA: 2.02 m2 Heart Rate: bpm BP: 110 / 72 mmHg Fuller Brush Man: TO Referring MD: Noa Medina SENIOR SUSTAINABILITY ADVISORMichael Symptoms: I42.9 - Cardiomyopathy, unspecified Study Quality: Adequate w contrast Conclusions: - The left ventricular systolic function is low normal. The visually estimated ejection fraction is between 50-55%. Findings Procedure Information Contrast agent, definity, is being given per protocol without apparent complications. Left Ventricle Normal left ventricular cavity size. The left ventricular systolic function is low normal. The visually estimated ejection fraction is between 50-55%. There is no evidence of regional wall motion abnormalities. Venous The inferior vena cava is normal in size and collapses greater than 50% with inspiration. Prior Study Comparison No significant change compared to prior study dated: 08/22/2023. Measurements 2D Linear Measurements IVSd: 0.70 0.6-0.9/0.6-1.0 cm LVIDd: 5.03 3.9-5.3/4.2-5.9 cm LVIDd Index: 2.49 2.4-3.2/2.2-3.1 cm/m2 LVIDs: 3.77 2.0-3.6 cm LVPWd: 0.70 0.7-1.1 cm LV Mass: 144.90 67-162/88-224 g LV Mass Index: 71.73 43-95/49-115 g/m2 LVOT Diam: 2.10 3.0+(-)1.3 cm 2D Systolic Function EF 4C: 54.40 >55% EF 2C: 56.90 >55% EF BiP: 55.10 >55% LVOT LVOT Pk Jesús: 1.01 LVOT Mn Jesús: 0.68 LVOT VTI: 0.19 LVOT Pk Grad: 4.00 LVOT Mn Grad: 2.00 LVOT Diam: 2.10 LVOT Area: 3.46 Tricuspid Valve RA Press: 3.00 Updated in Other Vendor System with Status of Final Marcus Baig MD electronically signed on 03/08/2025 1:14:53 PM with status of Final
--- NOTE | 2025-03-07 07:46 | CA_ITS ---
Acquisition Time: 2025-03-07 09:24:56 Total Exercise Time: 00:07:09 Test Indications: Dyspnea CP ORTHOPNEA Medications: ALBUTEROL CLONIDINE ESCITALOPRAM HYDROXYZINE Protocol: MANGO Max HR: 160 BPM 93% of Pred: 171 BPM Max BP: 142/70 mmHG Max Work Load: 7.3 METS Exercise stress test with exercise 7 mins 9 secs of Mango Protocol with reduced speed at 2.5mph due to feeling fatigued, achieving 82% MPHR, requesting to stop, reported lightheadedness where HR deyanira to 93% MPHR, with reports of SOB and LUQ abdominal pain, with isolated PVCs, with normotensive response to exercise. Without any EKG changes meeting criteria for ischemia. In recpovery, all symptoms resolved and pt feeling back to baseline. Test reviewed with Dr. Baig. Referred By: Noa Medina Electronically Signed By: Sheldon Garner
--- OUTSIDE RECORDS SUMMARY | 2025-03-07 07:46 | XMS_ITS | Clinical Summary ---
Author Organization [facility] Address [address] [facility] [address] [place] [address] Phone Care Team Providers Care Hull Molder Name Role Phone Gonzalez Araujo MD Unavailable [phone] [facility], Facility Primary Care Provider Allergies No [...] [employer] Care Teams Hull Molder Relationship Specialty Start Date End Date [facility] 230 [place] [address] PCP - General 05/18/21 Gonzalez Araujo MD [address] [place] [address] [place] [address] Gastroenterology 01/24/21 Additional Source Comments The information contained in this document represents components of the legal health record. It is not the complete legal health record.[facility]
--- OUTSIDE RECORDS SUMMARY | 2025-03-07 07:46 | XMS_ITS | Encounter Summary ---
Author Organization [employer] Address [address] [place] [address] 7t [place] [address] Care Team Providers Care Data Services Developer Name Role Phone Batsheva Cabrera MD Primary Care Provider [phone] Reason for Referral * Consultation (Routine) - Closed Specialty Diagnoses / Procedures Referred By Contac t Referred To Contact Physical Therapy Diagnoses Spondylosis of cervical region without myelopathy or radiculopathy Batsheva Cabrera MD [address] [place] [address] Phone: tel: fax: [facility] Physical Therapy [address] [place] [address] Phone: tel: fax: Referral ID Status Reason Start Date Expiration Date V isits Requested Visits Authorized [id number] Closed Specialty Services Required 05/15/2024 05/15/2025 1 1 Encounter Details Date Type Department Care Team (Late st Contact Info) Description 05/15/2024 Orders Only [facility] MEDICINE 230 [place], [place] [phone] Batsheva Cabrera MD [address] [place], [place] [phone] Spondylosis of cervical region without myelopathy or [...] AM EST Narrative 06/13/2024 3:12 AM EST [address] [address] [address] Scan Report Signed Patient: Crystal Ivan MR#: [id number] : 1975 Acct:[id number] Age/Sex: 49 / F ADM Date: 06/13/24 Loc: HO.ED Attending Dr: Ordering Physician: Pb Light MD Date of Service: 06/13/24 Procedure(s): CT head/brain wo IV con Accession Number(s): [id number] cc: Batsheva Cabrera; Pb Light MD EXAMINATION: [...] by: Jose Escalante MD 06/13/2024 03:08 AM [facility] Dictated By: Jose Escalante MD Signed By: <Electronically signed by Jose Escalante MD in OV> 06/13/24 0308 DD/ 0212 TD/TT: 06/13/24 0230 Agronomy Advisor: Procedure Note Donotuseinterpreter, Image - 06/13/[address] [address] [address] Scan Report Signed Patient: Crystal IvanMR#: [id number] : 1975Acct:[id number] Age/Sex: 49 / FADM Date: 06/13/24 Loc: HO.ED Attending Dr: Ordering Physician: Pb Light MD Date of Service: 06/13/24 Procedure(s): CT head/brain wo IV con Accession Number(s): [id number] cc: Batsheva Cabrera; Pb Light MD EXAMINATION: [...] by: Jose Escalante MD 06/13/2024 03:08 AM [facility] Dictated By: Jose Escalante MD Signed By: <Electronically signed by Jose Escalante MD in OV> 06/13/24 0308 DD/ 0212 TD/TT: 06/13/24 0230 Agronomy Advisor: [facility] External Provider IMG CT PROCEDURES Edited Result - Final documented in this encounter Visit Diagnoses Diagnosis Spondylosis of cervical region without myelopathy or radiculopathy- Primary documented in this encounter Care Teams Data Services Developer Relationship Specialty Start Date End Date Batsheva Cabrera MD [address] [place] [address] PCP - General Family Medicine 07/24/20 documented as of this encounter
--- OUTSIDE RECORDS SUMMARY | 2025-03-07 07:46 | XMS_ITS | Encounter Summary ---
Author Organization [employer] Address [address] [facility] 7t [place] [address] Care Team Providers Care Child Caregiver Name Role Phone Batsheva Cabrera MD Primary Care Provider [phone] Reason for Visit * Reason Comments Med Change Request Encounter Details Date Type Department Care Team ([facility] Contact Info) Description 04/28/2024 Refill [facility] MEDICINE 230 [place] [address] Batsheva Cabrera MD 230 [place] [address] Social History Tobacco Use Types Packs/Day Years [...] on filedocumented in this encounter Care Teams Child Caregiver Relationship Specialty Start Date End Date Batsheva Cabrera MD 230 [place] [address] PCP - General Family Medicine 07/24/20 documented as of this encounter
--- OUTSIDE RECORDS SUMMARY | 2025-03-07 07:47 | XMS_ITS | Encounter Summary ---
Author Organization [employer] Address [address] [place] [address] 7t [place] [address] Care Team Providers Care Reactor Fueling Supervisor Name Role Phone Batsheva Cabrera MD Primary Care Provider [phone] Reason for Visit * Reason Onset Date Comments Durable Medical Equipment 10/04/2022 Encounter Details Date Type Department Care Team ([facility] st Contact Info) Description 10/04/2022 Telephone [facility] MEDICINE [address] [place] [address] Batsheva Cabrera MD [address] [place] [address] Durable Medical Equipment Social History Tobacco Use [...] 2:17 PM EDT Tc from [place] from [facility] requesting a high position adjustable bed that not a hospital bed. documented in this encounter Plan of Treatment Not on file documented as of this encounter Visit Diagnoses Not on filedocumented in this encounter Care Teams Reactor Fueling Supervisor Relationship Specialty Start Date End Date Batsheva Cabrera MD [address] [place] [address] PCP - General Family Medicine 07/24/20 documented as of this encounter
--- OUTSIDE RECORDS SUMMARY | 2025-03-07 07:47 | XMS_ITS | Encounter Summary ---
Author Organization [employer] Address [address] [facility] 7t [place] [address] Care Team Providers Care Architecture Drafter Name Role Phone Batsheva Cabrera MD Primary Care Provider [phone] Reason for Visit * Reason Onset Date Comments Results 06/07/2023 Encounter Details Date Type Department Care Team ([facility] st Contact Info) Description 06/07/2023 Telephone [facility] MEDICINE 230 [place] [address] Batsheva Cabrera MD 230 [place] [address] Results Social History Tobacco Use Types Packs/Day [...] 9:57 AM EST TC placed to pt [phone] in regards to below message. Pt reports [...] on filedocumented in this encounter Care Teams Architecture Drafter Relationship Specialty Start Date End Date Batsheva Cabrera MD 230 [place] [address] PCP - General Family Medicine 07/24/20 documented as of this encounter
--- OUTSIDE RECORDS SUMMARY | 2025-03-07 07:47 | XMS_ITS | Clinical Summary ---
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 03/18/2024 and advised to start [...] AM EDT): Completed functional dyspe[place]ia [place] [facility] Follow their recommendations Normal mammography 03/08/2021 Avoidant-restrictive [...] PM EST): Completed functional dyspepsia study [place] [facility] [place] by GI at [facility], Dr Araujo Seeing surgeon, presumably to talk about fundoplication GI started her on Boost Assessment & Plan (10/31/2022 8:56 AM EDT): Continue omeprazole per GI Has upcoming EGD in November with Dr Araujo at [facility] Anxiety 01/30/2021 Assessment & Plan (09/06/2024 3:14 [...] Type Department Care Team Description 02/21/2025 Refill [facility] [address] [place] [address] Sumi Almaguer MD Viral upper respiratory tract infection 01/27/2025 1:00 PM EDT Office Visit [facility] [address] [place] [address] Eugenie Dunaway FNP Chronic pain in left shoulder (Primary Dx); Left face and left arm tingling; UTI symptoms 01/27/2025 Travel 01/23/2025 Telephone [facility] [address] [place] [address] Batsheva Cabrera MD Nurse Triage 01/21/2025 9:40 AM EDT Office Visit [facility] [address] [place] [address] Nancy Ramirez MD UTI symptoms 01/21/2025 Refill [facility] [address] [place] [address] Sumi Almaguer MD 01/21/2025 Travel 01/21/[address] [address] Batsheva Cabrera MD Nurse Triage 01/01/2025 6:40 PM EDT Office Visit [facility] [address] [place] [address] Diaz Hill MD Acute bilateral low back pain without sciatica (Primary Dx) 01/01/2025 Travel 01/01/[address] [address] Batsheva Cabrera MD Nurse Triage 12/06/2024 2:00 PM EDT Office Visit [address] [address] Eugenie Dunaway FNP Viral upper respiratory illness 12/06/2024 Travel 12/06/[address] [address] Batsheva Cabrera MD Nurse Triage from Last [...] 12 lead (01/27/2025 3:43 PM EDT) Edison LompocEugenie FNP - 01/27/2025 3:43 PM EDT NSR. See scanned report [facility] ECG ORDERABLES Final Result * Culture, Urine, Routine (01/21/2025 10:30 AM EDT) Urine Urine specimen obtained by clean catch procedure / Unknown 01/21/2025 10:30 AM EDT 01/21/2025 5:22 PM EDT Comment:[facility] - 01/23/2025 10:27 AM EDT Urine Culture Report Result Urine Culture 50,000 to 100,000 cfu/ml Urine Culture Mixed bacterial sara characteristic of Urine Culture urogenital contamination. Specimen Source: Urine clean catch Nancy Ramirez MD LAB MICROBIOLOGY - GENERAL ORDERABLES Final Result [facility] [address] [place] [address] [phone] * (ABNORMAL) POCT urinalysis dipstick manually [...] AM EDT Narrative 01/09/2025 11:43 AM EDT [facility] [address] [place] [address] Mammography Report Signed Patient: Crystal Ivan MR#: [id number] : 1975 Acct:[id number] Age/Sex: 49 / F ADM Date: 12/26/24 Loc: HO.MAMMO Attending Dr: Batsheva Cabrera MD Ordering Physician: Batsheva Cabrera Results: 1Negative Date of Service: 12/26/24 Follow Up: 1 Year From [facility] Mammogram Procedure(s): MM tomosynthesis screening BI Accession Number(s): [id number] cc: Batsheva Cabrera EXAMINATION: MM SCREENING DIGITAL [...] 01/09/25 1140 DD/ 1145 TD/TT: 12/26/24 1200 Urgent Care Nurse Practitioner: Procedure Note Donotuseinterpreter, Image - 01/09/2025 [facility] [address] [place] [address] Mammography Report Signed Patient: Crystal IvanMR#: [id number] : 1975Acct:[id number] Age/Sex: 49 / FADM Date: 12/26/24 Loc: JonaMAMMO Attending Dr: Batsheva Cabrera MD Ordering Physician: Avtar Cabreraults: 1Negative Date of Service: 12/26/24Follow Up: 1 Year From [facility] Mammogram Procedure(s): MM tomosynthesis screening BI Accession Number(s): [id number] cc: Batsheva Cabrera EXAMINATION: MM SCREENING DIGITAL [...] 01/09/25 1140 DD/ 1145 TD/TT: 12/26/24 1200 Urgent Care Nurse Practitioner: Batsheva Cabrera MD IMG BI PROCEDURES Edited Resul t - Final * POCT Rapid Covid-19 BinaxNOW (12/06/2024 2:22 PM EDT) [facility] Rapid COVID Ag Negative Swab 12/06/2024 2:22 PM EDT [facility] SUPERVISOR SMOKE CONTROL POINT OF CARE TEST ENTER/EDIT ORDERABLES Final Result * POCT Rapid Strep A OSOM (12/06/2024 2:21 PM EDT) [facility] Rapid Strep A Screen Negative Negative, None Detected Swab 12/06/2024 2:21 PM EDT Result [facility] SUPERVISOR SMOKE CONTROL POINT OF CARE TEST ENTER/EDIT ORDERABLES Final Result * Hepatitis Panel, General (05/10/2023 12:10 PM EST) [facility] Hepatitis A IgM Nonreactive Nonreactive [facility] Comment:IgM antibodies to CUNHA V not detected; does not exclude earlyacute or recovered HAV infection. ~Hepatitis B Surface Antibody REACTIVE Nonreactive [facility] Comment:REACTIVE: > 11.99 mI U/mL Hepatitis B Core Antibody Nonreactive Nonreactive [facility] Hepatitis C Antibody Nonreactive Nonreactive [facility] Comment:Antibodies to HCV no t detected; does not exclude early acuteHCV infection. Hepatitis B Surface Ag Negative Negative [facility] 05/10/2023 12:1 0 PM EST 05/10/2023 12:10 PM EST Result [facility] Generic External Data Provider LAB BLOOD ORDERAB LES Final Result [facility] [address] [place] [address] [phone] * HPV E6/E7 RFLX VY 16 18/45 (03/16/2022 10:25 AM EDT) [facility] HPV mRNA E6/E7 rflx Not Detected Not Detected [facility] Comment: Methodology: Tank House Operator-Mediated Amplification This assay detects E6/E7 viral messenger RNA (mRNA) from 14 high-risk HPV types (16,18,31,33,35,39,45,51,52,56,58,59,66,68). Cervical sources are required for HPV testing. If a vaginal source from a patient who has had a total hysterectomy with removal of cervix was submitted, please contact the testing laboratory for alternative testing options. For additional information, please refer to http://education.CoolClouds/faq/QZI259r1 (This link if provided for information/ educational purposes only.) THIS TEST WAS PERFORMED AT: [facility] [address] [facility] [address] FLO[address],[place] [address] EMERY FIGUEROA MD 03/16/2022 10:2 5 AM EDT Radha BrownleeCayucos HISTORICAL/NON ORDERABLE LABS Fi nal Result [facility] * Pap Smear (03/16/2022) [facility] Pap smear done on 03/16/2022 @ [facility] Historical Provider HEALTH MAINTENANCE Final Result * HIV AB/AG (01/02/2020 8:35 AM EDT) [facility] HIV AG/AB NONREACTIVE NR FOUNDATI ON [...] of detection of this assay. [employer] [address] Equipment Operator HIV Ag/Ab Combo assay result and supplemental assay results should be interpreted in conjunction with the patient's clinical presentation, history and other laboratory results. If the results are inconsistent with clinical evidence, additional testing is suggested to confirm the result. 01/02/2020 8:35 AM EDT us Kelsey Todd NP HISTORICAL/NON ORDERABLE LABS Fi nal Result [facility] [address] from Last 3 Months or Most Recently Relevant to Health Maintenance Insurance [facility] MEDIC[facility] Care Teams Health Commissioner Relationship Specialty Start Date End Date Batsheva Cabrera MD [address] [place], [place] [phone] PCP - General Family Medicine 07/24/20
--- OUTSIDE RECORDS SUMMARY | 2025-03-07 07:47 | XMS_ITS | Encounter Summary ---
Author Organization [employer] Address [address] [facility] 7t [place] [address] Care Team Providers Care Loss Prevention Leader Name Role Phone Batsheva Cabrera MD Primary Care Provider [phone] Reason for Visit * Reason Onset Date Comments Results 03/23/2023 Encounter Details Date Type Department Care Team ([facility] st Contact Info) Description 03/23/2023 Telephone [facility] [address] [place] [address] Batsheva Cabrera MD [address] [place] [address] Results Social History Tobacco Use Types Packs/Day [...] 11:00 AM EDT TC placed to pt [phone] in regards to below message. Pt informed [...] xray results . States were done at [facility] . documented in this encounter Plan of Treatment Not on file documented as of this encounter Visit Diagnoses Not on filedocumented in this encounter Care Teams Loss Prevention Leader Relationship Specialty Start Date End Date Batsheva Cabrera MD [address] [place] [address] PCP - General Family Medicine 07/24/20 documented as of this encounter
--- OUTSIDE RECORDS SUMMARY | 2025-03-07 07:47 | XMS_ITS | Encounter Summary ---
Author Organization [employer] Address [address] [facility] 7t [place] [address] Care Team Providers Care Menagerie Superintendent Name Role Phone Batsheva Cabrera MD Primary Care Provider [phone] Reason for Visit * Reason Comments Med Refill Encounter Details Date Type Department Care Team ([facility] Contact Info) Description 01/21/2025 Refill [facility] [address] [place] [address] Sumi Almaguer MD [address] [place] [address] Social History Tobacco Use Types Packs/Day Years [...] documented as of this encounter Care Teams Menagerie Superintendent Relationship Specialty Start Date End Date Batsheva Cabrera MD [address] [place] [address] PCP - General Family Medicine 07/24/20 documented as of this encounter
--- OUTSIDE RECORDS SUMMARY | 2025-03-07 07:47 | XMS_ITS | Encounter Summary ---
Author Organization [employer] Address [address] [place] [address] [address] [place] [address] Care Team Providers Care Locker Attendant Name Role Phone Batsheva Cabrera MD Primary Care Provider [phone] Reason for Visit * Reason Onset Date Comments Triage 11/15/2022 Encounter Details Date Type Department Care Team ([facility] st Contact Info) Description 11/15/2022 Telephone [facility] [address] [place] [address] Batsheva Cabrera MD [address] [place] [address] Triage Social History Tobacco Use Types Packs/Day [...] on filedocumented in this encounter Care Teams Locker Attendant Relationship Specialty Start Date End Date Batsheva Cabrera MD [address] [place] [address] PCP - General Family Medicine 07/24/20 documented as of this encounter
--- OUTSIDE RECORDS SUMMARY | 2025-03-07 07:47 | XMS_ITS | Encounter Summary ---
Author Organization [facility] Address [address] [place] [address] Phone Care Team Providers Care Sulphate Tester Name Role Phone Gonzalez Araujo MD Unavailable [phone] [facility] Primary Care Provider Encounter Details Date Type Department Care Team (Late st Contact Info) Description 10/15/2021 Procedure Pass [facility] ENDO DEPT [address] [facility], 4th [place] [address] Social History Tobacco Use Types Packs/Day Years [...] on filedocumented in this encounter Care Teams Sulphate Tester Relationship Specialty Start Date End Date [facility] [address] [place] [address] PCP - General 05/18/21 Gonzalez Araujo MD [address] [place] [address] Dr Conway [address] [place] [address] Gastroenterology 01/24/21 documented as of this encounter Additional Source Comments The information contained in this document represents components of the legal health record. It is not the complete legal health record.[facility]
--- OUTSIDE RECORDS SUMMARY | 2025-03-07 07:47 | XMS_ITS | Encounter Summary ---
Author Organization [employer] Address [address] [facility] 7t [place] [address] Care Team Providers Care Travel Counselor Automobile Club Name Role Phone Batsheva Cabrera MD Primary Care Provider [phone] Reason for Visit * Reason Comments Med Change Request Encounter Details Date Type Department Care Team ([facility] Contact Info) Description 06/13/2024 Refill [facility] [address] [place] [address] Sumi Almaguer MD [address] [place] [address] Viral upper respiratory tract infection Social History [...] site documented in this encounter Care Teams Travel Counselor Automobile Club Relationship Specialty Start Date End Date Batsheva Cabrera MD [address] [place] [address] PCP - General Family Medicine 07/24/20 documented as of this encounter
--- OUTSIDE RECORDS SUMMARY | 2025-03-07 07:47 | XMS_ITS | Encounter Summary ---
Author Organization [employer] Address [address] [facility] 7t [place] [address] Care Team Providers Care Catalyst Plant Supervisor Name Role Phone Batsheva Cabrera MD Primary Care Provider [phone] Encounter Details Date Type Department Care Team (Late st Contact Info) Description 2023 Orders Only [facility] [address] [place], [place] [phone] Batsheva Cabrera MD [address] [place], [place] [phone] Hand arthritis (Primary Dx) Social History Tobacco [...] hand documented in this encounter Care Teams Catalyst Plant Supervisor Relationship Specialty Start Date End Date Batsheva Cabrera MD [address] [place] [address] PCP - General Family Medicine 07/24/20 documented as of this encounter
--- OUTSIDE RECORDS SUMMARY | 2025-03-07 07:47 | XMS_ITS | Encounter Summary ---
Author Organization [employer] Address [address] [place] [address] 7t [place] [address] Care Team Providers Care Orchid Hand Name Role Phone Batsheva Cabrera MD Primary Care Provider [phone] Encounter Details Date Type Department Care Team (Late st Contact Info) Description 08/01/2022 Orders Only [facility] [address] [place], [place] [phone] Mamie Templeton LPN Social History Tobacco Use [...] on filedocumented in this encounter Care Teams Orchid Hand Relationship Specialty Start Date End Date Batsheva Cabrera MD [address] [place], [place] [phone] PCP - General Family Medicine 07/24/20 documented as of this encounter
[2025-03-07 10:57] LABS: Hematocrit 38.1 % (37.0-47.0); Hemoglobin 12.9 g/dl (12.0-16.0); Mean Corpuscular HGB Conc 33.9 g/dl (31.0-35.0); Mean Corpuscular Hemoglobin 28.8 pg (27.0-33.0); Mean Corpuscular Volume 85.0 fL (80.0-98.0); NRBC Abs Auto 0.000 X10*3/uL (0.0-0.012); NRBC Pct Auto 0.0 /100WBC (0.0-0.2); Platelet Count 246 X10*3/uL (160-400); Red Blood Count 4.48 X10*6/uL (4.20-5.50); White Blood Count 6.7 X10*3/uL (4.8-10.8)
[2025-03-07 11:35] LABS: Anion Gap 9 (12-20); Blood Urea Nitrogen 11 mg/dL (9-16); Calcium 9.1 mg/dL (8.4-10.2); Carbon Dioxide 26 mmol/L (22-29); Chloride 106 mmol/L (96-108); Estimated Glomerular Filt Rate > 60; Potassium 4.0 mmol/L (3.3-5.1); Sodium 137 mmol/L (135-145)
== END ==
LOC: HO.CARD 07:44
PROVIDERS: PCP General Practice; Visit Provider Nurse Practitioner Family
DX: R07.89 Other chest pain (principal); I42.9 Cardiomyopathy, unspecified; R06.02 Shortness of breath; R00.0 Tachycardia, unspecified; E06.3 Autoimmune thyroiditis
CPT/HCPCS: 36415; 80048; 84443; 85027; 93017; 93308; Q9957

== ENCOUNTER → 2025-03-07 07:46 | Outpatient (BNV) | payer MEDICARE, MEDICAID, SELFPAY | PROVIDERS: PCP General Practice | DX: I42.9 Cardiomyopathy, unspecified (principal) | CPT/HCPCS: 93016; 93018; 93350; 93352 ==

== ENCOUNTER 2025-03-28 09:58 | Outpatient (AMB) | payer MEDICARE, MEDICAID, SELFPAY ==
--- NOTE | 2025-03-28 10:00 | MHC.OFFVIS ---
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 Intake Note: no concerns Chief Scientist Required: No Information Interpreted: non-clinical & clinical Diesel Plant Operator: Diesel Plant Operator Present (Anahi Lechuga BASSAM) Accompanied by: Self / Same As Patient Allergies cannabidiol (CBD) extract Allergy (Mild, Verified 03/28/25 10:09) Hives duloxetine Adverse Reaction (Intermediate, Verified 03/28/25 10:09) Nausea and Vomiting Medication List - Last Reconciled 03/28/25 by Radha Valles CNM albuterol sulfate 90 mcg/actuation 1 inh inhalation QID clonidine HCl 0.1 mg PO BEDTIME escitalopram oxalate 10 mg PO DAILY famotidine 20 mg PO BID 90 days hydroxyzine pamoate 25 mg PO TID PRN Is last menstrual period known: Yes HPI 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 She had a history of abnormal Paps in the past but most recent ones were all negative she is not due for Pap smear today. She is not particularly worried about STDs and declined any testing for STIs with the exam. But then she requested blood work just to be on the safe side for hepatitis B and C and syphilis and HIV. She is having a lot of stress in her life partly related to her partner issues with using alcohol and cocaine. She says he does not use anything outside and no needle use at all she is worried for his health and has called the ambulance for him in the past and he declines care. One time he was hospitalized for care because he had threatened to hurt himself. She does have a therapist she says she is currently disabled because of all of the things and her fibromyalgia and other things as well. She does like exercise and is going to go back to the gym. Also she is not able to tolerate solid food because of her swallowing difficulties she has been evaluated many times and offered more testing but because it was so uncomfortable she has declined further testing for now unless it gets worse she is essentially living on some shakes and boost. She has to crush any medicines she needs to take. She has no worries at all about STIs though requested the blood work as above. She did say that sometimes when she has sex with her partner it does hurt. Attention was paid to this during the exam. [facility] Medical History Asthma Elevated anti-tissue transglutaminase (tTG) IgA level Peripheral muscle fatigue Muscle weakness of upper extremity Myalgia Hx of ectopic Anxiety disorder Paroxysmal nocturnal dyspnea Amenorrhea Campbell's disease Arthritis Hyperthyroidism Goiter Vitamin D deficiency Non-toxic multinodular goiter Obesity Elevated dehydroepiandrosterone sulfate level Graves disease Degenerative arthritis of knee, bilateral Surgical History Hx of endoscopy H/O esophagogastroduodenoscopy History of tonsillectomy History of tubal ligation Family History Father Diabetes Mother Breast cancer BRCA gene mutation negative Maternal Uncle Heart transplanted Social History (Updated 03/28/25 @ 10:14 by Anahi Lechuga CMA) Household Members: Family Housing: House Alcohol intake: never Patient Tobacco Use Status: Never used Tobacco service: No Current occupational status: unemployed Current occupation: right hand Sexual orientation: Straight/Heterosexual Gender identity: Female Female Reproductive History Menstrual Age of Menarche: 13 control method: permanent sterilization Total pregnancies: 5 Full term: 4 Number of Living Children: 4 Ectopics: 1 Date of last pap smear: 03/21/23 Date of Mammogram: 12/26/24 Physical Exam Vital Signs: Last Vital Signs BP 118/78 03/28/25 10:08 BMI result Body Mass Index 31.0 Const General: healthy appearing, comfortable, no acute distress, well developed and alert Nutritional Appearance: average body habitus Orientation/consciousness: patient oriented x3 Limitations: no limitations HEENT Head: Yes normocephalic Neck Neck: Yes normal visual inspection Chest Chest palpation & inspection: normal inspection of the chest Breast/axilla inspection: normal inspection of the breasts and normal inspection of the axillae Breast/axilla palpation: normal palpation of the breasts and normal palpation of the axillae Resp Effort & Inspection: normal respiratory effort GI Inspection: Yes normal to inspection, No Abdominal wall edema and No distended Palpation (GI): Soft to palpation and nontender Other: External exam within normal limits. Vagina is pink and moist with clear healthy midcycle mucus cervix is parous healthy-appearing mobile completely nontender uterus is midposition to anteverted mobile and nontender nonenlarged at all adnexa nontender nonenlarged very good tone with Kegel no pathology evident whatsoever. I was not able to reproduce the discomfort she experiences with intercourse with her partner in any way during the exam in an effort to locate any potential pathology for her. General: Yes bladder normal to palpation External Female Exam: normal external appearance and normal appearance of the urethra Speculum Exam - Vagina: normal appearance of the vagina, normal palpation and normal vaginal discharge Speculum Exam - Cervix: normal appearance of the cervix, normal palpation and nontender Bimanual exam- vagina & uterus: normal bimanual exam, normal palpation, uterine size normal, bladder normal to palpation, consistency normal, normal palpation, uterine mobility normal, uterine shape normal, No Cervical tenderness present, non-tender and no cervical motion tenderness Bimanual Exam- Adnexa, other: normal adnexae, no masses, normal and No adnexal tenderness Neuro General: patient oriented x3 Assessment & Plan Assessment & Plan (1) Hx of abnormal cervical Pap smear: Comment: see detail of hx of paps 2022,( 2005 ted 1, 2017= ascus, last pap neg 03/16/22. Code(s): Z87.42 - Personal history of other diseases of the female genital tract Category: Medical (2) Cervical cancer screening: Comment: 03/16/2022 Pap is negative with negative HPV.; 03/20/2023 Pap is negative with negative HPV. Code(s): Z12.4 - Encounter for screening for malignant neoplasm of cervix Category: Medical (3) Screen for sexually transmitted diseases: Code(s): Z11.3 - Encounter for screening for infections with a predominantly sexual mode of transmission Category: Medical (4) Well woman exam with routine gynecological exam: Code(s): Z01.419 - Encounter for gynecological examination (general) (routine) without abnormal findings Category: Medical (5) History of tubal ligation: Code(s): Z98.51 - Tubal ligation status Category: Surgical (6) Anxiety disorder: Comment: She does have chronic anxiety disorder/mild depression. It goes along with chronic fibromyalgia disorder. I see that she is on small doses of escitalopram . She does not use any anxiolytic meds. Code(s): F41.9 - Anxiety disorder, unspecified Category: Medical (7) Dysphagia, pharyngoesophageal phase: Code(s): R13.14 - Dysphagia, pharyngoesophageal phase Category: Medical (8) Ineffective esophageal motility: Code(s): K22.4 - Dyskinesia of esophagus Category: Medical Plan -----Discussed in this visit the following: healthy balanced diet, regular and consistent exercise, getting recommended health screens, doing the best she can for her particular health concerns, kegel exercises, pap smear screening and followup recommendations, mammography screening and SBE, normal changes in cycles in her life stage--- . She is up-to-date on her mammograms and Pap smears. She declined STI testing during the exam but then accepted it and requested it for blood work for HIV hep B hep C and syphilis discussed that even if her partner's drinking too much and abusing his health, if there is no concerned about infectious hepatitis overuse of alcohol or other drug substances would not necessarily affect her health, other than in the major ways of dealing with the anxiety of a family member who is not making the best choices for himself and therefore affecting family health and dynamics in other ways. I suggested she ask her therapist about Al-Anon and have a conversation about whether not it maybe a useful avenue of support for her or her daughter . I did my best to explain that this is a voluntary support organization and is not in any way a referral. Also discussed where she appears to be in her cycle and that things looked extremely healthy and I could not find any cause of pain. rtc 1 yr. Orders: Orders Hepatitis B Surface Antigen Today Z01.419 - Encounter for gynecological examination (general) (routine) without abnormal findings, Z11.3 - Encounter for screening for infections with a predominantly sexual mode of transmission, Z12.4 - Encounter for screening for malignant neoplasm of cervix, Z87.42 - Personal history of other diseases of the female genital tract Hepatitis C Antibody Today Z01.419 - Encounter for gynecological examination (general) (routine) without abnormal findings, Z11.3 - Encounter for screening for infections with a predominantly sexual mode of transmission, Z12.4 - Encounter for screening for malignant neoplasm of cervix, Z87.42 - Personal history of other diseases of the female genital tract Syphilis Screen Today Z01.419 - Encounter for gynecological examination (general) (routine) without abnormal findings, Z11.3 - Encounter for screening for infections with a predominantly sexual mode of transmission, Z12.4 - Encounter for screening for malignant neoplasm of cervix, Z87.42 - Personal history of other diseases of the female genital tract HIV Ab/Ag Today Z01.419 - Encounter for gynecological examination (general) (routine) without abnormal findings, Z11.3 - Encounter for screening for infections with a predominantly sexual mode of transmission, Z12.4 - Encounter for screening for malignant neoplasm of cervix, Z87.42 - Personal history of other diseases of the female genital tract Coding Level of Care Code Est Pt Prev Care 40-64y(23354) Diagnoses Hx of abnormal cervical Pap smear Z87.42 Cervical cancer screening Z12.4 Screen for sexually transmitted diseases Z11.3 Well woman exam with routine gynecological exam Z01.419 History of tubal ligation Z98.51 Anxiety disorder F41.9 Dysphagia, pharyngoesophageal phase R13.14 Ineffective esophageal motility K22.4
[2025-03-28 10:08] VITALS: BP 118/78; BMI 31.0
== END 2025-03-28 11:15 | disposition home or self-care (01) ==
LOC: HO.HWS 09:58
PROVIDERS: PCP General Practice; Visit Provider Advanced Practice Midwife
DX: Z01.419 Encounter for gynecological examination (general) (routine) without abnormal findings (principal); F41.9 Anxiety disorder, unspecified; R13.14 Dysphagia, pharyngoesophageal phase; K22.4 Dyskinesia of esophagus; Z98.51 Tubal ligation status; Z87.42 Personal history of other diseases of the female genital tract; Z11.3 Encounter for screening for infections with a predominantly sexual mode of transmission
CPT/HCPCS: 99396; 99459

== ENCOUNTER 2025-03-28 09:58 | Outpatient (REF) | payer MEDICARE, MEDICAID, SELFPAY ==
[2025-03-29 08:18] LABS: Syphilis Screen Nonreactive (Nonreactive)
[2025-03-29 08:38] LABS: HBsAGNum1 0.42 S/CO (0.00-0.99); HIV Num 1 0.05 S/CO (0.00-0.99); Hepatitis B Surface Antigen Negative (Negative); ~HepC Num1 0.09 S/CO (0.00-0.79); ~Hepatitis C Antibody Nonreactive (Nonreactive)
== END 2025-03-28 09:59 | disposition home or self-care (01) ==
LOC: HO.LAB 09:58
PROVIDERS: PCP General Practice; Visit Provider Advanced Practice Midwife
DX: Z12.4 Encounter for screening for malignant neoplasm of cervix (principal); Z11.4 Encounter for screening for human immunodeficiency virus [HIV]; Z11.59 Encounter for screening for other viral diseases; Z87.42 Personal history of other diseases of the female genital tract; F41.9 Anxiety disorder, unspecified; R13.14 Dysphagia, pharyngoesophageal phase; K22.4 Dyskinesia of esophagus; Z98.51 Tubal ligation status; Z72.89 Other problems related to lifestyle
CPT/HCPCS: 36415; 86780; 86803; 87340; 87389; 99396

== ENCOUNTER 2025-05-18 04:28 | Emergency (ER) | payer MEDICARE, MEDICAID, SELFPAY ==
[2025-05-18] VITALS (7 sets, daily range): BP systolic 104–136; BP diastolic 53–80; PULSE 80–100; RESP 16–18; TEMP 36.5–37.2; O2SAT 97–100; BMI 36.6
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
--- NOTE | 2025-05-18 05:19 | PC.NURSE ---
triage was delayed d/t PD being present at bedside
--- OUTSIDE RECORDS SUMMARY | 2025-05-18 05:32 | XMS_ITS | Clinical Summary ---
Author Organization [employer] Address [address] [place] [address] [address] [place] [address] Care Team Providers Care Catering Associate Name Role Phone Batsheva Cabrera MD Primary Care Provider [phone] Allergies Active Allergy Reactions Criticality Noted Date [...] A DAY NEEDED FOR ANXIETY 4 Active Cholecalciferol (Vitamin D3) 5000 UNIT/ML liquidIndication s:Vitamin D deficiency GIVE 0.6MLS BY MOUTH EVERY DAY 4 Active omeprazole (PriLOSEC) [address] capsuleIndicatio ns:Gastroesophag eal reflux disease without esophagitis TAKE 1 CAPSULE BY MOUTH 2 TIMES A DAY BEFORE MEALS. 4 Active fluticasone-salm eterol (Advair HFA) 45-21 MCG/ACT inhaler Inhale 2 puffs in the morning and at bedtime. 12 g 11 4 Active bisacodyl (Dulcolax) 5 MG EC tablet TAKE 4 TABS BY MOUTH ONCE FOR COLON PREP FOR 1 DAY AT 12 PM THE DAY BEFORE COLONOSCOPY APPOINTMENT Active GaviLAX 17 GM/SCOOP powder PLEASE SEE ATTACHED FOR DETAILED DIRECTIONS 5 Active albuterol (Ventolin HFA) 108 (90 Base) MCG/ACT inhalerIndicatio ns:Viral upper respiratory illness Inhale 2 puffs every 6 (six) hours if needed for wheezing. 18 g 6 5 Active ibuprofen 600 MG tabletIndication s:Chronic pain in left shoulder Take 1 tablet (600 mg) by mouth every 6 (six) hours if needed for mild pain. 30 tablet 2 5 01/28/20 26 Active fluticasone (Flonase) 50 MCG/ACT nasal sprayIndications :Viral upper respiratory tract infection ADMINISTER 1-2 SPRAYS INTO EACH NOSTRIL ONCE PER DAY. SHAKE GENTLY. BEFORE FIRST USE, PRIME PUMP. AFTER USE, CLEAN TIP AND REPLACE CAP. 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 Next apt 03/18/2024 and advised to start [...] AM EDT): Completed functional dyspepsia [place] [facility] Follow their recommendations Normal mammography 03/08/2021 Avoidant-restrictive [...] PM EST): Completed functional dyspepsia study at [facility] [place] [facility] Seeing surgeon, presumably to talk about fundoplication GI started her on Boost Assessment & Plan (10/31/2022 8:56 AM EDT): Continue omeprazole per GI Has upcoming EGD in November with Dr Araujo [place] [facility] Anxiety 01/30/2021 Assessment & Plan (09/06/2024 3:14 [...] Encounters Date Type Department Care Team Description 04/22/[address] [address] Kathleen Rehman RN NTTS report 03/28/2025 Orders Only GENERIC EXTERNAL DATA DEPARTMENT Provider, Generic External Data 03/07/2025 Orders Only GENERIC EXTERNAL DATA DEPARTMENT Provider, Generic External Data 02/21/2025 Refill [facility] [address] [place] [address] Sumi Almaguer MD Viral upper respiratory tract infection from Last 3 Months Immunizations Immunization Administration [...] t he electric, gas, oil or water [employer] threatened to shut off services in your [...] 01/27/2025 1:00 PM EDT Plan of Treatment Upcoming Encounters Date Type Department Care Team (Late st Contact Info) Description 06/17/2025 11:30 AM EST Office Visit [facility]INE [address] [place] [address] Batsheva Cabrera MD [address] [place] [address] Health Maintenance Due Date Last Done Comments CT Colonography 1975 Colonoscopy 1975 FIT DNA/Cologuard 1975 FIT 1975 FOBT 1975 Sigmoidoscopy 1975 Pneumococcal Vaccine: 50+ Years (1 of 2 - PCV) 1994 DTaP/Tdap/Td Vaccines (6 - Td or Tdap) 04/14/2021 04/14/2011, 04/24/1989, 12/10/1981, Additional history exists COVID-19 Vaccine ( - season) 2025 Influenza Vaccine (#1) 2025 04/10/2014 RSV Patients and Patients Aged 60 years or older (1 - Risk 50-74 years 1-dose series) 2025 Zoster Vaccines (1 of 2) 2025 Depression [...] Additional history exists Pap Smear 03/16/2027 03/16/2022 IPV Vaccines Completed 04/24/1989, 11/18, 10/08/1980, Additional history exists Hepatitis B Vaccines Completed 03/22/2016, 11/10/2015, 10/09/2015 HIV Screening Completed 03/28/2025, 12/17, 06/21/2019 Hepatitis C Screening Completed 03/28/2025 , 05/10/2023, 01/10/2020, Additional history exists HIB Vaccines Aged Out [...] Procedure Name Priority Date/Time Associated Diagnosis Comments HEPATITIS B SURFACE ANTIGEN, EIA Routine 03/28/2025 11:39 AM EDT HIV 1/2 ANTIGEN/ANTIBODY, FOURTH GENERATION W/RFL Routine 03/28/2025 11:39 AM EDT HEPATITIS C ANTIBODY Routine 03/28/2025 11:39 AM EDT SYPHILIS SCREEN Routine 03/28/2025 11:39 AM EDT BASIC METABOLIC PANEL Routine 03/07/2025 10:28 AM EDT CBC Routine 03/07/2025 10:28 AM EDT BI MAMMOGRAM SCREENING TOMOSYNTHESIS BILATERAL Routine 12/26/2024 11:45 AM EDT Encounter for screening mammogram for malignant neoplasm of breast ZZZ HISTORICAL HPV E6/E7 RFLX VY 16 18/45 Routine 03/16/2022 10:25 AM EDT HM PAP/HPV Routine 03/16/2022 from Last 3 Months or Most Recently Relevant to Health Maintenance Results * Syphilis Screen (03/28/2025 11:39 AM EDT) Syphilis Screen Nonreactive Nonreactive [facility] 03/28/2025 11:3 9 AM EDT 03/28/2025 11:39 AM EDT us Generic External Data Provider LAB BLOOD ORDERAB LES Final Result Performing Organization Address [facility] Co de Phone Number [facility] [address] [place] [phone] * Hepatitis C Ab (03/28/2025 11:39 AM EDT) Hepatitis C Antibody Nonreactive Nonreactive [facility] Comment:Antibodies to HCV no t detected; does not exclude early acuteHCV infection. 03/28/2025 11:3 9 AM EDT 03/28/2025 11:39 AM EDT Generic External Data Provider LAB BLOOD ORDERAB LES Final Result Performing Organization Address [facility] Co de Phone Number [facility] [address] [place] [phone] * Hepatitis B surface antigen, EIA (03/28/2025 11:39 AM EDT) [facility] Hepatitis B Surface Ag Negative Negative [facility] 03/28/2025 11:3 9 AM EDT 03/28/2025 11:39 AM EDT us Generic External Data Provider LAB BLOOD ORDERAB LES Final Result [facility] [address] [place] [phone] * HIV-1/2 Antigen and Antibodies, Fourth Generation, with Reflexes (03/28/2025 11:39 AM EDT) [facility] HIV AB/AG Nonreactive Nonreactive [facility] Comment:HIV-1 p24 Ag and/or HIV-1/HIV-2 Ab not detected.A test result that is nonreactive does not exclude thepossibility of exposure to or infection with HIV-1 and/orHIV-2. Nonreactive results in this assay for individualswith prior exposure to HIV-1 and/or HIV-2 may be due toantigen and antibody levels that are below the limit ofdetection of this assay.[facility] [employer] [facility] [employer] [facility] HIV Ag/Ab Combo assay result andsupplemental assay results should be interpreted inconjunction with the patient's clinical presentation,history and other laboratory results. If the results areinconsistent with clinical evidence, additional testing issuggested to confirm the result. 03/28/2025 11:3 9 AM EDT 03/28/2025 11:39 AM EDT us Generic External Data Provider LAB BLOOD ORDERAB LES Final Result [facility] [address] [place] [phone] * CBC (03/07/2025 10:28 AM EDT) White Blood Count 6.7 4.8 - 10.8 X10*3/uL [facility] Red Blood Count 4.48 4.20 - 5.50 X10*6/uL [facility] Hemoglobin 12.9 12.0 - 16.0 g/dl [facility] Hematocrit 38.1 37.0 - 47.0 % [facility] Mean Corpuscular Volume 85.0 80.0 - 98.0 fL [facility] Mean Corpuscular Hemoglobin 28.8 27.0 - 33.0 pg [facility] Mean Corpuscular HGB Conc 33.9 31.0 - 35.0 g/dl [facility] Red Cell Distribution Width 13.3 11.0 - 16.0 % [facility] Platelet Count 246 160 - 400 X10*3/uL [facility] Mean Platelet Volume 10.3 9.4 - 12.3 fL [facility] NRBC Pct Auto 0.0 0.0 - 0.2 /100WBC [facility] NRBC Abs Auto 0.000 0.0 - 0.012 X10*3/uL [facility] 03/07/2025 10:2 8 AM EDT 03/07/2025 10:28 AM EDT us Generic External Data Provider LAB BLOOD ORDERAB LES Final Result Performing Organization Address City/State/[facility] Co de Phone Number [facility] [address] [place] [address] [place] [phone] * BI Mammogram Screening Tomosynthesis Bilateral (12/26/2024 11:45 AM EDT) Anatomical Region Laterality Modality Breast Bilateral Mammography 12/26/2024 11:4 5 AM EDT Narrative 01/09/2025 11:43 AM EDT [facility] [address] [place] [address] Mammography Report Signed Patient: Crystal Ivan MR#: [id number] : 1975 Acct:[id number] Age/Sex: 49 / F ADM Date: 12/26/24 Loc: [facility] Attending Dr: Batsheva Cabrera MD Ordering Physician: Batsheva Cabrera Results: 1Negative Date of Service: 12/26/24 Follow Up: 1 Year From Orig ina Mammogram Procedure(s): MM tomosynthesis screening BI Accession Number(s): [id number] cc: Batsheva Cabrera EXAMINATION: MM SCREENING DIGITAL [...] Mireya Fernández DO 01/09/2025 11:40 AM EDT Dictated By: Mireya Fernández DO Signed By: <Electronically signed by Mireya Fernández DO in OV> 01/09/25 1140 DD/ 1145 TD/TT: 12/26/24 1200 Pricing Analyst: Procedure Note Donotuseinterpreter, Image - 01/09/2025 [facility] [address] [place], [place] [address] Mammography Report Signed Patient: Srinivas Ivan#: [id number] : 1975Acct:[id number] Age/Sex: 49 / FADM Date: 12/26/24 Loc: [facility] Attending Dr: Batsheva Cabrera MD Ordering Physician: Rick,SophiaResults: 1Negative Date of Service: 12/26/24Follow Up: 1 Year From Orig inal Mammogram Procedure(s): MM tomosynthesis screening BI Accession Number(s): [id number] cc: Batsheva Cabrera EXAMINATION: MM SCREENING DIGITAL [...] for their next mammogram. Electronically signed by: Miryea Frenández DO 01/09/2025 11:40 AM EDT Workstation: [id number] Dictated By: Mireya Fernández DO Signed By: <Electronically signed by Mireya Fernández DO in OV> 01/09/25 1140 DD/ 1145 TD/TT: 12/26/24 1200 Pricing Analyst: Batsheva Cabrera MD [facility] [place] PROCEDURES Edited Resul t - Final * HPV E6/E7 RFLX VY 16 18/45 (03/16/2022 10:25 AM EDT) HPV mRNA E6/E7 rflx Not Detected Not Detected [facility] Comment: Methodology: [employer]-Mediated Amplification This assay detects E6/E7 viral messenger RNA (mRNA) from 14 high-risk HPV types (16,18,31,33,35,39,45,51,52,56,58,59,66,68). Cervical sources are required for HPV testing. If a vaginal source from a patient who has had a total hysterectomy with removal of cervix was submitted, please contact the testing laboratory for alternative testing options. For additional information, please refer to http://education.[employer]/faq/GIP560u3 (This link if provided for information/ educational purposes only.) THIS TEST WAS PERFORMED AT: [facility] [facility] [address] [place] [address],[place] [phone] EMERY FIGUEROA MD 03/16/2022 10:2 5 AM EDT Rad[facility] HISTORICAL/NON ORDERABLE LABS Fi nal Result [facility] * Pap Smear (03/16/2022) Pap smear done [place]16/20[place] [facility] [place] Provider HEALTH MAINTENANCE Final Result from Last 3 Months or Most Recently Relevant to Health Maintenance Insurance [facility] STAND[facility] MEDICARE Care Teams Catering Associate Relationship Specialty Start Date End Date Batsheva Cabrera MD [address] [place] [phone] PCP - General Family Medicine 07/24/20
--- OUTSIDE RECORDS SUMMARY | 2025-05-18 05:32 | XMS_ITS | Encounter Summary ---
Author Organization [employer] Address [address] [facility] [address] [place] [address] Care Team Providers Care Shift Boss Name Role Phone Batsheva Cabrera MD Primary Care Provider [phone] Reason for Visit * Reason Comments Med Change Request Encounter Details Date Type Department Care Team ([facility] Contact Info) Description 06/13/2024 Refill [facility] [address] [place] [address] Sumi Almaguer MD [address] [place] [address] Viral upper respiratory tract infection Social History [...] Description 06/17/2025 11:30 AM EST Office Visit [facility] [address] [place] [address] Batsheva Cabrera MD [address] [place] [address] documented as of this encounter Visit Diagnoses Diagnosis Viral upper respiratory tract infection Acute upper respiratory infections of unspecified site documented in this encounter Care Teams Shift Boss Relationship Specialty Start Date End Date Batsheva Cabrera MD [address] [place] [address] PCP - General Family Medicine 07/24/20 documented as of this encounter
--- OUTSIDE RECORDS SUMMARY | 2025-05-18 05:32 | XMS_ITS | Encounter Summary ---
Author Organization [facility] Address [address] [place] [address] Phone Care Team Providers Care Director Of Event Management Name Role Phone Gonzalez Araujo MD Unavailable [phone] [facility], [facility] Primary Care Provider Encounter Details Date Type Department Care Team (Late st Contact Info) Description 10/15/[address] [facility] OTILIO 4 ENDO DEPT 55 [facility], 4th [place] [address] Social History Tobacco Use Types Packs/Day Years [...] on filedocumented in this encounter Care Teams Director Of Event Management Relationship Specialty Start Date End Date [facility] 230 [place] [address] PCP - General 05/18/21 Gonzalez Araujo MD [address] [place] [address] Dr [address] [place] [address] Gastroenterology 01/24/21 documented as of this encounter Additional Source Comments The information contained in this document represents components of the legal health record. It is not the complete legal health record.[facility]
--- OUTSIDE RECORDS SUMMARY | 2025-05-18 05:32 | XMS_ITS | Encounter Summary ---
Author Organization [employer] Address 75 [facility] 7t [place] [address] Care Team Providers Care Toppiece Chopper Name Role Phone Batsheva Cabrera MD Primary Care Provider Reason for Visit * Reason Comments Med Change Request Encounter Details Date Type Department Care Team ([facility] Contact Info) Description 04/28/2024 Refill [facility] MEDICINE 230 [place] [address] Batsheva Cabrera MD 230 [place] [address] Social History Tobacco Use Types Packs/Day Years [...] Description 06/17/2025 11:30 AM EST Office Visit [facility] MED[facility]INE [address] [place] [address] [phone] Batsheva Cabrera MD [address] [place] [address] documented as of this encounter Visit Diagnoses Not on filedocumented in this encounter Care Teams Toppiece Chopper Relationship Specialty Start Date End Date Batsheva Cabrera MD [address] [place] [address] [phone] PCP - General Family Medicine 07/24/20 documented as of this encounter
--- OUTSIDE RECORDS SUMMARY | 2025-05-18 05:32 | XMS_ITS | Encounter Summary ---
Author Organization [employer] Address [address] [place] [address] 7t [place] [address] Care Team Providers Care Education Intern Name Role Phone Batsheva Cabrera MD Primary Care Provider Reason for Referral * Consultation (Routine) - Closed Specialty Diagnoses / Procedures Referred By Contac t Referred To Contact Physical Therapy Diagnoses Spondylosis of cervical region without myelopathy or radiculopathy Batsheva Cabrera MD [address] [place] [address] Phone: tel: fax: [facility] Physical Therapy [address] [place] [address] Phone: tel: fax: Referral ID Status Reason Start Date Expiration Date V isits Requested Visits Authorized [id number] Closed Specialty Services Required 05/15/2024 05/15/2025 1 1 Encounter Details Date Type Department Care Team (Late st Contact Info) Description 05/15/2024 Orders Only [facility] MEDICINE 230 [place], [place] [phone] Batsheva Cabrera MD [address] [place], [place] [phone] Spondylosis of cervical region without myelopathy or [...] Description 06/17/2025 11:30 AM EST Office Visit [facility] MEDICINE 230 [place] [address] Batsheva Cabrera MD 230 [place] [address] Scheduled Referrals Name Type Priority Associated Diagnoses [...] AM EST Narrative 06/13/2024 3:12 AM EST [address] [address] [address] Scan Report Signed Patient: Crystal Ivan MR#: [id number] : 1975 Acct:[id number] Age/Sex: 49 / F ADM Date: 06/13/24 Loc: HO.ED Attending Dr: Ordering Physician: Pb Light MD Date of Service: 06/13/24 Procedure(s): CT head/brain wo IV con Accession Number(s): [id number] cc: Batsheva Cabrera; Pb Light MD EXAMINATION: [...] Jose Escalante MD 06/13/2024 03:08 AM EST Dictated By: Jose Escalante MD Signed By: <Electronically signed by Jsoe Escalante MD in OV> 06/13/24 0308 DD/ 1 TD/TT: 06/13/24229 Ballpoint Pen Cartridge Tester: Procedure Note Donotuseinterpreter, Image - 06/13/[address] [address] [address] Scan Report Signed Patient: Crystal IvanMR#: [id number] : 1975Acct:[id number] Age/Sex: 49 / FADM Date: 06/13/24 Loc: HO.ED Attending Dr: Ordering Physician: Pb Light MD Date of Service: 06/13/24 Procedure(s): CT head/brain wo IV con Accession Number(s): [id number] cc: Batsheva Cabrera; Pb Light MD EXAMINATION: [...] by: Jose Escalante MD 06/13/2024 03:08 AM [facility] Dictated By: Jose Escalante MD Signed By: <Electronically signed by Jose Escalante MD in OV> 06/13/24 0308 DD/ 1 TD/TT: 06/13/24229 Ballpoint Pen Cartridge Tester: [facility] External Provider IMG CT PROCEDURES Edited Result - Final documented in this encounter Visit Diagnoses Diagnosis Spondylosis of cervical region without myelopathy or radiculopathy- Primary documented in this encounter Care Teams Education Intern Relationship Specialty Start Date End Date Batsheva Cabrera MD [address] [place] [address] PCP - General Family Medicine 07/24/20 documented as of this encounter
--- OUTSIDE RECORDS SUMMARY | 2025-05-18 05:32 | XMS_ITS | Encounter Summary ---
Author Organization [employer] Address 75 [facility] 7t [place] [address] Care Team Providers Care Java Manager Name Role Phone Batsheva Cabrera MD Primary Care Provider [phone] Reason for Visit * Reason Onset Date Comments Results 06/07/2023 Encounter Details Date Type Department Care Team ([facility] st Contact Info) Description 06/07/2023 Telephone [facility] MEDICINE 230 [place] [address] Batsheva Cabrera MD 230 [place] [address] Results Social History Tobacco Use Types Packs/Day [...] 9:57 AM EST TC placed to pt [phone] in regards to below message. Pt reports [...] Description 06/17/2025 11:30 AM EST Office Visit [facility] MEDICINE [address] [place] [address] Batsheva Cabrera MD [address] [place] [address] documented as of this encounter Visit Diagnoses Not on filedocumented in this encounter Care Teams Java Manager Relationship Specialty Start Date End Date Batsheva Cabrera MD 230 [place] [address] PCP - General Family Medicine 07/24/20 documented as of this encounter
--- OUTSIDE RECORDS SUMMARY | 2025-05-18 05:32 | XMS_ITS | Clinical Summary ---
Author Organization [facility] Address [address] [facility] [address] [place] [address] Phone Care Team Providers Care Hemodialysis Lab Technician Name Role Phone Gonzalez Araujo MD Unavailable [phone] [facility], Facility Primary Care Provider Allergies No known [...] ONE-TIME SCREENING (18-65 YEARS) 1993 PNEUMOCOCCAL VACCINES (50+ years) (1 of 2 - PCV) 1994 PAP SMEAR 1996 SCREENING FOR DIABETES 2010 COLOGUARD 2020 COLONOSCOPY 2020 COLORECTAL CANCER SCREENING 2020 FIT TEST 2020 FOBT 2020 SIGMOIDOSCOPY 2020 VIRTUAL COLONOSCOPY 2020 Adult Td,Tdap Booster 04/14/2021 04/14/2011 MAMMOGRAM 07/14/2024 07/14/2022, 06/20, 07/12/2021, Additional history exists INFLUENZA VACCINE (#1) 2025 04/10/2014 COVID-19 VACCINE (1 - 2024- season) 2025 RSV VACCINE (1 - Risk 50-74 years 1-dose series) 2025 ZOSTER VACCINES (1 of 2) 2025 SMOKING STATUS SCREENING (Once After 26 [...] Devices Not on file Insurance C3 ACO [facility] C3 ACO C3 ACO C3 ACO C3 ACO C3 ACO C3 [employer]CO [address] [place] [address] [place] [address] C3 ACO C3 [employer] Care Teams Hemodialysis Lab Technician Relationship Specialty Start Date End Date [facility] 230 [place] [address] PCP - General 05/18/21 Gonzalez Araujo MD [address] [place] [address] [address] [place] [address] Gastroenterology 01/24/21 Additional Source Comments The information contained in this document represents components of the legal health record. It is not the complete legal health record.[facility]
--- OUTSIDE RECORDS SUMMARY | 2025-05-18 05:33 | XMS_ITS | Encounter Summary ---
Author Organization [employer] Address 75 [facility] 7t [place] [address] Care Team Providers Care Newspaper Peddler Name Role Phone Batsheva Cabrera MD Primary Care Provider [phone] Reason for Visit * Reason Onset Date Comments Results 03/23/2023 Encounter Details Date Type Department Care Team ([facility] st Contact Info) Description 03/23/2023 Telephone [facility] MEDICINE 230 [place] [address] Batsheva Cabrera MD 230 [place] [address] Results Social History Tobacco Use Types Packs/Day [...] 11:00 AM EDT TC placed to pt [phone] in regards to below message. Pt informed [...] xray results . States were done at [facility] . documented in this encounter Plan of Treatment Upcoming Encounters Date Type Department Care Team (Late st Contact Info) Description 06/17/2025 11:30 AM EST Office Visit [facility] MED[facility] 230 [place] [address] Batsheva Cabrera MD 230 [place] [address] documented as of this encounter Visit Diagnoses Not on filedocumented in this encounter Care Teams Newspaper Peddler Relationship Specialty Start Date End Date Batsheva Cabrera MD [address] [place] [address] PCP - General Family Medicine 07/24/20 documented as of this encounter
--- OUTSIDE RECORDS SUMMARY | 2025-05-18 05:33 | XMS_ITS | Encounter Summary ---
Author Organization [facility] Address [address] [place] [address] 7t [place] [address] Care Team Providers Care Weighmaster Lead Name Role Phone Batsheva Cabrera MD Primary Care Provider [phone] Encounter Details Date Type Department Care Team (Late st Contact Info) Description 08/01/2022 Orders Only [facility] MEDICINE [address] [place] [address] [phone] Mamie [facility] LPN Social History Tobacco Use [...] Description 06/17/2025 11:30 AM EST Office Visit [facility] MEDICINE [address] [place] [address] [phone] Batsheva Cabrera MD [address] [place] [address] [phone] documented as of this encounter Visit Diagnoses Not on filedocumented in this encounter Care Teams Weighmaster Lead Relationship Specialty Start Date End Date Batsheva Cabrera MD 230 [place] [address] PCP - General Family Medicine 07/24/20 documented as of this encounter
--- OUTSIDE RECORDS SUMMARY | 2025-05-18 05:33 | XMS_ITS | Data Portability ---
Author Organization [facility] Address [address] [address] Care Team Providers Care Seat Trimmer Name Role Phone SRIDEVI SILVESTRE Primary Care [...] copy of her audiogram, a list of [facility] hearing aid providers, and medical clearance to pursue this at her convenience. If she changes her mind and would like to proceed with surgery she can come back to see me in the future as needed. [email or web address] Not available 09/11/2024 14:15:13 Plan of Treatment [...] Details Recorded Time Hypertrop hy of tonsils 33040953 Active 2017 Hypertrop hy of tonsils; Note: Date Diagnosed : 8 1:12 PM (J35.1) Not Available [facility] 4 02:28:55 Dysphagia 78135340 Active 2017 Other dysphagia ; Note: Date Diagnosed : 8 1:08 PM (R13.19) Not Available [facility] 4 02:29:05 Injury of thyroid gland 747664907 Active 2017 Other specified injuries of thyroid gland, initial encounter ; Note: Date Diagnosed : 8 1:13 PM (S19.84XA ) Not Available [facility] 4 02:29:00 Non-toxic uninodula r goiter 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 Procedures Surgical History Date Name Laterality Status Provider Name and Address Organization Details Recorded Time 5 Comp Audio with Tymps - 01095 & 01959 completed ARMAAN SAUNDERS AUD [address] [facility] [address], [place], [address], [place] - [facility] 09/10/2024 12:08:22 4 Comp Audio with Tymps - 44303 & 20059 completed ANI BENOIT, AUD [address],[place] [facility], [place], [address], [place] - [facility] 06/17/2024 10:34:55 4 Cerumen removal without microscope left completed Jackelin Driver [facility] 06/17/2024 11:22:21 Imaging Results None recorded. Procedure Notes None recorded. Medical Equipment None Reported. Allergies Allergen ID Allergen Name Allergen Category Reaction Reaction Severity Criticality Documentation Date Start Date Code Code System Note Provider Name and Address Organization Details Recorded Time 346503 cannabidi ol medicatio n hives moderate Not available 09/10/2024 71 RxNorm Jenae walters [place] [facility] 11:38:22 Medications Name Sig Start Date Stop [...] Details Last Updated DateTime 09/10/2024 170.18 cm 25582.47 g Jenae Barry [facility] 09/10/2024 11:38:14 Date Recorded Body weight Body mass index (BMI) Body height Provider Name and Address Organization Details Last Updated DateTime 06/17/2024 79187.47 g 31.3 kg/m2 170.18 cm Nancy Griffin [facility] 06/17/2024 10:05:54 Social History None recorded. Functional Status None recorded. Mental Status None recorded. Family History Nothing Reported. Medical History Condition Response Allergies/Hayfever Y Anxiety Y Emphysema N Migraines N Developmental Delay N Depression Y COPD N Glaucoma N Nasal or Sinus Problems N Anesthesia Complications Y Heart Attack (CT) N Other Skin Condition N Diabetes N Rhinitis N Bleeding Disorder N Food Allergy N Hearing Loss Y Arthritis Y Cancer N Stroke N Dementia N Nasal polyps N Asthma Y Sleep Disorder Y High Cholesterol N GERD/Reflux Y Liver Disease N Headaches N Fibromyalgia Y Speech Delay N Kidney Disease N Gynecological HistoryNo gynecological history recorded. Obstetrics History GPAL:G 0 P 0 0 0 0 Past Encounters Encounter ID Performer Location Encounter Start Date Encounter Closed Date Diagnosis/Indication Diagnosis SNOMED-CT Code Diagnosis ICD10 Code Diagnosis IMO Codes Diagnosis Note [id number] JACKELIN DRIVER PA-C [facility] [address] [address] 06/17/2024 09:59:17 06/17/2024 11:31:10 Conductive hearing loss 17890209 H90.11 Otoscleros is of ossicle of right ear 1266442868 517938 H80.91 Impacted c erumen in left ear 2104445773 349764 H61.22 [id number] ZEKE AGUILAR [facility] [address] [address] 06/17/2024 10:34:16 06/20/2024 14:57:33 Conductive hearing loss 05092825 H90.2 Audiologic al evaluation results:Ri ght ear:Mild conductive hearing loss with excellent word recognitio n.Left ear:Normal auditory thresholds with excellent word recognitio n.Tympanom etry:Right Ear:Type AsLeft Ear:Type [place]. [id number] CHERYL RAMIREZ MD [facility] [address] [address] 09/10/2024 11:18:40 09/10/2024 12:23:08 Mixed conductive and sensorineural hearing loss of right ear 9932773239 9105 H90.71 Audiologic al evaluation results: 09/10/2024 Right ear: Mild rising to normal mixed hearing loss with excellent word recognitio n. Left ear: Normal hearing with excellent word recognitio n. Tympanomet ry: Right Ear:Type A Left Ear:Type A Otoscleros is of ossicle of right ear 1722256508 799109 H80.91 [id number] ZEKE PERAZA [facility] [address] [address] 09/10/2024 12:07:13 09/16/2024 13:25:42 Mixed conductive and sensorineural hearing loss of right ear 7716555984 9105 H90.71 Audiologic al evaluation results: 09/10/2024 [...] Member ID Guarantor Name 09/26/2024 2 [place] [facility] Crystal Ivan [id number] Crystal Ivan 09/10/2024 1 MEDICARE B-[place]: [employer] Crystal Ivan [id number] Crystal Ivan Notes Date Note Type Note Provider Name and Address Organization Details Recorded Time 06/17/2024 text/html ROS as noted in the HPI 49 year old female presents for evaluation of ears. States that [...] known family history of early hearing loss. Jackelin walters [facility] 06/17/2024 12:33:13 06/17/2024 text/html Audiological Evaluation HPIReported by PatientHearing LossFor hearing loss perceived, patient reportshearing loss in both ears (right ear worse).TinnitusFor tinnitus reported, patient reportsright ear. ANI BENOIT, [address], [address], [facility] 06/17/2024 10:48:51 09/10/2024 text/html Patient previously seen by Jackelin Driver PA-C. She was noted to have a significant conductive hearing loss in the right ear with absent tympanic reflexes. Patient is unsure how long the hearing loss has been present. She does notice mild roaring tinnitus in the right ear. CHERYL RAMIREZ MD [address] [place] [address], [address], [place] [facility] 09/11/2024 14:15:36 OBGyn Episode No OBEpisode recorded.
--- OUTSIDE RECORDS SUMMARY | 2025-05-18 05:33 | XMS_ITS | Encounter Summary ---
Author Organization [employer] Address [address] [facility] 7t [place] [address] Care Team Providers Care Supervisor Wood Room Name Role Phone Batsheva Cabrera MD Primary Care Provider Reason for Visit * Reason Comments Med Refill Encounter Details Date Type Department Care Team ([facility] Contact Info) Description 01/21/2025 Refill [facility] 230 [place] [address] Sumi Almaguer MD [address] [place] [address] Social History Tobacco Use Types Packs/Day Years [...] Description 06/17/2025 11:30 AM EST Office Visit [facility] [address] [place] [address] Batsheva Cabrera MD [address] [place] [address] documented as of this encounter Visit Diagnoses Not on filedocumented in this encounter Additional Health Concerns Assessment Noted Time PHQ-9 Depression Total Score: 12 025 4:27 PM EDT documented as of this encounter Care Teams Supervisor Wood Room Relationship Specialty Start Date End Date Batsheva Cabrera MD [address] [place] [address] [phone] PCP - General Family Medicine 07/24/20 documented as of this encounter
--- OUTSIDE RECORDS SUMMARY | 2025-05-18 05:33 | XMS_ITS | Encounter Summary ---
Author Organization [employer] Address [address] [facility] 7t [place] [address] Care Team Providers Care Director Of Reservations Name Role Phone Batsheva Cabrera MD Primary Care Provider [phone] Encounter Details Date Type Department Care Team (Late st Contact Info) Description 2023 Orders Only [facility] MEDICINE [address] [place], [place] [phone] Batsheva Cabrera MD [address] [place], [place] [phone] Hand arthritis (Primary Dx) Social History Tobacco [...] Description 06/17/2025 11:30 AM EST Office Visit [facility] [address] [place] [address] Batsheva Cabrera MD [address] [place] [address] documented as of this encounter Visit Diagnoses Diagnosis Hand arthritis- Primary Unspecified arthropathy, hand documented in this encounter Care Teams Director Of Reservations Relationship Specialty Start Date End Date Batsheva Cabrera MD [address] [place] [address] PCP - General Family Medicine 07/24/20 documented as of this encounter
--- OUTSIDE RECORDS SUMMARY | 2025-05-18 05:33 | XMS_ITS | Encounter Summary ---
Author Organization [employer] Address [address] [place] [address] 7t [place] [address] Care Team Providers Care Brewery Pumper Name Role Phone Batsheva Cabrera MD Primary Care Provider [phone] Reason for Visit * Reason Onset Date Comments Durable Medical Equipment 10/04/2022 Encounter Details Date Type Department Care Team ([facility] st Contact Info) Description 10/04/2022 Telephone [facility] MEDICINE 230 [place] [address] Batsheva Cabrera MD [address] [place] [address] Durable Medical Equipment Social History Tobacco Use [...] 2:17 PM EDT Tc [facility] requesting a high position adjustable bed that not a hospital bed. documented in this encounter Plan of Treatment Upcoming Encounters Date Type Department Care Team (Late st Contact Info) Description 06/17/2025 11:30 AM EST Office Visit [facility] MEDICINE [address] [place] [address] [phone] Batsheva Cabrera MD [address] [place] [phone] documented as of this encounter Visit Diagnoses Not on filedocumented in this encounter Care Teams Brewery Pumper Relationship Specialty Start Date End Date Batsheva Cabrera MD [address] [place] [address] [phone] PCP - General Family Medicine 07/24/20 documented as of this encounter
--- OUTSIDE RECORDS SUMMARY | 2025-05-18 05:33 | XMS_ITS | Encounter Summary ---
Author Organization [employer] Address [address] [place] [address] 7t [place] [address] Care Team Providers Care Director Sales And Marketing Name Role Phone Batsheva Cabrera MD Primary Care Provider [phone] Reason for Visit * Reason Onset Date Comments Triage 11/15/2022 Encounter Details Date Type Department Care Team ([facility] st Contact Info) Description 11/15/2022 Telephone [facility] MEDICINE [address] [place] [address] Batsheva Cabrera MD [address] [place] [address] Triage Social History Tobacco Use Types Packs/Day [...] Description 06/17/2025 11:30 AM EST Office Visit [facility] MEDICINE [address] [place] [address] Batsheva Cabrera MD [address] [place] [address] documented as of this encounter Visit Diagnoses Not on filedocumented in this encounter Care Teams Director Sales And Marketing Relationship Specialty Start Date End Date Batsheva Cabrera MD [address] [place] [address] PCP - General Family Medicine 07/24/20 documented as of this encounter
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
[2025-05-18 09:09] LABS: MANUAL DIFF FLAG NO
[2025-05-18 09:17] LABS: Hematocrit 40.1 % (37.0-47.0); Hemoglobin 13.3 g/dl (12.0-16.0); Imm Gran Abs Auto 0.04 X10*3/uL (0.00-0.03); Imm Gran Pct Auto 0.5 % (0.0-0.4); Lymphocytes Absolute Auto 1.4 X10*3/uL (1.2-4.9); Mean Corpuscular HGB Conc 33.2 g/dl (31.0-35.0); Mean Corpuscular Hemoglobin 28.4 pg (27.0-33.0); Mean Corpuscular Volume 85.5 fL (80.0-98.0); NRBC Abs Auto 0.000 X10*3/uL (0.0-0.012); NRBC Pct Auto 0.0 /100WBC (0.0-0.2); Platelet Count 259 X10*3/uL (160-400); Red Blood Count 4.69 X10*6/uL (4.20-5.50); White Blood Count 8.0 X10*3/uL (4.8-10.8)
--- NOTE | 2025-05-18 09:21 | PC.NURSE ---
[employer] currently at bedside to start emergency paperwork, offered pt to call Briquetting Machine Operator to bedside as well, pt relieved at this time
[2025-05-18 09:44] LABS: Alanine Aminotransferase 12 U/L (0-31); Albumin Level 4.2 g/dL (3.5-5.0); Alkaline Phosphatase 84 U/L (39-117); Anion Gap 12 (12-20); Aspartate Amino Transferase 23 U/L (5-31); Blood Urea Nitrogen 9 mg/dL (9-16); Calcium 9.4 mg/dL (8.4-10.2); Carbon Dioxide 23 mmol/L (22-29); Chloride 109 mmol/L (96-108); Creatinine Clr Calc Pharmacy 108.0; Estimated Glomerular Filt Rate > 60; Magnesium 2.1 mg/dL (1.6-2.6); Potassium 3.8 mmol/L (3.3-5.1); Sodium 140 mmol/L (135-145); Total Protein 7.9 g/dL (6.5-8.0)
[2025-05-18] MEDS: iohexoL 350 MG/ML 100 ML INFUS..BTL 70 ML IV (11:35)
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
== END 2025-05-18 15:54 | disposition home or self-care (01) ==
PROVIDERS: Physician Assistant; Emergency Provider Emergency Medicine Emergency Medical Services; PCP General Practice
DX: M54.2 Cervicalgia (principal); T74.11XA Adult physical abuse, confirmed, initial encounter; Y07.030 Male partner, current, perpetrator of maltreatment and neglect
CPT/HCPCS: 36415; 70496; 70498; 80053; 83735; 84702; 85025; 96374; 99284; 99285; Q9967

== ENCOUNTER → 2025-05-18 11:24 | Outpatient (BNV) | payer MEDICARE, MEDICAID, SELFPAY | PROVIDERS: Emergency Provider Emergency Medicine Emergency Medical Services; PCP General Practice; Visit Provider Radiology Diagnostic Radiology | DX: M54.2 Cervicalgia (principal); H92.01 Otalgia, right ear | CPT/HCPCS: 70496; 70498 ==